=== PATIENT | male | born 1945 | race Caucasian/White ===

== ENCOUNTER → 2022-09-27 | Outpatient (CLI) | payer OTHER | END | disposition home or self-care (01) | LOC: LAB 10:26 | PROVIDERS: ATTEND Internal Medicine Hematology & Oncology | DX: I10 Essential (primary) hypertension (principal); E78.00 Pure hypercholesterolemia, unspecified; R73.03 Prediabetes | CPT/HCPCS: 82043; 82306 ==

== ENCOUNTER 2025-04-07 11:50 | Emergency (ER) | payer OTHER ==
[~2025-04-07] VITALS: Ht 172.7 cm; Wt 86.3 kg
--- NOTE | 2025-04-07 11:57 | ED.PDOC ---
SOB-HPI HPI Comments This is a 79 year old male MISA presenting to the ED with chief complaint of SOB. EMS reports patient was at his PCP appointment today when he was found to have an O2 saturation of 75% on RA. EMS relays that the patient was 85% on RA on their monitor, so he was provided a DuoNeb treatment and O2 via NC with improvement. Patient states that he is currently experiencing SOB with associated wheezing and bilateral leg swelling. Patient denies any chest pain, fever, chills, cough, dizziness, or syncope. Time Seen by MD: 11:55 Reviewed notes: Nurses Notes, Iron Melter Notes, Medications, Allergies Information Source: Patient, Emergency Med Personnel Mode of Arrival: EMS Severity: Moderate Timing: Hours Duration: Since onset Context: At Rest PE Risk Factors: None History of: COPD Prehospital treatment: Breathing Tx, Oxygen Modifying Factors: Nothing Associated Signs and Symptoms: Wheeze Past Medical History PAST MEDICAL HISTORY: COPD, HTN Surgical History: Denies all surgeries Family History Family History: Reviewed,noncontributory to illness Social History Smoker: Non-Smoker Alcohol: Denies ETOH Use Drugs: Denies Drug Use Lives In: Home Constitutional: denies: chills, diaphoresis, fatigue, fever, malaise, sweats, weakness, others EENTM: denies: blurred vision, double vision, ear bleeding, ear discharge, ear drainage, ear pain, ear ringing, eye pain, eye redness, hearing loss, mouth pain, mouth swelling, nasal discharge, nose bleeding, nose congestion, nose pain, photophobia, tearing, throat pain, throat swelling, voice changes, others Respiratory: reports: shortness of breath, wheezing; denies: cough, hemoptysis, orthopnea, SOB at rest, SOB with excertion, stridor, others Cardiovascular: reports: edema; denies: chest pain, dizzy spells, diaphoresis, Dyspnea on exertion, irregular heart beat, left arm pain, lightheadedness, palpitations, PND, syncope, others Gastrointestinal: denies: abdomen distended, abdominal pain, blood streaked bowels, constipated, diarrhea, dysphagia, difficulty swallowing, hematemesis, melena, nausea, poor appetite, poor fluid intake, rectal bleeding, rectal pain, vomiting, others Genitourinary: denies: burning, dysuria, flank pain, frequency, hematuria, incontinence, penile discharge, penile sore, pain, testicle pain, testicle swelling, urgency, others Neurological: denies: dizziness, fainting, headache, left sided numbness, left sided weakness, numbness, paresthesia, pre-existing deficit, right sided numbness, right sided weakness, seizure, speech problems, tingling, tremors, weakness, others Musculoskeletal: denies: back pain, gout, joint pain, joint swelling, muscle pain, muscle stiffness, neck pain, others Integumetry: denies: bruises, change in color, change in hair/nails, dryness, laceration, lesions, lumps, rash, wounds, others Allergic/Immunocompromised: denies: Difficulty Healing, Frequent Infections, Hives, Itching, others Hematologic/Lymphatic: denies: anemia, blood clots, easy bleeding, easy bruising, swollen glands, others Endocrine: denies: excessive hunger, excessive sweating, excessive thirst, excessive urination, flushing, intolerance to cold, intolerance to heat, unexplained weight gain, unexplained weight loss, others Psychiatric: denies: anxiety, bipolar disorder, depression, hopeless, panic disorder, schizophrenia, sleepless, suicidal, others All Other Systems: Reviewed and Negative Physical Exam General Appearance: Moderate Distress, Normal HEENT: Normal ENT Inspection, Pharynx Normal, TMs Normal Neck: Full Range of Motion, Non-Tender, Normal, Normal Inspection Respiratory: Chest Non-Tender, Lungs Clear, No Accessory Muscle Use, No Respiratory Distress, Normal Breath Sounds Cardiovascular: No Edema, No JVD, No Murmur, No Gallop, Normal Peripheral Pulses, Regular Rate/Rhythm Breast Exam: Deferred Gastrointestinal: No Organomegaly, Non Tender, No Pulsatile Mass, Normal Bowel Sounds, Soft Genitalia: Deferred Pelvic: Deferred Rectal: Deferred Extremities: No calf tenderness, Normal capillary refill, Normal inspection, Normal range of motion, Non-tender, No pedal edema Musculoskeletal : Apperance: Normal Neurologic: Alert, business development associate II-XII nml as Tested, No Motor Deficits, Normal Affect, Normal Mood, No Sensory Deficits Cerebellar Function: NOT DONE Reflexes: NOT DONE Skin: Dry, Normal Color, Warm Peripheral Pulses: 3+ Radial (R), 3+ Radial (L) Lymphatic: No Adenopathy Was a procedure done? Was a procedure done?: No Differential Dx Differential Diagnosis: Anxiety, Asthma, Bronchitis, CHF, COPD X-Ray, Labs, Meds, VS Vital Signs Date Time Temp Pulse Resp B/P (MAP) Pulse Ox O2 Delivery O2 Flow Rate FiO2 04/07/25 12:13 92 Nasal Cannula* 2 28 04/07/25 11:58 91 04/07/25 11:55 97.8 84 20 171/144 98 97.8 Lab Test 04/07/25 12:13 Range/Units B-Type Natriuretic Peptide 130.95 0-100 pg/mL Current Medications Medications (Trade) Dose Ordered Sig/Jethro Route Start Time Stop Time Status Last Admin Albuterol (Ventolin Medneb) 5 mg ONCE ONCE NEB 04/07/25 12:00 04/07/25 12:02 DC 04/07/25 12:13 Ipratropium [place] (Atrovent Medneb) 0.5 mg ONCE ONCE NEB 04/07/25 12:00 04/07/25 12:02 DC 04/07/25 12:13 [place] [id number] Ph: [phone] DIAGNOSTIC IMAGING Diagnostic Imaging Report : [id number] Signed PATIENT: LUCIA HUTTON ACCT: [id number] UNIT: [id number] : 1945 LOC: ER ROOM / BED: / AGE / SEX: 79 / M ADM STATUS: REG ER SERVICE 1159 ORDERING PHYSICIAN: MARBIN FULLER MD PROCEDURE(s): CXRP - CHEST PORTABLE REASON: sob ORDER NUMBER(s): [id number], ACCESSION NUMBER(s): [id number] CHEST RADIOGRAPH Indication: sob Technique: XY CHEST PORTABLE COMPARISON: None FINDINGS: The cardiac silhouette is enlarged. The lungs demonstrate bilateral patchy airspace opacities. The pulmonary vasculature is prominent. Small bilateral pleural effusions. Aortic atherosclerotic disease. There is no pneumothorax. IMPRESSION: Cardiomegaly with pulmonary vascular congestion and bilateral patchy airspace opacities. Small bilateral pleural effusions ATED BY: PATRICK GILMORE MD DICTATED DATE/TIME: 04/07/25 1301 SIGNED BY: PATRICK GILMORE MD SIGNED DATE/TIME: 04/07/25 1301 CC: Patient alert. Came by ambulance because of shortness a breath. On examination he states that he has not shortness a breath. Vitals stable. Was able to get him off of mask. Was given breathing treatment. No leg swelling. Denies chest pain. Chest x-ray reviewed does show CHF. Was given Lasix. Explained to the patient. Was told to follow up with his primary care physician. Was told to come back if there is any problem. Images Reviewed?: Images reviewed and evaluated by me Time of 1ST Reevaluation: 12:55 Reevaluation 1ST: Improved Patient Education/Counseling: Diagnosis, Treatment Family Education/Counseling: No Family Present SEPSIS Sepsis Screen Physician Orders Chest Portable (04/07/25 11:59) Albuterol Medneb (Ventolin Medneb) (04/07/25 12:00) Electrocardigram (04/07/25 13:05) Vital Signs Date Time Temp Pulse Resp B/P (MAP) Pulse Ox O2 Delivery O2 Flow Rate FiO2 04/07/25 12:13 92 Nasal Cannula* 2 28 04/07/25 11:58 91 04/07/25 11:55 97.8 84 20 171/144 98 97.8 Medications Medications Dose Ordered Sig/Jethro Route Start Time Stop Time Status Last Admin Dose Admin Albuterol 5 mg ONCE ONCE NEB 04/07/25 12:00 04/07/25 12:02 DC 04/07/25 12:13 Ipratropium [place] 0.5 mg ONCE ONCE NEB 04/07/25 12:00 04/07/25 12:02 DC 04/07/25 12:13 Departure 1 Departure Time of Disposition: 14:24 Impression: Primary Impression: CHF (congestive heart failure) Qualified Codes: I50.43 - Acute on chronic combined systolic (congestive) and diastolic (congestive) heart failure Disposition: 01 HOME / SELF CARE / HOMELESS Condition: Good Discharged With: Self Critical Care Note Critical Care Time?: No Stability Stability form required: No Heart Score Heart Score: Heart Score Response (Comments) Value History Highly Suspicious 2 EKG Normal 0 Age >65 2 Risk Factors >3 or Hx ASHD 2 Troponin N/A 0 Total 6 I personally scribed for MARBIN FULLER MD ([email or web address]) on 04/07/25 at 11:57. Electronically submitted by Sandeep Murray ([email or web address]). I personally scribed for MARBIN FULLER MD ([email or web address]) on 04/07/25 at 13:20. Electronically submitted by Sandeep Murray ([email or web address]). MARBIN FULLER MD Apr 07, 2025 11:57
[2025-04-07] MEDS: ALBUTEROL SULF 2.5 MG/0.5ML(0.5%) NEB SOLN NEB ONE (12:13)
[2025-04-07] MEDS: IPRATROPIUM BROM 0.5 MG/2.5ML INH SOL NEB ONE (12:13)
--- NOTE | 2025-04-07 12:59 | DVH ---
CHEST RADIOGRAPH Indication: sob Technique: XY CHEST PORTABLE COMPARISON: None FINDINGS: The cardiac silhouette is enlarged. The lungs demonstrate bilateral patchy airspace opacities. The pu lmonary vasculature is prominent. Small bilateral pleural effusions. Aortic atherosclerotic disease. There is no pneumothorax. IMPRESSION: Cardiomegaly with pulmonary vascular congestion and bilateral patchy airspace opacities. Small bilateral pleural effusions
[2025-04-07 15:44] VITALS: BP 97/47; PULSE 90; RESP 18; TEMP 97.8; O2SAT 95
[2025-04-07] MEDS: MAGNESIUM SULFATE 1GM/100ML 100 ML IV ONE (16:01)
[2025-04-07] MEDS: FUROSEMIDE 40 MG/4 ML VIAL IV ONE (16:01)
[2025-04-07] MEDS: methylPREDNISolone SOD SUCC 125 MG/2 ML VL IV ONE (16:02)
--- NOTE | 2025-04-11 11:51 | ECG ---
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
== END 2025-04-07 14:25 | disposition home or self-care (01) ==
LOC: ER 11:50 → EDBD 11:50 → ER 14:25
DX: I11.0 Hypertensive heart disease with heart failure (principal); I50.9 Heart failure, unspecified; J44.9 Chronic obstructive pulmonary disease, unspecified
CPT/HCPCS: 71045; 83880; 93005; 94640; 96374; 99285; J2919

== ENCOUNTER 2025-04-25 11:42 | Inpatient (IN) | payer OTHER ==
[~2025-04-25] VITALS: Ht 172.7 cm; Wt 85.0 kg
--- NOTE | 2025-04-25 11:57 | ECG ---
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
--- NOTE | 2025-04-25 12:26 | ED.PDOC ---
SOB-HPI HPI Comments Mr. Laboy is a 79 year old male with prior medical history of hypertension, COPD, WI status post PCI with 3 ZABRINA in 2019, hyperlipidemia, and BPH, who presents today sent from Dr. Shine's office due to shortness of breath. Per the patient and his , he has had shortness of breath for the last few months which has progressively worsened to shortness of breath on minimal exertion, with recent exacerbation associated with nausea, vomiting, cough with clear phlegm, and sore throat. He refers he has bilateral lower extremity swelling, but states it has not worsened recently. He denies orthopnea, fever, abdominal pain, chest pain, palpitations, and dizziness. He was seen today at Dr. Shine's office where he has waturating 86% with pronounced wheezing and bilateral pedal edema, prompting staff to send him to the ER. On initial hi luation, the patient is saturating 94% on 3L O2 NC (which he does not have at home) and vitals are within range. Chief Complaint: Shortness of Breath Time Seen by MD: 11:46 Information Source: Patient, Spouse Mode of Arrival: Wheelchair Severity: Moderate Timing: Months Duration: Since onset Context: At Rest, With Light Exertion PE Risk Factors: None History of: COPD Modifying Factors: Exertion Associated Signs and Symptoms: Cough, Leg Swelling If cough with SOB: Clear (Phlegm ) Past Medical History PAST MEDICAL HISTORY: COPD, High Lipids, HTN, [place] Past Medical History (Other): BPH Surgical History: PTCA Family History Family History: Reviewed,noncontributory to illness Social History Smoker: Non-Smoker, Quit Greater Than 1 Year (Smoked 1/2 a pack of cigarettes a day for 60 years) Alcohol: Denies ETOH Use Drugs: Denies Drug Use Lives In: Home Constitutional: denies: chills, diaphoresis, fatigue, fever, malaise, sweats, weakness EENTM: reports: throat pain; denies: blurred vision, double vision, nasal discharge, nose congestion Respiratory: reports: cough, SOB with excertion; denies: hemoptysis, orthopnea Cardiovascular: reports: edema; denies: chest pain, dizzy spells, diaphoresis, Dyspnea on exertion, irregular heart beat, left arm pain, lightheadedness, palpitations Gastrointestinal: reports: nausea, vomiting; denies: abdomen distended, abdominal pain, blood streaked bowels, constipated, diarrhea, dysphagia, difficulty swallowing, hematemesis, melena Genitourinary: denies: burning, dysuria, flank pain, frequency, hematuria, incontinence, pain, urgency Neurological: reports: tremors; denies: dizziness, fainting, headache, nu mbness, paresthesia, pre-existing deficit, seizure, speech problems, weakness Musculoskeletal: denies: back pain, joint pain, joint swelling, muscle pain, muscle stiffness, neck pain Integumetry: denies: bruises, laceration, lesions, lumps, rash, wounds Physical Exam General Appearance: Moderate Distress HEENT: Normal ENT Inspection, PERRL/EOMI, Pharynx Normal Neck: Full Range of Motion, Non-Tender, Normal Inspection Respiratory: Other (Bilateral chest wall expansion, no pain on palpation of chest wall, presence of diffuse wheezing, no accessory muscle use) Cardiovascular: Other (Normal are RRR, presence bilateral pitting pedal edema +1) Breast Exam: Deferred Gastrointestinal: Non Tender, No Pulsatile Mass, Normal Bowel Sounds, Soft Genitalia: Deferred Pelvic: Deferred Rectal: Deferred Extremities: Normal capillary refill, Non-tender, Other (Bilateral pitting edema +1 ) Neurologic: Alert, Normal Affect, Normal Mood Cerebellar Function: NOT DONE Reflexes: NOT DONE Skin: Normal Color Peripheral Pulses: 2+ dorsalis pedis (R), 2+ dorsalis pedis (L) Lymphatic: Other (No cervical adenopathy ) EKG EKG : Pulse Rate (adult): 95 [place]: Normal Cardiac Rhythm: NSR ST: Old Was a procedure done? Was a procedure done?: No Differential Dx Differential Diagnosis: Bronchitis, CHF, COPD, Hyponatremia, Myocardial infarction, Pneumonia, Pulmonary Embolism, Respiratory Distress, Pharyngitis, URI X-Ray, Labs, Meds, VS Vital Signs Date Time Temp Pulse Resp B/P (MAP) Pulse Ox O2 Delivery O2 Flow Rate FiO2 04/25/25 14:10 Room Air* 0 21 04/25/25 14:09 98.0 78 19 100/78 (85) 98 98.0 04/25/25 13:19 24 93 Nasal Cannula* 2 28 04/25/25 11:45 98.4 92 20 99/81 94 98.4 Lab Test 04/25/25 14:48 04/25/25 12:47 Range/Units Troponin I High Sensitivity 60 *H 55 *H </=54 ng/L Triglycerides Level 78 < 150 mg/dL Cholesterol Level 141 < 200 mg/dL LDL Cholesterol 79 < 100 mg/dL HDL Cholesterol 48 40-59 mg/dL White Blood Count 13.0 H 4.4-10.8 10^3/uL Red Blood Count 4.27 L 4.5-5.90 10^6/uL Hemoglobin 13.4 L 13.5-17.5 g/dL Hematocrit 38.8 L 41.0-53.0 % Mean Corpuscular Volume 90.8 80.0-100.0 fL Mean Corpuscular Hemoglobin 31.5 28.0-32.0 pg Mean Corpuscular Hemoglobin Concent 34.7 32.0-36.0 g/dL Red Cell Distribution Width 13.7 11.8-14.3 % Platelet Count 177 140-450 10^3/uL Mean Platelet Volume 7.8 6.9-10.8 fL Neutrophils (%) (Auto) 82.9 H 37.0-80.0 % Lymphocytes (%) (Auto) 7.8 L 10.0-50.0 % Monocytes (%) (Auto) 8.6 0.0-12.0 % Eosinophils (%) (Auto) 0.4 0.0-7.0 % Basophils (%) (Auto) 0.3 0.0-2.0 % Neutrophils # (Auto) 10.8 H 1.6-8.6 10 ^3/uL Lymphocytes # (Auto) 1.0 0.4-5.4 10 ^3/uL Monocytes # (Auto) 1.1 0-1.3 10 ^3/uL Eosinophils # (Auto) 0.1 0-0.8 10 ^3/uL Basophils # (Auto) 0 0-0.2 10 ^3/uL Nucleated Red Blood Cells 0.0 % D-Dimer, Quantitative 9.66 H 0.0-0.49 mg/L FEU Sodium Level 128 L 136-145 mmol/L Potassium Level 3.6 3.5-5.1 mmol/L Chloride Level 85 L 98-107 mmol/L Carbon Dioxide Level 26 20-31 mmol/L Anion Gap 17 H 5-15 Blood Urea Nitrogen 49 H 9-23 mg/dL Creatinine 1.68 H 0.700-1.30 mg/dL Glomerular Filtration Rate Calc 41 >90 mL/min BUN/Creatinine Ratio 29.2 H 10.0-20.0 Serum Glucose 79 74-106 mg/dL Hemoglobin A1c 5.8 H <5.7 % A1C Calcium Level 6.3 L 8.7-10.4 mg/dL B-Type Natriuretic Peptide 100.85 0-100 pg/mL Current Medications Medications (Trade) Dose Ordered Sig/Jethro Route Start Time Stop Time Status Last Admin Albuterol (Ventolin Medneb) 1.25 mg ONCE ONCE NEB 04/25/25 12:30 04/25/25 12:54 DC 04/25/25 13:19 Methylprednisolone Sodium Succinate (Solu Medrol) 40 mg ONCE ONCE IV 04/25/25 12:30 04/25/25 12:54 DC 04/25/25 14:03 Ipratropium [place] (Atrovent Medneb) 0.5 mg ONCE ONCE NEB 04/25/25 12:30 04/25/25 12:54 DC 04/25/25 13:19 Time of 1ST Reevaluation: 14:31 Reevaluation 1ST: Improved Patient Education/Counseling: Diagnosis, Treatment Family Education/Counseling: Diagnosis, Treatment Comments The patient presented today due to shortness of breath On initial evaluation, he is saturating 94% on 3L of O2 NC, with other vitals within normal range On physical exam, there is diffuse wheezing on auscultation and bilateral +1 pitting pedal edema CBC shows leukocytosis with neutrophilia, BMP hyponatremia, elevated creatinine, and troponins 55 Chest xray signficant for bilateral lower lung opacities The patient was given a breathing treatment with ipratropium and albuterol, as well as SoluMedrol 40 mg IV once. The patient states that after steroid use he feels his SOB has improved The patient will be admitted for further work up and management. SEPSIS Sepsis Screen Date sepsis recognized/suspect: Apr 25, 2025 Time Sepsis recognized/suspect: 1145 Recent Procedure: No Respiratory Rate >20: No Heart Rate >90: Yes Temp<36 C (96.8 F) or >38.3 C: No SBP <90 or MAP <65 mmHG: No New Acute Mental Status Change: No Is the patient on CPAP, BIPAP,: No Physician Orders Chest Xray 1 View (04/25/25 12:22) Vital Signs Date Time Temp Pulse Resp B/P (MAP) Pulse Ox O2 Delivery O2 Flow Rate FiO2 04/25/25 14:10 Room Air* 0 21 04/25/25 14:09 98.0 78 19 100/78 (85) 98 98.0 04/25/25 13:19 24 93 Nasal Cannula* 2 28 04/25/25 11:45 98.4 92 20 99/81 94 98.4 Laboratory Tests Test 04/25/25 12:47 White Blood Count 13.0 10^3/uL (4.4-10.8) H Departure 1 Departure Time of Disposition: 15:00 Impression: Primary Impression: Acute hypoxic respiratory failure Disposition: 30 STILL A PATIENT Admit to: Tele Condition: Stable Critical Care Note Critical Care Time?: No Stability Stability form required: No Heart Score Heart Score: Heart Score Response (Comments) Value History Slightly Suspicious 0 EKG Normal 0 Age >65 2 Risk Factors 1 or 2 risk factors 1 Troponin 1-2 x's Normal limit 1 Total 4 MAGGIE SCOTT RESIDENT Apr 25, 2025 12:26
--- NOTE | 2025-04-25 12:52 | DVH ---
CHEST RADIOGRAPH Indication: SOB Technique: XY CHEST XRAY 1 VIEW Comparison: None FINDINGS: The cardiac silhouette is unremarkable. The lungs demonstrate perihilar and bibasilar airspace opacities. 6 mm left mid lung calcified nodule. The pulmonary vasculature is unremarkable. There is no pleural effusion. There is no pneumothorax. Aortic atherosclerotic disease. Median sternotomy wires. IMPRESSION: As above
[2025-04-25] MEDS: ALBUTEROL SULF 2.5 MG/0.5ML(0.5%) NEB SOLN NEB ONE (13:19)
[2025-04-25] MEDS: IPRATROPIUM BROM 0.5 MG/2.5ML INH SOL NEB ONE (13:19)
[2025-04-25 13:20] LABS: Hematocrit 38.8 % (41.0-53.0); Hemoglobin 13.4 g/dL (13.5-17.5); Mean Corpuscular Hemoglobin 31.5 pg (28.0-32.0); Mean Corpuscular Volume 90.8 fL (80.0-100.0); Nucleated Red Blood Cells % 0.0 %
[2025-04-25 13:30] LABS: Potassium 3.6 mmol/L (3.5-5.1)
[2025-04-25 13:31] LABS: Anion Gap 17 (5-15); Carbon Dioxide 26 mmol/L (20-31)
[2025-04-25 13:36] LABS: BUN/Creatinine Ratio 29.2 (10.0-20.0); Glucose 79 mg/dL (74-106)
[2025-04-25 13:37] LABS: Blood Urea Nitrogen 49 mg/dL (9-23); Calcium 6.3 mg/dL (8.7-10.4); Chloride 85 mmol/L (98-107); Sodium 128 mmol/L (136-145)
[2025-04-25] MEDS: methylPREDNISolone SOD SUCC 40 MG/ML VL IV ONE (14:03)
[2025-04-25] MEDS ORDERED: HYDROcodone-ACET 5/325MG TAB PO PRN (15:30)
[2025-04-25] MEDS ORDERED: ACETAMINOPHEN 325 MG TAB PO PRN (15:30)
[2025-04-25 15:52] VITALS: BP 100/78; PULSE 78; RESP 24; TEMP 98; O2SAT 93
--- NOTE | 2025-04-25 16:17 | DVHHPRES ---
History of Present Illness Resident Creating Document: JEFF LIEBERMAN RESIDENT History of Present Illness This is an 79-year-old male with past medical history of hypertension, COPD, hyperlipidemia, [place] status post PCI with three stents in 2019 and BPH. Patient presented to the ED referred by his PCP Dr. Shine due to acute shortness of breaths associated with bilateral lower extremity swelling. The patient reports that he visited Dr. Shine at his office and he was experiencing shortness of breaths associated with bilateral lower extremity swelling and was saturating 86% on room air. PCP referred the patient immediately to the ER for further assessment and management. Upon arrival to the ED, patient reports that he has been experiencing shortness of breaths with bilateral lower extremity swelling for the past few months but has recently got worse associated with cough and sputum production. Labs showed WBC of 13.0 , troponins were slightly elevated at 55, there was SUZANNE with a creatinine of 1.68 and BUN of 49. BNP was in the higher range of normal limit and D-dimer was significantly elevated at 9. EKG showed normal sinus rhythm with no significant ST segment elevation or depression. We ordered bilateral lower extremity tenderness daughter and V/Q scan due to significant SUZANNE. Initial chest x-ray showed bilateral perihilar opacities and a 6 mm left mid calcified nodule. We started the patient on IV methylprednisolone 40 mg IV b.i.d., albuterol and ipratropium med nebs and azithromycin and ceftriaxone possibly over imposed pneumonia. Upon my examination, patient has significant bilateral expiratory wheezes and no significant crackles. Patient is currently on 3 L of oxygen through nasal can nula saturating 94%. Home medication: Metoprolol tartrate (does not reported dosage), Symbicort inhaler, furosemide, albuterol inhaler rescue, atorvastatin, lisinopril, omeprazole, bumetanide (patient does not know the dose of the medications) Surgical history: Status post three stents placed in 2019, patient also reports open heart surgery in 2019 as well Social history: Denies smoking, drug intake or alcohol Cardiovascular: HTN, [place], hyperipidemia Pulmonary: COPD Renal/: Benign prostatic enlarg. Past Surgical History: Other (Open heart surgery in 2019 patient and does not know if it was a CABG or reason of the sx. But patient also has history of PCI with three drug-eluting stents) Family History: None Smoke: No ALCOHOL: none Drugs: None Lives: with Family Domestic Violence: Neg Review of Systems Constitutional: No: Fever, Chills, Sweats, Weakness, Malaise, Other Eyes: No: Pain, Vision change, Conjunctivae inflammation, Eyelid inflammation, Other, Redness ENT: No: Ear pain, Ear discharge, Nose pain, Nose discharge, Nose congestion, Mouth pain, Mouth swelling, Throat pain, Throat swelling, Other Respiratory: Cough, Dry, Shortness of breath, SOB with excertion, Wheezing, Sputum, Wheezing; No: Hemoptysis, Pleuritic Pain, Other Cardiovascular: No: Chest Pain, Palpitations, Orthopnea, Paroxysmal Noc. Dyspnea, Edema, Lt Headedness, Other Gastrointestinal: No: Nausea, Vomiting, Abdominal Pain, Diarrhea, Constipation, Melena, Hematochezia, Other Genitourinary: No Dysuria, No Frequency, No Incontinence, No Hematuria, No Retention, No Other Musculoskeletal: No: other, neck pain, shoulder pain, arm pain, back pain, hand pain, leg pain, foot pain Skin: No: Rash, Lesions, Jaundice, Bruising, Other Neurological: No: Weakness, Numbness, Incoordination, Change in speech, Confusion, Seizures, Other Allergies: Coded Allergies: NO KNOWN ALLERGIES (Unverified , 04/25/25) Medications Current Medications Medications Dose Ordered Sig/Jethro Route Start Time Stop Time Status Last Admin Dose Admin Acetaminophen 650 mg Q6HP PRN PO 04/25/25 15:30 UNV Acetaminophen/ Hydrocodone Bitart 1 tab Q4HP PRN PO 04/25/25 15:30 UNV Enoxaparin Sodium 40 mg DAILY SC 04/26/25 10:00 UNV Albuterol 2.5 mg Q4HR NEB 04/25/25 18:00 UNV Ipratropium [place] 0.5 mg Q4HR NEB 04/25/25 18:00 UNV Methylprednisolone Sodium Succinate 40 mg BID IV 04/25/25 22:00 UNV Ceftriaxone Sodium 50 ml @ 100 mls/hr DAILY IV 04/25/25 15:45 UNV Azithromycin 250 mg DAILY PO 04/26/25 10:00 UNV Exam Vital Signs Vital Signs Date Time Temp Pulse Resp B/P (MAP) Pulse Ox O2 Delivery O2 Flow Rate FiO2 04/25/25 14:10 Room Air* 0 21 04/25/25 14:09 98.0 78 19 100/78 (85) 98 98.0 General Appearance: Alert, Oriented X3, Cooperative, mild distress HEENT: Atraumatic, PERRLA, EOMI, Mucous membr. moist/pink Respiratory: Other (There is significant expiratory wheezes, decreased breath sounds but no crackles at this time.) Cardiovascular: Regular rate (Sinus tachycardia), Normal S1, Normal S2, No murmurs Abdominal: Normal bowel sounds, Soft, No tenderness, No hepatospenomegaly, No masses Extremities: No clubbing, No cyanosis, No edema, Normal pulses, No tenderness/swelling Skin: No rashes, No breakdown, No significant lesion Neuro: Normal gait, Normal speech, Strength at 5/5 X4 ext, Normal tone, Sensation intact, Cranial nerves 3-12 NL, Reflexes 2+ Psych/Mental Status: Mental status NL, Mood NL Labs/Xrays Labs Test 04/25/25 14:48 04/25/25 12:47 Range/Units White Blood Count 13.0 H 4.4-10.8 10^3/uL Red Blood Count 4.27 L 4.5-5.90 10^6/uL Hemoglobin 13.4 L 13.5-17.5 g/dL Hematocrit 38.8 L 41.0-53.0 % Mean Corpuscular Volume 90.8 80.0-100.0 fL Mean Corpuscular Hemoglobin 31.5 28.0-32.0 pg Mean Corpuscular Hemoglobin Concent 34.7 32.0-36.0 g/dL Red Cell Distribution Width 13.7 11.8-14.3 % Platelet Count 177 140-450 10^3/uL Mean Platelet Volume 7.8 6.9-10.8 fL Neutrophils (%) (Auto) 82.9 H 37.0-80.0 % Lymphocytes (%) (Auto) 7.8 L 10.0-50.0 % Monocytes (%) (Auto) 8.6 0.0-12.0 % Eosinophils (%) (Auto) 0.4 0.0-7.0 % Basophils (%) (Auto) 0.3 0.0-2.0 % Neutrophils # (Auto) 10.8 H 1.6-8.6 10 ^3/uL Lymphocytes # (Auto) 1.0 0.4-5.4 10 ^3/uL Monocytes # (Auto) 1.1 0-1.3 10 ^3/uL Eosinophils # (Auto) 0.1 0-0.8 10 ^3/uL Basophils # (Auto) 0 0-0.2 10 ^3/uL Nucleated Red Blood Cells 0.0 % D-Dimer, Quantitative 9.66 H 0.0-0.49 mg/L FEU Sodium Level 128 L 136-145 mmol/L Potassium Level 3.6 3.5-5.1 mmol/L Chloride Level 85 L 98-107 mmol/L Carbon Dioxide Level 26 20-31 mmol/L Anion Gap 17 H 5-15 Blood Urea Nitrogen 49 H 9-23 mg/dL Creatinine 1.68 H 0.700-1.30 mg/dL Glomerular Filtration Rate Calc 41 >90 mL/min BUN/Creatinine Ratio 29.2 H 10.0-20.0 Serum Glucose 79 74-106 mg/dL Calcium Level 6.3 L 8.7-10.4 mg/dL B-Type Natriuretic Peptide 100.85 0-100 pg/mL SEPSIS Sepsis Screen Date sepsis recognized/suspect: Apr 25, 2025 Time Sepsis recognized/suspect: 1144 Recent Procedure: No Respiratory Rate >20: No Heart Rate >90: Yes Temp<36 C (96.8 F) or >38.3 C: No SBP <90 or MAP <65 mmHG: No New Acute Mental Status Change: No Is the patient on CPAP, BIPAP,: No Physician Orders Urinalysis (04/25/25 12:22) Chest Xray 1 View (04/25/25 12:22) Troponin-I Hs (04/25/25 13:22) Admit (04/25/25 15:19) Code Status (04/25/25 15:19) Vital Signs .PER UNIT PROTOCOL (04/25/25 15:19) Review Orders With Adm. (04/25/25 15:19) Encourage Activity As Tolerate (04/25/25 15:19) Acetaminophen Tablet (Tylenol Tablet) (04/25/25 15:30) Notify Md Of Changes From Base (04/25/25 15:19) Advance Directive (04/25/25 15:19) Basic Metabolic Panel (04/26/25 04:00) Urinalysis (04/25/25 15:19) Complete Blood Count (04/26/25 04:00) Lipid Panel (04/25/25 15:19) Patient Condition (04/25/25 15:19) Allergies (04/25/25 15:19) Hydrocodone-Acet 5/325mg Tab ([place] 5/32 (04/25/25 15:30) Drug Screen (04/25/25 15:19) Hemoglobin A1c (04/25/25 15:19) Enoxaparin Sodium (Lovenox) (04/26/25 10:00) Bilat Lower Dvt (04/25/25 15:41) Echo 2d Mode Cardiac Dop (04/25/25 15:41) Cardiac Diet-2gna,Lofat,Lochol (04/25/25 Dinner) Albuterol Medneb (Ventolin Medneb) (04/25/25 18:00) Ipratropium Medneb (Atrovent Medneb) (04/25/25 18:00) Ceftriaxone 1gm/50ml (Rocephin) (04/25/25 15:45) Methylprednisolone Sod Succ (Solu Medrol (04/25/25 22:00) Azithromycin Tablet (Zithromax Tablet) (04/25/25 16:00) Azithromycin Tablet (Zithromax Tablet) (04/26/25 10:00) Nm Vq Scan (04/25/25 15:50) Vital Signs Date Time Temp Pulse Resp B/P (MAP) Pulse Ox O2 Delivery O2 Flow Rate FiO2 04/25/25 14:10 Room Air* 0 21 04/25/25 14:09 98.0 78 19 100/78 (85) 98 98.0 04/25/25 13:19 24 93 Nasal Cannula* 2 28 04/25/25 11:45 98.4 92 20 99/81 94 98.4 Laboratory Tests Test 04/25/25 12:47 White Blood Count 13.0 10^3/uL (4.4-10.8) H Medications Medications Dose Ordered Sig/Jethro Route Start Time Stop Time Status Last Admin Dose Admin Albuterol 1.25 mg ONCE ONCE NEB 04/25/25 12:30 04/25/25 12:54 DC 04/25/25 13:19 1.25 MG Ipratropium [place] 0.5 mg ONCE ONCE NEB 04/25/25 12:30 04/25/25 12:54 DC 04/25/25 13:19 0.5 MG Methylprednisolone Sodium Succinate 40 mg ONCE ONCE IV 04/25/25 12:30 04/25/25 12:54 DC 04/25/25 14:03 40 MG Assessment/Plan Assessment/Plan Assessment/plan Acute hypoxic respiratory failure likely due to acute COPD exacerbation COPD exacerbation with possible superimposed bacterial pneumonia Possible acute on chronic systolic/diastolic heart failure R/O pulmonary embolism Hypertensive heart disease with possible systolic/diastolic dysfunction SUZANNE likely due to VMN Dyslipidemia BPH History of [place], status post PCI Plan -initial chest x-ray showed bilateral patchy perihilar opacities with a 6 mm left mid calcified nodule -BNP was 100.85, troponins were slightly elevated at 55, 60 and D-dimer was elevated at 9 -ordered echocardiogram -EKG showed sinus tachycardia with no ST segment elevation or depression -ordered bilateral lower extremity venous Doppler to rule out DVT -ordered V/Q scan to rule out PE due to significant SUZANNE -start p.o. azithromycin -start IV ceftriaxone -start methylprednisolone 40 mg IV b.i.d. -start albuterol and ipratropium med nebs q.4 scheduled -cardiac diet -strict in's and out's -monitor kidney function -consider a CT of the chest to get a better assessment of the 6 mm left mid calcified nodule Goals of care discussed with the patient and at bedside, full code Plan discussed with Dr. Gonzalez Plan discussed with: Patient My Orders Orders - JEFF LIEBERMAN RESIDENT Procedure Category Date Status Time Admit ADMIT 04/25/25 Transmitted 15:19 Code Status CODE 04/25/25 Transmitted 15:19 Vital Signs [facility] 04/25/25 In Process 15:19 Review Orders With EZE 04/25/25 In Process Adm. 15:19 Encourage Activity As EZE 04/25/25 In Process Tolerate 15:19 Acetaminophen Tablet PHA 04/25/25 Logged (Tylenol Tablet) 15:30 Notify Of Changes EZE 04/25/25 In Process From Base 15:19 Advance Directive EZE 04/25/25 In Process 15:19 Basic Metabolic Panel LAB 04/26/25 Verified 04:00 Urinalysis LAB 04/25/25 Logged 15:19 Complete Blood Count LAB 04/26/25 Verified 04:00 Lipid Panel LAB 04/25/25 Logged 15:19 Patient Condition ORDERS 04/25/25 Transmitted 15:19 Allergies EZE 04/25/25 In Process 15:19 Hydrocodone-Acet PHA 04/25/25 Logged 5/325mg Tab (Rudyard 15:30 Drug Screen LAB 04/25/25 Logged 15:19 Hemoglobin A1c LAB 04/25/25 Logged 15:19 Enoxaparin Sodium PHA 04/26/25 Logged (Lovenox) 10:00 Bilat Lower Dvt US 04/25/25 Logged 15:41 Echo 2d Mode Cardiac US 04/25/25 Logged DOP 15:41 Cardiac DIET 04/25/25 Transmitted Diet-2gna,Lofat,Lochol Dinner Albuterol Medneb PHA 04/25/25 Logged (Ventolin Medneb) 18:00 Ipratropium Medneb PHA 04/25/25 Logged (Atrovent Medneb) 18:00 Ceftriaxone 1gm/50ml PHA 04/25/25 Logged (Rocephin) 15:45 Methylprednisolone PHA 04/25/25 Logged Sod Succ (Solu Medrol 22:00 Azithromycin Tablet PHA 04/25/25 Logged (Zithromax Tablet) 16:00 Azithromycin Tablet PHA 04/26/25 Logged (Zithromax Tablet) 10:00 Nm Vq Scan NM 04/25/25 Logged 15:50 Date of Service: Apr 25, 2025 Billing Provider: NINA GONZALEZ MD Common Visit Codes: 05058-PRPVHVJ INP/OBS CARE (HIGH) Secondary Visit Codes: [id number] CARE PLAN 30 MINUTES JEFF LIEBERMAN RESIDENT Apr 25, 2025 16:17
[2025-04-25] MEDS: AZITHROMYCIN 250 MG TAB PO ONE (16:35)
[2025-04-25 16:37] LABS: Triglycerides 78 mg/dL (< 150)
[2025-04-25 16:39] LABS: Cholesterol 141 mg/dL (< 200); HDL Cholesterol 48 mg/dL (40-59)
--- NOTE | 2025-04-25 17:29 | DVH ---
Technique: Real-time ultrasound imaging, with color Doppler and compression of the bilateral common femoral vein, femoral vein, greater saphenous vein, and popliteal vein. Indication: R/O DVT Comparison: None Findings: There is normal compressibility and flow augmentation in all of the imaged deep veins. There are no filling defects. Left saphenofemoral junction nonvisualized. Right popliteal fossa fluid collection with debris measuring 6.3 x 4.4 cm Impression: No evidence of DVT in the bilateral lower extremities Right popliteal fossa fluid collection with debris measuring 6.3 x 4.4 cm, possibly Maxwell's cyst. Correlate clinically.
[2025-04-25] MEDS ORDERED: IPRATROPIUM BROM 0.5 MG/2.5ML INH SOL NEB SCH (18:00)
[2025-04-25] MEDS ORDERED: ALBUTEROL SULF 2.5 MG/0.5ML(0.5%) NEB SOLN NEB SCH (18:00)
--- NOTE | 2025-04-25 18:58 | DVH ---
EXAM: NM NM VQ SCAN HISTORY: PULMONARY EMBOLISM COMPARISON: Chest radiograph from today TECHNIQUE: 4.5 mCi of Tc99m MAA were utilized for the perfusion portion of the study. 5.3 mCi of xenon 133 were utilized for the ventilation portion of the study. FINDINGS: There is no large mismatched defect. IMPRESSION: Very low probability for pulmonary embolism.
[2025-04-25] MEDS ORDERED: methylPREDNISolone SOD SUCC 40 MG/ML VL IV SCH (22:00)
[2025-04-26 08:17] VITALS: PULSE 95
[2025-04-26] MEDS ORDERED: AZITHROMYCIN 250 MG TAB PO SCH (10:00)
[2025-04-26] MEDS ORDERED: ENOXAPARIN SOD 40 MG/0.4 ML SYRINGE SC SCH (10:00)
--- NOTE | 2025-04-27 12:51 | DVHDSRES ---
Discharge Summary Date of Admission Resident Creating Document: JEFF LIEBERMAN RESIDENT Apr 25, 2025 at 15:19 Date of Discharge: Apr 26, 2025 Admitting Diagnosis Acute hypoxic respiratory failure Wounds: no wounds reported Labs/Diagnostic Data: Laboratory Results Test 04/25/25 14:48 04/25/25 12:47 Troponin I High Sensitivity 60 ng/L (</=54) Triglycerides Level 78 mg/dL (< 150) Cholesterol Level 141 mg/dL (< 200) LDL Cholesterol 79 mg/dL (< 100) HDL Cholesterol 48 mg/dL (40-59) White Blood Count 13.0 10^3/uL (4.4-10.8) Red Blood Count 4.27 10^6/uL (4.5-5.90) Hemoglobin 13.4 g/dL (13.5-17.5) Hematocrit 38.8 % (41.0-53.0) Mean Corpuscular Volume 90.8 fL (80.0-100.0) Mean Corpuscular Hemoglobin 31.5 pg (28.0-32.0) Mean Corpuscular Hemoglobin Concent 34.7 g/dL (32.0-36.0) Red Cell Distribution Width 13.7 % (11.8-14.3) Platelet Count 177 10^3/uL (140-450) Mean Platelet Volume 7.8 fL (6.9-10.8) Neutrophils (%) (Auto) 82.9 % (37.0-80.0) Lymphocytes (%) (Auto) 7.8 % (10.0-50.0) Monocytes (%) (Auto) 8.6 % (0.0-12.0) Eosinophils (%) (Auto) 0.4 % (0.0-7.0) Basophils (%) (Auto) 0.3 % (0.0-2.0) Neutrophils # (Auto) 10.8 10 ^3/uL (1.6-8.6) Lymphocytes # (Auto) 1.0 10 ^3/uL (0.4-5.4) Monocytes # (Auto) 1.1 10 ^3/uL (0-1.3) Eosinophils # (Auto) 0.1 10 ^3/uL (0-0.8) Basophils # (Auto) 0 10 ^3/uL (0-0.2) Nucleated Red Blood Cells 0.0 % D-Dimer, Quantitative 9.66 mg/L FEU (0.0-0.49) Sodium Level 128 mmol/L (136-145) Potassium Level 3.6 mmol/L (3.5-5.1) Chloride Level 85 mmol/L (98-107) Carbon Dioxide Level 26 mmol/L (20-31) Anion Gap 17 (5-15) Blood Urea Nitrogen 49 mg/dL (9-23) Creatinine 1.68 mg/dL (0.700-1.30) Glomerular Filtration Rate Calc 41 mL/min (>90) BUN/Creatinine Ratio 29.2 (10.0-20.0) Serum Glucose 79 mg/dL (74-106) Hemoglobin A1c 5.8 % A1C (<5.7) Calcium Level 6.3 mg/dL (8.7-10.4) B-Type Natriuretic Peptide 100.85 pg/mL (0-100) Other Laboratory Tests 04/25/25 12:47 Brief Hx & Hospital Course: This is an 79-year-old male with past medical history of hypertension, COPD, hyperlipidemia, [place] status post PCI with three stents in 2019 and BPH. Patient presented to the ED referred by his PCP Dr. Shine due to acute shortness of breaths associated with bilateral lower extremity swelling. The patient reports that he visited Dr. Shine at his office and he was experiencing shortness of breaths associated with bilateral lower extremity swelling and was saturating 86% on room air. PCP referred the patient immediately to the ER for further assessment and management. Upon arrival to the ED, patient reports that he has been experiencing shortness of breaths with bilateral lower extremity swelling for the past few months but has recently got worse associated with cough and sputum production. Labs showed WBC of 13.0 , troponins were slightly elevated at 55, there was SUZANNE with a creatinine of 1.68 and BUN of 49. BNP was in the higher range of normal limit and D-dimer was significantly elevated at 9. EKG showed normal sinus rhythm with no significant ST segment elevation or depression. We ordered bilateral lower extremity tenderness daughter and V/Q scan due to significant SUZANNE. Initial chest x-ray showed bilateral perihilar opacities and a 6 mm left mid calcified nodule. We started the patient on IV methylprednisolone 40 mg IV b.i.d., albuterol and ipratropium med nebs and azithromycin and ceftriaxone possibly over imposed pneumonia. Upon my examination, patient has significant bilateral expiratory wheezes and no significant crackles. Patient is currently on 3 L of oxygen through nasal cannula saturating 94%. After examination and providing the patient all the information of why he has to be admitted to the hospital for further assessment, patient decided to leave AMA despite of been encouraged multiple times to stay in the hospital and the potential of respiratory deterioration if he decided to leave the hospital. Despite advise patient went AMA. Consults/Reason for consult none Operations or Procedures CHEST RADIOGRAPH Indication: SOB Technique: XY CHEST XRAY 1 VIEW Comparison: None FINDINGS: The cardiac silhouette is unremarkable. The lungs demonstrate perihilar and bibasilar airspace opacities. 6 mm left mid lung calcified nodule. The pulmonary vasculature is unremarkable. There is no pleural effusion. There is no pneumothorax. Aortic atherosclerotic disease. Median sternotomy wires. IMPRESSION: As above Technique: Real-time ultrasound imaging, with color Doppler and compression of the bilateral common femoral vein, femoral vein, greater saphenous vein, and popliteal vein. Indication: R/O DVT Comparison: None Findings: There is normal compressibility and flow augmentation in all of the imaged deep veins. There are no filling defects. Left saphenofemoral junction nonvisualized. Right popliteal fossa fluid collection with debris measuring 6.3 x 4.4 cm Impression: No evidence of DVT in the bilateral lower extremities Right popliteal fossa fluid collection with debris measuring 6.3 x 4.4 cm, possibly Maxwell's cyst. Correlate clinically. EXAM: NM NM VQ SCAN HISTORY: PULMONARY EMBOLISM COMPARISON: Chest radiograph from today TECHNIQUE: 4.5 mCi of Tc99m MAA were utilized for the perfusion portion of the study. 5.3 mCi of xenon 133 were utilized for the ventilation portion of the study. FINDINGS: There is no large mismatched defect. IMPRESSION: Very low probability for pulmonary embolism. Condition at Discharge: Undetermined Final Diagnosis/Problems List Acute hypoxic respiratory failure likely due to acute COPD exacerbation COPD exacerbation with possible superimposed bacterial pneumonia Possible acute on chronic systolic/diastolic heart failure R/O pulmonary embolism Hypertensive heart disease with possible systolic/diastolic dysfunction SUZANNE likely due to VMN Dyslipidemia BPH History of [place], status post PCI Discharge Disposition: AMA Discharge Statement: "Patient was advised to return to the ER or call 911 if any headaches, dizziness, shortness of breath, chest pain, abdominal pain, bleeding, fevers, or worsening of medical condition. Patient was counseled about treatment plan, medications, possible side effects, patientverbalized understanding. All questions were answered to the best of my ability. This discharge took greater then 30 minutes in planning, reviewing documentation, counseling the patient, and discussing with other team members." ASSESSMENT ASSESSMENT Assessment JEFF LIEBERMAN RESIDENT Apr 27, 2025 12:51
== END 2025-04-25 19:30 | disposition left against medical advice (07) | DRG 193 ==
LOC: ER 11:42 → OVERFLOW 15:19
PROVIDERS: ADMIT Student in an Organized Health Care Education/Training Program; ATTEND Emergency Medicine
DX: J15.9 Unspecified bacterial pneumonia (principal); I50.43 Acute on chronic combined systolic (congestive) and diastolic (congestive) heart failure; N17.0 Acute kidney failure with tubular necrosis; J96.01 Acute respiratory failure with hypoxia; I11.0 Hypertensive heart disease with heart failure; J44.0 Chronic obstructive pulmonary disease with (acute) lower respiratory infection; J44.1 Chronic obstructive pulmonary disease with (acute) exacerbation; N40.0 Benign prostatic hyperplasia without lower urinary tract symptoms; E78.5 Hyperlipidemia, unspecified; Z53.29 Procedure and treatment not carried out because of patient's decision for other reasons; I25.2 Old myocardial infarction; Z98.61 Coronary angioplasty status; Z87.891 Personal history of nicotine dependence
CPT/HCPCS: 36415; 71045; 78582; 80048; 80061; 83036; 83880; 84484; 85025; 85379; 93005; 93970; 94640; 96374; G0378

== ENCOUNTER 2025-05-02 09:41 | Inpatient (IN) | payer OTHER ==
[~2025-05-02] VITALS: Ht 182.9 cm; Wt 84.5 kg
[~2025-05-02 09:41] MED LIST: ATOR20TA50 PO; BUDE1AER4 INH; BUME1TAB3 PO; FURO40TA4 PO; LISI20TA56 PO; MET50T PO; OMEP1CAP70 PO; TERA1CAP52 PO
--- NOTE | 2025-05-02 10:16 | ED.PDOC ---
SOB-HPI HPI Comments 79 year old male with PMHx COPD, [place], HLD, HTN presents to the ED via EMS with a chief complaint of shortness of breath onset 2 days. Per EMS, patient has been experiencing shortness of breath as well as cough for the past 2 days. Patient slid down to the floor last night, was not able to get up, stayed on the floor all night. Currently patient is A&O x3, is on 8L with O2 sat 97%, was given 2 med neb treatments in route to ED by EMS. Patient is a poor historian. Was discharged from [facility] on 04/27/25 with diagnosis of Acute hypoxic respiratory failure likely due to acute COPD exacerbation. No other symptoms or modifying factors present at this time. Chief Complaint: Shortness of Breath Time Seen by MD: 10:00 Reviewed notes: Medications Information Source: Patient, Emergency Med Personnel Mode of Arrival: EMS Severity: Moderate Timing: Days Duration: Since onset Context: At Rest PE Risk Factors: None History of: COPD Prehospital treatment: None Modifying Factors: Nothing Past Medical History PAST MEDICAL HISTORY: COPD, High Lipids, HTN, OH Surgical History: PTCA Family History Family History: Reviewed,noncontributory to illness Social History Smoker: Non-Smoker, Quit Greater Than 1 Year Alcohol: Denies ETOH Use Drugs: Denies Drug Use Lives In: Home Respiratory: reports: shortness of breath Unable to Obtain due to: Altered Mental Status Physical Exam General Appearance: Normal HEENT: Normal ENT Inspection, Pharynx Normal, TMs Normal Neck: Full Range of Motion, Non-Tender, Normal, Normal Inspection Respiratory: Chest Non-Tender, Lungs Clear, No Accessory Muscle Use, No Respiratory Distress, Normal Breath Sounds Cardiovascular: No Edema, No JVD, No Murmur, No Gallop, Normal Peripheral Pulses, Regular Rate/Rhythm Breast Exam: Deferred Gastrointestinal: No Organomegaly, Non Tender, No Pulsatile Mass, Normal Bowel Sounds, Soft Genitalia: Deferred Pelvic: Deferred Rectal: Deferred Extremities: No calf tenderness, Normal capillary refill, Normal inspection, Normal range of motion, Non-tender, No pedal edema Musculoskeletal : Apperance: Normal Neurologic: Alert, product manufacturing professional II-XII nml as Tested, No Motor Deficits, Normal Affect, Normal Mood, No Sensory Deficits Cerebellar Function: Normal Reflexes: Normal Skin: Dry, Normal Color, Warm Lymphatic: No Adenopathy Was a procedure done? Was a procedure done?: Yes Sedation Sedation?: No Informed consent obtained: Yes Central Line Recorder of insertion practice: Lumber Sticker, Observer Occupation of group sales coordinator: Attending Physician Indication: Volume resuscitation, Other (Numerous electrolyte abnormalities) Room prepared for procedure: Yes Lumber Sticker performed hand hygien: Yes Maximal sterile barrier precau: Mask/Eye shield, Sterile gown, Cap, Sterlie gloves, Large sterlie drape Skin Preparation: Chlorhexidine gluconate Skin preparation completely dr: Yes Insertion site: Right, Internal jugular Central line catheter type: Pac-ecpdzviz-yga dialysis Number of lumens: 3 Antiseptic ointment applied to: Yes Post Assessment: Chest X-Ray, Proper placement Informed consent obtained: Yes Risks/benefits/alt described: Yes Differential Dx Differential Diagnosis: Bronchitis, COPD, Pneumonia, URI X-Ray, Labs, Meds, VS Vital Signs Date Time Temp Pulse Resp B/P (MAP) Pulse Ox O2 Delivery O2 Flow Rate FiO2 05/02/25 14:00 104 15 99/55 (70) 05/02/25 13:00 86 13 90/48 (62) 98 05/02/25 12:00 97 16 93/51 (65) 97 05/02/25 11:19 90 22 92 Nasal Cannula* 3 32 05/02/25 11:18 97.8 92 22 113/75 (88) 92 97.8 05/02/25 09:48 130 05/02/25 09:47 97.6 95 20 172/89 97 97.6 Lab Test 05/02/25 13:50 05/02/25 12:09 05/02/25 11:43 05/02/25 11:00 Range/Units Prothrombin Time 12.2 H 9.3-11.8 sec Prothrombin Time INR 1.17 H 0.9-1.15 Activated Partial Thromboplast Time 32.5 24.5-34.5 SEC Serum Osmolality Pending Creatine Kinase 3477 H 46-171 U/L Troponin I High Sensitivity 67 *H 56 *H </=54 ng/L Thyroid Stimulating Hormone (TSH) 0.53 L 0.55-4.78 uIU/mL Urine Color Light-yellow Yellow Urine Clarity Clear Clear Urine pH 5.5 5.0-9.0 Urine Specific [place] 1.009 1.001-1.035 Urine Protein Negative Negative Urine Ketones 1+ H Negative Urine Blood 1+ H Negative /uL Urine Nitrite Negative Negative Urine Bilirubin Negative Negative Urine Urobilinogen Normal Negative mg/dL Urine Leukocyte Esterase Negative Negative /uL Urine RBC 8 0 - 3 /hpf Urine Microscopic WBC 1 0-3 /HPF Urine Squamous Epithelial Cells None seen <5 /hpf Urine Bacteria None seen None Seen /hpf Urine Glucose Normal Normal mg/dL Legionella pneumophila S1-6 Abs Pending Test 05/02/25 10:55 Range/Units White Blood Count 15.1 H 4.4-10.8 10^3/uL Red Blood Count 4.49 L 4.5-5.90 10^6/uL Hemoglobin 13.9 13.5-17.5 g/dL Hematocrit 38.6 L 41.0-53.0 % Mean Corpuscular Volume 86.0 # 80.0-100.0 fL Mean Corpuscular Hemoglobin 31.0 28.0-32.0 pg Mean Corpuscular Hemoglobin Concent 36.1 H 32.0-36.0 g/dL Red Cell Distribution Width 13.4 11.8-14.3 % Platelet Count 254 140-450 10^3/uL Mean Platelet Volume 7.3 6.9-10.8 fL Neutrophils (%) (Auto) 87.5 H 37.0-80.0 % Lymphocytes (%) (Auto) 5.3 L 10.0-50.0 % Monocytes (%) (Auto) 6.8 0.0-12.0 % Eosinophils (%) (Auto) 0.1 0.0-7.0 % Basophils (%) (Auto) 0.3 0.0-2.0 % Neutrophils # (Auto) 13.2 H 1.6-8.6 10 ^3/uL Lymphocytes # (Auto) 0.8 0.4-5.4 10 ^3/uL Monocytes # (Auto) 1.0 0-1.3 10 ^3/uL Eosinophils # (Auto) 0 0-0.8 10 ^3/uL Basophils # (Auto) 0 0-0.2 10 ^3/uL Nucleated Red Blood Cells 0.0 % Sodium Level 111 #*L 136-145 mmol/L Potassium Level 3.1 L 3.5-5.1 mmol/L Chloride Level 70 #L 98-107 mmol/L Carbon Dioxide Level 24 20-31 mmol/L Anion Gap 17 H 5-15 Blood Urea Nitrogen 41 H 9-23 mg/dL Creatinine 1.12 0.700-1.30 mg/dL Glomerular Filtration Rate Calc 66 >90 mL/min BUN/Creatinine Ratio 36.6 H 10.0-20.0 Serum Glucose 88 74-106 mg/dL Lactic Acid Level 1.5 0.4-2.0 mmol/L Calcium Level 6.5 L 8.7-10.4 mg/dL Total Bilirubin 0.9 0.2-1.0 mg/dL Aspartate Amino Transferase (AST) 164 H 13-40 U/L Alanine Aminotransferase (ALT) 105 H 7-40 U/L Alkaline Phosphatase 87 46-116 U/L Creatine Kinase 3214 H 46-171 U/L Troponin I High Sensitivity 56 *H </=54 ng/L B-Type Natriuretic Peptide 294.04 0-100 pg/mL Total Protein 6.1 5.7-8.2 g/dL Albumin 3.7 3.2-4.8 g/dL Lipase 34 12-53 U/L Vitamin B12 Level > 4000 H 211-911 pg/mL Vitamin D 25-Hydroxy 76.6 30.0-100 ng/mL Current Medications Medications (Trade) Dose Ordered Sig/Jethro Route Start Time Stop Time Status Last Admin Sodium Chloride 1,000 ml @ 1,000 mls/hr Q1H ONCE IV 05/02/25 14:15 05/02/25 15:14 NV 05/02/25 15:00 Cefepime HCl 50 ml @ 12.5 mls/hr ONCE ONCE IV 05/02/25 14:15 05/02/25 18:14 NV 05/02/25 16:19 [place] [address] Ph: [phone] DIAGNOSTIC IMAGING Diagnostic Imaging Report : [id number] Signed PATIENT: LUCIA HUTTON ACCT: [id number] UNIT: [id number] : 1945 LOC: ER ROOM / BED: / AGE / SEX: 79 / M ADM STATUS: REG ER SERVICE 1005 ORDERING PHYSICIAN: MILY BARRIENTOS MD PROCEDURE(s): HWOCT - HEAD WITHOUT CONTRAST REASON: found down ORDER NUMBER(s): [id number], ACCESSION NUMBER(s): [id number] CLINICAL INFORMATION: Found down. TECHNIQUE: Axial imaging was obtained through the brain without contrast. Coronal and sagittal reformatted images were obtained, reviewed, and stored. Images were reviewed in brain and bone windows. All CT scans at this medical facility are performed using dose modulation techniques as appropriate to a performed exam including the following: Automated exposure control was utilized; adjustment of the MA and/or KV according to patient size; and use of iterative reconstruction technique. CTDIvol = 59.14 mGy DLP = 1165.45 mGy-cm COMPARISON: None FINDINGS: There is no acute intracranial hemorrhage. No mass effect or midline shift. Scattered areas of hypoattenuation are seen in the periventricular and subcortical white matter, which are nonspecific but most likely sequelae of small vessel ischemic disease. More focal area of encephalomalacia is seen in th e right frontal lobe, may be sequelae of chronic infarct. The ventricles and sulci are within normal limits in size for age. Basal cisterns are patent. The calvarium is unremarkable. Paranasal sinuses and mastoid air cells are clear. IMPRESSION: 1. No CT evidence of acute intracranial abnormality. 2. Nonacute findings as described above. ATED BY: MARCIAL ALCANTARA DO DICTATED DATE/TIME: 05/02/25 104 SIGNED BY: MARCIAL ALCANTARA DO SIGNED DATE/TIME: 05/02/251044 CC: [place] [address] Ph: [phone] DIAGNOSTIC IMAGING Diagnostic Imaging Report : [id number] Signed PATIENT: LUCIA HUTTON ACCT: [id number] UNIT: [id number] : 1945 LOC: ER ROOM / BED: / AGE / SEX: 79 / M ADM STATUS: REG ER SERVICE 1005 ORDERING PHYSICIAN: MILY BARRIENTOS MD PROCEDURE(s): CXRP - CHEST PORTABLE REASON: found down ORDER NUMBER(s): [id number], ACCESSION NUMBER(s): [id number] XY CHEST PORTABLE, HISTORY: found down COMPARISON: XY CHEST XRAY 1 VIEW on DOS: 04/25/25, XY CHEST PORTABLE on DOS: 04/07/25 XY CHEST XRAY 1 VIEW on DOS: 04/25/25, XY CHEST PORTABLE on DOS: 04/07/25 TECHNICAL DATA: 1 view of the chest was obtained. FINDINGS: Lines and tubes: None Cardiomediastinal silhouette: normal Pulmonary vasculature: Prominent Lung expansion: normal Lung airspace: Mild bibasilar airspace opacity. Stable left mid lung zone pulmonary nodule. Lung interstitium: normal Pleura: normal Pneumothorax: no Bones: Unremarkable Other: no IMPRESSION: Mild bibasilar airspace opacity. ATED BY: STERLING SIMMONS MD DICTATED DATE/TIME: 05/02/251055 SIGNED BY: STERLING SIMMONS MD SIGNED DATE/TIME: 05/02/251055 CC: Time of 1ST Reevaluation: 10:30 Reevaluation 1ST: Unchanged Patient Education/Counseling: Diagnosis, Treatment, Prognosis Family Education/Counseling: No Family Present SEPSIS Sepsis Screen Date sepsis recognized/suspect: May 02, 2025 Time Sepsis recognized/suspect: 951 Recent Procedure: No On Antibiotic Therapy: No Respiratory Rate >20: No Heart Rate >90: No Temp<36 C (96.8 F) or >38.3 C: No SBP <90 or MAP <65 mmHG: No New Acute Mental Status Change: No Is the patient on CPAP, BIPAP,: No Physician Orders Chest Portable (05/02/25 10:05) Head Without Contrast (05/02/25 10:05) Blood Culture (05/02/25 10:05) Electrocardigram (05/02/25 11:05) Electrocardigram (05/02/25 13:05) Urine Bacterial Culture (05/02/25 11:14) Insert Sanchez Catheter QSHIFT (05/02/25 11:14) Vital Signs Date Time Temp Pulse Resp B/P (MAP) Pulse Ox O2 Delivery O2 Flow Rate FiO2 05/02/25 14:00 104 15 99/55 (70) 05/02/25 13:00 86 13 90/48 (62) 98 05/02/25 12:00 97 16 93/51 (65) 97 05/02/25 11:19 90 22 92 Nasal Cannula* 3 32 05/02/25 11:18 97.8 92 22 113/75 (88) 92 97.8 05/02/25 09:48 130 05/02/25 09:47 97.6 95 20 172/89 97 97.6 Laboratory Tests Test 05/02/25 10:55 Lactic Acid Level 1.5 mmol/L (0.4-2.0) White Blood Count 15.1 10^3/uL (4.4-10.8) H Medications Medications Dose Ordered Sig/Jethro Route Start Time Stop Time Status Last Admin Dose Admin Cefepime HCl 50 ml @ 12.5 mls/hr ONCE ONCE IV 05/02/25 14:15 05/02/25 18:14 DC 05/02/25 16:19 Sodium Chloride 1,000 ml @ 1,000 mls/hr Q1H ONCE IV 05/02/25 14:15 05/02/25 15:14 DC 05/02/25 15:00 Departure 1 Departure Time of Disposition: 14:15 (Patient with a acute metabolic encephalopathy. Patient in rhabdomyolysis. Patient also with severe hyponatremia. Patient likely may be septic. We will not give large volume fluid resuscitation at this time because patient also appears mildly clinically volume overloaded then do not want to raise the sodium level to rapidly. We will admit patient to the ICU with a nephrology consult and further expert consultation.) Impression: Primary Impression: Acute metabolic encephalopathy Additional Impressions: Hyponatremia Rhabdomyolysis Hypokalemia Hypocalcemia Hypomagnesemia Transaminitis Disposition: ADMITTED INPATIENT Admit to: ICU Condition: Guarded Critical Care Note Critical Care Time?: Yes (35 min-critical care time only) Critical care comment: Patient with rhabdomyolysis, signs of numerous electrolyte abnormalities requiring aggressive IV fluid hydration and IV electrolyte repletion Stability Stability form required: No Heart Score Heart Score: Heart Score Response (Comments) Value History N/A 0 EKG N/A 0 Age N/A 0 Risk Factors N/A 0 Troponin N/A 0 Total 0 I personally scribed for MILY BARRIENTOS MD ([email or web address]) on 05/02/25 at 10:16. Electronically submitted by Elba Ash ([email or web address]). I personally scribed for MILY BARRIENTOS MD ([email or web address]) on 05/02/25 at 10:25. Electronically submitted by Elba Ash ([email or web address]). I personally scribed for MILY BARRIENTOS MD ([email or web address]) on 05/02/25 at 11:26. Electronically submitted by Elba Ash ([email or web address]). MILY BARRIENTOS MD May 02, 2025 10:16 ELINA WOOTEN MD May 02, 2025 19:52
--- NOTE | 2025-05-02 10:48 | DVH ---
XY CHEST PORTABLE, HISTORY: found down COMPARISON: XY CHEST XRAY 1 VIEW on DOS: 04/25/25, XY CHEST PORTABLE on DOS: 04/07/25 XY CHEST XRAY 1 VIEW on DOS: 04/25/25, XY CHEST PORTABLE on DOS: 04/07/25 TECHNICAL DATA: 1 view of the chest was obtained. FINDINGS: Lines and tubes: None Cardiomediastinal silhouette: normal Pulmonary vasculature: Prominent Lung expansion: normal Lung airspace: Mild bibasilar airspace opacity. Stable left mid lung zone pulmonary nodule. Lung interstitium: normal Pleura: normal Pneumothorax: no Bones: Unremarkable Other: no IMPRESSION: Mild bibasilar airspace opacity.
--- NOTE | 2025-05-02 10:48 | DVH ---
CLINICAL INFORMATION: Found down. TECHNIQUE: Axial imaging was obtained through the brain without contrast. Coronal and sagittal reformatted images were obtained, reviewed, and stored. Images were reviewed in brain and bone windows. All CT scans at this medical facility are performed using dose modulation techniques as appropriate to a performed exam including the following: Automated exposure control was utilized; adjustment of the MA and/or KV according to patient size; and use of iterative reconstruction technique. CTDIvol = 59.14 mGy DLP = 1165.45 mGy-cm COMPARISON: None FINDINGS: There is no acute intracranial hemorrhage. No mass effect or midline shift. Scattered areas of hypoattenuation are seen in the periventricular and subcortical white matter, which are nonspecific but most likely sequelae of small vessel ischemic disease. More focal area of encephalomalacia is seen in the right frontal lobe, may be sequelae of chronic infarct. The ventricles and sulci are within normal limits in size for age. Basal cisterns are patent. The calvarium is unremarkable. Paranasal sinuses and mastoid air cells are clear. IMPRESSION: 1. No CT evidence of acute intracranial abnormality. 2. Nonacute findings as described above.
[2025-05-02 11:19] VITALS: PULSE 90; RESP 22; O2SAT 92
[2025-05-02 11:56] LABS: Hematocrit 38.6 % (41.0-53.0); Hemoglobin 13.9 g/dL (13.5-17.5); Mean Corpuscular Hemoglobin 31.0 pg (28.0-32.0); Mean Corpuscular Volume 86.0 fL (80.0-100.0); Nucleated Red Blood Cells % 0.0 %
[2025-05-02 12:13] LABS: Urine Protein, UAD Negative (Negative)
[2025-05-02 12:26] LABS: Albumin 3.7 g/dL (3.2-4.8); Alkaline Phosphatase 87 U/L (46-116); Anion Gap 17 (5-15); BUN/Creatinine Ratio 36.6 (10.0-20.0); Carbon Dioxide 24 mmol/L (20-31); Glucose 88 mg/dL (74-106); Total Protein 6.1 g/dL (5.7-8.2)
[2025-05-02 12:27] LABS: Bilirubin, Total 0.9 mg/dL (0.2-1.0)
[2025-05-02 12:34] LABS: Alanine Aminotransferase 105 U/L (7-40); Blood Urea Nitrogen 41 mg/dL (9-23); Calcium 6.5 mg/dL (8.7-10.4); Chloride 70 mmol/L (98-107); Potassium 3.1 mmol/L (3.5-5.1); Sodium 111 mmol/L (136-145)
[2025-05-02 12:43] LABS: Creatine Kinase IFCC 3214 U/L (46-171)
[2025-05-02 12:57] LABS: Lipase 34 U/L (12-53)
[2025-05-02] MEDS ORDERED: ONDANSETRON HCL 4 MG/2 ML VIAL IV PRN (14:45)
[2025-05-02] MEDS ORDERED: MORPHINE SULFATE INJ 2 MG/ml SYRG IV PRN (14:45)
[2025-05-02] MEDS: SODIUM CHLORIDE 0.9% 1,000 ML IV ONE ×2 (15:00→18:33)
--- NOTE | 2025-05-02 15:03 | ECG ---
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
--- NOTE | 2025-05-02 15:14 | DVHHPRES ---
History of Present Illness Resident Creating Document: SHAHNAZ MARC RESIDENT History of Present Illness Singh Laboy is a 79-year-old male patient who presents to ED via EMS due to altered mental status. Due to clinical presentation, obtained history of present illness from EMR and . Per patient presented episode of confusion on Friday (three days before his admission), progressing to altered gait and not being able to mobilize by himself, patient tried to stand and slipped from bed with no head trauma or no head trauma per ( help him slid from the bed without any trauma). Associated, patient presented dyspnea and was desaturating, patient has history of COPD, per PCP wanted patient to be on home oxygen, which was pending. Due to worsening clinical status, called 911 and EMS brought patient to emergency department for further evaluation. Could not obtain review of systems. Past medical history: Dyslipidemia, hypertension, COPD with no home oxygen at this time, DE status post CABG and PCI in 2019, diastolic CHF, BPH Surgical history: PCI and CABG (unknown anatomy) Family history: Noncontributory Social history: Lives in [place] with (next of kin). Denies current tobacco, alcohol and other drug abuse Allergies: Denies Home medication: Lasix, Bumex, metolazone, lisinopril, Lopressor, atorvastatin, Symbicort, albuterol, omeprazole, terazosin Patient seen and examined at bedside. Patient currently hypotensive, alert and oriented only in two spheres (not in time and event), presents critical lab findings including severe hyponatremia, hypokalemia, hypomagnesemia, leukocytosis, transaminitis and r increased CPK. Patient was admitted to ICU status, right internal jugular central line was placed with verbal consent of , on IV vasopressors. Past Medical History Per HPI Past Surgical History Per HPI Family History Per HPI Past Social History Per HPI Review of Systems Review of Systems Per HPI Allergies: Coded Allergies: NO KNOWN ALLERGIES (Unverified , 04/25/25) Medications Current Medications Medications Dose Ordered Sig/Jethro Route Start Time Stop Time Status Last Admin Dose Admin Ondansetron HCl 4 mg Q4HP PRN IV 05/02/25 14:45 UNV Morphine Sulfate 2 mg Q4HPRN PRN IV 05/02/25 14:45 UNV Enoxaparin Sodium 40 mg DAILY SC 05/03/25 10:00 UNV Piperacillin Sod/ Tazobactam Sod 100 ml @ 25 mls/hr Q8HR IV 05/02/25 22:00 UNV Sodium Chloride 1,000 ml @ 100 mls/hr Q10H IV 05/02/25 14:45 UNV Aspirin 81 mg DAILY PO 05/03/25 10:00 UNV Potassium Chloride 100 ml @ 50 mls/hr Q2H IV 05/02/25 15:00 05/02/25 20:59 UNV Exam Vital Signs Vital Signs Date Time Temp Pulse Resp B/P (MAP) Pulse Ox O2 Delivery O2 Flow Rate FiO2 05/02/25 14:00 104 15 99/55 (70) 05/02/25 13:00 98 05/02/25 11:19 Nasal Cannula* 3 32 05/02/25 11:18 97.8 97.8 Exam Patient lying in bed, in no acute distress General: Boyle, afebrile, mucosae are dry Cardiovascular: Normal S1 and S2. No murmurs, gallops or rubs Respiratory: Regular ventilation mechanics, tachypnea. Decreased lung sounds on right base, rest of lung sounds are clear. Abdomen: Soft, nontender, no organomegaly, normal bowel sounds MSK/skin: Mobilizes 4 limbs. Reduced mobilization of right upper limb Skin is dry and warm.. Right lower limb is shortened rotated externally and with decreased motility. Hematomas are seen in right lower limb. Right lower limb swelling Neurological: Oriented in 2 spheres (not time nor vent). No motor no sensitive deficits. Pupils are isocoric and reactive Labs/Xrays Labs Test 05/02/25 13:50 05/02/25 11:43 05/02/25 10:55 Range/Units Troponin I High Sensitivity 67 *H </=54 ng/L Urine Color Light-yellow Yellow Urine Clarity Clear Clear Urine pH 5.5 5.0-9.0 Urine Specific [place] 1.009 1.001-1.035 Urine Protein Negative Negative Urine Ketones 1+ H Negative Urine Blood 1+ H Negative /uL Urine Nitrite Negative Negative Urine Bilirubin Negative Negative Urine Urobilinogen Normal Negative mg/dL Urine Leukocyte Esterase Negative Negative /uL Urine RBC 8 0 - 3 /hpf Urine Microscopic WBC 1 0-3 /HPF Urine Squamous Epithelial Cells None seen <5 /hpf Urine Bacteria None seen None Seen /hpf Urine Glucose Normal Normal mg/dL White Blood Count 15.1 H 4.4-10.8 10^3/uL Red Blood Count 4.49 L 4.5-5.90 10^6/uL Hemoglobin 13.9 13.5-17.5 g/dL Hematocrit 38.6 L 41.0-53.0 % Mean Corpuscular Volume 86.0 # 80.0-100.0 fL Mean Corpuscular Hemoglobin 31.0 28.0-32.0 pg Mean Corpuscular Hemoglobin Concent 36.1 H 32.0-36.0 g/dL Red Cell Distribution Width 13.4 11.8-14.3 % Platelet Count 254 140-450 10^3/uL Mean Platelet Volume 7.3 6.9-10.8 fL Neutrophils (%) (Auto) 87.5 H 37.0-80.0 % Lymphocytes (%) (Auto) 5.3 L 10.0-50.0 % Monocytes (%) (Auto) 6.8 0.0-12.0 % Eosinophils (%) (Auto) 0.1 0.0-7.0 % Basophils (%) (Auto) 0.3 0.0-2.0 % Neutrophils # (Auto) 13.2 H 1.6-8.6 10 ^3/uL Lymphocytes # (Auto) 0.8 0.4-5.4 10 ^3/uL Monocytes # (Auto) 1.0 0-1.3 10 ^3/uL Eosinophils # (Auto) 0 0-0.8 10 ^3/uL Basophils # (Auto) 0 0-0.2 10 ^3/uL Nucleated Red Blood Cells 0.0 % Sodium Level 111 #*L 136-145 mmol/L Potassium Level 3.1 L 3.5-5.1 mmol/L Chloride Level 70 #L 98-107 mmol/L Carbon Dioxide Level 24 20-31 mmol/L Anion Gap 17 H 5-15 Blood Urea Nitrogen 41 H 9-23 mg/dL Creatinine 1.12 0.700-1.30 mg/dL Glomerular Filtration Rate Calc 66 >90 mL/min BUN/Creatinine Ratio 36.6 H 10.0-20.0 Serum Glucose 88 74-106 mg/dL Lactic Acid Level 1.5 0.4-2.0 mmol/L Calcium Level 6.5 L 8.7-10.4 mg/dL Total Bilirubin 0.9 0.2-1.0 mg/dL Aspartate Amino Transferase (AST) 164 H 13-40 U/L Alanine Aminotransferase (ALT) 105 H 7-40 U/L Alkaline Phosphatase 87 46-116 U/L Creatine Kinase 3214 H 46-171 U/L B-Type Natriuretic Peptide 294.04 0-100 pg/mL Total Protein 6.1 5.7-8.2 g/dL Albumin 3.7 3.2-4.8 g/dL Lipase 34 12-53 U/L SEPSIS Sepsis Screen Date sepsis recognized/suspect: May 02, 2025 Time Sepsis recognized/suspect: 951 Recent Procedure: No On Antibiotic Therapy: No Respiratory Rate >20: No Heart Rate >90: No Temp<36 C (96.8 F) or >38.3 C: No SBP <90 or MAP <65 mmHG: No New Acute Mental Status Change: No Is the patient on CPAP, BIPAP,: No Physician Orders Chest Portable (05/02/25 10:05) Head Without Contrast (05/02/25 10:05) Blood Culture (05/02/25 10:05) Electrocardigram (05/02/25 11:05) Electrocardigram (05/02/25 13:05) Urine Bacterial Culture (05/02/25 11:14) Insert Sanchez Catheter QSHIFT (05/02/25 11:14) Sodium Chloride 0.9% (05/02/25 14:15) Cefepime 2gm/50ml Ns (Maxipime 2gm/50ml) (05/02/25 14:15) Vitamin D, 25-Hydroxy (05/02/25 14:31) Vitamin B12 (05/02/25 14:31) Thyroid Stimulating Hormone (05/02/25 14:31) PTPTT (05/02/25 14:31) Phosphorus (05/02/25 14:31) Magnesium (05/02/25 14:31) Lipid Panel (05/02/25 14:31) Lipase (05/02/25 14:31) Drug Screen (05/02/25 14:31) Comprehensive Metabolic Panel (05/02/25 14:31) Ammonia (05/02/25 14:31) C-Reactive Protein (05/02/25 14:31) Electrocardigram (05/02/25 14:31) Abg W/ Co-Ox (05/02/25 14:31) Respiratory Culture W/ Gs (05/02/25 14:31) Legionella Pneumophila Abs (05/02/25 14:31) Covid19 Antigen Alyssa (05/02/25 ) Rapid Influenza A&B (05/02/25 14:31) Mrsa Screen (05/02/25 14:31) Admit (05/02/25 14:) Code Status (05/02/25 14:31) Ondansetron Hcl (Zofran) (05/02/25 14:45) Complete Blood Count (05/03/25 04:00) Comprehensive Metabolic Panel (05/03/25 04:00) Npo (Nothing By Mouth) Diet (05/02/25 Dinner) Echo 2d Mode Cardiac Dop (05/02/25 14:31) Carotid Duplx W Color Dop (05/02/25 14:31) Morphine Sulfate Injection (05/02/25 14:45) Enoxaparin Sodium (Lovenox) (05/03/25 10:00) Oxygen By Nasal Cannula (05/02/25 14:31) Stat Ekg For Chest Pain (05/02/25 14:31) Notify Of Changes From Base (05/02/25 14:31) Bilingual Student Tutor For 24 Hours (05/02/25 14:31) Emergency Dysrhythmia Protocol (05/02/25 14:31) Rhythm Strips Once Every Shift (05/02/25 14:31) Piperacillin-Tazob 3.375gm (Zosyn 3.375g (05/02/25 22:00) Sodium Chloride 0.9% (05/02/25 14:45) *[facility] (05/02/25 14:31) Microalbumin Random Urine (05/02/25 14:31) Urine Creatinine (05/02/25 14:31) Urine Sodium (05/02/25 14:31) Urine Protein/Creatinine Ratio (05/02/25 ) Urine Protein (05/02/25 14:31) Urine Potassium (05/02/25 14:31) Osmolality, Serum (05/02/25 14:31) Chest Ultrasound (05/02/25 14:31) Aspirin Tablet (05/03/25 10:00) Potassium Chl 20meq/100ml (05/02/25 15:00) Creatine Kinase (05/02/25 14:56) Vital Signs Date Time Temp Pulse Resp B/P (MAP) Pulse Ox O2 Delivery O2 Flow Rate FiO2 05/02/25 14:00 104 15 99/55 (70) 05/02/25 13:00 86 13 90/48 (62) 98 05/02/25 12:00 97 16 93/51 (65) 97 05/02/25 11:19 90 22 92 Nasal Cannula* 3 32 05/02/25 11:18 97.8 92 22 113/75 (88) 92 97.8 05/02/25 09:48 130 05/02/25 09:47 97.6 95 20 172/89 97 97.6 Laboratory Tests Test 05/02/25 10:55 Lactic Acid Level 1.5 mmol/L (0.4-2.0) White Blood Count 15.1 10^3/uL (4.4-10.8) H Medications Medications Dose Ordered Sig/Jethro Route Start Time Stop Time Status Last Admin Dose Admin Sodium Chloride 1,000 ml @ 1,000 mls/hr Q1H ONCE IV 05/02/25 14:15 05/02/25 15:14 05/02/25 15:00 1,000 MLS/HR Assessment/Plan Assessment/Plan ASSESSMENT Metabolic encephalopathy secondary to severe hyponatremia Severe hypovolemic/hyponatremia Acute respiratory failure secondary to aspiration pneumonia and COPD exacerbation Septic shock secondary to pneumonia Aspiration pneumonia COPD exacerbation Rhabdomyolysis SUZANNE hemodynamically mediated on CKD Transaminitis Hypokalemia Hypomagnesemia Hypocalcemia NSTEMI likely type 2 Rule out CVA Rule out right hip fracture Rule out DVT Questionable mechanical fall Dyslipidemia Hypertension Coronary artery disease with history of DE status post PCI and CABG PLAN Replenishing electrolytes with normal saline 150 mL/h, potassium, magnesium and calcium as needed. Goal of correction 6-8 mEq per 24 hours. Probable cause of hypovolemic hyponatremia is excess abuse of diuretics (furosemide, Bumex and metolazone) Consulted nephrology for management of hyponatremia Completed head CT which showed no acute findings (right frontal encephalomalacia). Patient never had history of CVA. Ordered MRI, pending. Neurology consulted Ordered carotid duplex which showed severe stenosis in right external carotid and 70% stenosis in left internal carotid. Patient is on aspirin, discontinued atorvastatin due to rhabdomyolysis Currently on empiric IV antibiotic (vancomycin and Zosyn). Patient obtained one dose of cefepime, but discontinued due to altered mental status. Patient presented hypotension we will requirement of IV vasopressors, placed central line. Discontinued antihypertensive medication Ordered pelvic, right hip and right knee x-ray to evaluate fracture in right lower limb. Ordered right lower limb ultrasound to rule out DVT. Goals of care discussed with for over 18 minutes: Full code status Discussed plan with Dr. Clay, patient, and nurses: Currently ICU status due to requirement of IV vasopressors. Replenishing electrolytes, correcting slowly sodium. Likely cause of hyponatremia is and diuretic use. Discontinued on diuretics and antihypertensive medication. Nephrology on board for current management of hyponatremia correction. Patient has right frontal encephalomalacia with no history of show, ordered MRI and Neurology evaluation. Patient has poor prognosis Critical care time spent including discussion with nursing and family, excluding procedures: 89 minutes Plan discussed with: Patient, Spouse, Other (Nurses) My Orders Orders - SHAHNAZ MARC RESIDENT Procedure Category Date Status Time Vitamin D, 25-Hydroxy LAB 05/02/25 Logged 14:31 Vitamin B12 LAB 05/02/25 Logged 14:31 Thyroid Stimulating LAB 05/02/25 Logged Hormone 14:31 PTPTT LAB 05/02/25 Logged 14:31 Phosphorus LAB 05/02/25 Logged 14:31 Magnesium LAB 05/02/25 Logged 14:31 Lipid Panel LAB 05/02/25 Logged 14:31 Lipase LAB 05/02/25 Logged 14:31 Drug Screen LAB 05/02/25 Logged 14:31 Comprehensive LAB 05/02/25 Logged Metabolic Panel 14:31 Ammonia LAB 05/02/25 Logged 14:31 C-Reactive Protein LAB 05/02/25 Logged 14:31 Electrocardigram EKG 05/02/25 Logged 14:31 Abg W/ Co-Ox RT 05/02/25 Logged 14:31 Respiratory Culture KISHAN 05/02/25 Logged W/ Gs 14:31 Legionella LAB 05/02/25 Logged Pneumophila Abs 14:31 Covid19 Antigen Alyssa LAB 05/02/25 Logged Rapid Influenza A&B LAB 05/02/25 Logged 14:31 Mrsa Screen KISHAN 05/02/25 Logged 14:31 Admit ADMIT 05/02/25 Transmitted 14:31 Code Status CODE 05/02/25 Transmitted 14:31 Ondansetron Hcl PHA 05/02/25 Logged (Zofran) 14:45 Complete Blood Count LAB 05/03/25 Verified 04:00 Comprehensive LAB 05/03/25 Verified Metabolic Panel 04:00 Npo (Nothing By DIET 05/02/25 Transmitted Mouth) Diet Dinner Echo 2d Mode Cardiac US 05/02/25 Logged DOP 14:31 Carotid Duplx W Color US 05/02/25 Logged DOP 14:31 Morphine Sulfate PHA 05/02/25 Logged Injection 14:45 Enoxaparin Sodium PHA 05/03/25 Logged (Lovenox) 10:00 Oxygen By Nasal RT 05/02/25 Transmitted Cannula 14:31 Stat Ekg For Chest [facility] 05/02/25 In Process Pain 14:31 Notify Md Of Changes [facility] 05/02/25 In Process From Base 14:31 Bilingual Student Tutor For [facility] 05/02/25 In Process 24 Hours 14:31 Emergency Dysrhythmia [facility] 05/02/25 In Process Protocol 14:31 Rhythm Strips Once [facility] 05/02/25 In Process Every Shift 14:31 Piperacillin-Tazob PHA 05/02/25 Logged 3.375gm (Zosyn 3.375g 22:00 Sodium Chloride 0.9% PHA 05/02/25 Logged 14:45 *[facility] CONS 05/02/25 Transmitted -[place] 14:31 Microalbumin Random LAB 05/02/25 Logged Urine 14:31 Urine Creatinine LAB 05/02/25 Logged 14:31 Urine Sodium LAB 05/02/25 Logged 14:31 Urine LAB 05/02/25 Logged Protein/Creatinine Urine Protein LAB 05/02/25 Logged 14:31 Urine Potassium LAB 05/02/25 Logged 14:31 Osmolality, Serum LAB 05/02/25 Logged 14:31 Chest Ultrasound US 05/02/25 Taken 14:31 Aspirin Tablet PHA 05/03/25 Logged 10:00 Potassium Chl PHA 05/02/25 Logged 20meq/100ml 15:00 Creatine Kinase LAB 05/02/25 Logged 14:56 Date of Service: May 02, 2025 Billing Provider: ROSEMARY CLAY DO Common Visit Codes: [id number] INP/OBS CARE (HIGH) Secondary Visit Codes: [id number] CARE PLAN 30 MINUTES SHANHAZ MARC RESIDENT May 02, 2025 15:14 ROSEMARY CLAY DO May 05, 2025 13:28
[2025-05-02 15:16] LABS: Base Excess -2.4 mmol/L (-2.0-3.0)
--- NOTE | 2025-05-02 15:37 | DVH ---
Exam: US CHEST ULTRASOUND Clinical History: Rule out pleural effusion Comparison: XY CHEST PORTABLE on DOS: 05/02/25, XY CHEST XRAY 1 VIEW on DOS: 04/25/25, XY CHEST PORTABLE on DOS: 04/07/25 Technique: Targeted sonographic evaluation of the soft tissues of the bilateral chest was obtained utilizing grayscale and color Doppler imaging. Findings/Impression: Trace bilateral pleural effusion.
--- NOTE | 2025-05-02 15:52 | DVHINCON2 ---
Date of service: May 02, 2025 Reason for Consultation hyponatremia History of Present Illness 79-year-old male with past medical history of coronary artery disease, hypertension, hyperlipidemia, enlarged prostate patient was seen in the hospital approximately five days ago for shortness of breath and was diagnosed with COPD exacerbation at that time patient's serum creatinine was 1.1. He left against medical advice he returns to the hospital with a change in mental state in his serum sodium worsened from 128 to now 111 nephrology was consulted for hyponatremia. Patient is confused but is able to answer questions but only answers yes or no he currently has a Sanchez catheter Allergies: Coded Allergies: NO KNOWN ALLERGIES (Unverified , 04/25/25) Current Medications Current Medications Medications (Trade) Dose Ordered Sig/Jethro Route PRN Reason Start Time Stop Time Status Last Admin Ondansetron HCl (Zofran) 4 mg Q4HP PRN IV NAUSEA / VOMITING 05/02/25 14:45 Morphine Sulfate 2 mg Q4HPRN PRN IV SEVERE PAIN (7-10 PAIN SCALE) 05/02/25 14:45 Enoxaparin Sodium (Lovenox) 40 mg DAILY SC 05/03/25 10:00 Piperacillin Sod/ Tazobactam Sod 100 ml @ 25 mls/hr Q8HR IV 05/02/25 22:00 Sodium Chloride 1,000 ml @ 100 mls/hr Q10H IV 05/02/25 14:45 Aspirin 81 mg DAILY PO 05/03/25 10:00 Potassium Chloride 100 ml @ 50 mls/hr Q2H IV 05/02/25 15:00 05/02/25 20:59 Review of Systems Change in mental H&P Exam Vital Signs/I&O Vital Sign Date Time Temp Pulse Resp B/P (MAP) Pulse Ox O2 Delivery O2 Flow Rate FiO2 05/02/25 14:00 104 15 99/55 (70) 05/02/25 13:00 98 05/02/25 11:19 Nasal Cannula* 3 32 05/02/25 11:18 97.8 97.8 Physical Exam Elderly white male Mildly short of breath positive wheezing bilateral lung bases Midline chest incision Diffuse bilateral ecchymoses on bilateral upper arms and legs with mild ankle edema Sanchez catheter Labs/Diagnostic Data Labs/Diagnostic Data Laboratory Tests Test 05/02/25 15:35 05/02/25 15:07 05/02/25 13:50 05/02/25 12:09 Range/Units Blood Gas Specimen Type Arterial Blood Gas Sample Site Left radial Blood Gas Patient Temperature 37.0 Arterial Blood Date Drawn [id number] Arterial Blood pH 7.455 H 7.350-7.450 Arterial Blood Partial Pressure CO2 29.5 L 35.0-48.0 mmHg Arterial Blood Partial Pressure O2 84.8 83.0-108.0 mmHg Arterial Blood HCO3 20.3 L 21.0-28.0 mmol/L Arterial Blood Oxygen Saturation 96.3 94.0-98.0 % Arterial Blood Base Excess -2.4 L -2.0-3.0 mmol/L Arterial Blood Oxyhemoglobin 94.8 94.0-98.0 % Arterial Blood Carboxyhemoglobin 1.0 0.5-1.5 % Arterial Blood Methemoglobin 0.6 0.0-1.5 % Sarthak Test Yes Blood Gas Total Hemoglobin 13.80 13.5-17.5 g/dL Blood Gas Liter Flow 3.00 Blood Gas Modality Nasal cannula FiO2 % 32.0 Troponin I High Sensitivity 67 *H 56 *H </=54 ng/L Test 05/02/25 11:43 05/02/25 10:55 Range/Units Urine Color Light-yellow Yellow Urine Clarity Clear Clear Urine pH 5.5 5.0-9.0 Urine Specific [place] 1.009 1.001-1.035 Urine Protein Negative Negative Urine Ketones 1+ H Negative Urine Blood 1+ H Negative /uL Urine Nitrite Negative Negative Urine Bilirubin Negative Negative Urine Urobilinogen Normal Negative mg/dL Urine Leukocyte Esterase Negative Negative /uL Urine RBC 8 0 - 3 /hpf Urine Microscopic WBC 1 0-3 /HPF Urine Squamous Epithelial Cells None seen <5 /hpf Urine Bacteria None seen None Seen /hpf Urine Glucose Normal Normal mg/dL White Blood Count 15.1 H 4.4-10.8 10^3/uL Red Blood Count 4.49 L 4.5-5.90 10^6/uL Hemoglobin 13.9 13.5-17.5 g/dL Hematocrit 38.6 L 41.0-53.0 % Mean Corpuscular Volume 86.0 # 80.0-100.0 fL Mean Corpuscular Hemoglobin 31.0 28.0-32.0 pg Mean Corpuscular Hemoglobin Concent 36.1 H 32.0-36.0 g/dL Red Cell Distribution Width 13.4 11.8-14.3 % Platelet Count 254 140-450 10^3/uL Mean Platelet Volume 7.3 6.9-10.8 fL Neutrophils (%) (Auto) 87.5 H 37.0-80.0 % Lymphocytes (%) (Auto) 5.3 L 10.0-50.0 % Monocytes (%) (Auto) 6.8 0.0-12.0 % Eosinophils (%) (Auto) 0.1 0.0-7.0 % Basophils (%) (Auto) 0.3 0.0-2.0 % Neutrophils # (Auto) 13.2 H 1.6-8.6 10 ^3/uL Lymphocytes # (Auto) 0.8 0.4-5.4 10 ^3/uL Monocytes # (Auto) 1.0 0-1.3 10 ^3/uL Eosinophils # (Auto) 0 0-0.8 10 ^3/uL Basophils # (Auto) 0 0-0.2 10 ^3/uL Nucleated Red Blood Cells 0.0 % Sodium Level 111 #*L 136-145 mmol/L Potassium Level 3.1 L 3.5-5.1 mmol/L Chloride Level 70 #L 98-107 mmol/L Carbon Dioxide Level 24 20-31 mmol/L Anion Gap 17 H 5-15 Blood Urea Nitrogen 41 H 9-23 mg/dL Creatinine 1.12 0.700-1.30 mg/dL Glomerular Filtration Rate Calc 66 >90 mL/min BUN/Creatinine Ratio 36.6 H 10.0-20.0 Serum Glucose 88 74-106 mg/dL Lactic Acid Level 1.5 0.4-2.0 mmol/L Calcium Level 6.5 L 8.7-10.4 mg/dL Total Bilirubin 0.9 0.2-1.0 mg/dL Aspartate Amino Transferase (AST) 164 H 13-40 U/L Alanine Aminotransferase (ALT) 105 H 7-40 U/L Alkaline Phosphatase 87 46-116 U/L Creatine Kinase 3214 H 46-171 U/L Troponin I High Sensitivity 56 *H </=54 ng/L B-Type Natriuretic Peptide 294.04 0-100 pg/mL Total Protein 6.1 5.7-8.2 g/dL Albumin 3.7 3.2-4.8 g/dL Lipase 34 12-53 U/L Assessment Acute kidney injury hemodynamically mediated now resolved Severe hyponatremia Hypokalemia Altered mental state History of coronary artery disease BPH Continue with Sanchez catheter Patient is status post IV fluids in the ER Recommend repeat complete serum panel and electrolyte repeat Recommend obtaining urine osmolarity and urinary electrolytes Avoid over-correction of patient's Serum sodium to prevent osmotic demyelination Guarded prognosis Plan discussed with: Patient AURE CHILDERS MD May 02, 2025 15:52
[2025-05-02 16:02] LABS: INR 1.17 (0.9-1.15); Partial Thromboplastin Time 32.5 SEC (24.5-34.5); Prothrombin Time 12.2 sec (9.3-11.8)
--- NOTE | 2025-05-02 16:11 | DVH ---
Indication: R/o carotid stenosis Technique: Real-time ultrasound images of the neck vessels with vernon-scale, color and wave Doppler were obtained. Comparison: None Findings: This is a technically difficult examination due to patient inability to move the neck. Moderate atherosclerotic plaque. The following peak systolic velocities were recorded in cm/sec: Right internal carotid: 73 Right common carotid: 130 Right external carotid: 240 Right internal/common carotid ratio: 0.6 Left internal carotid: 246 Left common carotid: 101 Left external carotid: 112 Left internal/common carotid ratio: 2.2, abnormally elevated. Right vertebral artery: Patent with normal antegrade direction of flow. Left vertebral artery: Patent with normal antegrade direction of flow. Impression: Greater than 70% stenosis of the left internal carotid artery by velocity criteria. High-grade stenosis of the right external carotid artery.
[2025-05-02 16:18] LABS: Albumin 3.2 g/dL (3.2-4.8); Alkaline Phosphatase 80 U/L (46-116); Anion Gap 18 (5-15); BUN/Creatinine Ratio 44.6 (10.0-20.0); Carbon Dioxide 23 mmol/L (20-31); Cholesterol 135 mg/dL (< 200); Glucose 75 mg/dL (74-106); Triglycerides 102 mg/dL (< 150)
[2025-05-02 16:19] LABS: Bilirubin, Total 1.0 mg/dL (0.2-1.0)
[2025-05-02] MEDS: CEFEPIME 2GM/50ML NS 50 ML IV ONE (16:19)
[2025-05-02] MEDS: SODIUM CHLORIDE 0.9% 1,000 ML IV SCH ×2 (16:19→18:36)
[2025-05-02] MEDS: POTASSIUM CHL 20MEQ/100ML 100 ML IV SCH (16:27)
[2025-05-02] MEDS: IPRATROPIUM BROM 0.5 MG/2.5ML INH SOL NEB ONE (16:40)
[2025-05-02] MEDS: ALBUTEROL SULF 2.5 MG/0.5ML(0.5%) NEB SOLN NEB ONE (16:41)
--- NOTE | 2025-05-02 16:41 | DVH ---
US DVT Bilateral lower extremities Comparison: US BILAT LOWER DVT on DOS: 04/25/25 Technique: Color and duplex doppler imaging of the bilateral lower extremity veins was performed. Vessel compression if possible was also performed. Findings: Right Lower Extremity: Right common femoral vein: Normal compressibility and flow. Right femoral vein: Normal compressibility and flow. Right popliteal vein: Normal compressibility and flow. Proximal calf veins are normally compressible. Left Lower Extremity: Left common femoral vein: Normal compressibility and flow. Left femoral vein: Normal compressibility and flow. Left popliteal vein: Normal compressibility and flow. Proximal calf veins are normally compressible. Right TERRITORY REPRESENTATIVE measures approximately 2.2 CM and left measures 2.4 CM. 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 IMPRESSION: NO SONOGRAPHIC EVIDENCE FOR DEEP VENOUS THROMBOSIS IN THE BILATERAL LOWER EXTREMITY VEINS. PROABABLE DILATAITON OF BILATERAL COMMON FEMORAL ARTERIES. RECOMMEND OUTPATIENT CTA ABDOMEN AND PELVIS TO ASSESS FOR E UNDERLYING ANEURYSM. 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
[2025-05-02] MEDS: ALBUTEROL SULF 2.5 MG/0.5ML(0.5%) NEB SOLN ONE (16:42)
[2025-05-02 16:51] VITALS: BP 99/55; PULSE 104; RESP 16; TEMP 97.8; O2SAT 93
[2025-05-02 16:54] LABS: Alanine Aminotransferase 109 U/L (7-40); Blood Urea Nitrogen 45 mg/dL (9-23); Chloride 71 mmol/L (98-107); HDL Cholesterol 37 mg/dL (40-59); Potassium 2.8 mmol/L (3.5-5.1); Total Protein 5.1 g/dL (5.7-8.2)
[2025-05-02 16:56] LABS: Magnesium 0.6 mg/dL (1.6-2.6)
[2025-05-02 16:57] LABS: Calcium 6.0 mg/dL (8.7-10.4); Sodium 112 mmol/L (136-145)
[2025-05-02 17:17] LABS: Lipase 31 U/L (12-53)
[2025-05-02 17:37] LABS: COVID19 ANTIGEN SOFIA FIA NEGATIVE (NEGATIVE)
--- NOTE | 2025-05-02 17:39 | DVH ---
CLINICAL INDICATION: S/P FALL TECHNIQUE: 2 radiographic views of the pelvis and right hip were obtained. Comparison: None FINDINGS/IMPRESSION: Bony structures appear to be intact and normal alignment. There are no findings to suggest fracture or dislocation. If clinical findings still suggest femoral fracture recommend CT of the pelvis.
--- NOTE | 2025-05-02 17:40 | DVH ---
CLINICAL INDICATION: S/P FALL TECHNIQUE: 3 radiographic views of the right knee were obtained. Comparison: None FINDINGS/IMPRESSION: There is no fracture or dislocation. There is narrowing of the medial compartment of the right knee. Spurring of the tibial spines is seen.
[2025-05-02] MEDS: CALCIUM GLUC 1,000mg/50ml-NS 50 ML IV SCH (18:42)
[2025-05-02] MEDS: MAGNESIUM SULFATE 1GM/100ML 100 ML IV SCH (18:46)
[2025-05-02 18:51] VITALS: PULSE 91; PULSE 93; RESP 18; O2SAT 98; O2SAT 99
[2025-05-02] MEDS: ALBUTEROL SULF 2.5 MG/0.5ML(0.5%) NEB SOLN NEB SCH (18:51)
[2025-05-02] MEDS: IPRATROPIUM BROM 0.5 MG/2.5ML INH SOL NEB SCH (18:51)
--- NOTE | 2025-05-02 19:05 | DVH ---
CHEST RADIOGRAPH Indication: central line insertion Technique: Single frontal view of the chest was obtained. Comparison: Radiograph 05/02/25 Findings: Median sternotomy. Right central venous catheter with tip near cavoatrial junction. Similar bibasilar mild opacities. No significant pleural effusion. No pneumothorax. Stable cardiomediastinal silhouette. IMPRESSION: Right central venous catheter with tip near cavoatrial junction.
[2025-05-02 19:20] VITALS: PULSE 89; RESP 14; O2SAT 100
[2025-05-02] MEDS: NOREPINEPHRINE BITARTRATE 16 MG in SODIUM CHL 0.9% 234 ML IV SCH (20:30)
[2025-05-02 21:28] LABS: Albumin 3.3 g/dL (3.2-4.8); Alkaline Phosphatase 76 U/L (46-116); Anion Gap 17 (5-15); BUN/Creatinine Ratio 39.0 (10.0-20.0); Bilirubin, Total 1.0 mg/dL (0.2-1.0); Carbon Dioxide 24 mmol/L (20-31); Glucose 78 mg/dL (74-106)
[2025-05-02 21:29] LABS: Alanine Aminotransferase 107 U/L (7-40); Blood Urea Nitrogen 39 mg/dL (9-23); Calcium 6.7 mg/dL (8.7-10.4); Chloride 73 mmol/L (98-107); Potassium 3.0 mmol/L (3.5-5.1); Total Protein 5.4 g/dL (5.7-8.2)
[2025-05-02 21:31] LABS: Magnesium 0.9 mg/dL (1.6-2.6); Sodium 114 mmol/L (136-145)
[2025-05-02 21:55] VITALS: PULSE 87; PULSE 91; RESP 18; O2SAT 100
[2025-05-02 22:00] LABS: Protein, Urine 58.3 mg/dL (1-14)
[2025-05-02] MEDS: PIPERACILLIN-TAZOB 3.375GM 100 ML IV SCH (22:00)
[2025-05-02 22:13] LABS: Amphetamine Screen, Urine Neg (NEGATIVE); Barbiturate Scree,Urine Neg (NEGATIVE); Opiate Scree,Urine Neg (NEGATIVE); Phencyclidine Screen, Urine Neg (NEGATIVE)
[2025-05-02 22:14] LABS: Benzodiazephine Screen, Urine Neg (NEGATIVE); Cannabinoid Screen, Urine Neg (NEGATIVE); Cocaine Screen, Urine Neg (NEGATIVE)
[2025-05-03] VITALS (31 sets, daily range): BP systolic 105–133; BP diastolic 45–71; PULSE 79–109; RESP 9–18; TEMP 98.1; O2SAT 87–100
[2025-05-03] MEDS ORDERED: POTASSIUM CHL 20MEQ/100ML 100 ML IV SCH (00:45)
[2025-05-03] MEDS ORDERED: MAGNESIUM SULFATE 1GM/100ML 100 ML IV SCH (01:00)
[2025-05-03] MEDS: CALCIUM GLUC 1,000mg/50ml-NS 50 ML IV SCH (01:52)
[2025-05-03] MEDS: methylPREDNISolone SOD SUCC 40 MG/ML VL IV ONE (02:02)
[2025-05-03 05:55] LABS: Alkaline Phosphatase 73 U/L (46-116); Anion Gap 15 (5-15); BUN/Creatinine Ratio 29.5 (10.0-20.0); Carbon Dioxide 23 mmol/L (20-31)
[2025-05-03 05:56] LABS: Bilirubin, Total 0.8 mg/dL (0.2-1.0)
[2025-05-03 06:14] LABS: Alanine Aminotransferase 97 U/L (7-40); Albumin 3.1 g/dL (3.2-4.8); Blood Urea Nitrogen 23 mg/dL (9-23); Calcium 6.5 mg/dL (8.7-10.4); Chloride 82 mmol/L (98-107); Glucose 114 mg/dL (74-106); Magnesium 1.5 mg/dL (1.6-2.6); Potassium 2.8 mmol/L (3.5-5.1); Sodium 120 mmol/L (136-145); Total Protein 5.2 g/dL (5.7-8.2)
[2025-05-03 06:29] LABS: Creatine Kinase IFCC 2194 U/L (46-171)
[2025-05-03] MEDS: CALCIUM GLUC 1,000mg/50ml-NS 50 ML IV ONE (07:34)
[2025-05-03] MEDS: POTASSIUM CHL 20MEQ/100ML 100 ML IV SCH ×2 (07:35→13:41)
[2025-05-03] MEDS: MAGNESIUM SULFATE 1GM/100ML 100 ML IV SCH (07:56)
[2025-05-03 08:15] LABS: Hematocrit 34.9 % (41.0-53.0); Hemoglobin 12.7 g/dL (13.5-17.5); Mean Corpuscular Hemoglobin 31.2 pg (28.0-32.0); Mean Corpuscular Volume 85.5 fL (80.0-100.0)
--- NOTE | 2025-05-03 09:03 | DVHINCON2 ---
Date of service: May 03, [address] Collire Reason for Consultation Encephalomalacia, no history of CVA History of Present Illness Mr. Laboy is a 79 years old right-handed gentleman with a history of hypertension, dyslipidemia, coronary artery disease, heart attack, COPD, he was brought to the [facility] on 05/02/2025 with a chief company of shortness breath, but the patient is also found to have chronic strokes on CT brain scan At this time, the patient is alert, oriented to person, place, he knows year, he is able to maintain good conversation, good social skills, he relates that he never had stroke or focal weakness numbness. He remembers taking aspirin at home, possibly he also takes a cholesterol medication UDS, 05/02/2025: Negative Urinalysis, 05/02/2025: WBC: One, urine leukocyte esterase: Negative ABG, 05/02/2025: Respiratory alkalosis WBC/HB/PLT/MCV, 05/03/2025: 13/12.7/233/85.5 PT/INR/ABG, 05/02/2025: 12.2/1.17/32.5 Na 04/25/25: 128, 05/02/25: 111, 112, 140, 05/03/2025: 120 K, 05/02/2025: 2.7, three, 05/03/2025: 2.8 CPK 05/02/2025: 3214, 3477, 05/03/2025: 2194 BUN/CR, 05/02/2025: 45/1.01, 39/1, 07/03/2024: 23/0.78 TBI/AST/ALT/AP, 05/02/2025: 0.9/164/5/87, 05/03/2025: 0.8/162 797/73 NH3, 05/02/2025: 19 TG/HDL/LDL/HDL, 05/02/2025: 102/135/75/37 Vitamin B12 05/02/2025: >4000 TSH, 05/02/2025: 0.53 Chest X-ray, 05/02/2025: Mild bibasilar airspace opacity. Chest x-ray, 05/02/2025: Right central venous catheter with tip near cavoatrial junction. CT head, 05/02/2025: 1. No CT evidence of acute intracranial abnormality. 2. Nonacute findings as described above (More focal area of encephalomalacia is seen in the right frontal lobe, may be sequelae of chronic infarct.) Past Medical History Hypertension, dyslipidemia, coronary artery disease, heart attack, COPD, hyponatremia Past Surgical History PTCA, open heart surgery Family History Heart disease Social History He was a tobacco smoke, but no history of drug/alcohol abuse Allergies: Coded Allergies: NO KNOWN ALLERGIES (Unverified , 04/25/25) Current Medications Current Medications Medications (Trade) Dose Ordered Sig/Jethro Route PRN Reason Start Time Stop Time Status Last Admin Ondansetron HCl (Zofran) 4 mg Q4HP PRN IV NAUSEA / VOMITING 05/02/25 14:45 Morphine Sulfate 2 mg Q4HPRN PRN IV SEVERE PAIN (7-10 PAIN SCALE) 05/02/25 14:45 Enoxaparin Sodium (Lovenox) 40 mg DAILY SC 05/03/25 10:00 Piperacillin Sod/ Tazobactam Sod 100 ml @ 25 mls/hr Q8HR IV 05/02/25 22:00 05/03/25 06:23 Sodium Chloride 1,000 ml @ 100 mls/hr Q10H IV 05/02/25 14:45 05/02/25 17:06 DC 05/02/25 16:19 Aspirin 81 mg DAILY PO 05/03/25 10:00 Potassium Chloride 100 ml @ 50 mls/hr Q2H IV 05/02/25 15:00 05/02/25 20:59 DC 05/02/25 18:42 Albuterol (Ventolin Medneb) 2.5 mg Q4HWA [facility] 05/02/25 18:00 05/03/25 07:17 Ipratropium [place] (Atrovent Medneb) 0.5 mg Q4HWA [facility] 05/02/25 18:00 05/03/25 07:16 Sodium Chloride 1,000 ml @ 150 mls/hr Q6H40M IV 05/02/25 17:15 05/02/25 23:55 Calcium Gluconate/ Sodium Chloride 50 ml @ 100 mls/hr Q30M IV 05/02/25 17:15 05/02/25 18:14 DC 05/02/25 20:05 Magnesium Sulfate/ Dextrose 100 ml @ 100 mls/hr Q1HR IV 05/02/25 18:00 05/02/25 21:59 DC 05/02/25 23:30 Norepinephrine Bitartrate 16 mg/ Sodium Chloride 250 ml @ 1.875 mls/ hr Q24H IV 05/02/25 18:00 05/02/25 20:30 Magnesium Sulfate/ Dextrose 100 ml @ 100 mls/hr Q1HR IV 05/03/25 01:00 05/03/25 01:51 DC Potassium Chloride 100 ml @ 50 mls/hr Q2H IV 05/03/25 00:45 05/03/25 01:51 DC Calcium Gluconate/ Sodium Chloride 50 ml @ 100 mls/hr Q30M IV 05/03/25 00:45 05/03/25 01:44 DC Methylprednisolone Sodium Succinate (Solu Medrol) 40 mg BID IV 05/03/25 10:00 Potassium Chloride 100 ml @ 50 mls/hr Q2H IV 05/03/25 07:00 05/03/25 10:59 05/03/25 07:35 Magnesium Sulfate/ Dextrose 100 ml @ 100 mls/hr Q1HR IV 05/03/25 07:00 05/03/25 08:59 05/03/25 08:07 Review of Systems As above, the other systems are negative Vital Signs Vital Signs Date Time Temp Pulse Resp B/P (MAP) Pulse Ox O2 Delivery O2 Flow Rate FiO2 05/03/25 08:00 90 05/03/25 07:59 14 127/54 (78) 99 05/03/25 07:17 Nasal Cannula* 4 36 05/03/25 06:30 98.6 98.6 Physical Exam GENERAL EXAM: General: the patient is well developed and nourished. No acute distress. HEENT: Normocephalic, neck is supple, no carotid bruits. No mass. RESPIRATORY: Normal respiratory effort with symmetrical lung expansion. Lungs clear to auscultation. CARDIOVASCULAR: Regular rate and rhythm with no murmurs. S1, S2. ABDOMEN: Soft, nontender, normal bowel sound NEUROLOGICAL: MENTAL STATUS: Awake and alert. Oriented to person, place, he knows year. Able to give personal history. SPEECH, LANGUAGE, HIGHER CORTICAL FUNCTION: no aphasia or dysathria. CRANIAL NERVES: #2: Intact visual alejandra to confrontation. The optic discs were sharp.. #3,4,6: Pupils are equal, round and reactive. EOMs full and conjugate. Mild bilateral gaze evoked nystagmus. #5: Facial sensation intact in all three divisions bilaterally. Mandibular stren gth intact. #7: Facial muscles symmetrical and strength intact. #8: Hearing grossly normal to voice. #9,10: Uvula and soft palate rise in the midline. Swallow and voice are normal. #11: Trapezius and sternomastoid strength intact bilaterally. #12: Tongue midline. No fasciculations or atrophy. SENSATION: Sensation to touch and pinprick is normal. MOTOR: Normal tone in the upper and lower extremity. Normal muscle bulk. No fasciculations. No abnormal movements or posturing. Muscle strength of the major groups in the upper extremities is 4/5 with no drift. Muscle strength of the major groups in the lower extremities is 3/5. REFLEXES: Deep tendon reflexes normal and symmetrical. No pathological reflexes. CEREBELLAR/COORDINATION: Finger to nose is normal bilaterally. GAIT/STATION: deferred. Labs/Diagnostic Data Labs Test 05/03/25 05:18 05/02/25 21:20 05/02/25 16:16 05/02/25 15:35 Range/Units White Blood Count 13.0 H 4.4-10.8 10^3/uL Red Blood Count 4.08 L 4.5-5.90 10^6/uL Hemoglobin 12.7 L 13.5-17.5 g/dL Hematocrit 34.9 L 41.0-53.0 % Mean Corpuscular Volume 85.5 80.0-100.0 fL Mean Corpuscular Hemoglobin 31.2 28.0-32.0 pg Mean Corpuscular Hemoglobin Concent 36.4 H 32.0-36.0 g/dL Red Cell Distribution Width 13.8 11.8-14.3 % Platelet Count 233 140-450 10^3/uL Mean Platelet Volume 6.8 L 6.9-10.8 fL Neutrophils (%) (Auto) 37.0-80.0 % Lymphocytes (%) (Auto) 10.0-50.0 % Monocytes (%) (Auto) 0.0-12.0 % Basophils (%) (Auto) 0.0-2.0 % Neutrophils # (Auto) 1.6-8.6 10 ^3/uL Lymphocytes # (Auto) 0.4-5.4 10 ^3/uL Monocytes # (Auto) 0-1.3 10 ^3/uL Sodium Level 120 #L 136-145 mmol/L Potassium Level 2.8 L 3.5-5.1 mmol/L Chloride Level 82 L 98-107 mmol/L Carbon Dioxide Level 23 20-31 mmol/L Anion Gap 15 5-15 Blood Urea Nitrogen 23 # 9-23 mg/dL Creatinine 0.78 0.700-1.30 mg/dL Glomerular Filtration Rate Calc 90 >90 mL/min BUN/Creatinine Ratio 29.5 H 10.0-20.0 Serum Glucose 114 H 74-106 mg/dL Calcium Level 6.5 L 8.7-10.4 mg/dL Magnesium Level 1.5 L 1.6-2.6 mg/dL Total Bilirubin 0.8 0.2-1.0 mg/dL Aspartate Amino Transferase (AST) 162 H 13-40 U/L Alanine Aminotransferase (ALT) 97 H 7-40 U/L Alkaline Phosphatase 73 46-116 U/L Creatine Kinase 2194 H 46-171 U/L Total Protein 5.2 L 5.7-8.2 g/dL Albumin 3.1 L 3.2-4.8 g/dL Urine Osmolality 347 mOsm/kg Urine Creatinine 45.71 30.0-125.0 mg/dL Urine Microalbumin 99.0 H <30.0 mg/L Urine Protein/Creatinine Ratio 1.28 Urine Sodium 11 L 40-220 mmol/L Urine Potassium 20 12-62 mmol/L Urine Total Protein 58.3 H 1-14 mg/dL Urine Opiates Screen Neg NEGATIVE Urine Fentanyl Screen Neg NEGATIVE Urine Barbiturates Screen Neg NEGATIVE Urine Phencyclidine Screen Neg NEGATIVE Urine Amphetamines Screen Neg NEGATIVE Urine Benzodiazepines Screen Neg NEGATIVE Urine Cocaine Screen Neg NEGATIVE Urine Cannabinoids Screen Neg NEGATIVE Influenza Type A Antigen Negative Negative Influenza Type B Antigen Negative Negative SARS-CoV-2 Antigen (Rapid) Negative NEGATIVE Phosphorus Level 2.4 2.4-5.1 mg/dL Ammonia 19 11-32 umol/L C-Reactive Protein High Sensitivity 5.27 H <1.0 mg/dL Triglycerides Level 102 < 150 mg/dL Cholesterol Level 135 < 200 mg/dL LDL Cholesterol 75 < 100 mg/dL HDL Cholesterol 37 L 40-59 mg/dL Lipase 31 12-53 U/L Test 05/02/25 15:07 05/02/25 13:50 05/02/25 11:43 05/02/25 11:00 Range/Units Blood Gas Specimen Type Arterial Blood Gas Sample Site Left radial Blood Gas Patient Temperature 37.0 Arterial Blood Date Drawn [id number] Arterial Blood pH 7.455 H 7.350-7.450 Arterial Blood Partial Pressure CO2 29.5 L 35.0-48.0 mmHg Arterial Blood Partial Pressure O2 84.8 83.0-108.0 mmHg Arterial Blood HCO3 20.3 L 21.0-28.0 mmol/L Arterial Blood Oxygen Saturation 96.3 94.0-98.0 % Arterial Blood Base Excess -2.4 L -2.0-3.0 mmol/L Arterial Blood Oxyhemoglobin 94.8 94.0-98.0 % Arterial Blood Carboxyhemoglobin 1.0 0.5-1.5 % Arterial Blood Methemoglobin 0.6 0.0-1.5 % Sarthak Test Yes Blood Gas Total Hemoglobin 13.80 13.5-17.5 g/dL Blood Gas Liter Flow 3.00 Blood Gas Modality Nasal cannula FiO2 % 32.0 Prothrombin Time 12.2 H 9.3-11.8 sec Prothrombin Time INR 1.17 H 0.9-1.15 Activated Partial Thromboplast Time 32.5 24.5-34.5 SEC Serum Osmolality 249 L 278-298 mOsm/kg Troponin I High Sensitivity 67 *H </=54 ng/L Thyroid Stimulating Hormone (TSH) 0.53 L 0.55-4.78 uIU/mL Urine Color Light-yellow Yellow Urine Clarity Clear Clear Urine pH 5.5 5.0-9.0 Urine Specific [place] 1.009 1.001-1.035 Urine Protein Negative Negative Urine Ketones 1+ H Negative Urine Blood 1+ H Negative /uL Urine Nitrite Negative Negative Urine Bilirubin Negative Negative Urine Urobilinogen Normal Negative mg/dL Urine Leukocyte Esterase Negative Negative /uL Urine RBC 8 0 - 3 /hpf Urine Microscopic WBC 1 0-3 /HPF Urine Squamous Epithelial Cells None seen <5 /hpf Urine Bacteria None seen None Seen /hpf Urine Glucose Normal Normal mg/dL Test 05/02/25 10:55 Range/Units Eosinophils (%) (Auto) 0.1 0.0-7.0 % Eosinophils # (Auto) 0 0-0.8 10 ^3/uL Basophils # (Auto) 0 0-0.2 10 ^3/uL Nucleated Red Blood Cells 0.0 % Lactic Acid Level 1.5 0.4-2.0 mmol/L B-Type Natriuretic Peptide 294.04 0-100 pg/mL Vitamin B12 Level > 4000 H 211-911 pg/mL Vitamin D 25-Hydroxy 76.6 30.0-100 ng/mL Assessment Chronic strokes, asymptomatic Mild disorientation/Acute metabolic encephalopathy Hyponatremia Hypokalemia Rhabdomyolysis Transaminitis, ? Secondary to rhabdomyolysis Plan/Recommendation Monitoring Supportive treatment Telemetry Follow up labs MR brain scan Aspirin 81 mg daily DVT prophylaxis/Lovenox Antibiotics More recommendation per clinical course Prognosis: Poor This medical document was created using an electronic medical record system with [employer] dictation system. Although this document has been carefully reviewed, there may still be some phonetic and typographical errors. These areas are purely typographical due to imperfections of the software programs, and do not reflect any compromise in the patient's medical care. Plan discussed with: Patient, Other SIMA HAMILTON MD May 03, 2025 09:03
--- NOTE | 2025-05-03 09:36 | DVH ---
CLINICAL HISTORY: R/o CVA TECHNIQUE: Routine multiplanar imaging of the brain was performed without gadolinium contrast. COMPARISON: CT HEAD WITHOUT CONTRAST on DOS: 05/02/25 FINDINGS: There is no abnormal restricted diffusion to suggest acute infarction. There is soei-dh-rjcytqai brain volume loss. T2 hyperintense foci within the white matter both cerebral hemispheres is most compatible with a euba-zh-[id number] burden of nonspecific chronic small vessel ischemic changes. There are Old Moderate right and Small left frontal lobe infarcts. There is an old right basal ganglia infarct. There is no evidence for acute ischemic changes, mass, mass effect, or extra- axial fluid collection. There is no hydrocephalus or midline shift. The cerebral sulci and subarachnoid cisterns are not effaced. The imaged paranasal sinuses are clear. The globes are intact. The midline structures, including the corpus callosum, are unremarkable. The intracranial flow voids are maintained. IMPRESSION: No acute intracranial abnormality seen. No evidence for acute infarct. Gptk-dr-ukasxmzj brain volume loss. Hbvw-sk-lkwbsjpe chronic small vessel ischemic change. Old moderate right and small left frontal lobe infarcts. Old right basal ganglia infarct.
[2025-05-03 09:43] LABS: Total Cells Counted 100.0 (100)
--- NOTE | 2025-05-03 10:46 | DVHPN2 ---
Progress Note Date Seen: May 03, 2025 Medical Necessity Reason Pt with a Central, PICC or Fol: Yes The following are medically ne: Central Line Subjective Patient reports: Feels worse Changes from previous H/P or p: Changes (required levophed overnight for low BP) Objective vital signs Vital Sign Date Time Temp Pulse Resp B/P (MAP) Pulse Ox O2 Delivery O2 Flow Rate FiO2 05/03/25 10:18 80 14 100 05/03/25 10:12 Nasal Cannula 3.0 05/03/25 10:12 32 05/03/25 09:15 139/66 (90) 05/03/25 06:30 98.6 98.6 Total Intake and Output 05/02/25 05/02/25 05/03/25 15:00 23:00 07:00 Intake Total 2729 ml 1391.1825 ml Output Total 1500 ml Balance 1229 ml 1391.1825 ml medications Current Medications Medications Dose Ordered Sig/Jethro Route Start Time Stop Time Status Last Admin Dose Admin Ondansetron HCl 4 mg Q4HP PRN IV 05/02/25 14:45 Morphine Sulfate 2 mg Q4HPRN PRN IV 05/02/25 14:45 Enoxaparin Sodium 40 mg DAILY SC 05/03/25 10:00 Piperacillin Sod/ Tazobactam Sod 100 ml @ 25 mls/hr Q8HR IV 05/02/25 22:00 05/03/25 06:23 25 MLS/HR Aspirin 81 mg DAILY PO 05/03/25 10:[address] [facility] 05/02/25 18:00 05/03/25 10:12 2.5 MG Ipratropium [place] 0.[address] [facility] 05/02/25 18:00 05/03/25 10:12 0.5 MG Sodium Chloride 1,000 ml @ 150 mls/hr Q6H40M IV 05/02/25 17:15 05/02/25 23:55 150 MLS/HR Norepinephrine Bitartrate 16 mg/ Sodium Chloride 250 ml @ 1.875 mls/ hr Q24H IV 05/02/25 18:00 05/02/25 20:30 1.875 MLS/HR Methylprednisolone Sodium Succinate 40 mg BID IV 05/03/25 10:00 Potassium Chloride 100 ml @ 50 mls/hr Q2H IV 05/03/25 07:00 05/03/25 10:59 05/03/25 09:42 50 MLS/HR Examination: GENERAL:Abnormal, CVS:Normal, NEURO:Abnormal laboratory and microbiology Laboratory Tests 05/03/25 05:18 Test 05/03/25 05:18 Range/Units Serum Glucose 114 H 74-106 mg/dL Microbiology Date/Time Source Procedure Growth Status 05/02/25 11:43 Urine - [place] Urine Culture - Preliminary No growth Resulted Problem List/Assessment/Plan Problem List/Assessment/Plan Acute kidney injury hemodynamically mediated now resolved Severe hyponatremia Hypokalemia hypoMg Altered mental state History of coronary artery disease BPH shock Continue with [place] catheter Patient is status post IV fluids in the ER electrolyte replacement Avoid over-correction of patient's Serum sodium to prevent osmotic demyelination Guarded prognosis Plan discussed with: Patient AURE CHILDERS MD May 03, 2025 10:46
[2025-05-03] MEDS: ENOXAPARIN SOD 40 MG/0.4 ML SYRINGE SC SCH (10:48)
[2025-05-03] MEDS: methylPREDNISolone SOD SUCC 40 MG/ML VL IV SCH (11:01)
[2025-05-03] MEDS: D5W 5% 1,000 ML IV SCH (11:26)
[2025-05-03 12:20] LABS: Anion Gap 16 (5-15); Carbon Dioxide 23 mmol/L (20-31)
[2025-05-03 12:25] LABS: BUN/Creatinine Ratio 30.8 (10.0-20.0)
[2025-05-03 12:26] LABS: Blood Urea Nitrogen 24 mg/dL (9-23); Calcium 6.9 mg/dL (8.7-10.4); Chloride 84 mmol/L (98-107); Glucose 156 mg/dL (74-106); Potassium 3.3 mmol/L (3.5-5.1); Sodium 123 mmol/L (136-145)
--- NOTE | 2025-05-03 12:51 | DVHPN2 ---
Reviewed: Care Plan, H&P, Labs, Medications, Previous Orders, Radiology Changes from previous H/P or p: No Changes Objective Vitals Vital Signs Date Time Temp Pulse Resp B/P (MAP) Pulse Ox O2 Delivery O2 Flow Rate FiO2 05/03/25 12:32 86 05/03/25 12:30 14 114/75 (88) 100 05/03/25 10:12 Nasal Cannula 3.0 05/03/25 10:12 32 05/03/25 06:30 98.6 98.6 Intake/Output Intake and Output 05/03/25 07:00 Intake Total 4120.1825 ml Output Total 1500 ml Balance 2620.1825 ml Intake IV Total 4120.1825 ml Output Urine Total 1500 ml Medications Current Medications Medications Dose Ordered Sig/Jethro Route Start Time Stop Time Status Last Admin Dose Admin Ondansetron HCl 4 mg Q4HP PRN IV 05/02/25 14:45 Morphine Sulfate 2 mg Q4HPRN PRN IV 05/02/25 14:45 Enoxaparin Sodium 40 mg DAILY SC 05/03/25 10:00 05/03/25 10:48 40 MG Piperacillin Sod/ Tazobactam Sod 100 ml @ 25 mls/hr Q8HR IV 05/02/25 22:00 05/03/25 06:23 25 MLS/HR Aspirin 81 mg DAILY PO 05/03/25 10:00 05/03/25 10:47 81 MG Albuterol 2.5 mg Q4HWA [facility] 05/02/25 18:00 05/03/25 10:12 2.5 MG Ipratropium [place] 0.5 mg Q4HWA [facility] 05/02/25 18:00 05/03/25 10:12 0.5 MG Norepinephrine Bitartrate 16 mg/ Sodium Chloride 250 ml @ 1.875 mls/ hr Q24H IV 05/02/25 18:00 05/02/25 20:30 1.875 MLS/HR Methylprednisolone Sodium Succinate 40 mg BID IV 05/03/25 10:00 05/03/25 11:01 40 MG Dextrose 1,000 ml @ 50 mls/hr Q20H IV 05/03/25 11:00 05/03/25 11:26 50 MLS/HR Potassium Chloride 100 ml @ 50 mls/hr Q2H IV 05/03/25 11:00 05/03/25 18:59 Laboratory Results Laboratory Tests 05/03/25 11:35 Chemistry Test 05/02/25 15:35 05/02/25 20:47 05/03/25 05:18 05/03/25 11:35 Albumin 3.2 g/dL (3.2-4.8) 3.3 g/dL (3.2-4.8) 3.1 g/dL (3.2-4.8) L Calcium Level 6.0 mg/dL (8.7-10.4) *L 6.7 mg/dL (8.7-10.4) L 6.5 mg/dL (8.7-10.4) L 6.9 mg/dL (8.7-10.4) L Magnesium Level 0.6 mg/dL (1.6-2.6) *L 0.9 mg/dL (1.6-2.6) *L 1.5 mg/dL (1.6-2.6) L Phosphorus Level 2.4 mg/dL (2.4-5.1) Total Protein 5.1 g/dL (5.7-8.2) L 5.4 g/dL (5.7-8.2) L 5.2 g/dL (5.7-8.2) L Coagulation Test 05/02/25 13:50 Prothrombin Time 12.2 sec (9.3-11.8) H Prothrombin Time INR 1.17 (0.9-1.15) H Activated Partial Thromboplast Time 32.5 SEC (24.5-34.5) Lipid panel Test 05/02/25 15:35 Cholesterol Level 135 mg/dL (< 200) HDL Cholesterol 37 mg/dL (40-59) L Lipase 31 U/L (12-53) Triglycerides Level 102 mg/dL (< 150) LFT Test 05/02/25 15:35 05/02/25 20:47 05/03/25 05:18 Alanine Aminotransferase (ALT) 109 U/L (7-40) H 107 U/L (7-40) H 97 U/L (7-40) H Alkaline Phosphatase 80 U/L (46-116) 76 U/L (46-116) 73 U/L (46-116) Aspartate Amino Transferase (AST) 212 U/L (13-40) H 205 U/L (13-40) H 162 U/L (13-40) H Total Bilirubin 1.0 mg/dL (0.2-1.0) 1.0 mg/dL (0.2-1.0) 0.8 mg/dL (0.2-1.0) HgA1c, TSH Test 05/02/25 13:50 Thyroid Stimulating Hormone (TSH) 0.53 uIU/mL (0.55-4.78) L Urinalysis Test 05/02/25 11:43 05/02/25 21:20 Urine Color Light-yellow (Yellow) Urine Clarity Clear (Clear) Urine pH 5.5 (5.0-9.0) Urine Specific [place] 1.009 (1.001-1.035) Urine Protein Negative (Negative) Urine Ketones 1+ (Negative) H Urine Blood 1+ /uL (Negative) H Urine Nitrite Negative (Negative) Urine Bilirubin Negative (Negative) Urine Urobilinogen Normal mg/dL (Negative) Urine Leukocyte Esterase Negative /uL (Negative) Urine RBC 8 /hpf (0 - 3) Urine Microscopic WBC 1 /HPF (0-3) Urine Squamous Epithelial Cells None seen /hpf (<5) Urine Bacteria None seen /hpf (None Seen) Urine Glucose Normal mg/dL (Normal) Urine Osmolality 347 mOsm/kg Urine Creatinine 45.71 mg/dL (30.0-125.0) Urine Microalbumin 99.0 mg/L (<30.0) H Urine Protein/Creatinine Ratio 1.28 Urine Sodium 11 mmol/L (40-220) L Urine Potassium 20 mmol/L (12-62) Urine Total Protein 58.3 mg/dL (1-14) H Blood Gas Results Test 05/02/25 15:07 Arterial Blood pH 7.455 (7.350-7.450) FiO2 % 32.0 Microbiology Microbiology Date/Time Source Procedure Growth Status 05/02/25 16:16 Nose MRSA Screen - Final Complete 05/02/25 11:43 Urine - [place] Urine Culture - Preliminary No growth Resulted 05/02/25 11:22 Blood Blood Culture - Preliminary NO GROWTH AFTER 24 HOURS OF INCUBATION. Resulted Labs and/or images reviewed: Labs reviewed by me, Image(s) reviewed by me Assessment/Plan Assessment/Plan Acute Metabolic encephalopathy secondary to severe hyponatremia Severe hypovolemic/hyponatremia consult by appreciated Acute respiratory failure secondary to aspiration pneumonia and COPD exacerbation Septic shock secondary to pneumonia Aspiration pneumonia Zosyn albuterol Atrovent COPD exacerbation: Albuterol Atrovent Solu-Medrol Acute Rhabdomyolysis CPK 3214: IV fluids SUZANNE hemodynamically mediated on CKD Transaminitis Hypokalemia Hypomagnesemia Hypocalcemia NSTEMI likely type [address] head negative Rule out right hip fracture DVT ruled out Questionable mechanical fall Dyslipidemia Hypertension Coronary artery disease with history of GA status post PCI and CABG Time Spent 75 minutes Advanced care planning time 20 minutes Patient is full code Plan discussed with: Patient Date of Service: May 03, 2025 Billing Provider: MATTHEW OTOOLE MD Common Visit Codes: [id number] CARE 30-74 MIN MATTHEW OTOOLE MD May 03, 2025 12:51
[2025-05-03 13:43] LABS: Hematocrit 38.4 % (41.0-53.0); Hemoglobin 13.9 g/dL (13.5-17.5); Mean Corpuscular Hemoglobin 31.1 pg (28.0-32.0); Mean Corpuscular Volume 86.3 fL (80.0-100.0); Nucleated Red Blood Cells % 0.1 %
[2025-05-03 14:44] LABS: Alkaline Phosphatase 72 U/L (46-116); Anion Gap 12 (5-15); BUN/Creatinine Ratio 32.4 (10.0-20.0); Bilirubin, Total 0.6 mg/dL (0.2-1.0); Carbon Dioxide 24 mmol/L (20-31); Magnesium 1.8 mg/dL (1.6-2.6); Potassium 3.5 mmol/L (3.5-5.1)
[2025-05-03 14:46] LABS: Alanine Aminotransferase 92 U/L (7-40); Albumin 2.9 g/dL (3.2-4.8); Blood Urea Nitrogen 24 mg/dL (9-23); Calcium 6.5 mg/dL (8.7-10.4); Chloride 86 mmol/L (98-107); Glucose 185 mg/dL (74-106); Sodium 122 mmol/L (136-145); Total Protein 4.6 g/dL (5.7-8.2)
[2025-05-04] VITALS (40 sets, daily range): BP systolic 98–144; BP diastolic 50–84; PULSE 82–107; RESP 9–20; TEMP 97.4–97.8; O2SAT 81–100
[2025-05-04 03:22] LABS: Hematocrit 34.1 % (41.0-53.0); Hemoglobin 12.4 g/dL (13.5-17.5); Mean Corpuscular Hemoglobin 31.4 pg (28.0-32.0); Mean Corpuscular Volume 86.5 fL (80.0-100.0); Nucleated Red Blood Cells % 0.0 %
[2025-05-04 03:42] LABS: Alkaline Phosphatase 69 U/L (46-116); Anion Gap 9 (5-15); BUN/Creatinine Ratio 20.3 (10.0-20.0); Blood Urea Nitrogen 14 mg/dL (9-23); Carbon Dioxide 26 mmol/L (20-31); Potassium 3.7 mmol/L (3.5-5.1)
[2025-05-04 03:43] LABS: Magnesium 1.7 mg/dL (1.6-2.6)
[2025-05-04 03:44] LABS: Bilirubin, Total 0.5 mg/dL (0.2-1.0)
[2025-05-04 04:07] LABS: Alanine Aminotransferase 82 U/L (7-40); Albumin 3.1 g/dL (3.2-4.8); Calcium 7.0 mg/dL (8.7-10.4); Chloride 88 mmol/L (98-107); Glucose 202 mg/dL (74-106); Sodium 123 mmol/L (136-145); Total Protein 5.1 g/dL (5.7-8.2)
[2025-05-04] MEDS: MAGNESIUM SULFATE 1GM/100ML 100 ML IV ONE (04:33)
[2025-05-04] MEDS: SODIUM CHLORIDE 0.9% 1,000 ML IV SCH (10:15)
--- NOTE | 2025-05-04 11:11 | DVHPN2 ---
Progress Note - Dictate Date Seen: May 04, 2025 Medical Necessity Reason Pt with a Central, PICC or Fol: Yes The following are medically ne: Central Line Subjective Mr. Laboy is a 79 years old right-handed gentleman with a history of hypertension, dyslipidemia, coronary artery disease, heart attack, COPD, he was brought to the [facility] on 05/02/2025 with a chief company of shortness breath, but the patient is also found to have chronic strokes on CT brain scan I have seen examined the patient, discussed with his nurse, he is doing fine, alert, oriented to person, place, he knows year, good social skills, again he denies a history of stroke or focal weakness/numbness UDS, 05/02/2025: Negative Urinalysis, 05/02/2025: WBC: One, urine leukocyte esterase: Negative ABG, 05/02/2025: Respiratory alkalosis WBC/HB/PLT/MCV, 05/03/2025: 13/12.7/233/85.5 PT/INR/ABG, 05/02/2025: 12.2/1.17/32.5 Na 04/25/25: 128, 05/02/25: 111, 112, 140, 05/03/2025: 120 K, 05/02/2025: 2.7, three, 05/03/2025: 2.8 CPK 05/02/2025: 3214, 3477, 05/03/2025: 2194 BUN/CR, 05/02/2025: 45/1.01, 39/1, 07/03/2024: 23/0.78 TBI/AST/ALT/AP, 05/02/2025: 0.9/164/5/87, 05/03/2025: 0.8/162 797/73 NH3, 05/02/2025: 19 TG/HDL/LDL/HDL, 05/02/2025: 102/135/75/37 Vitamin B12 05/02/2025: >4000 TSH, 05/02/2025: 0.53 Carotid Doppler, 05/02/2025: Greater than 70% stenosis of the left internal carotid artery by velocity criteria. High-grade stenosis of the right external carotid artery. Chest X-ray, 05/02/2025: Mild bibasilar airspace opacity. Chest x-ray, 05/02/2025: Right central venous catheter with tip near cavoatrial junction. CT head, 05/02/2025: 1. No CT evidence of acute intracranial abnormality. 2. Nonacute findings as described above (More focal area of encephalomalacia is seen in the right frontal lobe, may be sequelae of chronic infarct.) MR brain scan, 05/03/2025: No acute intracranial abnormality seen. No evidence for acute infarct. Gvvf-pw-[id number] brain volume loss. [id number]-[id number] chronic small vessel ischemic change. Old moderate right and small left frontal lobe infarcts. Old right basal ganglia infarct. vital signs Vital Sign Date Time Temp Pulse Resp B/P (MAP) Pulse Ox O2 Delivery O2 Flow Rate FiO2 05/04/25 07:33 97.4 95 12 109/51 (70) 99 97.4 05/04/25 07:33 Nasal Cannula* 3 32 Total Intake and Output 05/03/25 05/03/25 05/04/25 15:00 23:00 07:00 Intake Total 100 ml 450 ml 550 ml Output Total 1175 ml Balance 100 ml 450 ml -625 ml medications Current Medications Medications Dose Ordered Sig/Jethro Route Start Time Stop Time Status Last Admin Dose Admin Ondansetron HCl 4 mg Q4HP PRN IV 05/02/25 14:45 Morphine Sulfate 2 mg Q4HPRN PRN IV 05/02/25 14:45 Enoxaparin Sodium 40 mg DAILY SC 05/03/25 10:00 05/04/25 09:54 40 MG Piperacillin Sod/ Tazobactam Sod 100 ml @ 25 mls/hr Q8HR IV 05/02/25 22:00 05/04/25 05:36 25 MLS/HR Aspirin 81 mg DAILY PO 05/03/25 10:00 05/04/25 09:54 81 MG Albuterol 2.5 mg Q4HWA NEB 05/02/25 18:00 05/04/25 10:23 2.5 MG Ipratropium [place] 0.5 mg Q4HWA NEB 05/02/25 18:00 05/04/25 10:23 0.5 MG Methylprednisolone Sodium Succinate 40 mg BID IV 05/03/25 10:00 05/04/25 09:53 40 MG Sodium Chloride 1,000 ml @ 100 mls/hr Q10H IV 05/04/25 10:15 UNV objective General: the patient is well developed and nourished. No acute distress. MENTAL STATUS: Awake and alert. Oriented to person, place, he knows year. Able to give personal history. SPEECH, LANGUAGE, HIGHER CORTICAL FUNCTION: no aphasia or dysathria. CRANIAL NERVES: Pupils are equal, round and reactive. EOMs full and conjugate. Mild bilateral gaze evoked nystagmus. Facial sensation intact in all three divisions bilaterally. Mandibular strength intact. Facial muscles symmetrical and strength intact. Tongue midline. No fasciculations or atrophy. SENSATION: Sensation to touch and pinprick is normal. MOTOR: Normal tone in the upper and lower extremity. Normal muscle bulk. No fasciculations. No abnormal movements or posturing. Muscle strength of the major groups in the upper extremities is 4/5 with no drift. Muscle strength of the major groups in the lower extremities is 3/5. REFLEXES: Deep tendon reflexes normal and symmetrical. No pathological reflexes. CEREBELLAR/COORDINATION: Finger to nose is normal bilaterally. GAIT/STATION: deferred. laboratory and microbiology Laboratory Tests 05/04/25 03:01 Test 05/04/25 03:01 Range/Units Serum Glucose 202 H 74-106 mg/dL Problem List Chronic strokes, asymptomatic Left ICA stenosis Mild disorientation/Acute metabolic encephalopathy Hyponatremia Hypokalemia Rhabdomyolysis Transaminitis, ? Secondary to rhabdomyolysis Assessment/Plan Monitoring Supportive treatment Telemetry Follow up labs Echocardiogram Aspirin 81 mg daily Lipitor 10 mg daily DVT prophylaxis/Lovenox Antibiotics Consult Dr. Anderson Re: Left ICA stenosis More recommendation per clinical course This medical document was created using an electronic medical record system with [employer] dictation system. Although this document has been carefully reviewed, there may still be some phonetic and typographical errors. These areas are purely typographical due to imperfections of the software programs, and do not reflect any compromise in the patient's medical care. Prognosis poor Plan discussed with: Other Total Time (mins): 35 SIMA HAMILTON MD May 04, 2025 11:11
--- NOTE | 2025-05-04 12:49 | DVHPN2 ---
Reviewed: Care Plan, H&P, Labs, Medications, Previous Orders, Radiology Changes from previous H/P or p: No Changes Objective Vitals Vital Signs Date Time Temp Pulse Resp B/P (MAP) Pulse Ox O2 Delivery O2 Flow Rate FiO2 05/04/25 12:00 93 05/04/25 11:00 97.3 12 112/51 (71) 100 97.3 05/04/25 07:33 Nasal Cannula* 3 32 Intake/Output Intake and Output 05/04/25 07:00 Intake Total 1100 ml Output Total 1175 ml Balance -75 ml Intake IV Total 1100 ml Output Urine Total 1175 ml Medications Current Medications Medications Dose Ordered Sig/Jethro Route Start Time Stop Time Status Last Admin Dose Admin Ondansetron HCl 4 mg Q4HP PRN IV 05/02/25 14:45 Morphine Sulfate 2 mg Q4HPRN PRN IV 05/02/25 14:45 Enoxaparin Sodium 40 mg DAILY SC 05/03/25 10:00 05/04/25 09:54 40 MG Piperacillin Sod/ Tazobactam Sod 100 ml @ 25 mls/hr Q8HR IV 05/02/25 22:00 05/04/25 05:36 25 MLS/HR Aspirin 81 mg DAILY PO 05/03/25 10:00 05/04/25 09:54 81 MG Albuterol 2.5 mg Q4HWA [facility] 05/02/25 18:00 05/04/25 10:23 2.5 MG Ipratropium [place] 0.5 mg Q4HWA [facility] 05/02/25 18:00 05/04/25 10:23 0.5 MG Methylprednisolone Sodium Succinate 40 mg BID IV 05/03/25 10:00 05/04/25 09:53 40 MG Sodium Chloride 1,000 ml @ 100 mls/hr Q10H IV 05/04/25 10:15 05/04/25 10:15 100 MLS/HR Atorvastatin Calcium 10 mg HS PO 05/04/25 22:00 Laboratory Results Laboratory Tests 05/04/25 03:01 Chemistry Test 05/03/25 14:07 05/04/25 03:01 Albumin 2.9 g/dL (3.2-4.8) L 3.1 g/dL (3.2-4.8) L Calcium Level 6.5 mg/dL (8.7-10.4) L 7.0 mg/dL (8.7-10.4) L Magnesium Level 1.8 mg/dL (1.6-2.6) 1.7 mg/dL (1.6-2.6) Phosphorus Level 2.1 mg/dL (2.4-5.1) L Total Protein 4.6 g/dL (5.7-8.2) L 5.1 g/dL (5.7-8.2) L LFT Test 05/03/25 14:07 05/04/25 03:01 Alanine Aminotransferase (ALT) 92 U/L (7-40) H 82 U/L (7-40) H Alkaline Phosphatase 72 U/L (46-116) 69 U/L (46-116) Aspartate Amino Transferase (AST) 119 U/L (13-40) H 80 U/L (13-40) H Total Bilirubin 0.6 mg/dL (0.2-1.0) 0.5 mg/dL (0.2-1.0) Urinalysis Test 05/02/25 11:43 05/02/25 21:20 Urine Color Light-yellow (Yellow) Urine Clarity Clear (Clear) Urine pH 5.5 (5.0-9.0) Urine Specific [place] 1.009 (1.001-1.035) Urine Protein Negative (Negative) Urine Ketones 1+ (Negative) H Urine Blood 1+ /uL (Negative) H Urine Nitrite Negative (Negative) Urine Bilirubin Negative (Negative) Urine Urobilinogen Normal mg/dL (Negative) Urine Leukocyte Esterase Negative /uL (Negative) Urine RBC 8 /hpf (0 - 3) Urine Microscopic WBC 1 /HPF (0-3) Urine Squamous Epithelial Cells None seen /hpf (<5) Urine Bacteria None seen /hpf (None Seen) Urine Glucose Normal mg/dL (Normal) Urine Osmolality 347 mOsm/kg Urine Creatinine 45.71 mg/dL (30.0-125.0) Urine Microalbumin 99.0 mg/L (<30.0) H Urine Protein/Creatinine Ratio 1.28 Urine Sodium 11 mmol/L (40-220) L Urine Potassium 20 mmol/L (12-62) Urine Total Protein 58.3 mg/dL (1-14) H Microbiology Microbiology Date/Time Source Procedure Growth Status 05/02/25 16:16 Nose MRSA Screen - Final Complete 05/02/25 11:43 Urine - [place] Urine Culture - Final Complete 05/02/25 11:22 Blood Blood Culture - Preliminary NO GROWTH AFTER 48 HOURS OF INCUBATION. Resulted Labs and/or images reviewed: Labs reviewed by me, Image(s) reviewed by me Assessment/Plan Assessment/Plan Acute Metabolic encephalopathy secondary to severe hyponatremia , Neurology consult by Dr. Simmons appreciated Severe hypovolemic/hyponatremia consult by appreciated Acute respiratory failure secondary to aspiration pneumonia and COPD exacerbation Septic shock secondary to pneumonia Aspiration pneumonia Zosyn albuterol Atrovent COPD exacerbation: Albuterol Atrovent Solu-Medrol Acute Rhabdomyolysis CPK 3214: IV fluids SUZANNE hemodynamically mediated on CKD Transaminitis Hypokalemia Hypomagnesemia Hypocalcemia NSTEMI likely type [address] head negative Rule out right hip fracture DVT ruled out Questionable mechanical fall Dyslipidemia Hypertension Coronary artery disease with history of [place] status post PCI and CABG Time Spent 70 minutes Patient is full code Plan discussed with: Patient My Orders Orders - MATTHEW OTOOLE MD Procedure Category Date Status Time Sodium Chloride 0.9% PHA 05/04/25 In Process 10:15 Date of Service: May 04, 2025 Billing Provider: MATTHEW OTOOLE MD Common Visit Codes: [id number] CARE 30-74 MIN MATTHEW OTOOLE MD May 04, 2025 12:49
--- NOTE | 2025-05-04 14:54 | DVHPN2 ---
Progress Note Date Seen: May 04, 2025 Medical Necessity Reason Pt with a Central, PICC or Fol: Yes The following are medically ne: Central Line, Sanchez Catheter Objective vital signs Vital Sign Date Time Temp Pulse Resp B/P (MAP) Pulse Ox O2 Delivery O2 Flow Rate FiO2 05/04/25 13:53 91 14 99 05/04/25 13:43 Nasal Cannula* 3 32 05/04/25 13:00 97.6 109/58 (75) 97.6 Total Intake and Output 05/03/25 05/03/25 05/04/25 15:00 23:00 07:00 Intake Total 100 ml 450 ml 550 ml Output Total 1175 ml Balance 100 ml 450 ml -625 ml medications Current Medications Medications Dose Ordered Sig/Jethro Route Start Time Stop Time Status Last Admin Dose Admin Ondansetron HCl 4 mg Q4HP PRN IV 05/02/25 14:45 Morphine Sulfate 2 mg Q4HPRN PRN IV 05/02/25 14:45 Enoxaparin Sodium 40 mg DAILY SC 05/03/25 10:00 05/04/25 09:54 40 MG Piperacillin Sod/ Tazobactam Sod 100 ml @ 25 mls/hr Q8HR IV 05/02/25 22:00 05/04/25 14:04 25 MLS/HR Aspirin 81 mg DAILY PO 05/03/25 10:00 05/04/25 09:54 81 MG Albuterol 2.5 mg Q4HWA [facility] 05/02/25 18:00 05/04/25 13:41 2.5 MG Ipratropium [place] 0.5 mg Q4HWA [facility] 05/02/25 18:00 05/04/25 13:41 0.5 MG Methylprednisolone Sodium Succinate 40 mg BID IV 05/03/25 10:00 05/04/25 09:53 40 MG Sodium Chloride 1,000 ml @ 100 mls/hr Q10H IV 05/04/25 10:15 05/04/25 10:15 100 MLS/HR Atorvastatin Calcium 10 mg HS PO 05/04/25 22:00 Examination: GENERAL:Abnormal, LUNGS:Abnormal, CVS:Abnormal, ABDOMEN:Abnormal, SKIN:Abnormal laboratory and microbiology Laboratory Tests 05/04/25 03:01 Test 05/04/25 03:01 Range/Units Serum Glucose 202 H 74-106 mg/dL Microbiology Date/Time Source Procedure Growth Status 05/02/25 16:16 Nose MRSA Screen - Final Complete 05/02/25 11:43 Urine - [place] Urine Culture - Final Complete 05/02/25 11:22 Blood Blood Culture - Preliminary NO GROWTH AFTER 48 HOURS OF INCUBATION. Resulted Problem List/Assessment/Plan Problem List/Assessment/Plan Acute kidney injury hemodynamically mediated now resolved Severe hyponatremia Hypokalemia hypoMg Altered mental state History of coronary artery disease BPH shock Continue with Sanchez catheter Patient is status post IV fluids in the ER electrolyte replacement Na, Mg, Ca Avoid over-correction of patient's Guarded prognosis Plan discussed with: Patient AURE CHILDERS MD May 04, 2025 14:54
[2025-05-04] MEDS: ATORVASTATIN 20 MG TAB PO SCH (21:57)
--- NOTE | 2025-05-04 23:49 | DVHPN2 ---
Progress Note - Dictate Date Seen: May 05, 2025 Medical Necessity Reason Pt with a Central, PICC or Fol: Yes The following are medically ne: Central Line, Sanchez Catheter Subjective Mr. Laboy is a 79 years old right-handed gentleman with a history of hypertension, dyslipidemia, coronary artery disease, heart attack, COPD, he was brought to the [facility] on 05/02/2025 with a chief complaint of shortness breath, but the patient is also found to have chronic strokes on CT brain scan I have seen examined the patient, discussed with his nurse, weaker and more confused than yesterday, he is oriented to person only, he has reasonable social skills, he follows verbal commands Dr. Anderson's input appreciated UDS, 05/02/2025: Negative Urinalysis, 05/02/2025: WBC: One, urine leukocyte esterase: Negative ABG, 05/02/2025: Respiratory alkalosis WBC/HB/PLT/MCV, 05/03/2025: 13/12.7/233/85.5 PT/INR/ABG, 05/02/2025: 12.2/1.17/32.5 Na 04/25/25: 128, 05/02/25: 111, 112, 140, 05/03/2025: 120 K, 05/02/2025: 2.7, three, 05/03/2025: 2.8 CPK 05/02/2025: 3214, 3477, 05/03/2025: 2194 BUN/CR, 05/02/2025: 45/1.01, 39/1, 07/03/2024: 23/0.78 TBI/AST/ALT/AP, 05/02/2025: 0.9/164/5/87, 05/03/2025: 0.8/162 797/73 NH3, 05/02/2025: 19 TG/HDL/LDL/HDL, 05/02/2025: 102/135/75/37 Vitamin B12 05/02/2025: >4000 TSH, 05/02/2025: 0.53 Echocardiogram, 04/29/2025: Technically difficult study. Off axis views. There appears to be mild RV enlargement with left atrial enlargement. Mild concentric LVH. Mild septal thickening. Mild aortic sclerosis. Mild thickening of the posterior mitral leaflet from the limited views obtained as well as mild calcification at the roof of the left atrium. Left ventricular function appears preserved at 55% associated mild inferior basal hypokinesis. There was normal RV function. Dopplers unremarkable. No pericardial effusion masses or vegetations. Carotid Doppler, 05/02/2025: Greater than 70% stenosis of the left internal carotid artery by velocity criteria. High-grade stenosis of the right external carotid artery. Chest X-ray, 05/02/2025: Mild bibasilar airspace opacity. Chest x-ray, 05/02/2025: Right central venous catheter with tip near cavoatrial junction. CT head, 05/02/2025: 1. No CT evidence of acute intracranial abnormality. 2. Nonacute findings as described above (More focal area of encephalomalacia is seen in the right frontal lobe, may be sequelae of chronic infarct.) MR brain scan, 05/03/2025: No acute intracranial abnormality seen. No evidence for acute infarct. Pgrc-yv-sysbiycu brain volume loss. Cssz-fk-dmrpnxnf chronic small vessel ischemic change. Old moderate right and small left frontal lobe infarcts. Old right basal ganglia infarct. vital signs Vital Sign Date Time Temp Pulse Resp B/P (MAP) Pulse Ox O2 Delivery O2 Flow Rate FiO2 05/04/25 22:22 99 Nasal Cannula* 3 32 05/04/25 22:15 93 16 05/04/25 21:00 97.8 129/84 (99) 97.8 Total Intake and Output 05/03/25 05/03/25 05/04/25 15:00 23:00 07:00 Intake Total 100 ml 450 ml 550 ml Output Total 1175 ml Balance 100 ml 450 ml -625 ml medications Current Medications Medications Dose Ordered Sig/Jethro Route Start Time Stop Time Status Last Admin Dose Admin Ondansetron HCl 4 mg Q4HP PRN IV 05/02/25 14:45 Morphine Sulfate 2 mg Q4HPRN PRN IV 05/02/25 14:45 Enoxaparin Sodium 40 mg DAILY SC 05/03/25 10:00 05/04/25 09:54 40 MG Piperacillin Sod/ Tazobactam Sod 100 ml @ 25 mls/hr Q8HR IV 05/02/25 22:00 05/04/25 21:57 25 MLS/HR Aspirin 81 mg DAILY PO 05/03/25 10:00 05/04/25 09:54 81 MG Albuterol 2.5 mg Q4HWA [facility] 05/02/25 18:00 05/04/25 22:09 2.5 MG Ipratropium [place] 0.5 mg Q4HWA [facility] 05/02/25 18:00 05/04/25 22:09 0.5 MG Methylprednisolone Sodium Succinate 40 mg BID IV 05/03/25 10:00 05/04/25 21:57 40 MG Sodium Chloride 1,000 ml @ 100 mls/hr Q10H IV 05/04/25 10:15 05/04/25 20:15 100 MLS/HR Atorvastatin Calcium 10 mg HS PO 05/04/25 22:00 05/04/25 21:57 10 MG objective General: the patient is well developed and nourished. No acute distress. MENTAL STATUS: Awake and alert. Oriented to person, place, he knows year. Able to give personal history. SPEECH, LANGUAGE, HIGHER CORTICAL FUNCTION: no aphasia or dysathria. CRANIAL NERVES: Pupils are equal, round and reactive. EOMs full and conjugate. Mild bilateral gaze evoked nystagmus. Facial sensation intact in all three divisions bilaterally. Mandibular strength intact. Facial muscles symmetrical and strength intact. Tongue midline. No fasciculations or atrophy. SENSATION: Sensation to touch and pinprick is normal. MOTOR: Normal tone in the upper and lower extremity. Normal muscle bulk. No fasciculations. No abnormal movements or posturing. Muscle strength of the major groups in the upper extremities is 4/5 with no drift. Muscle strength of the major groups in the lower extremities is 3/5. REFLEXES: Deep tendon reflexes normal and symmetrical. No pathological reflexes. CEREBELLAR/COORDINATION: Finger to nose is normal bilaterally. GAIT/STATION: deferred. laboratory and microbiology Laboratory Tests 05/04/25 03:01 Test 05/04/25 03:01 Range/Units Serum Glucose 202 H 74-106 mg/dL Problem List Chronic strokes, asymptomatic Left ICA stenosis Mild disorientation/Acute metabolic encephalopathy Hyponatremia Hypokalemia Rhabdomyolysis Transaminitis, ? Secondary to rhabdomyolysis Assessment/Plan Monitoring Supportive treatment Telemetry Follow up labs Aspirin 81 mg daily Lipitor 10 mg daily DVT prophylaxis/Lovenox Antibiotics Dr. Anderson Re: Left ICA stenosis, angiogram with the patient is better stabilized More recommendation per clinical course This medical document was created using an electronic medical record system with [employer] computerized dictation system. Although this document has been carefully reviewed, there may still be some phonetic and typographical errors. These areas are purely typographical due to imperfections of the software programs, and do not reflect any compromise in the patient's medical care. Prognosis Poor Plan discussed with: Other Total Time (mins): 35 SIMA HAMILTON MD May 04, 2025 23:49
[2025-05-05] VITALS (17 sets, daily range): BP systolic 118–142; BP diastolic 71–83; PULSE 80–117; RESP 14–19; TEMP 97.4–98.3; O2SAT 75–100
--- NOTE | 2025-05-05 07:29 | DVHPN2 ---
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 HTN CAD COPD BPH vital signs Vital Sign Date Time Temp Pulse Resp B/P (MAP) Pulse Ox O2 Delivery O2 Flow Rate FiO2 05/05/25 05:00 98.3 98 19 142/74 (96) 100 98.3 05/04/25 22:22 Nasal Cannula* 3 32 Total Intake and Output 05/04/25 05/04/25 05/05/25 15:00 23:00 07:00 Intake Total 100 ml 300 ml Output Total 750 ml Balance 100 ml -450 ml medications Current Medications Medications Dose Ordered Sig/Jethro Route Start Time Stop Time Status Last Admin Dose Admin Ondansetron HCl 4 mg Q4HP PRN IV 05/02/25 14:45 Morphine Sulfate 2 mg Q4HPRN PRN IV 05/02/25 14:45 Enoxaparin Sodium 40 mg DAILY SC 05/03/25 10:00 05/04/25 09:54 40 MG Piperacillin Sod/ Tazobactam Sod 100 ml @ 25 mls/hr Q8HR IV 05/02/25 22:00 05/04/25 21:57 25 MLS/HR Aspirin 81 mg DAILY PO 05/03/25 10:00 05/04/25 09:54 81 MG Albuterol 2.5 mg Q4HWA [facility] 05/02/25 18:00 05/05/25 06:33 2.5 MG Ipratropium [place] 0.5 mg Q4HWA [facility] 05/02/25 18:00 05/05/25 06:33 0.5 MG Methylprednisolone Sodium Succinate 40 mg BID IV 05/03/25 10:00 05/04/25 21:57 40 MG Sodium Chloride 1,000 ml @ 100 mls/hr Q10H IV 05/04/25 10:15 05/04/25 20:15 100 MLS/HR Atorvastatin Calcium 10 mg HS PO 05/04/25 22:00 05/04/25 21:57 10 MG laboratory and microbiology Laboratory Tests 05/04/25 03:01 Test 05/04/25 03:01 Range/Units Serum Glucose 202 H 74-106 mg/dL Problem List AMS PRESENTED WITH PROGRESSIVE SX OF WEAKNESS SLURRING OF SPEECH MRI MULTIP[E CVAs 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
--- NOTE | 2025-05-05 10:26 | DVHPN2 ---
Reviewed: Care Plan, H&P, Labs, Medications, Previous Orders, Radiology Changes from previous H/P or p: No Changes Objective Vitals Vital Signs Date Time Temp Pulse Resp B/P (MAP) Pulse Ox O2 Delivery O2 Flow Rate FiO2 05/05/25 08:00 90 18 92 Nasal Cannula* 4 36 05/05/25 05:00 98.3 142/74 (96) 98.3 Intake/Output Intake and Output 05/05/25 07:00 Intake Total 400 ml Output Total 750 ml Balance -350 ml Intake Oral 300 ml IV Total 100 ml Output Urine Total 750 ml Medications Current Medications Medications Dose Ordered Sig/Jethro Route Start Time Stop Time Status Last Admin Dose Admin Morphine Sulfate 2 mg Q4HPRN PRN IV 05/02/25 14:45 Enoxaparin Sodium 40 mg DAILY SC 05/03/25 10:00 05/04/25 09:54 40 MG Piperacillin Sod/ Tazobactam Sod 100 ml @ 25 mls/hr Q8HR IV 05/02/25 22:00 05/04/25 21:57 25 MLS/HR Aspirin 81 mg DAILY PO 05/03/25 10:00 05/04/25 09:54 81 MG Albuterol 2.5 mg Q4HWA NEB 05/02/25 18:00 05/05/25 09:43 2.5 MG Ipratropium [place] 0.5 mg Q4HWA NEB 05/02/25 18:00 05/05/25 09:43 0.5 MG Methylprednisolone Sodium Succinate 40 mg BID IV 05/03/25 10:00 05/04/25 21:57 40 MG Sodium Chloride 1,000 ml @ 100 mls/hr Q10H IV 05/04/25 10:15 05/04/25 20:15 100 MLS/HR Atorvastatin Calcium 10 mg HS PO 05/04/25 22:00 05/04/25 21:57 10 MG Laboratory Results Laboratory Tests 05/04/25 03:01 Urinalysis Test 05/02/25 11:43 05/02/25 21:20 Urine Color Light-yellow (Yellow) Urine Clarity Clear (Clear) Urine pH 5.5 (5.0-9.0) Urine Specific [place] 1.009 (1.001-1.035) Urine Protein Negative (Negative) Urine Ketones 1+ (Negative) H Urine Blood 1+ /uL (Negative) H Urine Nitrite Negative (Negative) Urine Bilirubin Negative (Negative) Urine Urobilinogen Normal mg/dL (Negative) Urine Leukocyte Esterase Negative /uL (Negative) Urine RBC 8 /hpf (0 - 3) Urine Microscopic WBC 1 /HPF (0-3) Urine Squamous Epithelial Cells None seen /hpf (<5) Urine Bacteria None seen /hpf (None Seen) Urine Glucose Normal mg/dL (Normal) Urine Osmolality 347 mOsm/kg Urine Creatinine 45.71 mg/dL (30.0-125.0) Urine Microalbumin 99.0 mg/L (<30.0) H Urine Protein/Creatinine Ratio 1.28 Urine Sodium 11 mmol/L (40-220) L Urine Potassium 20 mmol/L (12-62) Urine Total Protein 58.3 mg/dL (1-14) H Microbiology Microbiology Date/Time Source Procedure Growth Status 05/02/25 16:16 Nose MRSA Screen - Final Complete 05/02/25 11:43 Urine - [place] Urine Culture - Final Complete 05/02/25 11:22 Blood Blood Culture - Preliminary NO GROWTH AFTER 48 HOURS OF INCUBATION. Resulted Labs and/or images reviewed: Labs reviewed by me, Image(s) reviewed by me Assessment/Plan Assessment/Plan Acute Metabolic encephalopathy secondary to severe hyponatremia , Neurology consult by Dr. Simmons appreciated Severe hypovolemic/hyponatremia consult by appreciated Acute respiratory failure secondary to aspiration pneumonia and COPD exacerbation Septic shock secondary to pneumonia Aspiration pneumonia Zosyn albuterol Atrovent COPD exacerbation: Albuterol Atrovent Solu-Medrol Acute Rhabdomyolysis CPK 3214: IV fluids SUZANNE hemodynamically mediated on CKD Transaminitis Hypokalemia Hypomagnesemia Hypocalcemia NSTEMI likely type 2: Cardiology consult by Dr. Gonsalez appreciated, planning for carotid angiography when patient is stable CVA ruled out CT head negative, MRI brain negative Rule out right hip fracture DVT ruled out Questionable mechanical fall Dyslipidemia Hypertension Coronary artery disease with history of [place] status post PCI and CABG Time Spent 50 minutes RN emily Benita [phone] at bedside Patient is full code Plan discussed with: Patient My Orders Orders - MATTHEW OTOOLE MD Procedure Category Date Status Time Cardiac DIET 05/04/25 Transmitted Diet-2gna,Lofat,Lochol Dinner Date of Service: May 05, 2025 Billing Provider: MATTHEW OTOOLE MD Common Visit Codes: [id number] INP/OBS CARE(HIGH) MATTHEW OTOLOE MD May 05, 2025 10:26
--- NOTE | 2025-05-05 15:39 | DVHPN2 ---
Progress Note Date Seen: May 05, 2025 Medical Necessity Reason Pt with a Central, PICC or Fol: Yes The following are medically ne: Central Line, Sanchez Catheter Objective vital signs Vital Sign Date Time Temp Pulse Resp B/P (MAP) Pulse Ox O2 Delivery O2 Flow Rate FiO2 05/05/25 14:39 117 16 95 05/05/25 14:31 Nasal Cannula* 3 32 05/05/25 09:00 98.2 139/75 (96) 98.2 Total Intake and Output 05/04/25 05/04/25 05/05/25 15:00 23:00 07:00 Intake Total 100 ml 300 ml Output Total 750 ml Balance 100 ml -450 ml medications Current Medications Medications Dose Ordered Sig/Jethro Route Start Time Stop Time Status Last Admin Dose Admin Morphine Sulfate 2 mg Q4HPRN PRN IV 05/02/25 14:45 Enoxaparin Sodium 40 mg DAILY SC 05/03/25 10:00 05/05/25 10:53 40 MG Piperacillin Sod/ Tazobactam Sod 100 ml @ 25 mls/hr Q8HR IV 05/02/25 22:00 05/05/25 14:35 25 MLS/HR Aspirin 81 mg DAILY PO 05/03/25 10:00 05/05/25 10:53 81 MG Albuterol 2.5 mg Q4HWA [facility] 05/02/25 18:00 05/05/25 14:31 2.5 MG Ipratropium [place] 0.5 mg Q4HWA [facility] 05/02/25 18:00 05/05/25 14:31 0.5 MG Methylprednisolone Sodium Succinate 40 mg BID IV 05/03/25 10:00 05/05/25 10:53 40 MG Sodium Chloride 1,000 ml @ 100 mls/hr Q10H IV 05/04/25 10:15 05/04/25 20:15 100 MLS/HR Atorvastatin Calcium 10 mg HS PO 05/04/25 22:00 05/04/25 21:57 10 MG Examination: GENERAL:Abnormal, CVS:Abnormal, SKIN:Abnormal laboratory and microbiology Laboratory Tests 05/04/25 03:01 Test 05/04/25 03:01 Range/Units Serum Glucose 202 H 74-106 mg/dL Microbiology Date/Time Source Procedure Growth Status 05/02/25 16:16 Nose MRSA Screen - Final Complete 05/02/25 11:43 Urine - [place] Urine Culture - Final Complete 05/02/25 11:22 Blood Blood Culture - Preliminary NO GROWTH AFTER 72 HOURS OF INCUBATION. Resulted Problem List/Assessment/Plan Problem List/Assessment/Plan Acute kidney injury hemodynamically mediated now resolved Severe hyponatremia Hypokalemia hypoMg Altered mental state History of coronary artery disease BPH shock Continue with Sanchez catheter Patient is status post IV fluids, Na continues to improve encourage po electrolyte replacement Na, Mg, Ca Avoid over-correction of patient's Guarded prognosis Na Plan discussed with: Patient AURE CHILDERS MD May 05, 2025 15:38
[2025-05-05] MEDS: SODIUM CHLORIDE 0.9% 1,000 ML IV SCH (16:50)
[2025-05-06] VITALS (18 sets, daily range): BP systolic 113–138; BP diastolic 55–81; PULSE 65–123; RESP 17–20; TEMP 97–98.5; O2SAT 90–100
[2025-05-06 06:55] LABS: Hematocrit 33.3 % (41.0-53.0); Hemoglobin 11.7 g/dL (13.5-17.5); Mean Corpuscular Hemoglobin 31.6 pg (28.0-32.0); Mean Corpuscular Volume 89.9 fL (80.0-100.0)
[2025-05-06 07:04] LABS: Anion Gap 8 (5-15); Carbon Dioxide 31 mmol/L (20-31); Potassium 4.7 mmol/L (3.5-5.1)
[2025-05-06 07:10] LABS: BUN/Creatinine Ratio 44.6 (10.0-20.0)
[2025-05-06 07:17] LABS: Blood Urea Nitrogen 33 mg/dL (9-23); Calcium 8.2 mg/dL (8.7-10.4); Chloride 92 mmol/L (98-107); Glucose 157 mg/dL (74-106); Sodium 131 mmol/L (136-145)
[2025-05-06 08:42] LABS: Total Cells Counted 100.0 (100)
--- NOTE | 2025-05-06 09:59 | DVHPN2 ---
Reviewed: Care Plan, H&P, Labs, Medications, Previous Orders, Radiology Changes from previous H/P or p: No Changes Objective Vitals Vital Signs Date Time Temp Pulse Resp B/P (MAP) Pulse Ox O2 Delivery O2 Flow Rate FiO2 05/06/25 09:46 89 18 100 05/06/25 09:40 Nasal Cannula* 3 32 05/06/25 08:32 97.9 138/81 (100) 97.9 Intake/Output Intake and Output 05/06/25 07:00 Intake Total 870 ml Output Total 1550 ml Balance -680 ml Intake Oral 870 ml Tube Feeding 0 ml Output Urine Total 1550 ml Medications Current Medications Medications Dose Ordered Sig/Jethro Route Start Time Stop Time Status Last Admin Dose Admin Morphine Sulfate 2 mg Q4HPRN PRN IV 05/02/25 14:45 Enoxaparin Sodium 40 mg DAILY SC 05/03/25 10:00 05/06/25 09:46 40 MG Piperacillin Sod/ Tazobactam Sod 100 ml @ 25 mls/hr Q8HR IV 05/02/25 22:00 05/06/25 06:13 25 MLS/HR Aspirin 81 mg DAILY PO 05/03/25 10:00 05/06/25 09:45 81 MG Albuterol 2.5 mg Q4HWA [facility] 05/02/25 18:00 05/06/25 09:40 2.5 MG Ipratropium [place] 0.5 mg Q4HWA [facility] 05/02/25 18:00 05/06/25 09:40 0.5 MG Methylprednisolone Sodium Succinate 40 mg BID IV 05/03/25 10:00 05/06/25 09:45 40 MG Atorvastatin Calcium 10 mg HS PO 05/04/25 22:00 05/05/25 21:36 10 MG Sodium Chloride 1,000 ml @ 50 mls/hr Q20H IV 05/05/25 15:45 05/05/25 16:50 50 MLS/HR Laboratory Results Laboratory Tests 05/06/25 05:50 Chemistry Test 05/06/25 05:50 Calcium Level 8.2 mg/dL (8.7-10.4) L Urinalysis Test 05/02/25 11:43 05/02/25 21:20 Urine Color Light-yellow (Yellow) Urine Clarity Clear (Clear) Urine pH 5.5 (5.0-9.0) Urine Specific [place] 1.009 (1.001-1.035) Urine Protein Negative (Negative) Urine Ketones 1+ (Negative) H Urine Blood 1+ /uL (Negative) H Urine Nitrite Negative (Negative) Urine Bilirubin Negative (Negative) Urine Urobilinogen Normal mg/dL (Negative) Urine Leukocyte Esterase Negative /uL (Negative) Urine RBC 8 /hpf (0 - 3) Urine Microscopic WBC 1 /HPF (0-3) Urine Squamous Epithelial Cells None seen /hpf (<5) Urine Bacteria None seen /hpf (None Seen) Urine Glucose Normal mg/dL (Normal) Urine Osmolality 347 mOsm/kg Urine Creatinine 45.71 mg/dL (30.0-125.0) Urine Microalbumin 99.0 mg/L (<30.0) H Urine Protein/Creatinine Ratio 1.28 Urine Sodium 11 mmol/L (40-220) L Urine Potassium 20 mmol/L (12-62) Urine Total Protein 58.3 mg/dL (1-14) H Microbiology Microbiology Date/Time Source Procedure Growth Status 05/02/25 16:16 Nose MRSA Screen - Final Complete 05/02/25 11:43 Urine - [place] Urine Culture - Final Complete 05/02/25 11:22 Blood Blood Culture - Preliminary NO GROWTH AFTER 72 HOURS OF INCUBATION. Resulted Labs and/or images reviewed: Labs reviewed by me, Image(s) reviewed by me Assessment/Plan Assessment/Plan Acute Metabolic encephalopathy secondary to severe hyponatremia , Neurology consult by Dr. Simmons appreciated Severe hypovolemic/hyponatremia consult by appreciated Acute respiratory failure secondary to aspiration pneumonia and COPD exacerbation Septic shock secondary to pneumonia Aspiration pneumonia Zosyn albuterol Atrovent COPD exacerbation: Albuterol Atrovent Solu-Medrol Acute Rhabdomyolysis CPK 3214: IV fluids SUZANNE hemodynamically mediated on CKD Transaminitis Hypokalemia Hypomagnesemia Hypocalcemia NSTEMI likely type 2: Cardiology consult by Dr. Gonsalez appreciated, planning for carotid angiography when patient is stable CVA ruled out CT head negative, MRI brain negative Rule out right hip fracture DVT ruled out Questionable mechanical fall Dyslipidemia Hypertension Coronary artery disease with history of [place] status post PCI and CABG Time Spent 50 minutes DEBI diaz Benita [phone] at bedside Patient is full code DEBI Diaz bedside Plan discussed with: Patient My Orders Orders - MATTHEW OTOOLE MD Procedure Category Date Status Time Pt Request For Service PT 05/05/25 Logged 10:23 Date of Service: May 06, 2025 Billing Provider: MATTHEW OTOOLE MD Common Visit Codes: [id number] INP/OBS CARE(HIGH) MATTHEW OTOOLE MD May 06, 2025 09:59
--- NOTE | 2025-05-06 16:52 | DVHPN2 ---
Progress Note - Dictate Date Seen: May 06, 2025 Medical Necessity Reason Pt with a Central, PICC or Fol: Yes The following are medically ne: Central Line, [place] Catheter Subjective Patient resting comfortably this afternoon, arousable vital signs Vital Sign Date Time Temp Pulse Resp B/P (MAP) Pulse Ox O2 Delivery O2 Flow Rate FiO2 05/06/25 14:17 105 18 99 05/06/25 14:11 Nasal Cannula 3.0 05/06/25 14:11 32 05/06/25 13:00 98.2 113/71 (85) 98.2 Total Intake and Output 05/05/25 05/05/25 05/06/25 15:00 23:00 07:00 Intake Total 420 ml 450 ml Output Total 800 ml 750 ml Balance -380 ml -300 ml medications Current Medications Medications Dose Ordered Sig/Jethro Route Start Time Stop Time Status Last Admin Dose Admin Morphine Sulfate 2 mg Q4HPRN PRN IV 05/02/25 14:45 Enoxaparin Sodium 40 mg DAILY SC 05/03/25 10:00 05/06/25 09:46 40 MG Piperacillin Sod/ Tazobactam Sod 100 ml @ 25 mls/hr Q8HR IV 05/02/25 22:00 05/06/25 14:59 25 MLS/HR Aspirin 81 mg DAILY PO 05/03/25 10:00 05/06/25 09:45 81 MG Albuterol 2.5 mg Q4HWA [facility] 05/02/25 18:00 05/06/25 14:11 2.5 MG Ipratropium [place] 0.5 mg Q4HWA [facility] 05/02/25 18:00 05/06/25 14:11 0.5 MG Methylprednisolone Sodium Succinate 40 mg BID IV 05/03/25 10:00 05/06/25 09:45 40 MG Atorvastatin Calcium 10 mg HS PO 05/04/25 22:00 05/05/25 21:36 10 MG Sodium Chloride 1,000 ml @ 50 mls/hr Q20H IV 05/05/25 15:45 05/06/25 12:43 50 MLS/HR objective Gen: nad heent: nc/at, mmm lungs: cta anteriorly cvs: no rub abd: soft, bowel sounds audible ext: no edema skin: no rash neuro: alert and oriented laboratory and microbiology Laboratory Tests 05/06/25 05:50 Test 05/06/25 05:50 Range/Units Serum Glucose 157 H 74-106 mg/dL Assessment/Plan Problem List/Assessment/Plan Acute kidney injury hemodynamically mediated now resolved Severe hyponatremia Hypokalemia hypoMg Altered mental state History of coronary artery disease BPH shock - we will Hep-Lock IV fluids - hyponatremia resolving - repeat basic chemistry panel in a.m. Plan discussed with: Other JAIME GARCIA MD May 06, 2025 16:52
--- NOTE | 2025-05-06 21:55 | DVHPN2 ---
Progress Note - Dictate Date Seen: May 06, 2025 Medical Necessity Reason Pt with a Central, PICC or Fol: Yes The following are medically ne: Central Line, Sanchez Catheter Subjective Mr. Laboy is a 79 years old right-handed gentleman with a history of hypertension, dyslipidemia, coronary artery disease, heart attack, COPD, he was brought to the [facility] on 05/02/2025 with a chief complaint of shortness breath, but the patient is also found to have chronic strokes on CT brain scan I have seen examined the patient, discussed with his nurse, jayna. He is better today, he is awake, oriented to person, place, follows verbal commands, socially appropriate UDS, 05/02/2025: Negative Urinalysis, 05/02/2025: WBC: One, urine leukocyte esterase: Negative ABG, 05/02/2025: Respiratory alkalosis WBC/HB/PLT/MCV, 05/03/2025: 13/12.7/233/85.5 PT/INR/ABG, 05/02/2025: 12.2/1.17/32.5 Na 04/25/25: 128, 05/02/25: 111, 112, 140, 05/03/2025: 120 K, 05/02/2025: 2.7, three, 05/03/2025: 2.8 CPK 05/02/2025: 3214, 3477, 05/03/2025: 2194 BUN/CR, 05/02/2025: 45/1.01, 39/1, 07/03/2024: 23/0.78 TBI/AST/ALT/AP, 05/02/2025: 0.9/164/5/87, 05/03/2025: 0.8/162 797/73 NH3, 05/02/2025: 19 TG/HDL/LDL/HDL, 05/02/2025: 102/135/75/37 Vitamin B12 05/02/2025: >4000 TSH, 05/02/2025: 0.53 Echocardiogram, 04/29/2025: Technically difficult study. Off axis views. There appears to be mild RV enlargement with left atrial enlargement. Mild concentric LVH. Mild septal thickening. Mild aortic sclerosis. Mild thickening of the posterior mitral leaflet from the limited views obtained as well as mild calcification at the roof of the left atrium. Left ventricular function appears preserved at 55% associated mild inferior basal hypokinesis. There was normal RV function. Dopplers unremarkable. No pericardial effusion masses or vegetations. Carotid Doppler, 05/02/2025: Greater than 70% stenosis of the left internal carotid artery by velocity criteria. High-grade stenosis of the right external carotid artery. Chest X-ray, 05/02/2025: Mild bibasilar airspace opacity. Chest x-ray, 05/02/2025: Right central venous catheter with tip near cavoatrial junction. CT head, 05/02/2025: 1. No CT evidence of acute intracranial abnormality. 2. Nonacute findings as described above (More focal area of encephalomalacia is seen in the right frontal lobe, may be sequelae of chronic infarct.) MR brain scan, 05/03/2025: No acute intracranial abnormality seen. No evidence for acute infarct. [id number] brain volume loss. [id number] chronic small vessel ischemic change. Old moderate right and small left frontal lobe infarcts. Old right basal ganglia infarct. vital signs Vital Sign Date Time Temp Pulse Resp B/P (MAP) Pulse Ox O2 Delivery O2 Flow Rate FiO2 05/06/25 18:10 98 20 99 05/06/25 18:00 Nasal Cannula 3.0 05/06/25 18:00 32 05/06/25 17:38 98.2 129/69 (89) 98.2 Total Intake and Output 05/05/25 05/05/25 05/06/25 15:00 23:00 07:00 Intake Total 420 ml 450 ml Output Total 800 ml 750 ml Balance -380 ml -300 ml medications Current Medications Medications Dose Ordered Sig/Jethro Route Start Time Stop Time Status Last Admin Dose Admin Morphine Sulfate 2 mg Q4HPRN PRN IV 05/02/25 14:45 Enoxaparin Sodium 40 mg DAILY SC 05/03/25 10:00 05/06/25 09:46 40 MG Piperacillin Sod/ Tazobactam Sod 100 ml @ 25 mls/hr Q8HR IV 05/02/25 22:00 05/06/25 14:59 25 MLS/HR Aspirin 81 mg DAILY PO 05/03/25 10:00 05/06/25 09:45 81 MG Albuterol 2.5 mg Q4HWA NEB 05/02/25 18:00 05/06/25 21:24 2.5 MG Ipratropium [place] 0.5 mg Q4HWA [facility] 05/02/25 18:00 05/06/25 21:24 0.5 MG Methylprednisolone Sodium Succinate 40 mg BID IV 05/03/25 10:00 05/06/25 09:45 40 MG Atorvastatin Calcium 10 mg HS PO 05/04/25 22:00 05/05/25 21:36 10 MG objective General: the patient is well developed and nourished. No acute distress. MENTAL STATUS: Awake and alert. Oriented to person, place, he knows year. Able to give personal history. SPEECH, LANGUAGE, HIGHER CORTICAL FUNCTION: no aphasia or dysathria. CRANIAL NERVES: Pupils are equal, round and reactive. EOMs full and conjugate. Mild bilateral gaze evoked nystagmus. Facial sensation intact in all three divisions bilaterally. Mandibular strength intact. Facial muscles symmetrical and strength intact. Tongue midline. No fasciculations or atrophy. SENSATION: Sensation to touch and pinprick is normal. MOTOR: Normal tone in the upper and lower extremity. Normal muscle bulk. No fasciculations. Asterixis in both upper extremities. Muscle strength of the major groups in the upper extremities is 4/5 with questionable left arm drift. Muscle strength of the major groups in the lower extremities is 3/5. REFLEXES: Deep tendon reflexes normal and symmetrical. No pathological reflexes. CEREBELLAR/COORDINATION: Finger to nose is normal bilaterally. GAIT/STATION: deferred. laboratory and microbiology Laboratory Tests 05/06/25 05:50 Test 05/06/25 05:50 Range/Units Serum Glucose 157 H 74-106 mg/dL Problem List Chronic strokes, asymptomatic Left ICA stenosis Mild disorientation/Acute metabolic encephalopathy Hyponatremia Hypokalemia Rhabdomyolysis Transaminitis, ? Secondary to rhabdomyolysis Assessment/Plan Monitoring Supportive treatment Telemetry Follow up labs Aspirin 81 mg daily Lipitor 10 mg daily DVT prophylaxis/Lovenox Antibiotics Dr. Anderson Re: Left ICA stenosis, angiogram with the patient is better stabilized More recommendation per clinical course This medical document was created using an electronic medical record system with [employer] system. Although this document has been carefully reviewed, there may still be some phonetic and typographical errors. These areas are purely typographical due to imperfections of the software programs, and do not reflect any compromise in the patient's medical care. Prognosis poor Plan discussed with: SIMA López MD May 06, 2025 21:55
[2025-05-07] VITALS (18 sets, daily range): BP systolic 109–138; BP diastolic 62–86; PULSE 83–118; RESP 16–20; TEMP 97.6–98.3; O2SAT 90–100
--- NOTE | 2025-05-07 10:17 | DVHPN2 ---
Reviewed: Care Plan, H&P, Labs, Medications, Previous Orders, Radiology Changes from previous H/P or p: No Changes Objective Vitals Vital Signs Date Time Temp Pulse Resp B/P (MAP) Pulse Ox O2 Delivery O2 Flow Rate FiO2 05/07/25 09:43 101 18 100 05/07/25 09:37 Nasal Cannula 2.0 05/07/25 09:37 28 05/07/25 08:48 97.9 109/67 (81) 97.9 Intake/Output Intake and Output 05/07/25 07:00 Intake Total 1245 ml Output Total 2600 ml Balance -1355 ml Intake Oral 1245 ml Output Urine Total 2600 ml Medications Current Medications Medications Dose Ordered Sig/Jethro Route Start Time Stop Time Status Last Admin Dose Admin Morphine Sulfate 2 mg Q4HPRN PRN IV 05/02/25 14:45 Enoxaparin Sodium 40 mg DAILY SC 05/03/25 10:00 05/07/25 10:04 40 MG Piperacillin Sod/ Tazobactam Sod 100 ml @ 25 mls/hr Q8HR IV 05/02/25 22:00 05/07/25 06:57 25 MLS/HR Aspirin 81 mg DAILY PO 05/03/25 10:00 05/07/25 10:00 81 MG Albuterol 2.5 mg Q4HWA [facility] 05/02/25 18:00 05/07/25 09:37 2.5 MG Ipratropium [place] 0.5 mg Q4HWA [facility] 05/02/25 18:00 05/07/25 09:37 0.5 MG Methylprednisolone Sodium Succinate 40 mg BID IV 05/03/25 10:00 05/07/25 09:59 40 MG Atorvastatin Calcium 10 mg HS PO 05/04/25 22:00 05/06/25 21:47 10 MG Laboratory Results Laboratory Tests 05/06/25 05:50 Urinalysis Test 05/02/25 11:43 05/02/25 21:20 Urine Color Light-yellow (Yellow) Urine Clarity Clear (Clear) Urine pH 5.5 (5.0-9.0) Urine Specific [place] 1.009 (1.001-1.035) Urine Protein Negative (Negative) Urine Ketones 1+ (Negative) H Urine Blood 1+ /uL (Negative) H Urine Nitrite Negative (Negative) Urine Bilirubin Negative (Negative) Urine Urobilinogen Normal mg/dL (Negative) Urine Leukocyte Esterase Negative /uL (Negative) Urine RBC 8 /hpf (0 - 3) Urine Microscopic WBC 1 /HPF (0-3) Urine Squamous Epithelial Cells None seen /hpf (<5) Urine Bacteria None seen /hpf (None Seen) Urine Glucose Normal mg/dL (Normal) Urine Osmolality 347 mOsm/kg Urine Creatinine 45.71 mg/dL (30.0-125.0) Urine Microalbumin 99.0 mg/L (<30.0) H Urine Protein/Creatinine Ratio 1.28 Urine Sodium 11 mmol/L (40-220) L Urine Potassium 20 mmol/L (12-62) Urine Total Protein 58.3 mg/dL (1-14) H Microbiology Microbiology Date/Time Source Procedure Growth Status 05/02/25 16:16 Nose MRSA Screen - Final Complete 05/02/25 11:43 Urine - [place] Urine Culture - Final Complete 05/02/25 11:22 Blood Blood Culture - Preliminary NO GROWTH AFTER 72 HOURS OF INCUBATION. Resulted Labs and/or images reviewed: Labs reviewed by me, Image(s) reviewed by me Assessment/Plan Assessment/Plan Acute Metabolic encephalopathy secondary to severe hyponatremia , Neurology consult by Dr. Simmons appreciated Severe hypovolemic/hyponatremia consult by appreciated Acute respiratory failure secondary to aspiration pneumonia and COPD exacerbation Septic shock secondary to pneumonia Aspiration pneumonia Zosyn albuterol Atrovent COPD exacerbation: Albuterol Atrovent Solu-Medrol Acute Rhabdomyolysis CPK 3214: IV fluids SUZANNE hemodynamically mediated on CKD Transaminitis Hypokalemia Hypomagnesemia Hypocalcemia NSTEMI likely type 2: Cardiology consult by Dr. Gonsalez appreciated, planning for carotid angiography when patient is stable CVA ruled out CT head negative, MRI brain negative Rule out right hip fracture DVT ruled out Questionable mechanical fall Dyslipidemia Hypertension Coronary artery disease with history of [place] status post PCI and CABG Time Spent 55 minutes RN emily Benita [phone] at bedside Patient is full code DEBI Garcia bedside Plan discussed with: Patient Date of Service: May 07, 2025 Billing Provider: MATTHEW OTOOLE MD Common Visit Codes: [id number] INP/OBS CARE(HIGH) MATTHEW OTOOLE MD May 07, 2025 10:17
--- NOTE | 2025-05-07 16:34 | DVHPN2 ---
Progress Note Date Seen: May 07, 2025 Medical Necessity Reason Pt with a Central, PICC or Fol: Yes The following are medically ne: Central Line, Sanchez Catheter Subjective Patient reports: No new complaints, Feels better Objective vital signs Vital Sign Date Time Temp Pulse Resp B/P (MAP) Pulse Ox O2 Delivery O2 Flow Rate FiO2 05/07/25 14:19 99 16 100 05/07/25 14:13 Nasal Cannula 2.0 05/07/25 14:13 28 05/07/25 13:00 98.0 138/76 (96) 98.0 Total Intake and Output 05/06/25 05/06/25 05/07/25 15:00 23:00 07:00 Intake Total 240 ml 705 ml 300 ml Output Total 1150 ml 1450 ml Balance 240 ml -445 ml -1150 ml medications Current Medications Medications Dose Ordered Sig/Jethro Route Start Time Stop Time Status Last Admin Dose Admin Morphine Sulfate 2 mg Q4HPRN PRN IV 05/02/25 14:45 Enoxaparin Sodium 40 mg DAILY SC 05/03/25 10:00 05/07/25 10:04 40 MG Piperacillin Sod/ Tazobactam Sod 100 ml @ 25 mls/hr Q8HR IV 05/02/25 22:00 05/07/25 14:50 25 MLS/HR Aspirin 81 mg DAILY PO 05/03/25 10:00 05/07/25 10:00 81 MG Albuterol 2.5 mg Q4HWA [facility] 05/02/25 18:00 05/07/25 14:13 2.5 MG Ipratropium [place] 0.5 mg Q4HWA [facility] 05/02/25 18:00 05/07/25 14:13 0.5 MG Methylprednisolone Sodium Succinate 40 mg BID IV 05/03/25 10:00 05/07/25 09:59 40 MG Atorvastatin Calcium 10 mg HS PO 05/04/25 22:00 05/06/25 21:47 10 MG Examination Gen: Appears stated age. NAD Heart: RRR, normal S1 and S2 Lungs: Bilateral air entry, no rales Ext: No edema Neuro: Alert and oriented x 3 laboratory and microbiology Laboratory Tests 05/06/25 05:50 Test 05/06/25 05:50 Range/Units Serum Glucose 157 H 74-106 mg/dL Microbiology Date/Time Source Procedure Growth Status 05/02/25 16:16 Nose MRSA Screen - Final Complete 05/02/25 11:43 Urine - [place] Urine Culture - Final Complete 05/02/25 11:22 Blood Blood Culture - Final NO GROWTH AFTER 5 DAYS OF INCUBATION. Complete Labs and/or images reviewed: Labs reviewed by me Problem List/Assessment/Plan Problem List/Assessment/Plan IMP Acute kidney injury hemodynamically mediated now resolved Severe hyponatremia-improving Hypokalemia hypoMg Altered mental state History of coronary artery disease BPH shock REC - BMP in am - Strict I&Os - Blood pressure control -Avoidance of NSAIDs -Avoidance of IV contrast studies if able -Will continue to follow Plan discussed with: Patient GUERO LEWIS [employer] May 07, 2025 16:34
--- NOTE | 2025-05-07 20:43 | DVHPN2 ---
Progress Note - Dictate Date Seen: May 07, 2025 Medical Necessity Reason Pt with a Central, PICC or Fol: Yes The following are medically ne: Central Line, Sanchez Catheter Subjective Mr. Laboy is a 79 years old right-handed gentleman with a history of hypertension, dyslipidemia, coronary artery disease, heart attack, COPD, he was brought to the [facility] on 05/02/2025 with a chief complaint of shortness breath, but the patient is also found to have chronic strokes on CT brain scan I have seen examined the patient, discussed with his nurse, jayna. He is doing fine, he is awake, oriented to person, place, he knows year, he follows verbal commands, socially appropriate UDS, 05/02/2025: Negative Urinalysis, 05/02/2025: WBC: One, urine leukocyte esterase: Negative ABG, 05/02/2025: Respiratory alkalosis WBC/HB/PLT/MCV, 05/03/2025: 13/12.7/233/85.5 PT/INR/ABG, 05/02/2025: 12.2/1.17/32.5 Na 04/25/25: 128, 05/02/25: 111, 112, 140, 05/03/2025: 120 K, 05/02/2025: 2.7, three, 05/03/2025: 2.8 CPK 05/02/2025: 3214, 3477, 05/03/2025: 2194 BUN/CR, 05/02/2025: 45/1.01, 39/1, 07/03/2024: 23/0.78 TBI/AST/ALT/AP, 05/02/2025: 0.9/164/5/87, 05/03/2025: 0.8/162 797/73 NH3, 05/02/2025: 19 TG/HDL/LDL/HDL, 05/02/2025: 102/135/75/37 Vitamin B12 05/02/2025: >4000 TSH, 05/02/2025: 0.53 Echocardiogram, 04/29/2025: Technically difficult study. Off axis views. There appears to be mild RV enlargement with left atrial enlargement. Mild concentric LVH. Mild septal thickening. Mild aortic sclerosis. Mild thickening of the posterior mitral leaflet from the limited views obtained as well as mild calcification at the roof of the left atrium. Left ventricular function appears preserved at 55% associated mild inferior basal hypokinesis. There was normal RV function. Dopplers unremarkable. No pericardial effusion masses or vegetations. Carotid Doppler, 05/02/2025: Greater than 70% stenosis of the left internal carotid artery by velocity criteria. High-grade stenosis of the right external carotid artery. Chest X-ray, 05/02/2025: Mild bibasilar airspace opacity. Chest x-ray, 05/02/2025: Right central venous catheter with tip near cavoatrial junction. CT head, 05/02/2025: 1. No CT evidence of acute intracranial abnormality. 2. Nonacute findings as described above (More focal area of encephalomalacia is seen in the right frontal lobe, may be sequelae of chronic infarct.) MR brain scan, 05/03/2025: No acute intracranial abnormality seen. No evidence for acute infarct. Dolc-ys-kpjnccfs brain volume loss. Dzil-nm-rjeqtsoq chronic small vessel ischemic change. Old moderate right and small left frontal lobe infarcts. Old right basal ganglia infarct. vital signs Vital Sign Date Time Temp Pulse Resp B/P (MAP) Pulse Ox O2 Delivery O2 Flow Rate FiO2 05/07/25 19:42 115 20 100 05/07/25 19:32 Nasal Cannula 2.0 05/07/25 19:32 28 05/07/25 17:00 97.6 133/72 (92) 97.6 Total Intake and Output 05/06/25 05/06/25 05/07/25 15:00 23:00 07:00 Intake Total 240 ml 705 ml 300 ml Output Total 1150 ml 1450 ml Balance 240 ml -445 ml -1150 ml medications Current Medications Medications Dose Ordered Sig/Jethro Route Start Time Stop Time Status Last Admin Dose Admin Morphine Sulfate 2 mg Q4HPRN PRN IV 05/02/25 14:45 Piperacillin Sod/ Tazobactam Sod 100 ml @ 25 mls/hr Q8HR IV 05/02/25 22:00 05/07/25 14:50 25 MLS/HR Albuterol 2.5 mg Q4HWA NEB 05/02/25 18:00 05/07/25 19:32 2.5 MG Ipratropium [place] 0.5 mg Q4HWA NEB 05/02/25 18:00 05/07/25 19:32 0.5 MG Methylprednisolone Sodium Succinate 40 mg BID IV 05/03/25 10:00 05/07/25 09:59 40 MG Atorvastatin Calcium 10 mg HS PO 05/04/25 22:00 05/06/25 21:47 10 MG Pantoprazole Sodium 40 mg BID IV 05/07/25 22:00 objective General: the patient is well developed and nourished. No acute distress. MENTAL STATUS: Awake and alert. Oriented to person, place, he knows year. Able to give personal history. SPEECH, LANGUAGE, HIGHER CORTICAL FUNCTION: no aphasia or dysathria. CRANIAL NERVES: Pupils are equal, round and reactive. EOMs full and conjugate. Mild bilateral gaze evoked nystagmus. Facial sensation intact in all three divisions bilaterally. Mandibular strength intact. Facial muscles symmetrical and strength intact. Tongue midline. No fasciculations or atrophy. SENSATION: Sensation to touch and pinprick is normal. MOTOR: Normal tone in the upper and lower extremity. Normal muscle bulk. No fasciculations. Asterixis in both upper extremities. Muscle strength of the major groups in the upper extremities is 4/5. Muscle strength of the major groups in the lower extremities is 3/5. REFLEXES: Deep tendon reflexes normal and symmetrical. No pathological reflexes. CEREBELLAR/COORDINATION: Finger to nose is normal bilaterally. GAIT/STATION: deferred. laboratory and microbiology Laboratory Tests 05/06/25 05:50 Test 05/06/25 05:50 Range/Units Serum Glucose 157 H 74-106 mg/dL Problem List Chronic strokes, asymptomatic Left ICA stenosis Mild disorientation/Acute metabolic encephalopathy Hyponatremia Hypokalemia Rhabdomyolysis Transaminitis, ? Secondary to rhabdomyolysis Assessment/Plan Monitoring Supportive treatment Telemetry Follow up labs Aspirin 81 mg daily Lipitor 10 mg daily DVT prophylaxis/Lovenox Antibiotics Dr. Anderson Re: Left ICA stenosis, angiogram with the patient is better stabilized More recommendation per clinical course This medical document was created using an electronic medical record system with [employer] system. Although this document has been carefully reviewed, there may still be some phonetic and typographical errors. These areas are purely typographical due to imperfections of the software programs, and do not reflect any compromise in the patient's medical care. Prognosis poor Plan discussed with: Other SIMA HAMILTON MD May 07, 2025 20:43
[2025-05-07] MEDS: PANTOPRAZOLE 40 MG/10 ML VIAL INJ IV ONE (22:46)
[2025-05-07] MEDS: PANTOPRAZOLE 40 MG/10 ML VIAL INJ IV SCH (22:46)
[2025-05-08] VITALS (19 sets, daily range): BP systolic 116–153; BP diastolic 65–82; PULSE 94–116; RESP 17–20; TEMP 98.3–98.7; O2SAT 95–100
[2025-05-08 07:16] LABS: Hematocrit 27.6 % (41.0-53.0); Hemoglobin 9.7 g/dL (13.5-17.5); Mean Corpuscular Hemoglobin 31.8 pg (28.0-32.0); Mean Corpuscular Volume 90.6 fL (80.0-100.0); Nucleated Red Blood Cells % 0.1 %
[2025-05-08 07:49] LABS: Alkaline Phosphatase 68 U/L (46-116); Anion Gap 2 (5-15); BUN/Creatinine Ratio 45.3 (10.0-20.0); Calcium 8.8 mg/dL (8.7-10.4)
[2025-05-08 07:51] LABS: Bilirubin, Total 0.5 mg/dL (0.2-1.0)
[2025-05-08 07:54] LABS: Alanine Aminotransferase 135 U/L (7-40); Albumin 3.0 g/dL (3.2-4.8); Blood Urea Nitrogen 29 mg/dL (9-23); Carbon Dioxide 32 mmol/L (20-31); Chloride 96 mmol/L (98-107); Glucose 135 mg/dL (74-106); Sodium 130 mmol/L (136-145); Total Protein 4.7 g/dL (5.7-8.2)
[2025-05-08 07:57] LABS: Potassium 5.9 mmol/L (3.5-5.1)
[2025-05-08] MEDS: SODIUM ZIRCONIUM CYCL 10 GM PAK ONE (08:40)
[2025-05-08] MEDS: SODIUM ZIRCONIUM CYCL 10 GM PAK PO ONE (08:45)
[2025-05-08] MEDS: methylPREDNISolone SOD SUCC 40 MG/ML VL ONE (10:17)
[2025-05-08] MEDS: PANTOPRAZOLE 40 MG/10 ML VIAL INJ IV ONE (10:17)
--- NOTE | 2025-05-08 11:40 | DVHPN2 ---
Reviewed: Care Plan, H&P, Labs, Medications, Previous Orders, Radiology Changes from previous H/P or p: No Changes Objective Vitals Vital Signs Date Time Temp Pulse Resp B/P (MAP) Pulse Ox O2 Delivery O2 Flow Rate FiO2 05/08/25 10:38 100 20 100 05/08/25 08:30 98.7 116/66 (83) 98.7 05/08/25 08:00 Nasal Cannula* 3 32 Intake/Output Intake and Output 05/08/25 07:00 Intake Total 2780 ml Output Total 3100 ml Balance -320 ml Intake Oral 2680 ml IV Total 100 ml Output Urine Total 3100 ml # Bowel Movements 3 Medications Current Medications Medications Dose Ordered Sig/Jethro Route Start Time Stop Time Status Last Admin Dose Admin Morphine Sulfate 2 mg Q4HPRN PRN IV 05/02/25 14:45 Piperacillin Sod/ Tazobactam Sod 100 ml @ 25 mls/hr Q8HR IV 05/02/25 22:00 05/08/25 06:20 25 MLS/HR Albuterol 2.5 mg Q4HWA [facility] 05/02/25 18:00 05/08/25 10:35 2.5 MG Ipratropium [place] 0.5 mg Q4HWA NEB 05/02/25 18:00 05/08/25 10:35 0.5 MG Methylprednisolone Sodium Succinate 40 mg BID IV 05/03/25 10:00 05/08/25 10:34 40 MG Atorvastatin Calcium 10 mg HS PO 05/04/25 22:00 05/07/25 22:44 10 MG Pantoprazole Sodium 40 mg BID IV 05/07/25 22:00 05/08/25 10:34 40 MG Laboratory Results Laboratory Tests 05/08/25 06:19 Chemistry Test 05/08/25 06:19 Albumin 3.0 g/dL (3.2-4.8) L Calcium Level 8.8 mg/dL (8.7-10.4) Total Protein 4.7 g/dL (5.7-8.2) L LFT Test 05/08/25 06:19 Alanine Aminotransferase (ALT) 135 U/L (7-40) H Alkaline Phosphatase 68 U/L (46-116) Aspartate Amino Transferase (AST) 75 U/L (13-40) H Total Bilirubin 0.5 mg/dL (0.2-1.0) Urinalysis Test 05/02/25 11:43 05/02/25 21:20 Urine Color Light-yellow (Yellow) Urine Clarity Clear (Clear) Urine pH 5.5 (5.0-9.0) Urine Specific [place] 1.009 (1.001-1.035) Urine Protein Negative (Negative) Urine Ketones 1+ (Negative) H Urine Blood 1+ /uL (Negative) H Urine Nitrite Negative (Negative) Urine Bilirubin Negative (Negative) Urine Urobilinogen Normal mg/dL (Negative) Urine Leukocyte Esterase Negative /uL (Negative) Urine RBC 8 /hpf (0 - 3) Urine Microscopic WBC 1 /HPF (0-3) Urine Squamous Epithelial Cells None seen /hpf (<5) Urine Bacteria None seen /hpf (None Seen) Urine Glucose Normal mg/dL (Normal) Urine Osmolality 347 mOsm/kg Urine Creatinine 45.71 mg/dL (30.0-125.0) Urine Microalbumin 99.0 mg/L (<30.0) H Urine Protein/Creatinine Ratio 1.28 Urine Sodium 11 mmol/L (40-220) L Urine Potassium 20 mmol/L (12-62) Urine Total Protein 58.3 mg/dL (1-14) H Microbiology Microbiology Date/Time Source Procedure Growth Status 05/02/25 16:16 Nose MRSA Screen - Final Complete 05/02/25 11:43 Urine - [place] Urine Culture - Final Complete 05/02/25 11:22 Blood Blood Culture - Final NO GROWTH AFTER 5 DAYS OF INCUBATION. Complete Labs and/or images reviewed: Labs reviewed by me, Image(s) reviewed by me Assessment/Plan Assessment/Plan Acute Metabolic encephalopathy secondary to severe hyponatremia , Neurology consult by Dr. Simmons appreciated Severe hypovolemic/hyponatremia consult by appreciated Acute respiratory failure secondary to aspiration pneumonia and COPD exacerbation Septic shock secondary to pneumonia blood cultures negative urine cultures negative Aspiration pneumonia Zosyn albuterol Atrovent COPD exacerbation: Albuterol Atrovent Solu-Medrol Acute Rhabdomyolysis CPK 3214: IV fluids CPK down to 2194 SUZANNE hemodynamically mediated on CKD Transaminitis Hypokalemia Hypomagnesemia Hypocalcemia NSTEMI likely type 2: Cardiology consult by Dr. Gonsalez appreciated, planning for carotid angiography when patient is stable CVA ruled out CT head negative, MRI brain negative Rule out right hip fracture DVT ruled out Questionable mechanical fall Dyslipidemia Hypertension Coronary artery disease with history of IN status post PCI and CABG Time Spent 65 minutes RN Naty and Benita [phone] at bedside Patient is full code DEBI Garcia bedside Plan discussed with: Patient Date of Service: May 08, 2025 Billing Provider: MATTHEW OTOOLE MD Common Visit Codes: [id number] CARE 30-74 MIN MATTHEW OTOOLE MD May 08, 2025 11:40
--- NOTE | 2025-05-08 14:17 | DVHPN2 ---
Progress Note Date Seen: May 08, 2025 Medical Necessity Reason Pt with a Central, PICC or Fol: Yes The following are medically ne: Central Line, Sanchez Catheter Subjective Patient reports: No new complaints, Feels better Objective vital signs Vital Sign Date Time Temp Pulse Resp B/P (MAP) Pulse Ox O2 Delivery O2 Flow Rate FiO2 05/08/25 13:10 98.4 101 20 126/74 (91) 96 98.4 05/08/25 08:00 Nasal Cannula* 3 32 Total Intake and Output 05/07/25 05/07/25 05/08/25 15:00 23:00 07:00 Intake Total 280 ml 1500 ml 1000 ml Output Total 1200 ml 1900 ml Balance 280 ml 300 ml -900 ml medications Current Medications Medications Dose Ordered Sig/Jethro Route Start Time Stop Time Status Last Admin Dose Admin Morphine Sulfate 2 mg Q4HPRN PRN IV 05/02/25 14:45 Piperacillin Sod/ Tazobactam Sod 100 ml @ 25 mls/hr Q8HR IV 05/02/25 22:00 05/08/25 14:05 25 MLS/HR Albuterol 2.5 mg Q4HWA [facility] 05/02/25 18:00 05/08/25 10:35 2.5 MG Ipratropium [place] 0.5 mg Q4HWA [facility] 05/02/25 18:00 05/08/25 10:35 0.5 MG Methylprednisolone Sodium Succinate 40 mg BID IV 05/03/25 10:00 05/08/25 10:34 40 MG Atorvastatin Calcium 10 mg HS PO 05/04/25 22:00 05/07/25 22:44 10 MG Pantoprazole Sodium 40 mg BID IV 05/07/25 22:00 05/08/25 10:34 40 MG Examination Gen: Appears stated age. NAD Heart: RRR, normal S1 and S2 Lungs: Bilateral air entry, no rales Ext: No edema Neuro: Alert and oriented x 3 laboratory and microbiology Laboratory Tests 05/08/25 06:19 Test 05/08/25 06:19 Range/Units Serum Glucose 135 H 74-106 mg/dL Microbiology Date/Time Source Procedure Growth Status 05/02/25 16:16 Nose MRSA Screen - Final Complete 05/02/25 11:43 Urine - [place] Urine Culture - Final Complete 05/02/25 11:22 Blood Blood Culture - Final NO GROWTH AFTER 5 DAYS OF INCUBATION. Complete Labs and/or images reviewed: Labs reviewed by me Problem List/Assessment/Plan Problem List/Assessment/Plan IMP Acute kidney injury hemodynamically mediated now resolved Severe hyponatremia-improving Hypokalemia hypoMg Altered mental state History of coronary artery disease BPH shock REC - Repeat BMP at 1800, and in am - Agree with [place] for hyperkalemia - Improving hyponatremia Na 130 - Strict I&Os - Blood pressure control -Avoidance of NSAIDs -Avoidance of IV contrast studies if able -Will continue to follow Plan discussed with: Patient, Spouse GUERO LEWIS CRATE LINER May 08, 2025 14:17
[2025-05-08 19:42] LABS: Anion Gap 4 (5-15); Calcium 8.9 mg/dL (8.7-10.4); Carbon Dioxide 29 mmol/L (20-31)
[2025-05-08 19:47] LABS: BUN/Creatinine Ratio 40.8 (10.0-20.0)
[2025-05-08 19:53] LABS: Blood Urea Nitrogen 29 mg/dL (9-23); Chloride 94 mmol/L (98-107); Glucose 134 mg/dL (74-106); Sodium 127 mmol/L (136-145)
[2025-05-08 20:25] LABS: Potassium 6.1 mmol/L (3.5-5.1)
[2025-05-08] MEDS: CALCIUM GLUC 1,000mg/50ml-NS 50 ML IV ONE (22:45)
[2025-05-08] MEDS: DEXTROSE (50%) 50ML SYRG IV ONE (23:50)
[2025-05-09] VITALS (17 sets, daily range): BP systolic 103–150; BP diastolic 50–78; PULSE 90–110; RESP 16–20; TEMP 97.6–98.4; O2SAT 94–100
[2025-05-09] MEDS: InsuLIN REG 1unit/0.01ml Soln (100units/ml) IV ONE (00:02)
[2025-05-09] MEDS: SODIUM BICARB 8.4% 50Meq/50ml SYR Vial IV ONE (00:02)
[2025-05-09] MEDS: SODIUM ZIRCONIUM CYCL 10 GM PAK PO ONE ×2 (00:11→10:32)
[2025-05-09 06:40] LABS: Albumin 3.3 g/dL (3.2-4.8); Alkaline Phosphatase 68 U/L (46-116); Anion Gap 6 (5-15); BUN/Creatinine Ratio 31.1 (10.0-20.0); Calcium 8.8 mg/dL (8.7-10.4); Carbon Dioxide 30 mmol/L (20-31)
[2025-05-09 06:41] LABS: Bilirubin, Total 0.6 mg/dL (0.2-1.0)
[2025-05-09 06:52] LABS: Sodium 126 mmol/L (136-145)
[2025-05-09 06:53] LABS: Alanine Aminotransferase 110 U/L (7-40); Blood Urea Nitrogen 23 mg/dL (9-23); Chloride 90 mmol/L (98-107); Glucose 142 mg/dL (74-106); Total Protein 5.1 g/dL (5.7-8.2)
[2025-05-09 06:56] LABS: Potassium 5.7 mmol/L (3.5-5.1)
[2025-05-09 07:07] LABS: Creatine Kinase IFCC 56 U/L (46-171)
[2025-05-09 07:25] LABS: Hematocrit 28.8 % (41.0-53.0); Hemoglobin 9.9 g/dL (13.5-17.5); Mean Corpuscular Hemoglobin 31.2 pg (28.0-32.0); Mean Corpuscular Volume 90.9 fL (80.0-100.0)
[2025-05-09 08:29] LABS: Total Cells Counted 100.0 (100)
--- NOTE | 2025-05-09 10:44 | DVHPN2 ---
Progress Note - Dictate Date Seen: May 09, 2025 Medical Necessity Reason Pt with a Central, PICC or Fol: Yes The following are medically ne: Central Line, Sanchez Catheter Subjective Mr. Laboy is a 79 years old right-handed gentleman with a history of hypertension, dyslipidemia, coronary artery disease, heart attack, COPD, he was brought to the [facility] on 05/02/2025 with a chief complaint of shortness breath, but the patient is also found to have chronic strokes on CT brain scan I have seen examined the patient, discussed with his nurse, jayna. He is doing fine, he is awake, oriented to person, place, he knows year, he follows verbal commands, socially appropriate Afebrile, but has increased white count Elevated potassium Blood culture, 05/02/2025: No growth UDS, 05/02/2025: Negative Urinalysis, 05/02/2025: WBC: One, urine leukocyte esterase: Negative ABG, 05/02/2025: Respiratory alkalosis WBC/HB/PLT/MCV, 05/03/2025: 13/12.7/233/85.5, 05/09/2025: 21.5/9.9/90.9/209 PT/INR/ABG, 05/02/2025: 12.2/1.17/32.5 Na 04/25/25: 128, 05/02/25: 111, 112, 140, 05/03/2025: 120, 05/09/2025: 126 K, 05/02/2025: 2.7, three, 05/03/2025: 2.8, 05/09/2025: 5.7 CPK 05/02/2025: 3214, 3477, 05/03/2025: 2194 BUN/CR, 05/02/2025: 45/1.01, 39/1, 07/03/2024: 23/0.78 TBI/AST/ALT/AP, 05/02/2025: 0.9/164/5/87, 05/03/2025: 0.8/162 797/73 NH3, 05/02/2025: 19 TG/HDL/LDL/HDL, 05/02/2025: 102/135/75/37 Vitamin B12 05/02/2025: >4000 TSH, 05/02/2025: 0.53 Echocardiogram, 04/29/2025: Technically difficult study. Off axis views. There appears to be mild RV enlargement with left atrial enlargement. Mild concentric LVH. Mild septal thickening. Mild aortic sclerosis. Mild thickening of the posterior mitral leaflet from the limited views obtained as well as mild calcification at the roof of the left atrium. Left ventricular function appears preserved at 55% associated mild inferior basal hypokinesis. There was normal RV function. Dopplers unremarkable. No pericardial effusion masses or vegetations. Carotid Doppler, 05/02/2025: Greater than 70% stenosis of the left internal carotid artery by velocity criteria. High-grade stenosis of the right external carotid artery. Chest X-ray, 05/02/2025: Mild bibasilar airspace opacity. Chest x-ray, 05/02/2025: Right central venous catheter with tip near cavoatrial junction. CT head, 05/02/2025: 1. No CT evidence of acute intracranial abnormality. 2. Nonacute findings as described above (More focal area of encephalomalacia is seen in the right frontal lobe, may be sequelae of chronic infarct.) MR brain scan, 05/03/2025: No acute intracranial abnormality seen. No evidence for acute infarct. Osxw-qh-dfhnkxqc brain volume loss. Uimo-ys-eetaoiru chronic small vessel ischemic change. Old moderate right and small left frontal lobe infarcts. Old right basal ganglia infarct. vital signs Vital Sign Date Time Temp Pulse Resp B/P (MAP) Pulse Ox O2 Delivery O2 Flow Rate FiO2 05/09/25 10:37 90 16 99 05/09/25 10:30 Nasal Cannula* 3 32 05/09/25 05:00 98.0 147/77 (100) 98.0 Total Intake and Output 05/08/25 05/08/25 05/09/25 15:00 23:00 07:00 Intake Total 800 ml 800 ml Output Total 1600 ml 1600 ml Balance -800 ml -800 ml medications Current Medications Medications Dose Ordered Sig/Jethro Route Start Time Stop Time Status Last Admin Dose Admin Morphine Sulfate 2 mg Q4HPRN PRN IV 05/02/25 14:45 Piperacillin Sod/ Tazobactam Sod 100 ml @ 25 mls/hr Q8HR IV 05/02/25 22:00 05/09/25 06:20 25 MLS/HR Albuterol 2.5 mg Q4HWA [facility] 05/02/25 18:00 05/09/25 10:32 2.5 MG Ipratropium [place] 0.5 mg Q4HWA [facility] 05/02/25 18:00 05/09/25 10:32 0.5 MG Methylprednisolone Sodium Succinate 40 mg BID IV 05/03/25 10:00 05/09/25 10:33 40 MG Atorvastatin Calcium 10 mg HS PO 05/04/25 22:00 05/08/25 21:38 10 MG Pantoprazole Sodium 40 mg BID IV 05/07/25 22:00 05/09/25 10:32 40 MG objective General: the patient is well developed and nourished. No acute distress. MENTAL STATUS: Awake and alert. Oriented to person, place, he knows year. Able to give personal history. SPEECH, LANGUAGE, HIGHER CORTICAL FUNCTION: no aphasia or dysathria. CRANIAL NERVES: Pupils are equal, round and reactive. EOMs full and conjugate. Mild bilateral gaze evoked nystagmus. Facial sensation intact in all three divisions bilaterally. Mandibular strength intact. Facial muscles symmetrical and strength intact. Tongue midline. No fasciculations or atrophy. SENSATION: Sensation to touch and pinprick is normal. MOTOR: Normal tone in the upper and lower extremity. Normal muscle bulk. No fasciculations. Asterixis in both upper extremities. Muscle strength of the major groups in the upper extremities is 4/5. Muscle strength of the major groups in the lower extremities is 3/5. REFLEXES: Deep tendon reflexes normal and symmetrical. No pathological reflexes. CEREBELLAR/COORDINATION: Finger to nose is normal bilaterally. GAIT/STATION: deferred. laboratory and microbiology Laboratory Tests 05/09/25 05:25 Test 05/09/25 05:25 Range/Units Serum Glucose 142 H 74-106 mg/dL Problem List Chronic strokes, asymptomatic Left ICA stenosis Mild disorientation/Acute metabolic encephalopathy Hyponatremia Hypokalemia Rhabdomyolysis Transaminitis, ? Secondary to rhabdomyolysis Assessment/Plan Monitoring Supportive treatment Telemetry Follow up labs Aspirin 81 mg daily Lipitor 10 mg daily DVT prophylaxis/Lovenox Antibiotics Dr. Anderson Re: Left ICA stenosis, angiogram with the patient is better stabilized More recommendation per clinical course This medical document was created using an electronic medical record system with [employer] dictation system. Although this document has been carefully reviewed, there may still be some phonetic and typographical errors. These areas are purely typographical due to imperfections of the software programs, and do not reflect any compromise in the patient's medical care. Prognosis poor Dietary Evaluation Review Comments: Nutrition Recommendation 1) Cardiac + 2gm K diet 2) Monitor PO intake, lab values, weight trend, and I/O Expected Outcomes/Goals: Lab values to improve FU 3-5 days Plan discussed with: Other SIMA HAMILTON MD May 09, 2025 10:44
--- NOTE | 2025-05-09 11:24 | DVHPN2 ---
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 HTN CAD COPD BPH vital signs Vital Sign Date Time Temp Pulse Resp B/P (MAP) Pulse Ox O2 Delivery O2 Flow Rate FiO2 05/09/25 10:37 90 16 99 05/09/25 10:30 Nasal Cannula* 3 32 05/09/25 05:00 98.0 147/77 (100) 98.0 Total Intake and Output 05/08/25 05/08/25 05/09/25 15:00 23:00 07:00 Intake Total 800 ml 800 ml Output Total 1600 ml 1600 ml Balance -800 ml -800 ml medications Current Medications Medications Dose Ordered Sig/Jethro Route Start Time Stop Time Status Last Admin Dose Admin Morphine Sulfate 2 mg Q4HPRN PRN IV 05/02/25 14:45 Piperacillin Sod/ Tazobactam Sod 100 ml @ 25 mls/hr Q8HR IV 05/02/25 22:00 05/09/25 06:20 25 MLS/HR Albuterol 2.5 mg Q4HWA [facility] 05/02/25 18:00 05/09/25 10:32 2.5 MG Ipratropium [place] 0.5 mg Q4HWA [facility] 05/02/25 18:00 05/09/25 10:32 0.5 MG Methylprednisolone Sodium Succinate 40 mg BID IV 05/03/25 10:00 05/09/25 10:33 40 MG Atorvastatin Calcium 10 mg HS PO 05/04/25 22:00 05/08/25 21:38 10 MG Pantoprazole Sodium 40 mg BID IV 05/07/25 22:00 05/09/25 10:32 40 MG laboratory and microbiology Laboratory Tests 05/09/25 05:25 Test 05/09/25 05:25 Range/Units Serum Glucose 142 H 74-106 mg/dL Problem List AMS PRESENTED WITH PROGRESSIVE SX OF WEAKNESS SLURRING OF SPEECH MRI MULTIP[E CVAs 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
--- NOTE | 2025-05-09 11:25 | DVHPN2 ---
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 HTN CAD COPD BPH vital signs Vital Sign Date Time Temp Pulse Resp B/P (MAP) Pulse Ox O2 Delivery O2 Flow Rate FiO2 05/09/25 10:37 90 16 99 05/09/25 10:30 Nasal Cannula* 3 32 05/09/25 05:00 98.0 147/77 (100) 98.0 Total Intake and Output 05/08/25 05/08/25 05/09/25 15:00 23:00 07:00 Intake Total 800 ml 800 ml Output Total 1600 ml 1600 ml Balance -800 ml -800 ml medications Current Medications Medications Dose Ordered Sig/Jethro Route Start Time Stop Time Status Last Admin Dose Admin Morphine Sulfate 2 mg Q4HPRN PRN IV 05/02/25 14:45 Piperacillin Sod/ Tazobactam Sod 100 ml @ 25 mls/hr Q8HR IV 05/02/25 22:00 05/09/25 06:20 25 MLS/HR Albuterol 2.5 mg Q4HWA [facility] 05/02/25 18:00 05/09/25 10:32 2.5 MG Ipratropium [place] 0.5 mg Q4HWA [facility] 05/02/25 18:00 05/09/25 10:32 0.5 MG Methylprednisolone Sodium Succinate 40 mg BID IV 05/03/25 10:00 05/09/25 10:33 40 MG Atorvastatin Calcium 10 mg HS PO 05/04/25 22:00 05/08/25 21:38 10 MG Pantoprazole Sodium 40 mg BID IV 05/07/25 22:00 05/09/25 10:32 40 MG laboratory and microbiology Laboratory Tests 05/09/25 05:25 Test 05/09/25 05:25 Range/Units Serum Glucose 142 H 74-106 mg/dL Problem List AMS PRESENTED WITH PROGRESSIVE SX OF WEAKNESS SLURRING OF SPEECH MRI MULTIP[E CVAs 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
--- NOTE | 2025-05-09 11:51 | DVHPN2 ---
Progress Note Date Seen: May 09, 2025 Medical Necessity Reason Pt with a Central, PICC or Fol: Yes The following are medically ne: Central Line, Sanchez Catheter Subjective Patient reports: No new complaints Other Systems: Patient seen and examined by myself today in follow-up Objective vital signs Vital Sign Date Time Temp Pulse Resp B/P (MAP) Pulse Ox O2 Delivery O2 Flow Rate FiO2 05/09/25 10:37 90 16 99 05/09/25 10:30 Nasal Cannula* 3 32 05/09/25 05:00 98.0 147/77 (100) 98.0 Total Intake and Output 05/08/25 05/08/25 05/09/25 15:00 23:00 07:00 Intake Total 800 ml 800 ml Output Total 1600 ml 1600 ml Balance -800 ml -800 ml medications Current Medications Medications Dose Ordered Sig/Jethro Route Start Time Stop Time Status Last Admin Dose Admin Morphine Sulfate 2 mg Q4HPRN PRN IV 05/02/25 14:45 Piperacillin Sod/ Tazobactam Sod 100 ml @ 25 mls/hr Q8HR IV 05/02/25 22:00 05/09/25 06:20 25 MLS/HR Albuterol 2.5 mg Q4HWA [facility] 05/02/25 18:00 05/09/25 10:32 2.5 MG Ipratropium [place] 0.5 mg Q4HWA [facility] 05/02/25 18:00 05/09/25 10:32 0.5 MG Methylprednisolone Sodium Succinate 40 mg BID IV 05/03/25 10:00 05/09/25 10:33 40 MG Atorvastatin Calcium 10 mg HS PO 05/04/25 22:00 05/08/25 21:38 10 MG Pantoprazole Sodium 40 mg BID IV 05/07/25 22:00 05/09/25 10:32 40 MG Examination: LUNGS:Normal, CVS:Normal, MSK:Normal laboratory and microbiology Laboratory Tests 05/09/25 05:25 Test 05/09/25 05:25 Range/Units Serum Glucose 142 H 74-106 mg/dL Microbiology Date/Time Source Procedure Growth Status 05/08/25 19:22 Urine - [place] Urine Culture - Preliminary No growth Resulted 05/02/25 16:16 Nose MRSA Screen - Final Complete 05/02/25 11:22 Blood Blood Culture - Final NO GROWTH AFTER 5 DAYS OF INCUBATION. Complete Problem List/Assessment/Plan Problem List/Assessment/Plan Acute kidney injury hemodynamically mediated Hyponatremia due to excess H2O Hyperkalemia CVA History of coronary artery disease Chronic diastolic Congestive heart failure BPH Recommendations Kidney function resolved back to normal Increased urine output Strict I&Os Fluid restrictions Furosemide 40 mg IV q.day We will continue to follow up Plan discussed with: Patient Dietary Evaluation Review Comments: Nutrition Recommendation 1) Cardiac + 2gm K diet 2) Monitor PO intake, lab values, weight trend, and I/O Expected Outcomes/Goals: Lab values to improve FU 3-5 days ARTIE LAWSON MD May 09, 2025 11:51
--- NOTE | 2025-05-09 13:02 | DVHPN2 ---
Reviewed: Care Plan, H&P, Labs, Medications, Previous Orders, Radiology Changes from previous H/P or p: No Changes Objective Vitals Vital Signs Date Time Temp Pulse Resp B/P (MAP) Pulse Ox O2 Delivery O2 Flow Rate FiO2 05/09/25 10:37 90 16 99 05/09/25 10:30 Nasal Cannula* 3 32 05/09/25 05:00 98.0 147/77 (100) 98.0 Intake/Output Intake and Output 05/09/25 07:00 Intake Total 1600 ml Output Total 3200 ml Balance -1600 ml Intake Oral 1600 ml Output Urine Total 3200 ml # Bowel Movements 8 Medications Current Medications Medications Dose Ordered Sig/Jethro Route Start Time Stop Time Status Last Admin Dose Admin Morphine Sulfate 2 mg Q4HPRN PRN IV 05/02/25 14:45 Piperacillin Sod/ Tazobactam Sod 100 ml @ 25 mls/hr Q8HR IV 05/02/25 22:00 05/09/25 06:20 25 MLS/HR Albuterol 2.5 mg Q4HWA [facility] 05/02/25 18:00 05/09/25 10:32 2.5 MG Ipratropium [place] 0.5 mg Q4HWA [facility] 05/02/25 18:00 05/09/25 10:32 0.5 MG Methylprednisolone Sodium Succinate 40 mg BID IV 05/03/25 10:00 05/09/25 10:33 40 MG Atorvastatin Calcium 10 mg HS PO 05/04/25 22:00 05/08/25 21:38 10 MG Pantoprazole Sodium 40 mg BID IV 05/07/25 22:00 05/09/25 10:32 40 MG Furosemide 40 mg DAILY IV 05/09/25 12:00 Laboratory Results Laboratory Tests 05/09/25 05:25 Chemistry Test 05/08/25 19:15 05/09/25 05:25 05/09/25 12:04 Calcium Level 8.9 mg/dL (8.7-10.4) 8.8 mg/dL (8.7-10.4) Albumin 3.3 g/dL (3.2-4.8) Total Protein 5.1 g/dL (5.7-8.2) L Magnesium Level Pending LFT Test 05/09/25 05:25 Alanine Aminotransferase (ALT) 110 U/L (7-40) H Alkaline Phosphatase 68 U/L (46-116) Aspartate Amino Transferase (AST) 43 U/L (13-40) H Total Bilirubin 0.6 mg/dL (0.2-1.0) Urinalysis Test 05/02/25 11:43 05/02/25 21:20 Urine Color Light-yellow (Yellow) Urine Clarity Clear (Clear) Urine pH 5.5 (5.0-9.0) Urine Specific [place] 1.009 (1.001-1.035) Urine Protein Negative (Negative) Urine Ketones 1+ (Negative) H Urine Blood 1+ /uL (Negative) H Urine Nitrite Negative (Negative) Urine Bilirubin Negative (Negative) Urine Urobilinogen Normal mg/dL (Negative) Urine Leukocyte Esterase Negative /uL (Negative) Urine RBC 8 /hpf (0 - 3) Urine Microscopic WBC 1 /HPF (0-3) Urine Squamous Epithelial Cells None seen /hpf (<5) Urine Bacteria None seen /hpf (None Seen) Urine Glucose Normal mg/dL (Normal) Urine Osmolality 347 mOsm/kg Urine Creatinine 45.71 mg/dL (30.0-125.0) Urine Microalbumin 99.0 mg/L (<30.0) H Urine Protein/Creatinine Ratio 1.28 Urine Sodium 11 mmol/L (40-220) L Urine Potassium 20 mmol/L (12-62) Urine Total Protein 58.3 mg/dL (1-14) H Microbiology Microbiology Date/Time Source Procedure Growth Status 05/08/25 19:22 Urine - [place] Urine Culture - Preliminary No growth Resulted 05/02/25 16:16 Nose MRSA Screen - Final Complete 05/02/25 11:22 Blood Blood Culture - Final NO GROWTH AFTER 5 DAYS OF INCUBATION. Complete Labs and/or images reviewed: Labs reviewed by me, Image(s) reviewed by me Assessment/Plan Assessment/Plan Acute Metabolic encephalopathy secondary to severe hyponatremia , Neurology consult by Dr. Simmons appreciated Severe hypovolemic/hyponatremia consult by appreciated Acute respiratory failure secondary to aspiration pneumonia and COPD exacerbation Septic shock secondary to pneumonia blood cultures negative urine cultures negative Aspiration pneumonia Zosyn albuterol Atrovent COPD exacerbation: Albuterol Atrovent Solu-Medrol Acute Rhabdomyolysis CPK 3214: IV fluids CPK down to 2194 SUZANNE hemodynamically mediated on CKD Transaminitis Hypokalemia Hypomagnesemia Hypocalcemia NSTEMI likely type 2: Cardiology consult by Dr. Gonsalez appreciated, planning for carotid angiography when patient is stable CVA ruled out CT head negative, MRI brain negative Rule out right hip fracture DVT ruled out Questionable mechanical fall Dyslipidemia Hypertension Coronary artery disease with history of [place] status post PCI and CABG Time Spent 65 minutes RN and Benita [phone] at bedside Patient is full code DEBI Garcia bedside Plan discussed with: Patient Date of Service: May 09, 2025 Billing Provider: MATTHEW OTOOLE MD Common Visit Codes: [id number] CARE 30-74 MIN MATTHEW OTOOLE MD May 09, 2025 13:02
[2025-05-09 13:04] LABS: Magnesium 1.2 mg/dL (1.6-2.6)
[2025-05-09 13:05] LABS: Potassium 5.7 mmol/L (3.5-5.1)
[2025-05-09] MEDS: FUROSEMIDE 40 MG/4 ML VIAL IV SCH (15:02)
[2025-05-10] VITALS (21 sets, daily range): BP systolic 115–146; BP diastolic 52–86; PULSE 90–107; RESP 15–20; TEMP 97.6–98.9; O2SAT 95–100
[2025-05-10 07:05] LABS: Hematocrit 29.1 % (41.0-53.0); Hemoglobin 10.2 g/dL (13.5-17.5); Mean Corpuscular Hemoglobin 31.8 pg (28.0-32.0); Mean Corpuscular Volume 91.0 fL (80.0-100.0)
[2025-05-10 07:19] LABS: Alkaline Phosphatase 67 U/L (46-116); Anion Gap 6 (5-15); BUN/Creatinine Ratio 25.0 (10.0-20.0); Blood Urea Nitrogen 19 mg/dL (9-23); Calcium 9.3 mg/dL (8.7-10.4); Carbon Dioxide 30 mmol/L (20-31)
[2025-05-10 07:21] LABS: Albumin 3.4 g/dL (3.2-4.8); Bilirubin, Total 0.6 mg/dL (0.2-1.0)
[2025-05-10 07:24] LABS: Alanine Aminotransferase 98 U/L (7-40); Chloride 90 mmol/L (98-107); Glucose 137 mg/dL (74-106); Potassium 5.5 mmol/L (3.5-5.1); Sodium 126 mmol/L (136-145); Total Protein 5.3 g/dL (5.7-8.2)
[2025-05-10 10:21] LABS: Nucleated Red Blood Cells % 1.0 %; Total Cells Counted 100.0 (100)
--- NOTE | 2025-05-10 12:25 | DVHPN2 ---
Progress Note Date Seen: May 10, 2025 Medical Necessity Reason Pt with a Central, PICC or Fol: Yes The following are medically ne: Central Line, Sanchez Catheter Subjective Patient reports: No new complaints Other Systems: Patient seen and examined by myself today in follow-up Objective vital signs Vital Sign Date Time Temp Pulse Resp B/P (MAP) Pulse Ox O2 Delivery O2 Flow Rate FiO2 05/10/25 12:11 98.9 107 20 116/63 (80) 95 98.9 05/10/25 10:24 Nasal Cannula* 2 28 Total Intake and Output 05/09/25 05/09/25 05/10/25 15:00 23:00 07:00 Intake Total 540 ml 100 ml Output Total 2350 ml 2700 ml Balance -1810 ml -2600 ml medications Current Medications Medications Dose Ordered Sig/Jethro Route Start Time Stop Time Status Last Admin Dose Admin Morphine Sulfate 2 mg Q4HPRN PRN IV 05/02/25 14:45 Piperacillin Sod/ Tazobactam Sod 100 ml @ 25 mls/hr Q8HR IV 05/02/25 22:00 05/10/25 05:39 25 MLS/HR Albuterol 2.5 mg Q4HWA NEB 05/02/25 18:00 05/10/25 10:17 2.5 MG Ipratropium [place] 0.5 mg Q4HWA NEB 05/02/25 18:00 05/10/25 10:17 0.5 MG Methylprednisolone Sodium Succinate 40 mg BID IV 05/03/25 10:00 05/10/25 09:12 40 MG Atorvastatin Calcium 10 mg HS PO 05/04/25 22:00 05/09/25 22:26 10 MG Pantoprazole Sodium 40 mg BID IV 05/07/25 22:00 05/10/25 09:11 40 MG Furosemide 40 mg DAILY IV 05/09/25 12:00 05/10/25 09:11 40 MG Examination: LUNGS:Normal, CVS:Normal, MSK:Normal laboratory and microbiology Laboratory Tests 05/10/25 06:22 Test 05/10/25 06:22 Range/Units Serum Glucose 137 H 74-106 mg/dL Microbiology Date/Time Source Procedure Growth Status 05/08/25 21:34 Blood Blood Culture - Preliminary NO GROWTH AFTER 24 HOURS OF INCUBATION. Resulted 05/08/25 19:22 Urine - [place] Urine Culture - Preliminary No growth Resulted 05/02/25 16:16 Nose MRSA Screen - Final Complete Problem List/Assessment/Plan Problem List/Assessment/Plan Acute kidney injury hemodynamically mediated Hyponatremia due to excess H2O Syndrome of inappropriate antidiuretic hormone secretion Hyperkalemia CVA History of coronary artery disease Chronic diastolic Congestive heart failure BPH Recommendations Kidney function resolved back to normal Increased urine output Strict I&Os Fluid restrictions Furosemide 40 mg IV q.day [place] 10 g p.o. q.day We will continue to follow up Plan discussed with: Patient, Other (Nurse) Dietary Evaluation Review Comments: Nutrition Recommendation 1) Cardiac + 2gm K diet 2) Monitor PO intake, lab values, weight trend, and I/O Expected Outcomes/Goals: Lab values to improve FU 3-5 days ARTIE LAWSON MD May 10, 2025 12:25
--- NOTE | 2025-05-10 13:07 | DVHPN2 ---
Reviewed: Care Plan, H&P, Labs, Medications, Previous Orders, Radiology Changes from previous H/P or p: No Changes Objective Vitals Vital Signs Date Time Temp Pulse Resp B/P (MAP) Pulse Ox O2 Delivery O2 Flow Rate FiO2 05/10/25 12:11 98.9 107 20 116/63 (80) 95 98.9 05/10/25 10:24 Nasal Cannula* 2 28 Intake/Output Intake and Output 05/10/25 07:00 Intake Total 640 ml Output Total 5050 ml Balance -4410 ml Intake Oral 450 ml IV Total 190 ml Output Urine Total 5050 ml # Bowel Movements 1 Medications Current Medications Medications Dose Ordered Sig/Jethro Route Start Time Stop Time Status Last Admin Dose Admin Morphine Sulfate 2 mg Q4HPRN PRN IV 05/02/25 14:45 Piperacillin Sod/ Tazobactam Sod 100 ml @ 25 mls/hr Q8HR IV 05/02/25 22:00 05/10/25 05:39 25 MLS/HR Albuterol 2.5 mg Q4HWA NEB 05/02/25 18:00 05/10/25 10:17 2.5 MG Ipratropium [place] 0.5 mg Q4HWA NEB 05/02/25 18:00 05/10/25 10:17 0.5 MG Methylprednisolone Sodium Succinate 40 mg BID IV 05/03/25 10:00 05/10/25 09:12 40 MG Atorvastatin Calcium 10 mg HS PO 05/04/25 22:00 05/09/25 22:26 10 MG Pantoprazole Sodium 40 mg BID IV 05/07/25 22:00 05/10/25 09:11 40 MG Furosemide 40 mg DAILY IV 05/09/25 12:00 05/10/25 09:11 40 MG Zirconium Oxide 10 gm DAILY PO 05/11/25 10:00 05/14/25 09:59 UNV Laboratory Results Laboratory Tests 05/10/25 06:22 Chemistry Test 05/10/25 06:22 Albumin 3.4 g/dL (3.2-4.8) Calcium Level 9.3 mg/dL (8.7-10.4) Total Protein 5.3 g/dL (5.7-8.2) L LFT Test 05/10/25 06:22 Alanine Aminotransferase (ALT) 98 U/L (7-40) H Alkaline Phosphatase 67 U/L (46-116) Aspartate Amino Transferase (AST) 32 U/L (13-40) Total Bilirubin 0.6 mg/dL (0.2-1.0) Urinalysis Test 05/02/25 11:43 05/02/25 21:20 Urine Color Light-yellow (Yellow) Urine Clarity Clear (Clear) Urine pH 5.5 (5.0-9.0) Urine Specific [place] 1.009 (1.001-1.035) Urine Protein Negative (Negative) Urine Ketones 1+ (Negative) H Urine Blood 1+ /uL (Negative) H Urine Nitrite Negative (Negative) Urine Bilirubin Negative (Negative) Urine Urobilinogen Normal mg/dL (Negative) Urine Leukocyte Esterase Negative /uL (Negative) Urine RBC 8 /hpf (0 - 3) Urine Microscopic WBC 1 /HPF (0-3) Urine Squamous Epithelial Cells None seen /hpf (<5) Urine Bacteria None seen /hpf (None Seen) Urine Glucose Normal mg/dL (Normal) Urine Osmolality 347 mOsm/kg Urine Creatinine 45.71 mg/dL (30.0-125.0) Urine Microalbumin 99.0 mg/L (<30.0) H Urine Protein/Creatinine Ratio 1.28 Urine Sodium 11 mmol/L (40-220) L Urine Potassium 20 mmol/L (12-62) Urine Total Protein 58.3 mg/dL (1-14) H Microbiology Microbiology Date/Time Source Procedure Growth Status 05/08/25 21:34 Blood Blood Culture - Preliminary NO GROWTH AFTER 24 HOURS OF INCUBATION. Resulted 05/08/25 19:22 Urine - [place] Urine Culture - Preliminary No growth Resulted 05/02/25 16:16 Nose MRSA Screen - Final Complete Labs and/or images reviewed: Labs reviewed by me, Image(s) reviewed by me Assessment/Plan Assessment/Plan Acute Metabolic encephalopathy secondary to severe hyponatremia , Neurology consult by Dr. Simmons appreciated Severe hypovolemic/hyponatremia consult by appreciated Acute respiratory failure secondary to aspiration pneumonia and COPD exacerbation Septic shock secondary to pneumonia blood cultures negative urine cultures negative Aspiration pneumonia Zosyn albuterol Atrovent COPD exacerbation: Albuterol Atrovent Solu-Medrol Acute Rhabdomyolysis CPK 3214: IV fluids CPK down to 2194 SUZANNE hemodynamically mediated on CKD Transaminitis Hypokalemia Hypomagnesemia Hypocalcemia NSTEMI likely type 2: Cardiology consult by Dr. Gonsalez appreciated, planning for carotid angiography when patient is stable CVA ruled out CT head negative, MRI brain negative Rule out right hip fracture DVT ruled out Questionable mechanical fall Dyslipidemia Hypertension Coronary artery disease with history of [place] status post PCI and CABG Time Spent 65 minutes RN and Benita [phone] at bedside Patient is full code DEBI Garcia bedside Plan discussed with: Patient My Orders Orders - MATTHEW OTOOLE MD Procedure Category Date Status Time Comprehensive LAB 05/12/25 Verified Metabolic Panel 05:00 Date of Service: May 10, 2025 Billing Provider: MATTHEW OTOOLE MD Common Visit Codes: [id number] INP/OBS CARE(HIGH) MATTHEW OTOOLE MD May 10, 2025 13:07
--- NOTE | 2025-05-10 13:12 | DVHPN2 ---
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 HTN CAD COPD BPH vital signs Vital Sign Date Time Temp Pulse Resp B/P (MAP) Pulse Ox O2 Delivery O2 Flow Rate FiO2 05/10/25 12:11 98.9 107 20 116/63 (80) 95 98.9 05/10/25 10:24 Nasal Cannula* 2 28 Total Intake and Output 05/09/25 05/09/25 05/10/25 15:00 23:00 07:00 Intake Total 540 ml 100 ml Output Total 2350 ml 2700 ml Balance -1810 ml -2600 ml medications Current Medications Medications Dose Ordered Sig/Jethro Route Start Time Stop Time Status Last Admin Dose Admin Morphine Sulfate 2 mg Q4HPRN PRN IV 05/02/25 14:45 Piperacillin Sod/ Tazobactam Sod 100 ml @ 25 mls/hr Q8HR IV 05/02/25 22:00 05/10/25 05:39 25 MLS/HR Albuterol 2.5 mg Q4HWA [facility] 05/02/25 18:00 05/10/25 10:17 2.5 MG Ipratropium [place] 0.5 mg Q4HWA [facility] 05/02/25 18:00 05/10/25 10:17 0.5 MG Methylprednisolone Sodium Succinate 40 mg BID IV 05/03/25 10:00 05/10/25 09:12 40 MG Atorvastatin Calcium 10 mg HS PO 05/04/25 22:00 05/09/25 22:26 10 MG Pantoprazole Sodium 40 mg BID IV 05/07/25 22:00 05/10/25 09:11 40 MG Furosemide 40 mg DAILY IV 05/09/25 12:00 05/10/25 09:11 40 MG Zirconium Oxide 10 gm DAILY PO 05/11/25 10:00 05/14/25 09:59 UNV laboratory and microbiology Laboratory Tests 05/10/25 06:22 Test 05/10/25 06:22 Range/Units Serum Glucose 137 H 74-106 mg/dL Problem List AMS PRESENTED WITH PROGRESSIVE SX OF WEAKNESS SLURRING OF SPEECH MRI MULTIP[E CVAs 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
[2025-05-11] VITALS (18 sets, daily range): BP systolic 107–123; BP diastolic 52–67; PULSE 81–107; RESP 13–18; TEMP 97.3–98.2; O2SAT 96–100
[2025-05-11 06:42] LABS: Hematocrit 28.0 % (41.0-53.0); Hemoglobin 9.8 g/dL (13.5-17.5); Mean Corpuscular Hemoglobin 32.0 pg (28.0-32.0); Mean Corpuscular Volume 91.0 fL (80.0-100.0); Nucleated Red Blood Cells % 0.1 %
[2025-05-11 07:03] LABS: Albumin 3.3 g/dL (3.2-4.8); Alkaline Phosphatase 65 U/L (46-116); Anion Gap 7 (5-15); BUN/Creatinine Ratio 33.3 (10.0-20.0); Calcium 8.9 mg/dL (8.7-10.4); Carbon Dioxide 29 mmol/L (20-31); Potassium 5.0 mmol/L (3.5-5.1)
[2025-05-11 07:04] LABS: Bilirubin, Total 0.6 mg/dL (0.2-1.0)
[2025-05-11 07:07] LABS: Sodium 125 mmol/L (136-145)
[2025-05-11 07:08] LABS: Alanine Aminotransferase 84 U/L (7-40); Blood Urea Nitrogen 24 mg/dL (9-23); Chloride 89 mmol/L (98-107); Glucose 157 mg/dL (74-106); Total Protein 5.2 g/dL (5.7-8.2)
[2025-05-11] MEDS: SODIUM ZIRCONIUM CYCL 10 GM PAK PO SCH (09:38)
--- NOTE | 2025-05-11 11:22 | DVHPN2 ---
Reviewed: Care Plan, H&P, Labs, Medications, Previous Orders, Radiology Changes from previous H/P or p: No Changes Objective Vitals Vital Signs Date Time Temp Pulse Resp B/P (MAP) Pulse Ox O2 Delivery O2 Flow Rate FiO2 05/11/25 10:59 101 18 99 05/11/25 10:59 Nasal Cannula* 2 28 05/11/25 09:37 110/61 05/11/25 09:29 97.7 97.7 Intake/Output Intake and Output 05/11/25 07:00 Intake Total 1270 ml Output Total 3375 ml Balance -2105 ml Intake Oral 1070 ml IV Total 200 ml Output Urine Total 3375 ml # Bowel Movements 1 Medications Current Medications Medications Dose Ordered Sig/Jethro Route Start Time Stop Time Status Last Admin Dose Admin Morphine Sulfate 2 mg Q4HPRN PRN IV 05/02/25 14:45 Piperacillin Sod/ Tazobactam Sod 100 ml @ 25 mls/hr Q8HR IV 05/02/25 22:00 05/11/25 05:45 25 MLS/HR Albuterol 2.5 mg Q4HWA NEB 05/02/25 18:00 05/11/25 10:58 2.5 MG Ipratropium [place] 0.5 mg Q4HWA NEB 05/02/25 18:00 05/11/25 10:59 0.5 MG Methylprednisolone Sodium Succinate 40 mg BID IV 05/03/25 10:00 05/11/25 09:37 40 MG Atorvastatin Calcium 10 mg HS PO 05/04/25 22:00 05/10/25 21:46 10 MG Pantoprazole Sodium 40 mg BID IV 05/07/25 22:00 05/11/25 09:36 40 MG Furosemide 40 mg DAILY IV 05/09/25 12:00 05/11/25 09:37 40 MG Zirconium Oxide 10 gm DAILY PO 05/11/25 10:00 05/14/25 09:59 05/11/25 09:38 10 GM Laboratory Results Laboratory Tests 05/11/25 05:09 Chemistry Test 05/11/25 05:09 Albumin 3.3 g/dL (3.2-4.8) Calcium Level 8.9 mg/dL (8.7-10.4) Total Protein 5.2 g/dL (5.7-8.2) L LFT Test 05/11/25 05:09 Alanine Aminotransferase (ALT) 84 U/L (7-40) H Alkaline Phosphatase 65 U/L (46-116) Aspartate Amino Transferase (AST) 26 U/L (13-40) Total Bilirubin 0.6 mg/dL (0.2-1.0) Urinalysis Test 05/02/25 11:43 05/02/25 21:20 Urine Color Light-yellow (Yellow) Urine Clarity Clear (Clear) Urine pH 5.5 (5.0-9.0) Urine Specific [employer] [place] 1.009 (1.001-1.035) Urine Protein Negative (Negative) Urine Ketones 1+ (Negative) H Urine Blood 1+ /uL (Negative) H Urine Nitrite Negative (Negative) Urine Bilirubin Negative (Negative) Urine Urobilinogen Normal mg/dL (Negative) Urine Leukocyte Esterase Negative /uL (Negative) Urine RBC 8 /hpf (0 - 3) Urine Microscopic WBC 1 /HPF (0-3) Urine Squamous Epithelial Cells None seen /hpf (<5) Urine Bacteria None seen /hpf (None Seen) Urine Glucose Normal mg/dL (Normal) Urine Osmolality 347 mOsm/kg Urine Creatinine 45.71 mg/dL (30.0-125.0) Urine Microalbumin 99.0 mg/L (<30.0) H Urine Protein/Creatinine Ratio 1.28 Urine Sodium 11 mmol/L (40-220) L Urine Potassium 20 mmol/L (12-62) Urine Total Protein 58.3 mg/dL (1-14) H Microbiology Microbiology Date/Time Source Procedure Growth Status 05/08/25 21:34 Blood Blood Culture - Preliminary NO GROWTH AFTER 48 HOURS OF INCUBATION. Resulted 05/08/25 19:22 Urine - [place] Urine Culture - Preliminary No growth Resulted 05/02/25 16:16 Nose MRSA Screen - Final Complete Labs and/or images reviewed: Labs reviewed by me, Image(s) reviewed by me Assessment/Plan Assessment/Plan Acute Metabolic encephalopathy secondary to severe hyponatremia , Neurology consult by Dr. Simmons appreciated Severe hypovolemic/hyponatremia consult by appreciated Severe hypo natremia with sodium 112, improved to 125 SIADH Acute respiratory failure secondary to aspiration pneumonia and COPD exacerbation Septic shock secondary to pneumonia blood cultures negative urine cultures negative Aspiration pneumonia Zosyn albuterol Atrovent COPD exacerbation: Albuterol Atrovent Solu-Medrol Acute Rhabdomyolysis CPK 3214: IV fluids CPK down to 2194 SUZANNE hemodynamically mediated on CKD Transaminitis Hypokalemia Hypomagnesemia Hypocalcemia NSTEMI likely type 2: Cardiology consult by Dr. Gonsalez appreciated, planning for carotid angiography when patient is stable CVA ruled out CT head negative, MRI brain negative Rule out right hip fracture DVT ruled out Questionable mechanical fall Dyslipidemia Hypertension Coronary artery disease with history of [place] status post PCI and CABG Time Spent 66 minutes RN and Benita [phone] at bedside Patient is full code DEBI Garcia bedside Plan discussed with: Patient Date of Service: May 11, 2025 Billing Provider: MATTHEW OTOOLE MD Common Visit Codes: [id number] CARE 30-74 MIN MATTHEW OTOOLE MD May 11, 2025 11:22
--- NOTE | 2025-05-11 11:26 | DVHPN2 ---
Progress Note Date Seen: May 11, 2025 Medical Necessity Reason Pt with a Central, PICC or Fol: Yes The following are medically ne: Central Line, Sanchez Catheter Subjective Patient reports: No new complaints Other Systems: Patient seen and examined by myself today in follow-up Objective vital signs Vital Sign Date Time Temp Pulse Resp B/P (MAP) Pulse Ox O2 Delivery O2 Flow Rate FiO2 05/11/25 10:59 101 18 99 05/11/25 10:59 Nasal Cannula* 2 28 05/11/25 09:37 110/61 05/11/25 09:29 97.7 97.7 Total Intake and Output 05/10/25 05/10/25 05/11/25 15:00 23:00 07:00 Intake Total 770 ml 500 ml Output Total 2125 ml 1250 ml Balance -1355 ml -750 ml medications Current Medications Medications Dose Ordered Sig/Jethro Route Start Time Stop Time Status Last Admin Dose Admin Morphine Sulfate 2 mg Q4HPRN PRN IV 05/02/25 14:45 Piperacillin Sod/ Tazobactam Sod 100 ml @ 25 mls/hr Q8HR IV 05/02/25 22:00 05/11/25 05:45 25 MLS/HR Albuterol 2.5 mg Q4HWA [facility] 05/02/25 18:00 05/11/25 10:58 2.5 MG Ipratropium [place] 0.5 mg Q4HWA [facility] 05/02/25 18:00 05/11/25 10:59 0.5 MG Methylprednisolone Sodium Succinate 40 mg BID IV 05/03/25 10:00 05/11/25 09:37 40 MG Atorvastatin Calcium 10 mg HS PO 05/04/25 22:00 05/10/25 21:46 10 MG Pantoprazole Sodium 40 mg BID IV 05/07/25 22:00 05/11/25 09:36 40 MG Furosemide 40 mg DAILY IV 05/09/25 12:00 05/11/25 09:37 40 MG Zirconium Oxide 10 gm DAILY PO 05/11/25 10:00 05/14/25 09:59 05/11/25 09:38 10 GM Examination: LUNGS:Normal, CVS:Normal, MSK:Normal laboratory and microbiology Laboratory Tests 05/11/25 05:09 Test 05/11/25 05:09 Range/Units Serum Glucose 157 H 74-106 mg/dL Microbiology Date/Time Source Procedure Growth Status 05/08/25 21:34 Blood Blood Culture - Preliminary NO GROWTH AFTER 48 HOURS OF INCUBATION. Resulted 05/08/25 19:22 Urine - [place] Urine Culture - Preliminary No growth Resulted 05/02/25 16:16 Nose MRSA Screen - Final Complete Problem List/Assessment/Plan Problem List/Assessment/Plan Acute kidney injury hemodynamically mediated, FeNa < 1% Hyponatremia due to excess H2O Hyperkalemia Multiple CVA Coronary artery disease Chronic diastolic Congestive heart failure BPH Recommendations Kidney function resolved back to normal Increased urine output Strict I&Os Fluid restrictions Furosemide 40 mg IV q.day Lokelma 10 g p.o. q.day We will continue to follow up Plan discussed with: Patient My Orders My Orders Orders - ARTIE LAWSON MD Procedure Category Date Status Time Renal Specific DIET 05/10/25 Transmitted Diet(Renal) Lunch Sodium Zirconium PHA 05/11/25 In Process Cyclosilicate 10:00 Dietary Evaluation Review Comments: Nutrition Recommendation 1) Cardiac + 2gm K diet 2) Monitor PO intake, lab values, weight trend, and I/O Expected Outcomes/Goals: Lab values to improve FU 3-5 days ARTIE LAWSON MD May 11, 2025 11:25
--- NOTE | 2025-05-11 15:39 | DVHPN2 ---
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 HTN CAD COPD BPH vital signs Vital Sign Date Time Temp Pulse Resp B/P (MAP) Pulse Ox O2 Delivery O2 Flow Rate FiO2 05/11/25 14:52 91 18 99 05/11/25 14:42 Nasal Cannula* 2 28 05/11/25 12:43 97.9 111/59 (76) 97.9 Total Intake and Output 05/10/25 05/10/25 05/11/25 15:00 23:00 07:00 Intake Total 770 ml 500 ml Output Total 2125 ml 1250 ml Balance -1355 ml -750 ml medications Current Medications Medications Dose Ordered Sig/Jethro Route Start Time Stop Time Status Last Admin Dose Admin Morphine Sulfate 2 mg Q4HPRN PRN IV 05/02/25 14:45 Piperacillin Sod/ Tazobactam Sod 100 ml @ 25 mls/hr Q8HR IV 05/02/25 22:00 05/11/25 13:30 25 MLS/HR Albuterol 2.5 mg Q4HWA [facility] 05/02/25 18:00 05/11/25 14:42 2.5 MG Ipratropium [place] 0.5 mg Q4HWA [facility] 05/02/25 18:00 05/11/25 14:42 0.5 MG Methylprednisolone Sodium Succinate 40 mg BID IV 05/03/25 10:00 05/11/25 09:37 40 MG Atorvastatin Calcium 10 mg HS PO 05/04/25 22:00 05/10/25 21:46 10 MG Pantoprazole Sodium 40 mg BID IV 05/07/25 22:00 05/11/25 09:36 40 MG Furosemide 40 mg DAILY IV 05/09/25 12:00 05/11/25 09:37 40 MG Zirconium Oxide 10 gm DAILY PO 05/11/25 10:00 05/14/25 09:59 05/11/25 09:38 10 GM laboratory and microbiology Laboratory Tests 05/11/25 05:09 Test 05/11/25 05:09 Range/Units Serum Glucose 157 H 74-106 mg/dL Problem List AMS PRESENTED WITH PROGRESSIVE SX OF WEAKNESS SLURRING OF SPEECH MRI MULTIP[E CVAs 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
--- NOTE | 2025-05-11 21:32 | DVHPN2 ---
Progress Note - Dictate Date Seen: May 11, 2025 Medical Necessity Reason Pt with a Central, PICC or Fol: Yes The following are medically ne: Central Line, Sanchez Catheter Subjective Mr. Laboy is a 79 years old right-handed gentleman with a history of hypertension, dyslipidemia, coronary artery disease, heart attack, COPD, he was brought to the [facility] on 05/02/2025 with a chief complaint of shortness breath, but the patient is also found to have chronic strokes on CT brain scan I have seen examined the patient, discussed with his nurse, jayna. He is doing fine, he is awake, oriented to person, place, he knows year, month, he follows verbal commands, socially appropriate Afebrile, but leukocytosis persists Blood culture, 05/02/2025: No growth UDS, 05/02/2025: Negative Urinalysis, 05/02/2025: WBC: One, urine leukocyte esterase: Negative ABG, 05/02/2025: Respiratory alkalosis WBC/HB/PLT/MCV, 05/03/2025: 13/12.7/233/85.5, 05/09/2025: 21.5/9.9/90.9/209 PT/INR/ABG, 05/02/2025: 12.2/1.17/32.5 Na 04/25/25: 128, 05/02/25: 111, 112, 140, 05/03/2025: 120, 05/09/2025: 126, 05/11/2025: 125 K, 05/02/2025: 2.7, three, 05/03/2025: 2.8, 05/09/2025: 5.7, 05/11/2025: 5 CPK 05/02/2025: 3214, 3477, 05/03/2025: 2194 BUN/CR, 05/02/2025: 45/1.01, 39/1, 07/03/2024: 23/0.78 TBI/AST/ALT/AP, 05/02/2025: 0.9/164/5/87, 05/03/2025: 0.8/162 797/73 NH3, 05/02/2025: 19 TG/HDL/LDL/HDL, 05/02/2025: 102/135/75/37 Vitamin B12 05/02/2025: >4000 TSH, 05/02/2025: 0.53 Echocardiogram, 04/29/2025: Technically difficult study. Off axis views. There appears to be mild RV enlargement with left atrial enlargement. Mild concentric LVH. Mild septal thickening. Mild aortic sclerosis. Mild thickening of the posterior mitral leaflet from the limited views obtained as well as mild calcification at the roof of the left atrium. Left ventricular function appears preserved at 55% associated mild inferior basal hypokinesis. There was normal RV function. Dopplers unremarkable. No pericardial effusion masses or vegetations. Carotid Doppler, 05/02/2025: Greater than 70% stenosis of the left internal carotid artery by velocity criteria. High-grade stenosis of the right external carotid artery. Chest X-ray, 05/02/2025: Mild bibasilar airspace opacity. Chest x-ray, 05/02/2025: Right central venous catheter with tip near cavoatrial junction. CT head, 05/02/2025: 1. No CT evidence of acute intracranial abnormality. 2. Nonacute findings as described above (More focal area of encephalomalacia is seen in the right frontal lobe, may be sequelae of chronic infarct.) MR brain, 05/03/2025: No acute intracranial abnormality seen. No evidence for acute infarct. Eciv-lx-[id number] brain volume loss. Jmmq-am-[id number] chronic small vessel ischemic change. Old moderate right and small left frontal lobe infarcts. Old right basal ganglia infarct. vital signs Vital Sign Date Time Temp Pulse Resp B/P (MAP) Pulse Ox O2 Delivery O2 Flow Rate FiO2 05/11/25 20:00 18 Nasal Cannula* 3 32 05/11/25 17:12 97.7 93 107/63 (78) 98 97.7 Total Intake and Output 05/10/25 05/10/25 05/11/25 15:00 23:00 07:00 Intake Total 770 ml 500 ml Output Total 2125 ml 1250 ml Balance -1355 ml -750 ml medications Current Medications Medications Dose Ordered Sig/Jethro Route Start Time Stop Time Status Last Admin Dose Admin Piperacillin Sod/ Tazobactam Sod 100 ml @ 25 mls/hr Q8HR IV 05/02/25 22:00 05/11/25 13:30 25 MLS/HR Albuterol 2.5 mg Q4HWA [facility] 05/02/25 18:00 05/11/25 14:42 2.5 MG Ipratropium [place] 0.5 mg Q4HWA [facility] 05/02/25 18:00 05/11/25 14:42 0.5 MG Methylprednisolone Sodium Succinate 40 mg BID IV 05/03/25 10:00 05/11/25 09:37 40 MG Atorvastatin Calcium 10 mg HS PO 05/04/25 22:00 05/10/25 21:46 10 MG Pantoprazole Sodium 40 mg BID IV 05/07/25 22:00 05/11/25 09:36 40 MG Furosemide 40 mg DAILY IV 05/09/25 12:00 05/11/25 09:37 40 MG Zirconium Oxide 10 gm DAILY PO 05/11/25 10:00 05/14/25 09:59 05/11/25 09:38 10 GM objective General: the patient is well developed and nourished. No acute distress. MENTAL STATUS: Awake and alert. Oriented to person, place, he knows year. Able to give personal history. SPEECH, LANGUAGE, HIGHER CORTICAL FUNCTION: no aphasia or dysathria. CRANIAL NERVES: Pupils are equal, round and reactive. EOMs full and conjugate. Mild bilateral gaze evoked nystagmus. Facial sensation intact in all three divisions bilaterally. Mandibular strength intact. Facial muscles symmetrical and strength intact. Tongue midline. No fasciculations or atrophy. SENSATION: Sensation to touch and pinprick is normal. MOTOR: Normal tone in the upper and lower extremity. Normal muscle bulk. No fasciculations. No myoclonus. Muscle strength of the major groups in the upper extremities is 4/5. Muscle strength of the major groups in the lower extremities is 3/5. REFLEXES: Deep tendon reflexes normal and symmetrical. No pathological reflexes. CEREBELLAR/COORDINATION: Finger to nose is normal bilaterally. GAIT/STATION: deferred. laboratory and microbiology Laboratory Tests 05/11/25 05:09 Test 05/11/25 05:09 Range/Units Serum Glucose 157 H 74-106 mg/dL Problem List Chronic strokes, asymptomatic Left ICA stenosis Mild disorientation/Acute metabolic encephalopathy Hyponatremia Hypokalemia Rhabdomyolysis Transaminitis, ? Secondary to rhabdomyolysis Assessment/Plan Monitoring Supportive treatment Telemetry Follow up labs Aspirin 81 mg daily Lipitor 10 mg daily DVT prophylaxis/Lovenox Antibiotics Dr. Anderson Re: Left ICA stenosis, angiogram with the patient is better stabilized More recommendation per clinical course This medical document was created using an electronic medical record system with [employer] dictation system. Although this document has been carefully reviewed, there may still be some phonetic and typographical errors. These areas are purely typographical due to imperfections of the software programs, and do not reflect any compromise in the patient's medical care. Prognosis poor Dietary Evaluation Review Comments: Nutrition Recommendation 1) Cardiac + 2gm K diet 2) Monitor PO intake, lab values, weight trend, and I/O Expected Outcomes/Goals: Lab values to improve FU 3-5 days Plan discussed with: Other SIMA HAMILTON MD May 11, 2025 21:32
[2025-05-12] VITALS (16 sets, daily range): BP systolic 92–125; BP diastolic 61–76; PULSE 93–117; RESP 16–20; TEMP 97.1–98.6; O2SAT 85–100
[2025-05-12 06:35] LABS: Hematocrit 28.2 % (41.0-53.0); Hemoglobin 9.9 g/dL (13.5-17.5); Mean Corpuscular Hemoglobin 31.8 pg (28.0-32.0); Mean Corpuscular Volume 90.9 fL (80.0-100.0)
[2025-05-12 07:32] LABS: Albumin 3.2 g/dL (3.2-4.8); Alkaline Phosphatase 67 U/L (46-116); Anion Gap 7 (5-15); BUN/Creatinine Ratio 32.9 (10.0-20.0); Bilirubin, Total 0.5 mg/dL (0.2-1.0); Calcium 8.8 mg/dL (8.7-10.4); Carbon Dioxide 29 mmol/L (20-31); Potassium 4.8 mmol/L (3.5-5.1)
[2025-05-12 07:36] LABS: Anisocytosis Slight; Polychromasia Slight; Total Cells Counted 100.0 (100)
[2025-05-12 07:38] LABS: Alanine Aminotransferase 77 U/L (7-40); Blood Urea Nitrogen 26 mg/dL (9-23); Chloride 90 mmol/L (98-107); Glucose 139 mg/dL (74-106); Sodium 126 mmol/L (136-145); Total Protein 4.9 g/dL (5.7-8.2)
--- NOTE | 2025-05-12 08:39 | DVHPN2 ---
Reviewed: Care Plan, H&P, Labs, Medications, Previous Orders, Radiology Changes from previous H/P or p: No Changes Objective Vitals Vital Signs Date Time Temp Pulse Resp B/P (MAP) Pulse Ox O2 Delivery O2 Flow Rate FiO2 05/12/25 08:00 104 18 Nasal Cannula* 3 32 05/12/25 05:00 97.1 123/63 (83) 100 97.1 Intake/Output Intake and Output 05/12/25 07:00 Intake Total 700 ml Output Total 3510 ml Balance -2810 ml Intake Oral 600 ml IV Total 100 ml Output Urine Total 3510 ml # Bowel Movements 1 Medications Current Medications Medications Dose Ordered Sig/Jethro Route Start Time Stop Time Status Last Admin Dose Admin Piperacillin Sod/ Tazobactam Sod 100 ml @ 25 mls/hr Q8HR IV 05/02/25 22:00 05/12/25 06:12 25 MLS/HR Albuterol 2.5 mg Q4HWA [facility] 05/02/25 18:00 05/12/25 06:28 2.5 MG Ipratropium [place] 0.5 mg Q4HWA [facility] 05/02/25 18:00 05/12/25 06:28 0.5 MG Methylprednisolone Sodium Succinate 40 mg BID IV 05/03/25 10:00 05/11/25 21:45 40 MG Atorvastatin Calcium 10 mg HS PO 05/04/25 22:00 05/11/25 21:45 10 MG Pantoprazole Sodium 40 mg BID IV 05/07/25 22:00 05/11/25 21:45 40 MG Furosemide 40 mg DAILY IV 05/09/25 12:00 05/11/25 09:37 40 MG Zirconium Oxide 10 gm DAILY PO 05/11/25 10:00 05/14/25 09:59 05/11/25 09:38 10 GM Laboratory Results Laboratory Tests 05/12/25 05:00 Chemistry Test 05/12/25 05:00 Albumin 3.2 g/dL (3.2-4.8) Calcium Level 8.8 mg/dL (8.7-10.4) Total Protein 4.9 g/dL (5.7-8.2) L LFT Test 05/12/25 05:00 Alanine Aminotransferase (ALT) 77 U/L (7-40) H Alkaline Phosphatase 67 U/L (46-116) Aspartate Amino Transferase (AST) 23 U/L (13-40) Total Bilirubin 0.5 mg/dL (0.2-1.0) Urinalysis Test 05/02/25 11:43 05/02/25 21:20 Urine Color Light-yellow (Yellow) Urine Clarity Clear (Clear) Urine pH 5.5 (5.0-9.0) Urine Specific [place] 1.009 (1.001-1.035) Urine Protein Negative (Negative) Urine Ketones 1+ (Negative) H Urine Blood 1+ /uL (Negative) H Urine Nitrite Negative (Negative) Urine Bilirubin Negative (Negative) Urine Urobilinogen Normal mg/dL (Negative) Urine Leukocyte Esterase Negative /uL (Negative) Urine RBC 8 /hpf (0 - 3) Urine Microscopic WBC 1 /HPF (0-3) Urine Squamous Epithelial Cells None seen /hpf (<5) Urine Bacteria None seen /hpf (None Seen) Urine Glucose Normal mg/dL (Normal) Urine Osmolality 347 mOsm/kg Urine Creatinine 45.71 mg/dL (30.0-125.0) Urine Microalbumin 99.0 mg/L (<30.0) H Urine Protein/Creatinine Ratio 1.28 Urine Sodium 11 mmol/L (40-220) L Urine Potassium 20 mmol/L (12-62) Urine Total Protein 58.3 mg/dL (1-14) H Microbiology Microbiology Date/Time Source Procedure Growth Status 05/08/25 21:34 Blood Blood Culture - Preliminary NO GROWTH AFTER 72 HOURS OF INCUBATION. Resulted 05/08/25 19:22 Urine - [place] Urine Culture - Final Complete 05/02/25 16:16 Nose MRSA Screen - Final Complete Labs and/or images reviewed: Labs reviewed by me, Image(s) reviewed by me Assessment/Plan Assessment/Plan Acute Metabolic encephalopathy secondary to severe hyponatremia , Neurology consult by Dr. Simmons appreciated Severe hypovolemic/hyponatremia consult by appreciated Severe hypo natremia with sodium 112, improved to 125 Possible SIADH Acute respiratory failure secondary to aspiration pneumonia and COPD exacerbation Septic shock secondary to pneumonia blood cultures negative urine cultures negative Aspiration pneumonia Zosyn albuterol Atrovent COPD exacerbation: Albuterol Atrovent Solu-Medrol Acute Rhabdomyolysis CPK 3214: IV fluids CPK down to 2194 SUZANNE hemodynamically mediated on CKD Transaminitis Hypokalemia Hypomagnesemia Hypocalcemia NSTEMI likely type 2: Cardiology consult by Dr. Gonsalez appreciated, planning for carotid angiography when patient is stable CVA ruled out CT head negative, MRI brain negative Rule out right hip fracture DVT ruled out Questionable mechanical fall Dyslipidemia Hypertension Coronary artery disease with history of RI status post PCI and CABG Time Spent 56 minutes RN and Benita [phone] at bedside Patient is full code DEBI Garcia bedside Plan discussed with: Patient My Orders Orders - MATTHEW OTOOLE MD Procedure Category Date Status Time Stool Occult Blood LAB 05/11/25 Uncollected 11:31 Complete Blood Count LAB 05/13/25 Verified 05:00 Complete Blood Count LAB 05/14/25 Verified 05:00 Complete Blood Count LAB 05/15/25 Verified 05:00 Complete Blood Count LAB 05/16/25 Verified 05:00 Comprehensive LAB 05/13/25 Verified Metabolic Panel 05:00 Comprehensive LAB 05/14/25 Verified Metabolic Panel 05:00 Comprehensive LAB 05/15/25 Verified Metabolic Panel 05:00 Comprehensive LAB 05/16/25 Verified Metabolic Panel 05:00 Communication Order ORDERS 05/11/25 Transmitted 12:42 * [facility] [employer] Att[employer] CONS 05/11/25 Transmitted 15:02 Date of Service: May 12, 2025 Billing Provider: MATTHEW OTOOLE MD Common Visit Codes: [id number] INP/OBS CARE(HIGH) MATTHEW OTOOLE MD May 12, 2025 08:39
--- NOTE | 2025-05-12 08:49 | DVHINCON2 ---
Date of service: May 12, 2025 Referring Physician Jose L Reason for Consultation Occult blood positive stool anemia History of Present Illness Patient is an 79-year-old male past medical history significant for COPD, hypertension, hyperlipidemia, history of CAD, history of CABG, admitted with mental status changes, found to have metabolic encephalopathy. Patient's hospitalization complicated by SUZANNE or, acute rhabdo myolysis, aspiration pneumonia and sepsis. Patient also had hyponatremia likely secondary to SIADH. GI consultation was obtained for evaluation for occult blood positive stool anemia. Patient was noted to have any gross bleeding. Patient is not able to give a history of any prior GI disease or endoscopy. I called his however there was no answer. Patient has been seen by Cardiology for NSTEMI likely type 2, carotid angiography is planned for with the patient is more stable. Past Medical History Hypertension Hyperlipidemia COPD CAD History of CVA Past Surgical History Open heart surgery Social History Prior tobacco use history, no known significant alcohol or recreational drug use history Allergies: Coded Allergies: NO KNOWN ALLERGIES (Unverified , 04/25/25) Current Medications Current Medications Medications (Trade) Dose Ordered Sig/Jethro Route PRN Reason Start Time Stop Time Status Last Admin Zirconium Oxide (Lokelma) 10 gm DAILY PO 05/11/25 10:00 05/14/25 09:59 05/11/25 09:38 Review of Systems Mental status changes Coronary artery disease as above, NSTEMI type 2 Occult blood positive stool Hyperlipidemia but no diabetes Anemia but no known malignancy SIADH, SUZANNE No known history of kidney stones Arthritis COPD history Vital Signs Vital Signs Date Time Temp Pulse Resp B/P (MAP) Pulse Ox O2 Delivery O2 Flow Rate FiO2 05/12/25 08:00 104 18 Nasal Cannula* 3 32 05/12/25 05:00 97.1 123/63 (83) 100 97.1 Physical Exam General: Awake alert male sitting up in bed no distress, HEENT: NC/AT EOMI PERRLA SOB clear, wearing glasses Heart: Regular rate rhythm Abdomen: Soft nondistended nontender normoactive bowel sounds extremity: No clubbing cyanosis or edema Neuro: Moves all 4 extremities follows commands Labs/Diagnostic Data Labs Test 05/12/25 05:00 05/11/25 05:09 05/09/25 12:04 05/09/25 05:25 Range/Units White Blood Count 13.7 H 4.4-10.8 10^3/uL Red Blood Count 3.10 L 4.5-5.90 10^6/uL Hemoglobin 9.9 L 13.5-17.5 g/dL Hematocrit 28.2 L 41.0-53.0 % Mean Corpuscular Volume 90.9 80.0-100.0 fL Mean Corpuscular Hemoglobin 31.8 28.0-32.0 pg Mean Corpuscular Hemoglobin Concent 35.0 32.0-36.0 g/dL Red Cell Distribution Width 14.7 H 11.8-14.3 % Platelet Count 188 140-450 10^3/uL Mean Platelet Volume 6.8 L 6.9-10.8 fL Neutrophils (%) (Auto) 37.0-80.0 % Lymphocytes (%) (Auto) 10.0-50.0 % Monocytes (%) (Auto) 0.0-12.0 % Basophils (%) (Auto) 0.0-2.0 % Neutrophils # (Auto) 1.6-8.6 10 ^3/uL Lymphocytes # (Auto) 0.4-5.4 10 ^3/uL Monocytes # (Auto) 0-1.3 10 ^3/uL Differential Total Cells Counted 100.0 100 Neutrophils % (Manual) 80 37.0-80.0 Band Neutrophils % (Manual) 4 Lymphocytes % (Manual) 8 L 10.0-50.0 Monocytes % (Manual) 8 0-12 Eosinophils % (Manual) 0 0-7 Basophils % (Manual) 0 0.0-2.0 Metamyelocytes % (manual) 0 Myelocytes % (Manual) 0 Promyelocytes % (Manual) 0 Blast Cells % (Manual) 0 Reactive Lymphocytes 0 Platelet Estimate Adequate Clumped Platelets Few Polychromasia Slight Anisocytosis (manual) Slight Sodium Level 126 L 136-145 mmol/L Potassium Level 4.8 3.5-5.1 mmol/L Chloride Level 90 L 98-107 mmol/L Carbon Dioxide Level 29 20-31 mmol/L Anion Gap 7 5-15 Blood Urea Nitrogen 26 H 9-23 mg/dL Creatinine 0.79 0.700-1.30 mg/dL Glomerular Filtration Rate Calc 90 >90 mL/min BUN/Creatinine Ratio 32.9 H 10.0-20.0 Serum Glucose 139 H 74-106 mg/dL Calcium Level 8.8 8.7-10.4 mg/dL Total Bilirubin 0.5 0.2-1.0 mg/dL Aspartate Amino Transferase (AST) 23 13-40 U/L Alanine Aminotransferase (ALT) 77 H 7-40 U/L Alkaline Phosphatase 67 46-116 U/L Total Protein 4.9 L 5.7-8.2 g/dL Albumin 3.2 3.2-4.8 g/dL Eosinophils (%) (Auto) 0.0 0.0-7.0 % Eosinophils # (Auto) 0 0-0.8 10 ^3/uL Basophils # (Auto) 0 0-0.2 10 ^3/uL Nucleated Red Blood Cells 0.1 % Magnesium Level 1.2 L 1.6-2.6 mg/dL Creatine Kinase 56 46-171 U/L Test 05/09/25 01:52 05/08/25 01:27 05/03/25 14:07 05/02/25 21:20 Range/Units POC Glucose 149 H 70-106 mg/dl Stool Occult Blood Positive Negative Stool Occult Blood Sample #3 Negative Phosphorus Level 2.1 L 2.4-5.1 mg/dL Urine Osmolality 347 mOsm/kg Urine Creatinine 45.71 30.0-125.0 mg/dL Urine Microalbumin 99.0 H <30.0 mg/L Urine Protein/Creatinine Ratio 1.28 Urine Sodium 11 L 40-220 mmol/L Urine Potassium 20 12-62 mmol/L Urine Total Protein 58.3 H 1-14 mg/dL Urine Opiates Screen Neg NEGATIVE Urine Fentanyl Screen Neg NEGATIVE Urine Barbiturates Screen Neg NEGATIVE Urine Phencyclidine Screen Neg NEGATIVE Urine Amphetamines Screen Neg NEGATIVE Urine Benzodiazepines Screen Neg NEGATIVE Urine Cocaine Screen Neg NEGATIVE Urine Cannabinoids Screen Neg NEGATIVE Test 05/02/25 16:16 05/02/25 15:35 05/02/25 15:07 05/02/25 13:50 Range/Units Influenza Type A Antigen Negative Negative Influenza Type B Antigen Negative Negative SARS-CoV-2 Antigen (Rapid) Negative NEGATIVE Ammonia 19 11-32 umol/L C-Reactive Protein High Sensitivity 5.27 H <1.0 mg/dL Triglycerides Level 102 < 150 mg/dL Cholesterol Level 135 < 200 mg/dL LDL Cholesterol 75 < 100 mg/dL HDL Cholesterol 37 L 40-59 mg/dL Lipase 31 12-53 U/L Blood Gas Specimen Type Arterial Blood Gas Sample Site Left radial Blood Gas Patient Temperature 37.0 Arterial Blood Date Drawn [id number] Arterial Blood pH 7.455 H 7.350-7.450 Arterial Blood Partial Pressure CO2 29.5 L 35.0-48.0 mmHg Arterial Blood Partial Pressure O2 84.8 83.0-108.0 mmHg Arterial Blood HCO3 20.3 L 21.0-28.0 mmol/L Arterial Blood Oxygen Saturation 96.3 94.0-98.0 % Arterial Blood Base Excess -2.4 L -2.0-3.0 mmol/L Arterial Blood Oxyhemoglobin 94.8 94.0-98.0 % Arterial Blood Carboxyhemoglobin 1.0 0.5-1.5 % Arterial Blood Methemoglobin 0.6 0.0-1.5 % Sarthak Test Yes Blood Gas Total Hemoglobin 13.80 13.5-17.5 g/dL Blood Gas Liter Flow 3.00 Blood Gas Modality Nasal cannula FiO2 % 32.0 Prothrombin Time 12.2 H 9.3-11.8 sec Prothrombin Time INR 1.17 H 0.9-1.15 Activated Partial Thromboplast Time 32.5 24.5-34.5 SEC Serum Osmolality 249 L 278-298 mOsm/kg Troponin I High Sensitivity 67 *H </=54 ng/L Thyroid Stimulating Hormone (TSH) 0.53 L 0.55-4.78 uIU/mL Test 05/02/25 11:43 05/02/25 11:00 05/02/25 10:55 Range/Units Urine Color Light-yellow Yellow Urine Clarity Clear Clear Urine pH 5.5 5.0-9.0 Urine Specific [place] 1.009 1.001-1.035 Urine Protein Negative Negative Urine Ketones 1+ H Negative Urine Blood 1+ H Negative /uL Urine Nitrite Negative Negative Urine Bilirubin Negative Negative Urine Urobilinogen Normal Negative mg/dL Urine Leukocyte Esterase Negative Negative /uL Urine RBC 8 0 - 3 /hpf Urine Microscopic WBC 1 0-3 /HPF Urine Squamous Epithelial Cells None seen <5 /hpf Urine Bacteria None seen None Seen /hpf Urine Glucose Normal Normal mg/dL Legionella pneumophila S1-6 Abs Non reactive Non Reactive Lactic Acid Level 1.5 0.4-2.0 mmol/L B-Type Natriuretic Peptide 294.04 0-100 pg/mL Vitamin B12 Level > 4000 H 211-911 pg/mL Vitamin D 25-Hydroxy 76.6 30.0-100 ng/mL Microbiology Date/Time Source Procedure Growth Status 05/08/25 21:34 Blood Blood Culture - Preliminary NO GROWTH AFTER 72 HOURS OF INCUBATION. Resulted 05/08/25 19:22 Urine - [place] Urine Culture - Final Complete 05/02/25 16:16 Nose MRSA Screen - Final Complete Assessment Assessment/Plan Hyponatremia Sepsis SIADH Aspiration pneumonia and COPD exacerbation SUZANNE or, Multiple electrolyte abnormalities NSTEMI likely type 2: CAD, history of open heart surgery occult blood positive stool anemia Problems(with codes): (1) CHF (congestive heart failure) (2) Acute hypoxic respiratory failure (3) Hypokalemia (4) Hypomagnesemia (5) Hypocalcemia (6) Transaminitis (7) Hyponatremia Plan/Recommendation 1. Calcium with aspirin, NSAIDs and anticoagulants 2. Follow H&H 3. Proton pump inhibitor daily 4. Given patient's comorbidities and overall stay no aggressive workup with endoscopy or colonoscopy 5. We will follow 6. We will discuss my recommendations with Dr. Domingo I would like thank Dr. Domingo for allowing me to participate material this patient Plan discussed with: Patient JESSICA WEISS MD May 12, 2025 08:49
--- NOTE | 2025-05-12 11:28 | DVHPN2 ---
Progress Note Date Seen: May 12, 2025 Medical Necessity Reason Pt with a Central, PICC or Fol: Yes The following are medically ne: Central Line, Sanchez Catheter Subjective Patient reports: Feels better Objective vital signs Vital Sign Date Time Temp Pulse Resp B/P (MAP) Pulse Ox O2 Delivery O2 Flow Rate FiO2 05/12/25 10:13 125/61 05/12/25 09:45 103 20 100 05/12/25 09:37 Nasal Cannula* 1 24 05/12/25 05:00 97.1 97.1 Total Intake and Output 05/11/25 05/11/25 05/12/25 15:00 23:00 07:00 Intake Total 700 ml 0 ml Output Total 2000 ml 1510 ml Balance -1300 ml -1510 ml medications Current Medications Medications Dose Ordered Sig/Jethro Route Start Time Stop Time Status Last Admin Dose Admin Piperacillin Sod/ Tazobactam Sod 100 ml @ 25 mls/hr Q8HR IV 05/02/25 22:00 05/12/25 06:12 25 MLS/HR Albuterol 2.5 mg Q4HWA [facility] 05/02/25 18:00 05/12/25 09:37 2.5 MG Ipratropium [place] 0.5 mg Q4HWA [facility] 05/02/25 18:00 05/12/25 09:37 0.5 MG Methylprednisolone Sodium Succinate 40 mg BID IV 05/03/25 10:00 05/12/25 10:12 40 MG Atorvastatin Calcium 10 mg HS PO 05/04/25 22:00 05/11/25 21:45 10 MG Pantoprazole Sodium 40 mg BID IV 05/07/25 22:00 05/12/25 10:13 40 MG Furosemide 40 mg DAILY IV 05/09/25 12:00 05/12/25 10:13 40 MG Zirconium Oxide 10 gm DAILY PO 05/11/25 10:00 05/14/25 09:59 05/12/25 10:13 10 GM Examination: GENERAL:Abnormal, LUNGS:Abnormal, CVS:Abnormal laboratory and microbiology Laboratory Tests 05/12/25 05:00 Test 05/12/25 05:00 Range/Units Serum Glucose 139 H 74-106 mg/dL Microbiology Date/Time Source Procedure Growth Status 05/08/25 21:34 Blood Blood Culture - Preliminary NO GROWTH AFTER 72 HOURS OF INCUBATION. Resulted 05/08/25 19:22 Urine - [place] Urine Culture - Final Complete 05/02/25 16:16 Nose MRSA Screen - Final Complete Problem List/Assessment/Plan Problem List/Assessment/Plan Acute kidney injury hemodynamically mediated Hyponatremia Hyperkalemia Multiple CVA Coronary artery disease Chronic diastolic Congestive heart failure BPH Recommendations Kidney function resolved back to normal Increased urine output Strict I&Os Fluid restrictions Furosemide 40 mg IV q.day will consider convert to po tomorrow Lokelma 10 g p.o. q.day We will continue to follow up Plan discussed with: Patient Dietary Evaluation Review Comments: Nutrition Recommendation 1) Cardiac + 2gm K diet 2) Monitor PO intake, lab values, weight trend, and I/O Expected Outcomes/Goals: Lab values to improve FU 3-5 days AURE CHILDERS MD May 12, 2025 11:28
[2025-05-13] VITALS (18 sets, daily range): BP systolic 99–129; BP diastolic 72–78; PULSE 52–117; RESP 13–18; TEMP 97.4–98.2; O2SAT 82–100
[2025-05-13 10:21] LABS: Hematocrit 30.6 % (41.0-53.0); Hemoglobin 10.6 g/dL (13.5-17.5); Mean Corpuscular Hemoglobin 31.6 pg (28.0-32.0); Mean Corpuscular Volume 90.9 fL (80.0-100.0); Nucleated Red Blood Cells % 0.1 %
[2025-05-13 10:36] LABS: Alkaline Phosphatase 76 U/L (46-116); Anion Gap 7 (5-15); BUN/Creatinine Ratio 29.2 (10.0-20.0); Blood Urea Nitrogen 21 mg/dL (9-23); Calcium 9.1 mg/dL (8.7-10.4); Carbon Dioxide 28 mmol/L (20-31); Potassium 4.5 mmol/L (3.5-5.1)
[2025-05-13 10:37] LABS: Albumin 3.6 g/dL (3.2-4.8); Bilirubin, Total 0.7 mg/dL (0.2-1.0)
[2025-05-13 10:41] LABS: Alanine Aminotransferase 75 U/L (7-40); Chloride 90 mmol/L (98-107); Glucose 107 mg/dL (74-106); Sodium 125 mmol/L (136-145); Total Protein 5.5 g/dL (5.7-8.2)
--- NOTE | 2025-05-13 10:48 | DVHPN2 ---
Reviewed: Care Plan, H&P, Labs, Medications, Previous Orders, Radiology Changes from previous H/P or p: No Changes Objective Vitals Vital Signs Date Time Temp Pulse Resp B/P (MAP) Pulse Ox O2 Delivery O2 Flow Rate FiO2 05/13/25 10:41 99 16 100 05/13/25 10:35 Nasal Cannula* 1 24 05/13/25 09:42 131/69 05/13/25 08:58 98.0 98.0 Intake/Output Intake and Output 05/13/25 07:00 Intake Total 1660 ml Output Total 2750 ml Balance -1090 ml Intake Oral 1560 ml IV Total 100 ml Output Urine Total 2750 ml Medications Current Medications Medications Dose Ordered Sig/Jethro Route Start Time Stop Time Status Last Admin Dose Admin Piperacillin Sod/ Tazobactam Sod 100 ml @ 25 mls/hr Q8HR IV 05/02/25 22:00 05/13/25 05:40 25 MLS/HR Albuterol 2.5 mg Q4HWA [facility] 05/02/25 18:00 05/13/25 10:35 2.5 MG Ipratropium [place] 0.5 mg Q4HWA [facility] 05/02/25 18:00 05/13/25 10:35 0.5 MG Methylprednisolone Sodium Succinate 40 mg BID IV 05/03/25 10:00 05/13/25 09:41 40 MG Atorvastatin Calcium 10 mg HS PO 05/04/25 22:00 05/12/25 22:17 10 MG Pantoprazole Sodium 40 mg BID IV 05/07/25 22:00 05/13/25 09:41 40 MG Furosemide 40 mg DAILY IV 05/09/25 12:00 05/13/25 09:42 40 MG Zirconium Oxide 10 gm DAILY PO 05/11/25 10:00 05/14/25 09:59 05/13/25 09:41 10 GM Laboratory Results Laboratory Tests 05/13/25 10:00 Chemistry Test 05/13/25 10:00 Albumin 3.6 g/dL (3.2-4.8) Calcium Level 9.1 mg/dL (8.7-10.4) Total Protein 5.5 g/dL (5.7-8.2) L LFT Test 05/13/25 10:00 Alanine Aminotransferase (ALT) 75 U/L (7-40) H Alkaline Phosphatase 76 U/L (46-116) Aspartate Amino Transferase (AST) 24 U/L (13-40) Total Bilirubin 0.7 mg/dL (0.2-1.0) Urinalysis Test 05/02/25 11:43 05/02/25 21:20 Urine Color Light-yellow (Yellow) Urine Clarity Clear (Clear) Urine pH 5.5 (5.0-9.0) Urine Specific [place] 1.009 (1.001-1.035) Urine Protein Negative (Negative) Urine Ketones 1+ (Negative) H Urine Blood 1+ /uL (Negative) H Urine Nitrite Negative (Negative) Urine Bilirubin Negative (Negative) Urine Urobilinogen Normal mg/dL (Negative) Urine Leukocyte Esterase Negative /uL (Negative) Urine RBC 8 /hpf (0 - 3) Urine Microscopic WBC 1 /HPF (0-3) Urine Squamous Epithelial Cells None seen /hpf (<5) Urine Bacteria None seen /hpf (None Seen) Urine Glucose Normal mg/dL (Normal) Urine Osmolality 347 mOsm/kg Urine Creatinine 45.71 mg/dL (30.0-125.0) Urine Microalbumin 99.0 mg/L (<30.0) H Urine Protein/Creatinine Ratio 1.28 Urine Sodium 11 mmol/L (40-220) L Urine Potassium 20 mmol/L (12-62) Urine Total Protein 58.3 mg/dL (1-14) H Microbiology Microbiology Date/Time Source Procedure Growth Status 05/08/25 21:34 Blood Blood Culture - Preliminary NO GROWTH AFTER 72 HOURS OF INCUBATION. Resulted 05/08/25 19:22 Urine - [place] Urine Culture - Final Complete 05/02/25 16:16 Nose MRSA Screen - Final Complete Labs and/or images reviewed: Labs reviewed by me, Image(s) reviewed by me Assessment/Plan Assessment/Plan Acute Metabolic encephalopathy secondary to severe hyponatremia , Neurology consult by Dr. Simmons appreciated Severe hypovolemic/hyponatremia consult by appreciated Severe hypo natremia with sodium 112, improved to 125 Possible SIADH Chronic diastolic congestive heart failure, Lasix IV will be candidate to p.o. today Acute respiratory failure secondary to aspiration pneumonia and COPD exacerbation Septic shock secondary to pneumonia blood cultures negative urine cultures negative Aspiration pneumonia Zosyn albuterol Atrovent COPD exacerbation: Albuterol Atrovent Solu-Medrol Acute Rhabdomyolysis CPK 3214: IV fluids CPK down to 2194 SUZANNE hemodynamically mediated on CKD Transaminitis Hypokalemia Hypomagnesemia Hypocalcemia NSTEMI likely type 2: Cardiology consult by Dr. Gonsalez appreciated, planning for carotid angiography when patient is stable CVA ruled out CT head negative, MRI brain negative Rule out right hip fracture DVT ruled out Questionable mechanical fall Dyslipidemia Hypertension Coronary artery disease with history of [place] status post PCI and CABG Time Spent 56 minutes RN and Benita [phone] at bedside Patient is full code DEBI Garcia bedside Plan discussed with: Patient Date of Service: May 13, 2025 Billing Provider: MATTHEW OTOOLE MD Common Visit Codes: [id number] INP/OBS CARE(HIGH) MATTHEW OTOOLE MD May 13, 2025 10:47
[2025-05-14] VITALS (17 sets, daily range): BP systolic 105–140; BP diastolic 64–99; PULSE 91–111; RESP 16–19; TEMP 97.5–98.9; O2SAT 92–100
[2025-05-14 06:05] LABS: Hematocrit 30.5 % (41.0-53.0); Hemoglobin 10.8 g/dL (13.5-17.5); Mean Corpuscular Hemoglobin 32.2 pg (28.0-32.0); Mean Corpuscular Volume 90.5 fL (80.0-100.0); Nucleated Red Blood Cells % 0.1 %
[2025-05-14 06:41] LABS: Albumin 3.4 g/dL (3.2-4.8); Alkaline Phosphatase 72 U/L (46-116); Anion Gap 8 (5-15); BUN/Creatinine Ratio 34.3 (10.0-20.0); Calcium 8.9 mg/dL (8.7-10.4); Carbon Dioxide 29 mmol/L (20-31); Potassium 4.1 mmol/L (3.5-5.1)
[2025-05-14 06:42] LABS: Bilirubin, Total 0.6 mg/dL (0.2-1.0)
[2025-05-14 06:45] LABS: Alanine Aminotransferase 63 U/L (7-40); Blood Urea Nitrogen 24 mg/dL (9-23); Chloride 92 mmol/L (98-107); Glucose 150 mg/dL (74-106); Sodium 129 mmol/L (136-145); Total Protein 5.2 g/dL (5.7-8.2)
[2025-05-14] MEDS: PANTOPRAZOLE 40 MG/10 ML VIAL INJ IV ONE (09:51)
--- NOTE | 2025-05-14 11:25 | DVHPN2 ---
Reviewed: Care Plan, H&P, Labs, Medications, Previous Orders, Radiology Changes from previous H/P or p: No Changes Objective Vitals Vital Signs Date Time Temp Pulse Resp B/P (MAP) Pulse Ox O2 Delivery O2 Flow Rate FiO2 05/14/25 09:54 105/75 05/14/25 09:28 95 18 100 05/14/25 09:22 Nasal Cannula 2.0 05/14/25 09:22 28 05/14/25 09:00 97.9 97.9 Intake/Output Intake and Output 05/14/25 07:00 Intake Total 840 ml Output Total 4300 ml Balance -3460 ml Intake Oral 740 ml IV Total 100 ml Output Urine Total 4300 ml Medications Current Medications Medications Dose Ordered Sig/Jethro Route Start Time Stop Time Status Last Admin Dose Admin Albuterol 2.5 mg Q4HWA [facility] 05/02/25 18:00 05/14/25 09:22 2.5 MG Ipratropium [place] 0.5 mg Q4HWA [facility] 05/02/25 18:00 05/14/25 09:22 0.5 MG Methylprednisolone Sodium Succinate 40 mg BID IV 05/03/25 10:00 05/14/25 09:54 40 MG Atorvastatin Calcium 10 mg HS PO 05/04/25 22:00 05/13/25 21:06 10 MG Pantoprazole Sodium 40 mg BID IV 05/07/25 22:00 05/14/25 09:54 40 MG Furosemide 40 mg DAILY IV 05/09/25 12:00 05/14/25 09:54 40 MG Laboratory Results Laboratory Tests 05/14/25 05:10 Chemistry Test 05/14/25 05:10 Albumin 3.4 g/dL (3.2-4.8) Calcium Level 8.9 mg/dL (8.7-10.4) Total Protein 5.2 g/dL (5.7-8.2) L LFT Test 05/14/25 05:10 Alanine Aminotransferase (ALT) 63 U/L (7-40) H Alkaline Phosphatase 72 U/L (46-116) Aspartate Amino Transferase (AST) 22 U/L (13-40) Total Bilirubin 0.6 mg/dL (0.2-1.0) Urinalysis Test 05/02/25 11:43 05/02/25 21:20 Urine Color Light-yellow (Yellow) Urine Clarity Clear (Clear) Urine pH 5.5 (5.0-9.0) Urine Specific [place] 1.009 (1.001-1.035) Urine Protein Negative (Negative) Urine Ketones 1+ (Negative) H Urine Blood 1+ /uL (Negative) H Urine Nitrite Negative (Negative) Urine Bilirubin Negative (Negative) Urine Urobilinogen Normal mg/dL (Negative) Urine Leukocyte Esterase Negative /uL (Negative) Urine RBC 8 /hpf (0 - 3) Urine Microscopic WBC 1 /HPF (0-3) Urine Squamous Epithelial Cells None seen /hpf (<5) Urine Bacteria None seen /hpf (None Seen) Urine Glucose Normal mg/dL (Normal) Urine Osmolality 347 mOsm/kg Urine Creatinine 45.71 mg/dL (30.0-125.0) Urine Microalbumin 99.0 mg/L (<30.0) H Urine Protein/Creatinine Ratio 1.28 Urine Sodium 11 mmol/L (40-220) L Urine Potassium 20 mmol/L (12-62) Urine Total Protein 58.3 mg/dL (1-14) H Microbiology Microbiology Date/Time Source Procedure Growth Status 05/08/25 21:34 Blood Blood Culture - Final NO GROWTH AFTER 5 DAYS OF INCUBATION. Complete 05/08/25 19:22 Urine - [place] Urine Culture - Final Complete 05/02/25 16:16 Nose MRSA Screen - Final Complete Labs and/or images reviewed: Labs reviewed by me, Image(s) reviewed by me Assessment/Plan Assessment/Plan Acute Metabolic encephalopathy secondary to severe hyponatremia , Neurology consult by Dr. Simmons appreciated Severe hypovolemic/hyponatremia consult by appreciated Severe hypo natremia with sodium 112, improved to 129 Possible SIADH Chronic diastolic congestive heart failure, Lasix IV will be candidate to p.o. today Acute respiratory failure secondary to aspiration pneumonia and COPD exacerbation Septic shock secondary to pneumonia blood cultures negative urine cultures negative Aspiration pneumonia Zosyn albuterol Atrovent COPD exacerbation: Albuterol Atrovent Solu-Medrol Acute Rhabdomyolysis CPK 3214: IV fluids CPK down to 2194 SUZANNE hemodynamically mediated on CKD Transaminitis Hypokalemia Hypomagnesemia Hypocalcemia NSTEMI likely type 2: Cardiology consult by Dr. Gonsalez appreciated, planning for carotid angiography when patient is stable CVA ruled out CT head negative, MRI brain negative Rule out right hip fracture DVT ruled out Questionable mechanical fall Dyslipidemia Hypertension Coronary artery disease with history of [place] status post PCI and CABG Time Spent 52 minutes RN and Benita [phone] at bedside Patient is full code DEBI Garcia bedside Plan discussed with: Patient Date of Service: May 14, 2025 Billing Provider: MATTHEW OTOOLE MD Common Visit Codes: [id number] INP/OBS CARE(HIGH) MATTHEW OTOOLE MD May 14, 2025 11:25
--- NOTE | 2025-05-14 13:05 | DVHPN2 ---
Progress Note Date Seen: May 14, 2025 Medical Necessity Reason Pt with a Central, PICC or Fol: Yes The following are medically ne: Central Line, [place] Catheter Subjective Changes from previous H/P or p: No Changes Objective vital signs Vital Sign Date Time Temp Pulse Resp B/P (MAP) Pulse Ox O2 Delivery O2 Flow Rate FiO2 05/14/25 09:54 105/75 05/14/25 09:28 95 18 100 05/14/25 09:22 Nasal Cannula 2.0 05/14/25 09:22 28 05/14/25 09:00 97.9 97.9 Total Intake and Output 05/13/25 05/13/25 05/14/25 15:00 23:00 07:00 Intake Total 700 ml 140 ml Output Total 2500 ml 1800 ml Balance -1800 ml -1660 ml medications Current Medications Medications Dose Ordered Sig/Jethro Route Start Time Stop Time Status Last Admin Dose Admin Albuterol 2.5 mg Q4HWA [facility] 05/02/25 18:00 05/14/25 09:22 2.5 MG Ipratropium [place] 0.5 mg Q4HWA [facility] 05/02/25 18:00 05/14/25 09:22 0.5 MG Methylprednisolone Sodium Succinate 40 mg BID IV 05/03/25 10:00 05/14/25 09:54 40 MG Atorvastatin Calcium 10 mg HS PO 05/04/25 22:00 05/13/25 21:06 10 MG Pantoprazole Sodium 40 mg BID IV 05/07/25 22:00 05/14/25 09:54 40 MG Furosemide 40 mg DAILY IV 05/09/25 12:00 05/14/25 09:54 40 MG Examination: GENERAL:Abnormal, LUNGS:Abnormal, CVS:Abnormal laboratory and microbiology Laboratory Tests 05/14/25 05:10 Test 05/14/25 05:10 Range/Units Serum Glucose 150 H 74-106 mg/dL Microbiology Date/Time Source Procedure Growth Status 05/08/25 21:34 Blood Blood Culture - Final NO GROWTH AFTER 5 DAYS OF INCUBATION. Complete 05/08/25 19:22 Urine - [place] Urine Culture - Final Complete 05/02/25 16:16 Nose MRSA Screen - Final Complete Problem List/Assessment/Plan Problem List/Assessment/Plan Acute kidney injury hemodynamically mediated Hyponatremia Hyperkalemia Multiple CVA Coronary artery disease Chronic diastolic Congestive heart failure BPH Recommendations Kidney function resolved back to normal Increased urine output Strict I&Os Fluid restrictions Furosemide 40 mg IV q.day will consider convert to po at discharge Lokelma 10 g p.o. q.day We will continue to follow up Plan discussed with: Patient Dietary Evaluation Review Comments: Nutrition Recommendation 1) Cardiac + 2gm K diet 2) Monitor PO intake, lab values, weight trend, and I/O Expected Outcomes/Goals: Lab values to improve FU 3-5 days AURE CHILDERS MD May 14, 2025 13:04
[2025-05-15] VITALS (16 sets, daily range): BP systolic 108–147; BP diastolic 56–84; PULSE 74–114; RESP 16–20; TEMP 98.3–98.6; O2SAT 94–100
[2025-05-15 05:29] LABS: Hematocrit 30.5 % (41.0-53.0); Hemoglobin 10.4 g/dL (13.5-17.5); Mean Corpuscular Hemoglobin 31.5 pg (28.0-32.0); Mean Corpuscular Volume 92.2 fL (80.0-100.0); Nucleated Red Blood Cells % 0.0 %
[2025-05-15 05:49] LABS: Alkaline Phosphatase 75 U/L (46-116); Anion Gap 5 (5-15); BUN/Creatinine Ratio 31.1 (10.0-20.0); Blood Urea Nitrogen 23 mg/dL (9-23); Calcium 9.2 mg/dL (8.7-10.4); Carbon Dioxide 28 mmol/L (20-31); Potassium 4.2 mmol/L (3.5-5.1)
[2025-05-15 05:50] LABS: Albumin 3.5 g/dL (3.2-4.8); Bilirubin, Total 0.5 mg/dL (0.2-1.0)
[2025-05-15 05:56] LABS: Alanine Aminotransferase 61 U/L (7-40); Chloride 95 mmol/L (98-107); Glucose 152 mg/dL (74-106); Sodium 128 mmol/L (136-145); Total Protein 5.3 g/dL (5.7-8.2)
--- NOTE | 2025-05-15 09:56 | DVHPN2 ---
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 HTN CAD COPD BPH vital signs Vital Sign Date Time Temp Pulse Resp B/P (MAP) Pulse Ox O2 Delivery O2 Flow Rate FiO2 05/15/25 09:29 147/77 05/15/25 08:41 98.5 95 20 98 98.5 05/15/25 05:31 Nasal Cannula* 2 28 Total Intake and Output 05/14/25 05/14/25 05/15/25 15:00 23:00 07:00 Intake Total 1080 ml 200 ml Output Total 900 ml 700 ml Balance 180 ml -500 ml medications Current Medications Medications Dose Ordered Sig/Jethro Route Start Time Stop Time Status Last Admin Dose Admin Albuterol 2.5 mg Q4HWA [facility] 05/02/25 18:00 05/15/25 05:31 2.5 MG Ipratropium [place] 0.5 mg Q4HWA [facility] 05/02/25 18:00 05/15/25 05:31 0.5 MG Methylprednisolone Sodium Succinate 40 mg BID IV 05/03/25 10:00 05/15/25 09:29 40 MG Atorvastatin Calcium 10 mg HS PO 05/04/25 22:00 05/14/25 21:43 10 MG Pantoprazole Sodium 40 mg BID IV 05/07/25 22:00 05/15/25 09:29 40 MG Furosemide 40 mg DAILY IV 05/09/25 12:00 05/15/25 09:29 40 MG laboratory and microbiology Laboratory Tests 05/15/25 04:53 Test 05/15/25 04:53 Range/Units Serum Glucose 152 H 74-106 mg/dL Problem List AMS PRESENTED WITH PROGRESSIVE SX OF WEAKNESS SLURRING OF SPEECH MRI MULTIP[E CVAs 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
--- NOTE | 2025-05-15 09:57 | DVHPN2 ---
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 HTN CAD COPD BPH vital signs Vital Sign Date Time Temp Pulse Resp B/P (MAP) Pulse Ox O2 Delivery O2 Flow Rate FiO2 05/15/25 09:29 147/77 05/15/25 08:41 98.5 95 20 98 98.5 05/15/25 05:31 Nasal Cannula* 2 28 Total Intake and Output 05/14/25 05/14/25 05/15/25 15:00 23:00 07:00 Intake Total 1080 ml 200 ml Output Total 900 ml 700 ml Balance 180 ml -500 ml medications Current Medications Medications Dose Ordered Sig/Jethro Route Start Time Stop Time Status Last Admin Dose Admin Albuterol 2.5 mg Q4HWA [facility] 05/02/25 18:00 05/15/25 05:31 2.5 MG Ipratropium [place] 0.5 mg Q4HWA NEB 05/02/25 18:00 05/15/25 05:31 0.5 MG Methylprednisolone Sodium Succinate 40 mg BID IV 05/03/25 10:00 05/15/25 09:29 40 MG Atorvastatin Calcium 10 mg HS PO 05/04/25 22:00 05/14/25 21:43 10 MG Pantoprazole Sodium 40 mg BID IV 05/07/25 22:00 05/15/25 09:29 40 MG Furosemide 40 mg DAILY IV 05/09/25 12:00 05/15/25 09:29 40 MG laboratory and microbiology Laboratory Tests 05/15/25 04:53 Test 05/15/25 04:53 Range/Units Serum Glucose 152 H 74-106 mg/dL Problem List AMS PRESENTED WITH PROGRESSIVE SX OF WEAKNESS SLURRING OF SPEECH MRI MULTIP[E CVAs 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
--- NOTE | 2025-05-15 10:54 | DVHPN2 ---
Progress Note Date Seen: May 15, 2025 Medical Necessity Reason Pt with a Central, PICC or Fol: Yes The following are medically ne: Central Line, Sanchez Catheter Subjective Changes from previous H/P or p: No Changes Objective vital signs Vital Sign Date Time Temp Pulse Resp B/P (MAP) Pulse Ox O2 Delivery O2 Flow Rate FiO2 05/15/25 10:20 94 18 100 05/15/25 10:15 Nasal Cannula* 2 28 05/15/25 09:29 147/77 05/15/25 08:41 98.5 98.5 Total Intake and Output 05/14/25 05/14/25 05/15/25 15:00 23:00 07:00 Intake Total 1080 ml 200 ml Output Total 900 ml 700 ml Balance 180 ml -500 ml medications Current Medications Medications Dose Ordered Sig/Jethro Route Start Time Stop Time Status Last Admin Dose Admin Albuterol 2.5 mg Q4HWA [facility] 05/02/25 18:00 05/15/25 10:09 2.5 MG Ipratropium [place] 0.5 mg Q4HWA [facility] 05/02/25 18:00 05/15/25 10:09 0.5 MG Methylprednisolone Sodium Succinate 40 mg BID IV 05/03/25 10:00 05/15/25 09:29 40 MG Atorvastatin Calcium 10 mg HS PO 05/04/25 22:00 05/14/25 21:43 10 MG Pantoprazole Sodium 40 mg BID IV 05/07/25 22:00 05/15/25 09:29 40 MG Furosemide 40 mg DAILY IV 05/09/25 12:00 05/15/25 09:29 40 MG Examination: GENERAL:Abnormal, CVS:Abnormal, ABDOMEN:Normal laboratory and microbiology Laboratory Tests 05/15/25 04:53 Test 05/15/25 04:53 Range/Units Serum Glucose 152 H 74-106 mg/dL Microbiology Date/Time Source Procedure Growth Status 05/08/25 21:34 Blood Blood Culture - Final NO GROWTH AFTER 5 DAYS OF INCUBATION. Complete 05/08/25 19:22 Urine - [place] Urine Culture - Final Complete 05/02/25 16:16 Nose MRSA Screen - Final Complete Problem List/Assessment/Plan Problem List/Assessment/Plan Acute kidney injury hemodynamically mediated Hyponatremia Hyperkalemia Multiple CVA Coronary artery disease Chronic diastolic Congestive heart failure BPH Recommendations 3% NACL was started by cardiology. I recommend frequent serum sodium lab checks, and discontinue 3% drip when serum sodium reaches 133, close urinary output monitoring Per cardiology patient planned for left heart catheterization Kidney function resolved back to normal Increased urine output Strict I&Os Fluid restrictions Furosemide 40 mg IV q.day will consider convert to po at discharge Lokelma 10 g p.o. q.day We will continue to follow up Plan discussed with: Patient Dietary Evaluation Review Comments: Nutrition Recommendation 1) Cardiac + 2gm K diet 2) Monitor PO intake, lab values, weight trend, and I/O Expected Outcomes/Goals: Lab values to improve FU 3-5 days AURE CHILDERS MD May 15, 2025 10:54
--- NOTE | 2025-05-15 12:18 | DVHPN2 ---
Reviewed: Care Plan, H&P, Labs, Medications, Previous Orders, Radiology Changes from previous H/P or p: No Changes Objective Vitals Vital Signs Date Time Temp Pulse Resp B/P (MAP) Pulse Ox O2 Delivery O2 Flow Rate FiO2 05/15/25 10:20 94 18 100 05/15/25 10:15 Nasal Cannula* 2 28 05/15/25 09:29 147/77 05/15/25 08:41 98.5 98.5 Intake/Output Intake and Output 05/15/25 07:00 Intake Total 1280 ml Output Total 1600 ml Balance -320 ml Intake Oral 1280 ml Output Urine Total 1600 ml Medications Current Medications Medications Dose Ordered Sig/Jethro Route Start Time Stop Time Status Last Admin Dose Admin Albuterol 2.5 mg Q4HWA [facility] 05/02/25 18:00 05/15/25 10:09 2.5 MG Ipratropium [place] 0.5 mg Q4HWA [facility] 05/02/25 18:00 05/15/25 10:09 0.5 MG Methylprednisolone Sodium Succinate 40 mg BID IV 05/03/25 10:00 05/15/25 09:29 40 MG Atorvastatin Calcium 10 mg HS PO 05/04/25 22:00 05/14/25 21:43 10 MG Pantoprazole Sodium 40 mg BID IV 05/07/25 22:00 05/15/25 09:29 40 MG Furosemide 40 mg DAILY IV 05/09/25 12:00 05/15/25 09:29 40 MG Laboratory Results Laboratory Tests 05/15/25 04:53 Chemistry Test 05/15/25 04:53 Albumin 3.5 g/dL (3.2-4.8) Calcium Level 9.2 mg/dL (8.7-10.4) Total Protein 5.3 g/dL (5.7-8.2) L LFT Test 05/15/25 04:53 Alanine Aminotransferase (ALT) 61 U/L (7-40) H Alkaline Phosphatase 75 U/L (46-116) Aspartate Amino Transferase (AST) 19 U/L (13-40) Total Bilirubin 0.5 mg/dL (0.2-1.0) Urinalysis Test 05/02/25 11:43 05/02/25 21:20 Urine Color Light-yellow (Yellow) Urine Clarity Clear (Clear) Urine pH 5.5 (5.0-9.0) Urine Specific [place] 1.009 (1.001-1.035) Urine Protein Negative (Negative) Urine Ketones 1+ (Negative) H Urine Blood 1+ /uL (Negative) H Urine Nitrite Negative (Negative) Urine Bilirubin Negative (Negative) Urine Urobilinogen Normal mg/dL (Negative) Urine Leukocyte Esterase Negative /uL (Negative) Urine RBC 8 /hpf (0 - 3) Urine Microscopic WBC 1 /HPF (0-3) Urine Squamous Epithelial Cells None seen /hpf (<5) Urine Bacteria None seen /hpf (None Seen) Urine Glucose Normal mg/dL (Normal) Urine Osmolality 347 mOsm/kg Urine Creatinine 45.71 mg/dL (30.0-125.0) Urine Microalbumin 99.0 mg/L (<30.0) H Urine Protein/Creatinine Ratio 1.28 Urine Sodium 11 mmol/L (40-220) L Urine Potassium 20 mmol/L (12-62) Urine Total Protein 58.3 mg/dL (1-14) H Microbiology Microbiology Date/Time Source Procedure Growth Status 05/08/25 21:34 Blood Blood Culture - Final NO GROWTH AFTER 5 DAYS OF INCUBATION. Complete 05/08/25 19:22 Urine - [place] Urine Culture - Final Complete 05/02/25 16:16 Nose MRSA Screen - Final Complete Labs and/or images reviewed: Labs reviewed by me, Image(s) reviewed by me Assessment/Plan Assessment/Plan Acute Metabolic encephalopathy secondary to severe hyponatremia , Neurology consult by Dr. Simmons appreciated Severe hypovolemic/hyponatremia consult by appreciated Severe hypo natremia with sodium 112, improved to 129 Possible SIADH Chronic diastolic congestive heart failure, Lasix IV will be candidate to p.o. today Acute respiratory failure secondary to aspiration pneumonia and COPD exacerbation Septic shock secondary to pneumonia blood cultures negative urine cultures negative Aspiration pneumonia Zosyn albuterol Atrovent COPD exacerbation: Albuterol Atrovent Solu-Medrol Acute Rhabdomyolysis CPK 3214: IV fluids CPK down to 2194 SUZANNE hemodynamically mediated on CKD Transaminitis Hypokalemia Hypomagnesemia Hypocalcemia NSTEMI likely type 2: Cardiology consult by Dr. Gonsalez appreciated, planning for carotid angiography when patient is stable CVA ruled out CT head negative, MRI brain negative Rule out right hip fracture DVT ruled out Questionable mechanical fall Dyslipidemia Hypertension Coronary artery disease with history of [place] status post PCI and CABG Time Spent 55 minutes RN and Benita [phone] at bedside Patient is full code RN Radha bedside Plan discussed with: Patient Date of Service: May 15, 2025 Billing Provider: MATTHEW OTOOLE MD Common Visit Codes: [id number] INP/OBS CARE(HIGH) MATTHEW OTOOLE MD May 15, 2025 12:18
[2025-05-15] MEDS: SODIUM CHL 3% 500 ML IV ONE (14:52)
--- NOTE | 2025-05-15 22:39 | DVHPN2 ---
Progress Note - Dictate Date Seen: May 15, 2025 Medical Necessity Reason Pt with a Central, PICC or Fol: Yes The following are medically ne: Central Line, Sanchez Catheter Subjective No new complaints, resting comfortably Renal function is improving and hyponatremia resolving on saline No GI bleed reported vital signs Vital Sign Date Time Temp Pulse Resp B/P (MAP) Pulse Ox O2 Delivery O2 Flow Rate FiO2 05/15/25 21:00 98.3 114 20 126/71 (89) 98 98.3 05/15/25 20:00 Nasal Cannula* 3 32 Total Intake and Output 05/14/25 05/14/25 05/15/25 15:00 23:00 07:00 Intake Total 1080 ml 200 ml Output Total 900 ml 700 ml Balance 180 ml -500 ml medications Current Medications Medications Dose Ordered Sig/Jethro Route Start Time Stop Time Status Last Admin Dose Admin Albuterol 2.5 mg Q4HWA [facility] 05/02/25 18:00 05/15/25 14:25 2.5 MG Ipratropium [place] 0.5 mg Q4HWA [facility] 05/02/25 18:00 05/15/25 14:25 0.5 MG Methylprednisolone Sodium Succinate 40 mg BID IV 05/03/25 10:00 05/15/25 21:02 40 MG Atorvastatin Calcium 10 mg HS PO 05/04/25 22:00 05/15/25 21:02 10 MG Pantoprazole Sodium 40 mg BID IV 05/07/25 22:00 05/15/25 21:02 40 MG Furosemide 40 mg DAILY IV 05/09/25 12:00 05/15/25 09:29 40 MG objective General: Awake alert male sitting up in bed no distress, HEENT: NC/AT EOMI PERRLA SOB clear, wearing glasses Heart: Regular rate rhythm Abdomen: Soft nondistended nontender normoactive bowel sounds extremity: No clubbing cyanosis or edema Neuro: Moves all 4 extremities follows commands laboratory and microbiology Laboratory Tests 05/15/25 22:02 05/15/25 04:53 Test 05/15/25 04:53 Range/Units Serum Glucose 152 H 74-106 mg/dL Problems(with codes): (1) CHF (congestive heart failure) (2) Acute metabolic encephalopathy (3) Hyponatremia (4) Normocytic anemia (5) Transaminitis (6) Rhabdomyolysis Prognosis Plan Advance diet as tolerated Continue to monitor labs Protonix 40 mg p.o. daily Patient medically not stable for any aggressive workup with EGD or colonoscopy Continue supportive care, outpatient follow up with GI Services as needed Dietary Evaluation Review Comments: Nutrition Recommendation 1) Cardiac + 2gm K diet 2) Monitor PO intake, lab values, weight trend, and I/O Expected Outcomes/Goals: Lab values to improve FU 3-5 days Plan discussed with: Patient DICK CHARLES MD May 15, 2025 22:39
[2025-05-16] VITALS (18 sets, daily range): BP systolic 97–137; BP diastolic 63–97; PULSE 53–110; RESP 14–20; TEMP 97.6–98.7; O2SAT 90–100
[2025-05-16 06:12] LABS: Hematocrit 30.4 % (41.0-53.0); Hemoglobin 10.5 g/dL (13.5-17.5); Mean Corpuscular Hemoglobin 32.3 pg (28.0-32.0); Mean Corpuscular Volume 93.4 fL (80.0-100.0); Nucleated Red Blood Cells % 0.1 %
[2025-05-16 06:28] LABS: Albumin 3.4 g/dL (3.2-4.8); Alkaline Phosphatase 76 U/L (46-116); Anion Gap 8 (5-15); BUN/Creatinine Ratio 39.1 (10.0-20.0); Bilirubin, Total 0.5 mg/dL (0.2-1.0); Calcium 8.8 mg/dL (8.7-10.4); Carbon Dioxide 29 mmol/L (20-31); Potassium 3.9 mmol/L (3.5-5.1)
[2025-05-16 06:44] LABS: Alanine Aminotransferase 57 U/L (7-40); Blood Urea Nitrogen 25 mg/dL (9-23); Chloride 96 mmol/L (98-107); Glucose 142 mg/dL (74-106); Sodium 133 mmol/L (136-145); Total Protein 5.3 g/dL (5.7-8.2)
--- NOTE | 2025-05-16 10:26 | DVHPN2 ---
Progress Note Date Seen: May 16, 2025 Medical Necessity Reason Pt with a Central, PICC or Fol: Yes The following are medically ne: Central Line, Sanchez Catheter Subjective Patient reports: No new complaints Review of Systems: RESPIRATORY:Abnormal Other Systems: Patient seen and examined by myself today in follow-up, O2 nasal cannula Objective vital signs Vital Sign Date Time Temp Pulse Resp B/P (MAP) Pulse Ox O2 Delivery O2 Flow Rate FiO2 05/16/25 10:17 99 16 100 05/16/25 10:10 Nasal Cannula* 2 28 05/16/25 10:07 113/73 05/16/25 08:43 97.6 97.6 Total Intake and Output 05/15/25 05/15/25 05/16/25 15:00 23:00 07:00 Intake Total 600 ml 640 ml Output Total 2800 ml 525 ml Balance -2200 ml 115 ml medications Current Medications Medications Dose Ordered Sig/Jethro Route Start Time Stop Time Status Last Admin Dose Admin Albuterol 2.[address] [facility] 05/02/25 18:00 05/16/25 10:08 2.5 MG Ipratropium [place] 0.[address] [facility] 05/02/25 18:00 05/16/25 10:08 0.5 MG Methylprednisolone Sodium Succinate 40 mg BID IV 05/03/25 10:00 05/16/25 10:05 40 MG Atorvastatin Calcium 10 mg HS PO 05/04/25 22:00 05/15/25 21:02 10 MG Pantoprazole Sodium 40 mg BID IV 05/07/25 22:00 05/16/25 10:07 40 MG Furosemide 40 mg DAILY IV 05/09/25 12:00 05/16/25 10:07 40 MG Examination: LUNGS:Normal, CVS:Normal, MSK:Normal laboratory and microbiology Laboratory Tests 05/16/25 05:20 Test 05/16/25 05:20 Range/Units Serum Glucose 142 H 74-106 mg/dL Microbiology Date/Time Source Procedure Growth Status 05/08/25 21:34 Blood Blood Culture - Final NO GROWTH AFTER 5 DAYS OF INCUBATION. Complete 05/08/25 19:22 Urine - [place] Urine Culture - Final Complete 05/02/25 16:16 Nose MRSA Screen - Final Complete Problem List/Assessment/Plan Problem List/Assessment/Plan Acute kidney injury hemodynamically mediated, FeNa < 1% Hyponatremia due to excess H2O Hyperkalemia resolved Multiple CVA Coronary artery disease Chronic diastolic Congestive heart failure BPH Recommendations Kidney function resolved back to normal Increased urine output Status post 3% sodium chloride 05/15 Strict I&Os Fluid restrictions Furosemide 40 mg IV q.day We will continue to follow up Plan discussed with: Patient Dietary Evaluation Review Comments: Nutrition Recommendation 1) Cardiac + 2gm K diet 2) Monitor PO intake, lab values, weight trend, and I/O Expected Outcomes/Goals: Lab values to improve FU 3-5 days ARTIE LAWSON MD May 16, 2025 10:26
--- NOTE | 2025-05-16 13:12 | DVHPN2 ---
Reviewed: Care Plan, H&P, Labs, Medications, Previous Orders, Radiology Changes from previous H/P or p: No Changes Objective Vitals Vital Signs Date Time Temp Pulse Resp B/P (MAP) Pulse Ox O2 Delivery O2 Flow Rate FiO2 05/16/25 12:35 97.7 53 19 120/70 (87) 90 97.7 05/16/25 10:10 Nasal Cannula* 2 28 Intake/Output Intake and Output 05/16/25 07:00 Intake Total 1240 ml Output Total 3325 ml Balance -2085 ml Intake Oral 1240 ml Output Urine Total 3325 ml Medications Current Medications Medications Dose Ordered Sig/Jethro Route Start Time Stop Time Status Last Admin Dose Admin Albuterol 2.5 mg Q4HWA [facility] 05/02/25 18:00 05/16/25 10:08 2.5 MG Ipratropium [place] 0.5 mg Q4HWA [facility] 05/02/25 18:00 05/16/25 10:08 0.5 MG Methylprednisolone Sodium Succinate 40 mg BID IV 05/03/25 10:00 05/16/25 10:05 40 MG Atorvastatin Calcium 10 mg HS PO 05/04/25 22:00 05/15/25 21:02 10 MG Pantoprazole Sodium 40 mg BID IV 05/07/25 22:00 05/16/25 10:07 40 MG Furosemide 40 mg DAILY IV 05/09/25 12:00 05/16/25 10:07 40 MG Laboratory Results Laboratory Tests 05/16/25 05:20 05/16/25 10:40 Chemistry Test 05/16/25 05:20 Albumin 3.4 g/dL (3.2-4.8) Calcium Level 8.8 mg/dL (8.7-10.4) Total Protein 5.3 g/dL (5.7-8.2) L LFT Test 05/16/25 05:20 Alanine Aminotransferase (ALT) 57 U/L (7-40) H Alkaline Phosphatase 76 U/L (46-116) Aspartate Amino Transferase (AST) 20 U/L (13-40) Total Bilirubin 0.5 mg/dL (0.2-1.0) Urinalysis Test 05/02/25 11:43 05/02/25 21:20 Urine Color Light-yellow (Yellow) Urine Clarity Clear (Clear) Urine pH 5.5 (5.0-9.0) Urine Specific [place] 1.009 (1.001-1.035) Urine Protein Negative (Negative) Urine Ketones 1+ (Negative) H Urine Blood 1+ /uL (Negative) H Urine Nitrite Negative (Negative) Urine Bilirubin Negative (Negative) Urine Urobilinogen Normal mg/dL (Negative) Urine Leukocyte Esterase Negative /uL (Negative) Urine RBC 8 /hpf (0 - 3) Urine Microscopic WBC 1 /HPF (0-3) Urine Squamous Epithelial Cells None seen /hpf (<5) Urine Bacteria None seen /hpf (None Seen) Urine Glucose Normal mg/dL (Normal) Urine Osmolality 347 mOsm/kg Urine Creatinine 45.71 mg/dL (30.0-125.0) Urine Microalbumin 99.0 mg/L (<30.0) H Urine Protein/Creatinine Ratio 1.28 Urine Sodium 11 mmol/L (40-220) L Urine Potassium 20 mmol/L (12-62) Urine Total Protein 58.3 mg/dL (1-14) H Microbiology Microbiology Date/Time Source Procedure Growth Status 05/08/25 21:34 Blood Blood Culture - Final NO GROWTH AFTER 5 DAYS OF INCUBATION. Complete 05/08/25 19:22 Urine - [place] Urine Culture - Final Complete 05/02/25 16:16 Nose MRSA Screen - Final Complete Labs and/or images reviewed: Labs reviewed by me, Image(s) reviewed by me Assessment/Plan Assessment/Plan Acute Metabolic encephalopathy secondary to severe hyponatremia , Neurology consult by Dr. Simmons appreciated Severe hypovolemic/hyponatremia consult by appreciated Severe hypo natremia with sodium 112, improved to 129 Possible SIADH Chronic diastolic congestive heart failure, Lasix IV will be candidate to p.o. today Acute respiratory failure secondary to aspiration pneumonia and COPD exacerbation Septic shock secondary to pneumonia blood cultures negative urine cultures negative Aspiration pneumonia Zosyn albuterol Atrovent COPD exacerbation: Albuterol Atrovent Solu-Medrol Acute Rhabdomyolysis CPK 3214: IV fluids CPK down to 2194 SUZANNE hemodynamically mediated on CKD Transaminitis Hypokalemia Hypomagnesemia Hypocalcemia NSTEMI likely type 2: Cardiology consult by Dr. Gonsalez appreciated, planning for carotid angiography when patient is stable CVA ruled out CT head negative, MRI brain negative Rule out right hip fracture DVT ruled out Questionable mechanical fall Dyslipidemia Hypertension Coronary artery disease with history of [place] status post PCI and CABG Time Spent 55 minutes RN and Benita [phone] at bedside Patient is full code RN Radha bedside Plan discussed with: Patient Date of Service: May 16, 2025 Billing Provider: MATTHEW OTOOLE MD Common Visit Codes: [id number] INP/OBS CARE(HIGH) MATTHEW OTOOLE MD May 16, 2025 13:12
--- NOTE | 2025-05-16 13:56 | DVHPN2 ---
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 HTN CAD COPD BPH vital signs Vital Sign Date Time Temp Pulse Resp B/P (MAP) Pulse Ox O2 Delivery O2 Flow Rate FiO2 05/16/25 12:35 97.7 53 19 120/70 (87) 90 97.7 05/16/25 10:10 Nasal Cannula* 2 28 Total Intake and Output 05/15/25 05/15/25 05/16/25 15:00 23:00 07:00 Intake Total 600 ml 640 ml Output Total 2800 ml 525 ml Balance -2200 ml 115 ml medications Current Medications Medications Dose Ordered Sig/Jethro Route Start Time Stop Time Status Last Admin Dose Admin Albuterol 2.5 mg Q4HWA [facility] 05/02/25 18:00 05/16/25 10:08 2.5 MG Ipratropium [place] 0.5 mg Q4HWA [facility] 05/02/25 18:00 05/16/25 10:08 0.5 MG Methylprednisolone Sodium Succinate 40 mg BID IV 05/03/25 10:00 05/16/25 10:05 40 MG Atorvastatin Calcium 10 mg HS PO 05/04/25 22:00 05/15/25 21:02 10 MG Pantoprazole Sodium 40 mg BID IV 05/07/25 22:00 05/16/25 10:07 40 MG Furosemide 40 mg DAILY IV 05/09/25 12:00 05/16/25 10:07 40 MG laboratory and microbiology Laboratory Tests 05/16/25 10:40 05/16/25 05:20 Test 05/16/25 05:20 Range/Units Serum Glucose 142 H 74-106 mg/dL Problem List AMS PRESENTED WITH PROGRESSIVE SX OF WEAKNESS SLURRING OF SPEECH MRI MULTIP[E CVAs 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
[2025-05-17] VITALS (15 sets, daily range): BP systolic 92–143; BP diastolic 64–82; PULSE 62–115; RESP 16–20; TEMP 97.3–98; O2SAT 90–100
[2025-05-17 06:05] LABS: Hematocrit 31.2 % (41.0-53.0); Hemoglobin 10.4 g/dL (13.5-17.5); Mean Corpuscular Hemoglobin 31.3 pg (28.0-32.0); Mean Corpuscular Volume 93.9 fL (80.0-100.0); Nucleated Red Blood Cells % 0.1 %
[2025-05-17 06:21] LABS: Alkaline Phosphatase 75 U/L (46-116); Anion Gap 6 (5-15); BUN/Creatinine Ratio 36.8 (10.0-20.0); Blood Urea Nitrogen 21 mg/dL (9-23); Calcium 9.0 mg/dL (8.7-10.4); Carbon Dioxide 29 mmol/L (20-31); Potassium 4.3 mmol/L (3.5-5.1)
[2025-05-17 06:22] LABS: Albumin 3.3 g/dL (3.2-4.8); Bilirubin, Total 0.6 mg/dL (0.2-1.0)
[2025-05-17 06:25] LABS: Alanine Aminotransferase 49 U/L (7-40); Chloride 96 mmol/L (98-107); Glucose 135 mg/dL (74-106); Sodium 131 mmol/L (136-145); Total Protein 5.2 g/dL (5.7-8.2)
--- NOTE | 2025-05-17 12:50 | DVHPN2 ---
Reviewed: Care Plan, H&P, Labs, Medications, Previous Orders, Radiology Changes from previous H/P or p: No Changes Objective Vitals Vital Signs Date Time Temp Pulse Resp B/P (MAP) Pulse Ox O2 Delivery O2 Flow Rate FiO2 05/17/25 09:56 95 16 100 05/17/25 09:51 Nasal Cannula 2.0 05/17/25 09:51 28 05/17/25 09:35 117/72 05/17/25 09:00 97.8 97.8 Intake/Output Intake and Output 05/17/25 07:00 Intake Total 0 ml Output Total 1625 ml Balance -1625 ml Intake Oral 0 ml Output Urine Total 1625 ml Medications Current Medications Medications Dose Ordered Sig/Jethro Route Start Time Stop Time Status Last Admin Dose Admin Albuterol 2.5 mg Q4HWA [facility] 05/02/25 18:00 05/17/25 09:51 2.5 MG Ipratropium [place] 0.5 mg Q4HWA [facility] 05/02/25 18:00 05/17/25 09:51 0.5 MG Methylprednisolone Sodium Succinate 40 mg BID IV 05/03/25 10:00 05/17/25 09:33 40 MG Atorvastatin Calcium 10 mg HS PO 05/04/25 22:00 05/16/25 21:10 10 MG Pantoprazole Sodium 40 mg BID IV 05/07/25 22:00 05/17/25 09:33 40 MG Furosemide 40 mg DAILY IV 05/09/25 12:00 05/17/25 09:35 40 MG Laboratory Results Laboratory Tests 05/17/25 05:12 Chemistry Test 05/17/25 05:12 Albumin 3.3 g/dL (3.2-4.8) Calcium Level 9.0 mg/dL (8.7-10.4) Total Protein 5.2 g/dL (5.7-8.2) L LFT Test 05/17/25 05:12 Alanine Aminotransferase (ALT) 49 U/L (7-40) H Alkaline Phosphatase 75 U/L (46-116) Aspartate Amino Transferase (AST) 18 U/L (13-40) Total Bilirubin 0.6 mg/dL (0.2-1.0) Urinalysis Test 05/02/25 11:43 05/02/25 21:20 Urine Color Light-yellow (Yellow) Urine Clarity Clear (Clear) Urine pH 5.5 (5.0-9.0) Urine Specific [place] 1.009 (1.001-1.035) Urine Protein Negative (Negative) Urine Ketones 1+ (Negative) H Urine Blood 1+ /uL (Negative) H Urine Nitrite Negative (Negative) Urine Bilirubin Negative (Negative) Urine Urobilinogen Normal mg/dL (Negative) Urine Leukocyte Esterase Negative /uL (Negative) Urine RBC 8 /hpf (0 - 3) Urine Microscopic WBC 1 /HPF (0-3) Urine Squamous Epithelial Cells None seen /hpf (<5) Urine Bacteria None seen /hpf (None Seen) Urine Glucose Normal mg/dL (Normal) Urine Osmolality 347 mOsm/kg Urine Creatinine 45.71 mg/dL (30.0-125.0) Urine Microalbumin 99.0 mg/L (<30.0) H Urine Protein/Creatinine Ratio 1.28 Urine Sodium 11 mmol/L (40-220) L Urine Potassium 20 mmol/L (12-62) Urine Total Protein 58.3 mg/dL (1-14) H Microbiology Microbiology Date/Time Source Procedure Growth Status 05/08/25 21:34 Blood Blood Culture - Final NO GROWTH AFTER 5 DAYS OF INCUBATION. Complete 05/08/25 19:22 Urine - [place] Urine Culture - Final Complete 05/02/25 16:16 Nose MRSA Screen - Final Complete Labs and/or images reviewed: Labs reviewed by me, Image(s) reviewed by me Assessment/Plan Assessment/Plan Acute Metabolic encephalopathy secondary to severe hyponatremia , Neurology consult by Dr. Simmons appreciated Severe hypovolemic/hyponatremia consult by appreciated Severe hypo natremia with sodium 112, improved to 129 Possible SIADH Chronic diastolic congestive heart failure, Lasix IV will be candidate to p.o. today Acute respiratory failure secondary to aspiration pneumonia and COPD exacerbation Septic shock secondary to pneumonia blood cultures negative urine cultures negative Aspiration pneumonia Zosyn albuterol Atrovent COPD exacerbation: Albuterol Atrovent Solu-Medrol Acute Rhabdomyolysis CPK 3214: IV fluids CPK down to 2194 SUZANNE hemodynamically mediated on CKD Transaminitis Hypokalemia Hypomagnesemia Hypocalcemia NSTEMI likely type 2: Cardiology consult by Dr. Gonsalez appreciated, per Dr. Gonsalez he will do the carotid angiogram as an outpatient, and the patient can be discharged home CVA ruled out CT head negative, MRI brain negative Rule out right hip fracture DVT ruled out Questionable mechanical fall Dyslipidemia Hypertension Coronary artery disease with history of [place] status post PCI and CABG Time Spent 55 minutes RN and Benita [phone] at bedside Patient is full code DEBI Garcia bedside Plan discussed with: Patient My Orders Orders - MATTHEW OTOOLE MD Procedure Category Date Status Time * [employer] Supervisor CONS 05/16/25 Transmitted Consult Home Health Nursing REFER 05/16/25 Transmitted 13:12 Date of Service: May 17, 2025 Billing Provider: MATTHEW OTOOLE MD Common Visit Codes: [id number] INP/OBS CARE(HIGH) MATTHEW OTOOLE MD May 17, 2025 12:50
[2025-05-17] MEDS ORDERED: ACE1030 IN (14:24)
[2025-05-17] MEDS ORDERED: BUDE1AER16 IN (14:24)
[2025-05-17] MEDS ORDERED: ALBU108A5 IN (14:24)
[2025-05-17] MEDS ORDERED: BUME2TAB5 PO (14:24)
[2025-05-17] MEDS ORDERED: METH4PAK PO (14:24)
[2025-05-17] MEDS ORDERED: METO5TAB5 PO (14:24)
--- NOTE | 2025-05-17 16:07 | DVHPN2 ---
Progress Note Date Seen: May 17, 2025 Medical Necessity Reason Pt with a Central, PICC or Fol: Yes The following are medically ne: Central Line, Sanchez Catheter Subjective Patient reports: No new complaints Other Systems: Patient seen and examined by myself today in follow-up Objective vital signs Vital Sign Date Time Temp Pulse Resp B/P (MAP) Pulse Ox O2 Delivery O2 Flow Rate FiO2 05/17/25 13:58 104 16 100 05/17/25 13:52 Nasal Cannula* 2 28 05/17/25 13:00 97.6 121/78 (92) 97.6 Total Intake and Output 05/16/25 05/16/25 05/17/25 15:00 23:00 07:00 Intake Total 0 ml Output Total 1300 ml 325 ml Balance -1300 ml -325 ml medications Current Medications Medications Dose Ordered Sig/Jethro Route Start Time Stop Time Status Last Admin Dose Admin Albuterol 2.5 mg Q4HWA [facility] 05/02/25 18:00 05/17/25 13:52 2.5 MG Ipratropium [place] 0.5 mg Q4HWA [facility] 05/02/25 18:00 05/17/25 13:52 0.5 MG Methylprednisolone Sodium Succinate 40 mg BID IV 05/03/25 10:00 05/17/25 09:33 40 MG Atorvastatin Calcium 10 mg HS PO 05/04/25 22:00 05/16/25 21:10 10 MG Pantoprazole Sodium 40 mg BID IV 05/07/25 22:00 05/17/25 09:33 40 MG Furosemide 40 mg DAILY IV 05/09/25 12:00 05/17/25 09:35 40 MG Examination: LUNGS:Normal, CVS:Normal, MSK:Normal laboratory and microbiology Laboratory Tests 05/17/25 05:12 Test 05/17/25 05:12 Range/Units Serum Glucose 135 H 74-106 mg/dL Microbiology Date/Time Source Procedure Growth Status 05/08/25 21:34 Blood Blood Culture - Final NO GROWTH AFTER 5 DAYS OF INCUBATION. Complete 05/08/25 19:22 Urine - [place] Urine Culture - Final Complete 05/02/25 16:16 Nose MRSA Screen - Final Complete Problem List/Assessment/Plan Problem List/Assessment/Plan Acute kidney injury hemodynamically mediated, FeNa < 1% Hyponatremia due to excess H2O Hyperkalemia resolved Multiple CVA Coronary artery disease Chronic diastolic Congestive heart failure BPH Recommendations Kidney function resolved back to normal Increased urine output Status post 3% sodium chloride 05/15 Strict I&Os Fluid restrictions Furosemide 20 mg IV BID KCl replacement We will continue to follow up Plan discussed with: Patient Dietary Evaluation Review Comments: Nutrition Recommendation 1) Cardiac + 2gm K diet 2) Monitor PO intake, lab values, weight trend, and I/O Expected Outcomes/Goals: Lab values to improve FU 3-5 days ARTIE LAWSON MD May 17, 2025 16:07
--- NOTE | 2025-05-17 17:24 | DVHPN2 ---
Progress Note Date Seen: May 17, 2025 Resident Creating Document: TAHIR CONSTANTINO RESIDENT Medical Necessity Reason Pt with a Central, PICC or Fol: Yes The following are medically ne: Central Line, Sanchez Catheter Subjective Review of Systems Lower extremity swelling resolving. No abdominal complaints. Patient reports: No new complaints Objective vital signs Vital Sign Date Time Temp Pulse Resp B/P (MAP) Pulse Ox O2 Delivery O2 Flow Rate FiO2 05/17/25 13:58 104 16 100 05/17/25 13:52 Nasal Cannula* 2 28 05/17/25 13:00 97.6 121/78 (92) 97.6 Total Intake and Output 05/16/25 05/16/25 05/17/25 15:00 23:00 07:00 Intake Total 0 ml Output Total 1300 ml 325 ml Balance -1300 ml -325 ml medications Current Medications Medications Dose Ordered Sig/Jethro Route Start Time Stop Time Status Last Admin Dose Admin Albuterol 2.5 mg Q4HWA [facility] 05/02/25 18:00 05/17/25 13:52 2.5 MG Ipratropium [place] 0.5 mg Q4HWA [facility] 05/02/25 18:00 05/17/25 13:52 0.5 MG Methylprednisolone Sodium Succinate 40 mg BID IV 05/03/25 10:00 05/17/25 09:33 40 MG Atorvastatin Calcium 10 mg HS PO 05/04/25 22:00 05/16/25 21:10 10 MG Pantoprazole Sodium 40 mg BID IV 05/07/25 22:00 05/17/25 09:33 40 MG Furosemide 20 mg BIDD IV 05/17/25 18:00 Examination Patient lying in bed, in no acute distress General: Well-built, afebrile, palor, mucosae are moist Cardiovascular: Regular S1 and S2. No murmurs, gallops or rubs. No JVD elevation. Bilateral 1+ pedal edema Respiratory: Decreased breath sounds bilaterally on oxygen supplementation Abdomen: Soft, nontender, nondistended, normoactive bowel sounds, no rebound tenderness, no organomegaly, no masses Genitourinary: Deferred laboratory and microbiology Laboratory Tests 05/17/25 05:12 Test 05/17/25 05:12 Range/Units Serum Glucose 135 H 74-106 mg/dL Microbiology Date/Time Source Procedure Growth Status 05/08/25 21:34 Blood Blood Culture - Final NO GROWTH AFTER 5 DAYS OF INCUBATION. Complete 05/08/25 19:22 Urine - [place] Urine Culture - Final Complete 05/02/25 16:16 Nose MRSA Screen - Final Complete Labs and/or images reviewed: Labs reviewed by me, Image(s) reviewed by me Problem List/Assessment/Plan Problem List/Assessment/Plan Acute on chronic CHF exacerbation Acute Hypoxic respiratory failure secondary to above COPD-exacerbation Lower extremity cellulitis Acute metabolic encephalopathy Anemia likely normocytic Transaminitis Stool occult positive Plan: Recommendation: Dr. Humphrey Patient medically not stable for any aggressive workup with EGD or colonoscopy Continue supportive care, outpatient follow up with GI Services as needed Continue pantoprazole 40 mg daily p.o. Advanced diet as tolerated Avoid NSAIDs/ibuprofen/Motrin Plan discussed with the patient and patient's at bedside in which all questions have been answered Case discussed with Dr. Humphrey Plan discussed with: Patient, Spouse Dietary Evaluation Review Comments: Nutrition Recommendation 1) Cardiac + 2gm K diet 2) Monitor PO intake, lab values, weight trend, and I/O Expected Outcomes/Goals: Lab values to improve FU 3-5 days TAHIR CONSTANTINO RESIDENT May 17, 2025 17:24
[2025-05-17] MEDS: FUROSEMIDE 20 MG/2 ML VIAL IV SCH (18:30)
--- NOTE | 2025-05-17 21:45 | DVHPN2 ---
Progress Note - Dictate Date Seen: May 17, 2025 Medical Necessity Reason Pt with a Central, PICC or Fol: Yes The following are medically ne: Central Line, Sanchez Catheter Subjective Mr. Laboy is a 79 years old right-handed gentleman with a history of hypertension, dyslipidemia, coronary artery disease, heart attack, COPD, he was brought to the [facility] on 05/02/2025 with a chief complaint of shortness breath, but the patient is also found to have chronic strokes on CT brain scan I have seen examined the patient, discussed with his nurse, jayna. He is doing fine, he is awake, oriented to person, place, he knows year, month, he follows verbal commands, socially appropriate He has hypoxia Blood culture, 05/02/2025: No growth UDS, 05/02/2025: Negative Urinalysis, 05/02/2025: WBC: One, urine leukocyte esterase: Negative ABG, 05/02/2025: Respiratory alkalosis WBC/HB/PLT/MCV, 05/03/2025: 13/12.7/233/85.5, 05/09/2025: 21.5/9.9/90.9/209 PT/INR/ABG, 05/02/2025: 12.2/1.17/32.5 Na 04/25/25: 128, 05/02/25: 111, 112, 140, 05/03/2025: 120, 05/09/2025: 126, 05/11/2025: 125, 05/16/25: 132, 05/17/2025: 131 K, 05/02/2025: 2.7, three, 05/03/2025: 2.8, 05/09/2025: 5.7, 05/11/2025: 5 CPK 05/02/2025: 3214, 3477, 05/03/2025: 2194 BUN/CR, 05/02/2025: 45/1.01, 39/1, 07/03/2024: 23/0.78 TBI/AST/ALT/AP, 05/02/2025: 0.9/164/5/87, 05/03/2025: 0.8/162 797/73 NH3, 05/02/2025: 19 TG/HDL/LDL/HDL, 05/02/2025: 102/135/75/37 Vitamin B12 05/02/2025: >4000 TSH, 05/02/2025: 0.53 Echocardiogram, 04/29/2025: Technically difficult study. Off axis views. There appears to be mild RV enlargement with left atrial enlargement. Mild concentric LVH. Mild septal thickening. Mild aortic sclerosis. Mild thickening of the posterior mitral leaflet from the limited views obtained as well as mild calcification at the roof of the left atrium. Left ventricular function appears preserved at 55% associated mild inferior basal hypokinesis. There was normal RV function. Dopplers unremarkable. No pericardial effusion masses or vegetations. Carotid Doppler, 05/02/2025: Greater than 70% stenosis of the left internal carotid artery by velocity criteria. High-grade stenosis of the right external carotid artery. Chest X-ray, 05/02/2025: Mild bibasilar airspace opacity. Chest x-ray, 05/02/2025: Right central venous catheter with tip near cavoatrial junction. CT head, 05/02/2025: 1. No CT evidence of acute intracranial abnormality. 2. Nonacute findings as described above (More focal area of encephalomalacia is seen in the right frontal lobe, may be sequelae of chronic infarct.) MR brain, 05/03/2025: No acute intracranial abnormality seen. No evidence for acute infarct. [id number]-ajkcftlh brain volume loss. Fmgj-pf-swmkkjke chronic small vessel ischemic change. Old moderate right and small left frontal lobe infarcts. Old right basal ganglia infarct. vital signs Vital Sign Date Time Temp Pulse Resp B/P (MAP) Pulse Ox O2 Delivery O2 Flow Rate FiO2 05/17/25 21:00 98.0 105 18 92/67 (75) 91 98.0 05/17/25 20:00 Nasal Cannula* 3 32 Total Intake and Output 05/16/25 05/16/25 05/17/25 15:00 23:00 07:00 Intake Total 0 ml Output Total 1300 ml 325 ml Balance -1300 ml -325 ml medications Current Medications Medications Dose Ordered Sig/Jethro Route Start Time Stop Time Status Last Admin Dose Admin Albuterol 2.5 mg Q4HWA [facility] 05/02/25 18:00 05/17/25 13:52 2.5 MG Ipratropium [place] 0.5 mg Q4HWA [facility] 05/02/25 18:00 05/17/25 13:52 0.5 MG Methylprednisolone Sodium Succinate 40 mg BID IV 05/03/25 10:00 05/17/25 21:00 40 MG Atorvastatin Calcium 10 mg HS PO 05/04/25 22:00 05/17/25 21:00 10 MG Pantoprazole Sodium 40 mg BID IV 05/07/25 22:00 05/17/25 21:00 40 MG Furosemide 20 mg BIDD IV 05/17/25 18:00 05/17/25 18:30 20 MG objective General: the patient is well developed and nourished. No acute distress. MENTAL STATUS: Awake and alert. Oriented to person, place, he knows year. Able to give personal history. SPEECH, LANGUAGE, HIGHER CORTICAL FUNCTION: no aphasia or dysathria. CRANIAL NERVES: Pupils are equal, round and reactive. EOMs full and conjugate. Mild bilateral gaze evoked nystagmus. Facial sensation intact in all three divisions bilaterally. Mandibular strength intact. Facial muscles symmetrical and strength intact. Tongue midline. No fasciculations or atrophy. SENSATION: Sensation to touch and pinprick is normal. MOTOR: Normal tone in the upper and lower extremity. Normal muscle bulk. No fasciculations. No myoclonus. Muscle strength of the major groups in the upper extremities is 4/5. Muscle strength of the major groups in the lower extremities is 3/5. REFLEXES: Deep tendon reflexes normal and symmetrical. No pathological reflexes. CEREBELLAR/COORDINATION: Finger to nose is normal bilaterally. GAIT/STATION: deferred. laboratory and microbiology Laboratory Tests 05/17/25 05:12 Test 05/17/25 05:12 Range/Units Serum Glucose 135 H 74-106 mg/dL Problem List Chronic strokes, asymptomatic Left ICA stenosis Mild disorientation/Acute metabolic encephalopathy Hyponatremia Hypokalemia Rhabdomyolysis Chronic respiratory failure/hypoxia Transaminitis, ? Secondary to rhabdomyolysis Assessment/Plan Monitoring Supportive treatment Telemetry Follow up labs Oxygen Aspirin 81 mg daily Lipitor 10 mg daily DVT prophylaxis/Lovenox Antibiotics Dr. Anderson Re: Left ICA stenosis, angiogram with the patient is better stabilized More recommendation per clinical course This medical document was created using an electronic medical record system with [employer] dictation system. Although this document has been carefully reviewed, there may still be some phonetic and typographical errors. These areas are purely typographical due to imperfections of the software programs, and do not reflect any compromise in the patient's medical care. Prognosis poor Dietary Evaluation Review Comments: Nutrition Recommendation 1) Cardiac + 2gm K diet 2) Monitor PO intake, lab values, weight trend, and I/O Expected Outcomes/Goals: Lab values to improve FU 3-5 days Plan discussed with: Patient, Other SIMA HAMILTON MD May 17, 2025 21:45
[2025-05-18] VITALS (18 sets, daily range): BP systolic 97–136; BP diastolic 68–88; PULSE 82–110; RESP 16–19; TEMP 97.2–98.4; O2SAT 85–100
[2025-05-18 11:18] LABS: Base Excess 3.6 mmol/L (-2.0-3.0)
--- NOTE | 2025-05-18 14:12 | DVHPN2 ---
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 HTN CAD COPD BPH vital signs Vital Sign Date Time Temp Pulse Resp B/P (MAP) Pulse Ox O2 Delivery O2 Flow Rate FiO2 05/18/25 13:57 110 16 100 05/18/25 13:51 Nasal Cannula* 2 28 05/18/25 13:00 98.4 118/76 (90) 98.4 Total Intake and Output 05/17/25 05/17/25 05/18/25 15:00 23:00 07:00 Intake Total 960 ml 650 ml Output Total 1850 ml 1100 ml Balance -890 ml -450 ml medications Current Medications Medications Dose Ordered Sig/Jethro Route Start Time Stop Time Status Last Admin Dose Admin Albuterol 2.5 mg Q4HWA [facility] 05/02/25 18:00 05/18/25 13:51 2.5 MG Ipratropium [place] 0.5 mg Q4HWA [facility] 05/02/25 18:00 05/18/25 13:51 0.5 MG Methylprednisolone Sodium Succinate 40 mg BID IV 05/03/25 10:00 05/18/25 09:21 40 MG Atorvastatin Calcium 10 mg HS PO 05/04/25 22:00 05/17/25 21:00 10 MG Pantoprazole Sodium 40 mg BID IV 05/07/25 22:00 05/18/25 09:21 40 MG Furosemide 20 mg BIDD IV 05/17/25 18:00 05/18/25 05:28 20 MG laboratory and microbiology Laboratory Tests 05/17/25 05:12 Test 05/17/25 05:12 Range/Units Serum Glucose 135 H 74-106 mg/dL Problem List AMS PRESENTED WITH PROGRESSIVE SX OF WEAKNESS SLURRING OF SPEECH MRI MULTIP[E CVAs 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
--- NOTE | 2025-05-18 15:15 | DVHPN2 ---
Reviewed: Care Plan, H&P, Labs, Medications, Previous Orders, Radiology Changes from previous H/P or p: No Changes Objective Vitals Vital Signs Date Time Temp Pulse Resp B/P (MAP) Pulse Ox O2 Delivery O2 Flow Rate FiO2 05/18/25 13:57 110 16 100 05/18/25 13:51 Nasal Cannula* 2 28 05/18/25 13:00 98.4 118/76 (90) 98.4 Intake/Output Intake and Output 05/18/25 07:00 Intake Total 1610 ml Output Total 2950 ml Balance -1340 ml Intake Oral 1610 ml Output Urine Total 2950 ml # Bowel Movements 1 Medications Current Medications Medications Dose Ordered Sig/Jethro Route Start Time Stop Time Status Last Admin Dose Admin Albuterol 2.5 mg Q4HWA [facility] 05/02/25 18:00 05/18/25 13:51 2.5 MG Ipratropium [place] 0.5 mg Q4HWA [facility] 05/02/25 18:00 05/18/25 13:51 0.5 MG Methylprednisolone Sodium Succinate 40 mg BID IV 05/03/25 10:00 05/18/25 09:21 40 MG Atorvastatin Calcium 10 mg HS PO 05/04/25 22:00 05/17/25 21:00 10 MG Pantoprazole Sodium 40 mg BID IV 05/07/25 22:00 05/18/25 09:21 40 MG Furosemide 20 mg BIDD IV 05/17/25 18:00 05/18/25 05:28 20 MG Laboratory Results Laboratory Tests 05/17/25 05:12 Urinalysis Test 05/02/25 11:43 05/02/25 21:20 Urine Color Light-yellow (Yellow) Urine Clarity Clear (Clear) Urine pH 5.5 (5.0-9.0) Urine Specific [place] 1.009 (1.001-1.035) Urine Protein Negative (Negative) Urine Ketones 1+ (Negative) H Urine Blood 1+ /uL (Negative) H Urine Nitrite Negative (Negative) Urine Bilirubin Negative (Negative) Urine Urobilinogen Normal mg/dL (Negative) Urine Leukocyte Esterase Negative /uL (Negative) Urine RBC 8 /hpf (0 - 3) Urine Microscopic WBC 1 /HPF (0-3) Urine Squamous Epithelial Cells None seen /hpf (<5) Urine Bacteria None seen /hpf (None Seen) Urine Glucose Normal mg/dL (Normal) Urine Osmolality 347 mOsm/kg Urine Creatinine 45.71 mg/dL (30.0-125.0) Urine Microalbumin 99.0 mg/L (<30.0) H Urine Protein/Creatinine Ratio 1.28 Urine Sodium 11 mmol/L (40-220) L Urine Potassium 20 mmol/L (12-62) Urine Total Protein 58.3 mg/dL (1-14) H Blood Gas Results Test 05/18/25 11:05 Arterial Blood pH 7.452 (7.350-7.450) FiO2 % 21.0 Microbiology Microbiology Date/Time Source Procedure Growth Status 05/08/25 21:34 Blood Blood Culture - Final NO GROWTH AFTER 5 DAYS OF INCUBATION. Complete 05/08/25 19:22 Urine - [place] Urine Culture - Final Complete 05/02/25 16:16 Nose MRSA Screen - Final Complete Labs and/or images reviewed: Labs reviewed by me, Image(s) reviewed by me Assessment/Plan Assessment/Plan Acute Metabolic encephalopathy secondary to severe hyponatremia , Neurology consult by Dr. Simmons appreciated Severe hypovolemic/hyponatremia consult by appreciated Severe hypo natremia with sodium 112, improved to 129 Possible SIADH Chronic diastolic congestive heart failure, Lasix IV will be candidate to p.o. today Acute respiratory failure secondary to aspiration pneumonia and COPD exacerbation Septic shock secondary to pneumonia blood cultures negative urine cultures negative Aspiration pneumonia Zosyn albuterol Atrovent COPD exacerbation: Albuterol Atrovent Solu-Medrol Acute Rhabdomyolysis CPK 3214: IV fluids CPK down to 2194 SUZANNE hemodynamically mediated on CKD Transaminitis Hypokalemia Hypomagnesemia Hypocalcemia NSTEMI likely type 2: Cardiology consult by Dr. Gonsalez appreciated, per Dr. Gonsalez he will do the carotid angiogram as an outpatient, and the patient can be discharged home CVA ruled out CT head negative, MRI brain negative Rule out right hip fracture DVT ruled out Questionable mechanical fall Dyslipidemia Hypertension Coronary artery disease with history of [place] status post PCI and CABG Time Spent 55 minutes RN and Benita [phone] at bedside Patient is full code DEBI Garcia bedside Plan discussed with: Patient My Orders Orders - MATTHEW OTOOLE MD Procedure Category Date Status Time Abg W/ Co-Ox RT 05/18/25 Logged 10:46 Date of Service: May 18, 2025 Billing Provider: MATTHEW OTOOLE MD Common Visit Codes: [id number] INP/OBS CARE(HIGH) MATTHEW OTOOLE MD May 18, 2025 15:15
--- NOTE | 2025-05-18 15:19 | DVHDS2 ---
Discharge Summary Date of Admission May 02, 2025 at 14:31 Date of Discharge: May 18, 2025 Admitting Diagnosis Altered mental status generalized weakness Wounds: None Labs/Diagnostic Data: Laboratory Results Test 05/18/25 11:05 05/17/25 05:12 05/12/25 05:00 05/09/25 12:04 Blood Gas Specimen Type Arterial Blood Gas Sample Site Left radial Blood Gas Patient Temperature 37.0 Arterial Blood Date Drawn [id number] Arterial Blood pH 7.452 (7.350-7.450) Arterial Blood Partial Pressure CO2 40.8 mmHg (35.0-48.0) Arterial Blood Partial Pressure O2 46.7 mmHg (83.0-108.0) Arterial Blood HCO3 27.8 mmol/L (21.0-28.0) Arterial Blood Oxygen Saturation 83.6 % (94.0-98.0) Arterial Blood Base Excess 3.6 mmol/L (-2.0-3.0) Arterial Blood Oxyhemoglobin 82.1 % (94.0-98.0) Arterial Blood Carboxyhemoglobin 1.2 % (0.5-1.5) Arterial Blood Methemoglobin 0.6 % (0.0-1.5) Arterial Blood Deoxyhemoglobin 16.1 % (0.0-5.0) Sarthak Test Yes Blood Gas Total Hemoglobin 13.00 g/dL (13.5-17.5) Blood Gas Liter Flow 0.00 Blood Gas Modality Room air FiO2 % 21.0 Blood Gas Critical Value Read Back Yes Blood Gas Notified Whom Blood Gas Notified Time [id number] Blood Gas Notified By Thelma vargas rt White Blood Count 11.3 10^3/uL (4.4-10.8) Red Blood Count 3.32 10^6/uL (4.5-5.90) Hemoglobin 10.4 g/dL (13.5-17.5) Hematocrit 31.2 % (41.0-53.0) Mean Corpuscular Volume 93.9 fL (80.0-100.0) Mean Corpuscular Hemoglobin 31.3 pg (28.0-32.0) Mean Corpuscular Hemoglobin Concent 33.3 g/dL (32.0-36.0) Red Cell Distribution Width 16.4 % (11.8-14.3) Platelet Count 204 10^3/uL (140-450) Mean Platelet Volume 6.6 fL (6.9-10.8) Neutrophils (%) (Auto) 88.4 % (37.0-80.0) Lymphocytes (%) (Auto) 7.3 % (10.0-50.0) Monocytes (%) (Auto) 4.2 % (0.0-12.0) Eosinophils (%) (Auto) 0.0 % (0.0-7.0) Basophils (%) (Auto) 0.1 % (0.0-2.0) Neutrophils # (Auto) 10.0 10 ^3/uL (1.6-8.6) Lymphocytes # (Auto) 0.8 10 ^3/uL (0.4-5.4) Monocytes # (Auto) 0.5 10 ^3/uL (0-1.3) Eosinophils # (Auto) 0 10 ^3/uL (0-0.8) Basophils # (Auto) 0 10 ^3/uL (0-0.2) Nucleated Red Blood Cells 0.1 % Sodium Level 131 mmol/L (136-145) Potassium Level 4.3 mmol/L (3.5-5.1) Chloride Level 96 mmol/L (98-107) Carbon Dioxide Level 29 mmol/L (20-31) Anion Gap 6 (5-15) Blood Urea Nitrogen 21 mg/dL (9-23) Creatinine 0.57 mg/dL (0.700-1.30) Glomerular Filtration Rate Calc 99 mL/min (>90) BUN/Creatinine Ratio 36.8 (10.0-20.0) Serum Glucose 135 mg/dL (74-106) Calcium Level 9.0 mg/dL (8.7-10.4) Total Bilirubin 0.6 mg/dL (0.2-1.0) Aspartate Amino Transferase (AST) 18 U/L (13-40) Alanine Aminotransferase (ALT) 49 U/L (7-40) Alkaline Phosphatase 75 U/L (46-116) Total Protein 5.2 g/dL (5.7-8.2) Albumin 3.3 g/dL (3.2-4.8) Differential Total Cells Counted 100.0 (100) Neutrophils % (Manual) 80 (37.0-80.0) Band Neutrophils % (Manual) 4 Lymphocytes % (Manual) 8 (10.0-50.0) Monocytes % (Manual) 8 (0-12) Eosinophils % (Manual) 0 (0-7) Basophils % (Manual) 0 (0.0-2.0) Metamyelocytes % (manual) 0 Myelocytes % (Manual) 0 Promyelocytes % (Manual) 0 Blast Cells % (Manual) 0 Reactive Lymphocytes 0 Platelet Estimate Adequate Clumped Platelets Few Polychromasia Slight Anisocytosis (manual) Slight Magnesium Level 1.2 mg/dL (1.6-2.6) Test 05/09/25 05:25 05/09/25 01:52 05/08/25 01:27 05/03/25 14:07 Creatine Kinase 56 U/L (46-171) POC Glucose 149 mg/dl (70-106) Stool Occult Blood Positive (Negative) Stool Occult Blood Sample #3 (Negative) Phosphorus Level 2.1 mg/dL (2.4-5.1) Test 05/02/25 21:20 05/02/25 16:16 05/02/25 15:35 05/02/25 13:50 Urine Osmolality 347 mOsm/kg Urine Creatinine 45.71 mg/dL (30.0-125.0) Urine Microalbumin 99.0 mg/L (<30.0) Urine Protein/Creatinine Ratio 1.28 Urine Sodium 11 mmol/L (40-220) Urine Potassium 20 mmol/L (12-62) Urine Total Protein 58.3 mg/dL (1-14) Urine Opiates Screen Neg (NEGATIVE) Urine Fentanyl Screen Neg (NEGATIVE) Urine Barbiturates Screen Neg (NEGATIVE) Urine Phencyclidine Screen Neg (NEGATIVE) Urine Amphetamines Screen Neg (NEGATIVE) Urine Benzodiazepines Screen Neg (NEGATIVE) Urine Cocaine Screen Neg (NEGATIVE) Urine Cannabinoids Screen Neg (NEGATIVE) Influenza Type A Antigen Negative (Negative) Influenza Type B Antigen Negative (Negative) SARS-CoV-2 Antigen (Rapid) Negative (NEGATIVE) Ammonia 19 umol/L (11-32) C-Reactive Protein High Sensitivity 5.27 mg/dL (<1.0) Triglycerides Level 102 mg/dL (< 150) Cholesterol Level 135 mg/dL (< 200) LDL Cholesterol 75 mg/dL (< 100) HDL Cholesterol 37 mg/dL (40-59) Lipase 31 U/L (12-53) Prothrombin Time 12.2 sec (9.3-11.8) Prothrombin Time INR 1.17 (0.9-1.15) Activated Partial Thromboplast Time 32.5 SEC (24.5-34.5) Serum Osmolality 249 mOsm/kg (278-298) Troponin I High Sensitivity 67 ng/L (</=54) Thyroid Stimulating Hormone (TSH) 0.53 uIU/mL (0.55-4.78) Test 05/02/25 11:43 05/02/25 11:00 05/02/25 10:55 Urine Color Light-yellow (Yellow) Urine Clarity Clear (Clear) Urine pH 5.5 (5.0-9.0) Urine Specific [place] 1.009 (1.001-1.035) Urine Protein Negative (Negative) Urine Ketones 1+ (Negative) Urine Blood 1+ /uL (Negative) Urine Nitrite Negative (Negative) Urine Bilirubin Negative (Negative) Urine Urobilinogen Normal mg/dL (Negative) Urine Leukocyte Esterase Negative /uL (Negative) Urine RBC 8 /hpf (0 - 3) Urine Microscopic WBC 1 /HPF (0-3) Urine Squamous Epithelial Cells None seen /hpf (<5) Urine Bacteria None seen /hpf (None Seen) Urine Glucose Normal mg/dL (Normal) Legionella pneumophila S1-6 Abs Non reactive (Non Reactive) Lactic Acid Level 1.5 mmol/L (0.4-2.0) B-Type Natriuretic Peptide 294.04 pg/mL (0-100) Vitamin B12 Level > 4000 pg/mL (211-911) Vitamin D 25-Hydroxy 76.6 ng/mL (30.0-100) Other Laboratory Tests 05/17/25 05:12 Brief Hx & Hospital Course: Year-old male with multiple medical problems including COPD congestive heart failure possible SIADH non STEMI type 2 hypotension hypercholesterolemia coronary artery disease status post stents and CABG came in complaining of generalized weakness and unable to walk found to have severe hyponatremia with a sodium 111 seen by tool procurement coordinator improved to 135 at the time of discharge possible SIADH congestive heart failure treated with the Lasix seen by decontamination technician Dr. Gonsalez. Patient has had hypomagnesemia hypokalemia hypocalcemia which has been corrected DVT ruled out PE ruled out CT head was negative. Patient has had a protracted course of almost 16 days in the hospital because of severe hyponatremia which has improved slowly Time being discharged to residential facility for physical therapy rehab and medication management Consults/Reason for consult Cardiology Dr. Anderson Nephrology Dr. Cabral Operations or Procedures Cardiology Nephrology Neurology Condition at Discharge: Poor Final Diagnosis/Problems List Acute Metabolic encephalopathy secondary to severe hyponatremia , Neurology consult by Dr. Simmons appreciated Severe hypovolemic/hyponatremia consult by appreciated Severe hypo natremia with sodium 112, improved to 129 Possible SIADH Chronic diastolic congestive heart failure, Lasix IV will be candidate to p.o. today Acute respiratory failure secondary to aspiration pneumonia and COPD exacerbation Septic shock secondary to pneumonia blood cultures negative urine cultures negative Aspiration pneumonia Zosyn albuterol Atrovent COPD exacerbation: Albuterol Atrovent Solu-Medrol Acute Rhabdomyolysis CPK 3214: IV fluids CPK down to 2194 SUZANNE hemodynamically mediated on CKD Transaminitis Hypokalemia Hypomagnesemia Hypocalcemia NSTEMI likely type 2: Cardiology consult by Dr. Gonsalez appreciated, per Dr. Gonsalez he will do the carotid angiogram as an outpatient, and the patient can be discharged home CVA ruled out CT head negative, MRI brain negative Rule out right hip fracture DVT ruled out Questionable mechanical fall Dyslipidemia Hypertension Coronary artery disease with history of [place] status post PCI and CABG Discharge Disposition: Halfway Facility Discharge Instruct/Medications Diet: Renal Activity: Light activity Follow Up/Referral: Follow up with the intermediate Medications: see list Scheduled Acetylcysteine (Acetylcysteine), 1 ML IN QID, (Reported) Atorvastatin Calcium (Atorvastatin Calcium), 1 TAB PO DAILY, (Reported) Budesonide-Formoterol Fumarate (Budesonide/Formoterol Fum 160-4.5 Mcg/Act), 2 PUFF INH BID, (Reported) Bumetanide (Bumetanide), 1 TAB PO DAILY, (Reported) Furosemide (Furosemide), 1 TAB PO DAILY, (Reported) Lisinopril (Lisinopril), 1 TAB PO DAILY, (Reported) Methylprednisolone (Medrol Dosepak), MG PO UD, (Reported) Metoprolol Tartrate (Lopressor Tablet), 1 TAB PO BID, (Reported) Omeprazole (Omeprazole ), 1 CAP PO DAILY, (Reported) Terazosin Hcl (Terazosin Hcl), 1 CAP PO BID, (Reported) Miscellaneous Medications Albuterol Sulfate (Albuterol Sulfate Hfa), 108 MCG IN, (Reported) Budesonide-Formoterol Fumarate (Breyna 160-4.5 Mcg/Act), 1 AER IN, (Reported) Metolazone (Metolazone), 5 MG PO, (Reported) 39 (Time taken for discharge summary 39 minutes) Discharge Statement: "Patient was advised to return to the ER or call 911 if any headaches, dizziness, shortness of breath, chest pain, abdominal pain, bleeding, fevers, or worsening of medical condition. Patient was counseled about treatment plan, medications, possible side effects, patientverbalized understanding. All questions were answered to the best of my ability. This discharge took greater then 30 minutes in planning, reviewing documentation, counseling the patient, and discussing with other team members." ASSESSMENT ASSESSMENT Hospital Course Marginally improved Assessment Acute Metabolic encephalopathy secondary to severe hyponatremia , Neurology consult by Dr. Simmons appreciated Severe hypovolemic/hyponatremia consult by appreciated Severe hypo natremia with sodium 112, improved to 129 Possible SIADH Chronic diastolic congestive heart failure, Lasix IV will be candidate to p.o. today Acute respiratory failure secondary to aspiration pneumonia and COPD exacerbation Septic shock secondary to pneumonia blood cultures negative urine cultures negative Aspiration pneumonia Zosyn albuterol Atrovent COPD exacerbation: Albuterol Atrovent Solu-Medrol Acute Rhabdomyolysis CPK 3214: IV fluids CPK down to 2194 SUZANNE hemodynamically mediated on CKD Transaminitis Hypokalemia Hypomagnesemia Hypocalcemia NSTEMI likely type 2: Cardiology consult by Dr. Gonsalez appreciated, per Dr. Gonsalez he will do the carotid angiogram as an outpatient, and the patient can be discharged home CVA ruled out CT head negative, MRI brain negative Rule out right hip fracture DVT ruled out Questionable mechanical fall Dyslipidemia Hypertension Coronary artery disease with history of [place] status post PCI and CABG Date of Service: May 18, 2025 Billing Provider: MATTHEW OTOOLE MD Common Visit Codes: [id number] DISCH DAY >30min MATTHEW OTOOLE MD May 18, 2025 15:19
--- NOTE | 2025-05-18 16:53 | DVHPN2 ---
Progress Note Date Seen: May 18, 2025 Medical Necessity Reason Pt with a Central, PICC or Fol: Yes The following are medically ne: Central Line, Sanchez Catheter Subjective Patient reports: No new complaints Other Systems: Patient seen and examined by myself today in f/u Objective vital signs Vital Sign Date Time Temp Pulse Resp B/P (MAP) Pulse Ox O2 Delivery O2 Flow Rate FiO2 05/18/25 13:57 110 16 100 05/18/25 13:51 Nasal Cannula* 2 28 05/18/25 13:00 98.4 118/76 (90) 98.4 Total Intake and Output 05/17/25 05/17/25 05/18/25 15:00 23:00 07:00 Intake Total 960 ml 650 ml Output Total 1850 ml 1100 ml Balance -890 ml -450 ml medications Current Medications Medications Dose Ordered Sig/Jethro Route Start Time Stop Time Status Last Admin Dose Admin Albuterol 2.5 mg Q4HWA [facility] 05/02/25 18:00 05/18/25 13:51 2.5 MG Ipratropium [place] 0.5 mg Q4HWA [facility] 05/02/25 18:00 05/18/25 13:51 0.5 MG Methylprednisolone Sodium Succinate 40 mg BID IV 05/03/25 10:00 05/18/25 09:21 40 MG Atorvastatin Calcium 10 mg HS PO 05/04/25 22:00 05/17/25 21:00 10 MG Pantoprazole Sodium 40 mg BID IV 05/07/25 22:00 05/18/25 09:21 40 MG Furosemide 20 mg BIDD IV 05/17/25 18:00 05/18/25 05:28 20 MG Examination: LUNGS:Normal, CVS:Normal, MSK:Abnormal laboratory and microbiology Laboratory Tests 05/17/25 05:12 Test 05/17/25 05:12 Range/Units Serum Glucose 135 H 74-106 mg/dL Microbiology Date/Time Source Procedure Growth Status 05/08/25 21:34 Blood Blood Culture - Final NO GROWTH AFTER 5 DAYS OF INCUBATION. Complete 05/08/25 19:22 Urine - [place] Urine Culture - Final Complete 05/02/25 16:16 Nose MRSA Screen - Final Complete Problem List/Assessment/Plan Problem List/Assessment/Plan Acute kidney injury hemodynamically mediated, FeNa < 1% Hyponatremia due to excess H2O Hyperkalemia resolved Multiple CVA Coronary artery disease Chronic diastolic Congestive heart failure BPH Recommendations Kidney function resolved back to normal Increased urine output Status post 3% sodium chloride 05/15 Strict I&Os Fluid restrictions Hypoinatremia slowly improving Furosemide 20 mg IV BID KCl replacement We will continue to follow up I will sign off this case, please re consult prn Thank you for the consult Plan discussed with: Patient Dietary Evaluation Review Comments: Nutrition Recommendation 1) Cardiac + 2gm K diet 2) Monitor PO intake, lab values, weight trend, and I/O Expected Outcomes/Goals: Lab values to improve FU 3-5 days ARTIE LAWSON MD May 18, 2025 16:53
--- NOTE | 2025-05-18 17:22 | DVHPN2 ---
Progress Note Date Seen: May 18, 2025 Resident Creating Document: TAHIR CONSTANTINO RESIDENT Medical Necessity Reason Pt with a Central, PICC or Fol: Yes The following are medically ne: Central Line, Sanchez Catheter Subjective Patient reports: No new complaints Objective vital signs Vital Sign Date Time Temp Pulse Resp B/P (MAP) Pulse Ox O2 Delivery O2 Flow Rate FiO2 05/18/25 17:00 97.4 106 18 112/68 (83) 92 97.4 05/18/25 13:51 Nasal Cannula* 2 28 Total Intake and Output 05/17/25 05/17/25 05/18/25 15:00 23:00 07:00 Intake Total 960 ml 650 ml Output Total 1850 ml 1100 ml Balance -890 ml -450 ml medications Current Medications Medications Dose Ordered Sig/Jethro Route Start Time Stop Time Status Last Admin Dose Admin Albuterol 2.5 mg Q4HWA [facility] 05/02/25 18:00 05/18/25 13:51 2.5 MG Ipratropium [place] 0.5 mg Q4HWA [facility] 05/02/25 18:00 05/18/25 13:51 0.5 MG Methylprednisolone Sodium Succinate 40 mg BID IV 05/03/25 10:00 05/18/25 09:21 40 MG Atorvastatin Calcium 10 mg HS PO 05/04/25 22:00 05/17/25 21:00 10 MG Pantoprazole Sodium 40 mg BID IV 05/07/25 22:00 05/18/25 09:21 40 MG Furosemide 20 mg BIDD IV 05/17/25 18:00 05/18/25 05:28 20 MG Examination Patient lying in bed, in no acute distress General: Well-built, afebrile, palor, mucosae are moist Cardiovascular: Regular S1 and S2. No murmurs, gallops or rubs. No JVD elevation. Bilateral 1+ pedal edema Respiratory: Decreased breath sounds bilaterally on oxygen supplementation Abdomen: Soft, nontender, nondistended, normoactive bowel sounds, no rebound tenderness, no organomegaly, no masses Genitourinary: Deferred laboratory and microbiology Laboratory Tests 05/17/25 05:12 Test 05/17/25 05:12 Range/Units Serum Glucose 135 H 74-106 mg/dL Microbiology Date/Time Source Procedure Growth Status 05/08/25 21:34 Blood Blood Culture - Final NO GROWTH AFTER 5 DAYS OF INCUBATION. Complete 05/08/25 19:22 Urine - [place] Urine Culture - Final Complete 05/02/25 16:16 Nose MRSA Screen - Final Complete Labs and/or images reviewed: Labs reviewed by me, Image(s) reviewed by me Problem List/Assessment/Plan Problem List/Assessment/Plan Acute on chronic CHF exacerbation Acute Hypoxic respiratory failure secondary to above COPD-exacerbation Lower extremity cellulitis Acute metabolic encephalopathy Anemia likely normocytic Transaminitis Stool occult positive Plan: Recommendation: Dr. Humphrey Patient medically not stable for any aggressive workup with EGD or colonoscopy Continue supportive care, outpatient follow up with GI Services as needed. GI will sign off at this time. Please re-consult us if deemed necessary. Continue pantoprazole 40 mg daily p.o. Advanced diet as tolerated Avoid NSAIDs/ibuprofen/Motrin Plan discussed with the patient and patient's at bedside in which all questions have been answered Case discussed with Dr. Humphrey Plan discussed with: Patient Dietary Evaluation Review Comments: Nutrition Recommendation 1) Cardiac + 2gm K diet 2) Monitor PO intake, lab values, weight trend, and I/O Expected Outcomes/Goals: Lab values to improve FU 3-5 days TAHIR CONSTANTINO RESIDENT May 18, 2025 17:22
[2025-05-19] VITALS (9 sets, daily range): BP systolic 122–129; BP diastolic 70–82; PULSE 90–99; RESP 16–18; TEMP 97.2–98.6; O2SAT 92–100
--- NOTE | 2025-05-19 11:08 | DVHPN2 ---
Reviewed: Care Plan, H&P, Labs, Medications, Previous Orders, Radiology Changes from previous H/P or p: No Changes Objective Vitals Vital Signs Date Time Temp Pulse Resp B/P (MAP) Pulse Ox O2 Delivery O2 Flow Rate FiO2 05/19/25 10:49 99 18 99 05/19/25 09:00 98.6 122/71 (88) 98.6 05/19/25 06:55 Nasal Cannula* 2 28 Intake/Output Intake and Output 05/19/25 07:00 Intake Total 1520 ml Output Total 1835 ml Balance -315 ml Intake Oral 1520 ml Output Urine Total 1835 ml # Bowel Movements 1 Medications Current Medications Medications Dose Ordered Sig/Jethro Route Start Time Stop Time Status Last Admin Dose Admin Albuterol 2.5 mg Q4HWA [facility] 05/02/25 18:00 05/19/25 10:48 2.5 MG Ipratropium [place] 0.5 mg Q4HWA [facility] 05/02/25 18:00 05/19/25 10:48 0.5 MG Methylprednisolone Sodium Succinate 40 mg BID IV 05/03/25 10:00 05/19/25 10:10 40 MG Atorvastatin Calcium 10 mg HS PO 05/04/25 22:00 05/18/25 22:12 10 MG Pantoprazole Sodium 40 mg BID IV 05/07/25 22:00 05/19/25 10:10 40 MG Furosemide 20 mg BIDD IV 05/17/25 18:00 05/19/25 06:26 20 MG Laboratory Results Laboratory Tests 05/17/25 05:12 Urinalysis Test 05/02/25 11:43 05/02/25 21:20 Urine Color Light-yellow (Yellow) Urine Clarity Clear (Clear) Urine pH 5.5 (5.0-9.0) Urine Specific [place] 1.009 (1.001-1.035) Urine Protein Negative (Negative) Urine Ketones 1+ (Negative) H Urine Blood 1+ /uL (Negative) H Urine Nitrite Negative (Negative) Urine Bilirubin Negative (Negative) Urine Urobilinogen Normal mg/dL (Negative) Urine Leukocyte Esterase Negative /uL (Negative) Urine RBC 8 /hpf (0 - 3) Urine Microscopic WBC 1 /HPF (0-3) Urine Squamous Epithelial Cells None seen /hpf (<5) Urine Bacteria None seen /hpf (None Seen) Urine Glucose Normal mg/dL (Normal) Urine Osmolality 347 mOsm/kg Urine Creatinine 45.71 mg/dL (30.0-125.0) Urine Microalbumin 99.0 mg/L (<30.0) H Urine Protein/Creatinine Ratio 1.28 Urine Sodium 11 mmol/L (40-220) L Urine Potassium 20 mmol/L (12-62) Urine Total Protein 58.3 mg/dL (1-14) H Microbiology Microbiology Date/Time Source Procedure Growth Status 05/08/25 21:34 Blood Blood Culture - Final NO GROWTH AFTER 5 DAYS OF INCUBATION. Complete 05/08/25 19:22 Urine - [place] Urine Culture - Final Complete 05/02/25 16:16 Nose MRSA Screen - Final Complete Labs and/or images reviewed: Labs reviewed by me, Image(s) reviewed by me Assessment/Plan Assessment/Plan Acute Metabolic encephalopathy secondary to severe hyponatremia , Neurology consult by Dr. Simmons appreciated Severe hypovolemic/hyponatremia consult by appreciated Severe hypo natremia with sodium 112, improved to 129 Possible SIADH Chronic diastolic congestive heart failure, Lasix IV will be candidate to p.o. today Acute respiratory failure secondary to aspiration pneumonia and COPD exacerbation Septic shock secondary to pneumonia blood cultures negative urine cultures negative Aspiration pneumonia Zosyn albuterol Atrovent COPD exacerbation: Albuterol Atrovent Solu-Medrol Acute Rhabdomyolysis CPK 3214: IV fluids CPK down to 2194 SUZANNE hemodynamically mediated on CKD Transaminitis Hypokalemia Hypomagnesemia Hypocalcemia NSTEMI likely type 2: Cardiology consult by Dr. Gonsalez appreciated, per Dr. Gonsalez he will do the carotid angiogram as an outpatient, and the patient can be discharged home CVA ruled out CT head negative, MRI brain negative Rule out right hip fracture DVT ruled out Questionable mechanical fall Dyslipidemia Hypertension Coronary artery disease with history of [place] status post PCI and CABG Patient is discharged to [facility] 05/[facility]/2025 Awaiting bed availability and transportation Plan discussed with: Patient My Orders Orders - MATTHEW OTOOLE MD Procedure Category Date Status Time Discharge DISCHARGE 05/18/25 Transmitted 15:15 * Real Estate Rep CONS 05/18/25 Transmitted Consult 15:27 Date of Service: May 19, 2025 Billing Provider: MATTHEW OTOOLE MD Common Visit Codes: [id number] INP/OBS CARE(HIGH) MATTHEW OTOOLE MD May 19, 2025 11:08
--- NOTE | 2025-05-19 11:57 | DVHPN2 ---
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 HTN CAD COPD BPH vital signs Vital Sign Date Time Temp Pulse Resp B/P (MAP) Pulse Ox O2 Delivery O2 Flow Rate FiO2 05/19/25 10:58 99 18 05/19/25 10:49 99 05/19/25 09:00 98.6 122/71 (88) 98.6 05/19/25 08:00 Nasal Cannula* 2 28 Total Intake and Output 05/18/25 05/18/25 05/19/25 15:00 23:00 07:00 Intake Total 480 ml 740 ml 300 ml Output Total 960 ml 875 ml Balance 480 ml -220 ml -575 ml medications Current Medications Medications Dose Ordered Sig/Jethro Route Start Time Stop Time Status Last Admin Dose Admin Albuterol 2.5 mg Q4HWA [facility] 05/02/25 18:00 05/19/25 10:48 2.5 MG Ipratropium [place] 0.5 mg Q4HWA [facility] 05/02/25 18:00 05/19/25 10:48 0.5 MG Methylprednisolone Sodium Succinate 40 mg BID IV 05/03/25 10:00 05/19/25 10:10 40 MG Atorvastatin Calcium 10 mg HS PO 05/04/25 22:00 05/18/25 22:12 10 MG Pantoprazole Sodium 40 mg BID IV 05/07/25 22:00 05/19/25 10:10 40 MG Furosemide 20 mg BIDD IV 05/17/25 18:00 05/19/25 06:26 20 MG laboratory and microbiology Laboratory Tests 05/17/25 05:12 Test 05/17/25 05:12 Range/Units Serum Glucose 135 H 74-106 mg/dL Problem List AMS PRESENTED WITH PROGRESSIVE SX OF WEAKNESS SLURRING OF SPEECH MRI MULTIP[E CVAs 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 HTN CAD COPD BPH ANEMIA SEVERE HYPONATREMIA OBS LEUKOCYTOSIS Assessment/Plan CORRECT HYPONATREMIA ABX FOR LEUKOCYTOSIS/ INFECTION CONSIDER CAROTID angiography when pt's clinical status is stable/ hyponatremia corrected LEUKOCYTOSIS RESOLVED START 3% SALINE URINE OSMOLALITY CAROTID ANGIO DEFERRED BECAUSE PT WAS TO BE DISCHARGED BUT PT STILL HERE WILL SCHEDULE CAROTID ANGIO OUTPATIENT Dietary Evaluation Review Comments: Nutrition Recommendation 1) Cardiac + 2gm K diet 2) Monitor PO intake, lab values, weight trend, and I/O Expected Outcomes/Goals: Lab values to improve FU 3-5 days Plan discussed with: Patient ASHUTOSH CARDONA MD May 19, 2025 11:57
== END 2025-05-19 12:50 | DRG 871 ==
LOC: ER 09:41 → EDBD 09:41 → EDUNIT# 09:41 → OVERFLOW 14:31 → TELE-WESTW 05-04 15:22
PROVIDERS: ADMIT Family Medicine; ATTEND Family Medicine
PROC: 02HV33Z Insertion of Infusion Device into Superior Vena Cava, Percutaneous Approach (ICD-10-PCS; principal; 2025-05-02)
DX: A41.9 Sepsis, unspecified organism (principal); G93.41 Metabolic encephalopathy; S72.091A Other fracture of head and neck of right femur, initial encounter for closed fracture; R65.21 Severe sepsis with septic shock; I21.A1 Myocardial infarction type 2; J69.0 Pneumonitis due to inhalation of food and vomit; J18.9 Pneumonia, unspecified organism; J96.21 Acute and chronic respiratory failure with hypoxia; M62.82 Rhabdomyolysis; E22.2 Syndrome of inappropriate secretion of antidiuretic hormone; J44.0 Chronic obstructive pulmonary disease with (acute) lower respiratory infection; N17.9 Acute kidney failure, unspecified; L03.116 Cellulitis of left lower limb; L03.115 Cellulitis of right lower limb; I13.0 Hypertensive heart and chronic kidney disease with heart failure and stage 1 through stage 4 chronic kidney disease, or unspecified chronic kidney disease; D64.9 Anemia, unspecified; N18.9 Chronic kidney disease, unspecified; I65.22 Occlusion and stenosis of left carotid artery; I50.32 Chronic diastolic (congestive) heart failure; J44.1 Chronic obstructive pulmonary disease with (acute) exacerbation; Z20.822 Contact with and (suspected) exposure to COVID-19; E83.42 Hypomagnesemia; E83.51 Hypocalcemia; E87.6 Hypokalemia; I25.10 Atherosclerotic heart disease of native coronary artery without angina pectoris; N40.0 Benign prostatic hyperplasia without lower urinary tract symptoms; E78.5 Hyperlipidemia, unspecified; W18.39XA Other fall on same level, initial encounter; R74.01 Elevation of levels of liver transaminase levels; E86.1 Hypovolemia; Z98.61 Coronary angioplasty status; Z95.1 Presence of aortocoronary bypass graft; Z87.891 Personal history of nicotine dependence; Z86.73 Personal history of transient ischemic attack (TIA), and cerebral infarction without residual deficits; Z79.82 Long term (current) use of aspirin; I25.2 Old myocardial infarction; Y92.89 Other specified places as the place of occurrence of the external cause; Y93.89 Activity, other specified; Y99.8 Other external cause status
CPT/HCPCS: 36415; 36556; 36600; 70450; 70551; 71045; 73502; 73562; 76604; 80048; 80053; 80061; 80307; 81001; 82043; 82140; 82270; 82306; 82550; 82570; 82607; 82805; 82962; 83605; 83690; 83735; 83880; 83930; 83935; 84100; 84132; 84133; 84156; 84295; 84300; 84443; 84484; 85007; 85025; 85027; 85610; 85730; 86141; 87040; 87081; 87086; 87278; 87426; 87804; 93005; 93886; 93970; 94640; 97110; 97116; 97163; 97530; 99291; G0378; J0692; J1815; J2470; J2543; J3480

== ENCOUNTER 2025-05-27 02:40 | Inpatient (IN) | payer OTHER ==
[2025-05-27] VITALS (12 sets, daily range): BP systolic 105–128; BP diastolic 52–71; PULSE 92–100; RESP 16–18; TEMP 97.6–98.1; O2SAT 90–100
[~2025-05-27] VITALS: Ht 175.3 cm; Wt 75.9 kg
[~2025-05-27 02:40] MED LIST changes: +ACE1030 IN; +ALBU108A5 IN; +BUDE1AER16 IN; -BUME1TAB3 PO; +BUME2TAB5 PO; +METH4PAK PO; +METO5TAB5 PO
--- NOTE | 2025-05-27 02:50 | ED.PDOC ---
Altered Mental Status HPI Comments 79-year-old male who came to ER via EMS for altered level of consciousness. Patient being transferred from [facility]. He initially came in due to sudden-onset altered level of consciousness. Noted that he had a left facial droop and left upper extremity weakness, so patient has been worked up f or CVA initially revealing normal results. Patient was advised admission but due to insurance issues patient was transferred to for further evaluation management. Chief Complaint: Altered level of consciousness Time Seen by MD: 02:50 Reviewed Notes: Latin Professor Notes Allergies: Coded Allergies: NO KNOWN ALLERGIES (Unverified , 04/25/25) Home Meds Reported Medications Methylprednisolone (Medrol Dosepak) 4 Mg Tee, MG PO UD, #21 TAB UAD 05/17/25 Metolazone (Metolazone) 5 Mg Tab, 5 MG PO, TAB 05/17/25 Bumetanide (Bumetanide) 2 Mg Tab, 1 TAB PO DAILY, #90 TAB 3 Refills 05/17/25 Budesonide-Formoterol Fumarate (Breyna 160-4.5 Mcg/Act) 1 Aer Aer, 1 AER IN, AER 05/17/25 Acetylcysteine (Acetylcysteine) 10 % Annabelle, 1 ML IN QID, ML 05/17/25 Albuterol Sulfate (Albuterol Sulfate Hfa) 108 Mcg/Act Aer, 108 MCG IN, AER 05/17/25 Budesonide-Formoterol Fumarate (Budesonide/Formoterol Fum 160-4.5 Mcg/Act) 1 Aer Aer, 2 PUFF INH BID for 90 Days, #30.6 05/12/25 Terazosin Hcl (Terazosin Hcl) 1 Mg Cap, 1 CAP PO BID for 90 Days, #180 05/12/25 Metoprolol Tartrate (LOPRESSOR TABLET) 50 Mg Tb, 1 TAB PO BID for 90 Days, #180 05/12/25 Omeprazole (Omeprazole Dr) 20 Mg Cap, 1 CAP PO DAILY for 30 Days, #30 05/12/25 Furosemide (Furosemide) 40 Mg Tab, 1 TAB PO DAILY for 90 Days, #90 05/12/25 Atorvastatin Calcium (ATORVASTATIN CALCIUM) 20 Mg Tab, 1 TAB PO DAILY for 90 Days, #90 05/12/25 Lisinopril (Lisinopril) 20 Mg Tab, 1 TAB PO DAILY for 90 Days, #90 05/12/25 Information Source: Patient, Emergency Med Personnel Mode of Arrival: EMS Past Medical History PAST MEDICAL HISTORY: CHF, COPD, High Lipids, HTN, ME Surgical History: CABG, PTCA Family History Family History: Reviewed,noncontributory to illness Social History Smoker: Non-Smoker, Quit Greater Than 1 Year Alcohol: Denies ETOH Use Drugs: Denies Drug Use Lives In: Home Unable to Obtain due to: Altered Mental Status Physical Exam General Appearance: No Apparent Distress, Normal HEENT: Normal ENT Inspection, Pharynx Normal, TMs Normal Neck: Full Range of Motion, Non-Tender, Normal, Normal Inspection Respiratory: Chest Non-Tender, Lungs Clear, No Accessory Muscle Use, No Respiratory Distress, Normal Breath Sounds Cardiovascular: No Edema, No JVD, No Murmur, No Gallop, Normal Peripheral Pulses, Regular Rate/Rhythm Breast Exam: Deferred Gastrointestinal: No Organomegaly, Non Tender, No Pulsatile Mass, Normal Bowel Sounds, Soft Genitalia: Deferred Pelvic: Deferred Rectal: Deferred Extremities: No calf tenderness, Normal capillary refill, Normal inspection, Normal range of motion, Non-tender, No pedal edema Musculoskeletal : Apperance: Normal Neurologic: Alert, drivers' cash clerk II-XII nml as Tested, No Motor Deficits, Normal Affect, Normal Mood, No Sensory Deficits Cerebellar Function: Normal Reflexes: Normal Skin: Dry, Normal Color, Warm Lymphatic: No Adenopathy Was a procedure done? Was a procedure done?: No Differential Diagnosis (ALOC) Differential Diagnosis: Hypoglycemia, Encephalopathy, CVA X-Ray, Labs, Meds, VS Vital Signs Date Time Temp Pulse Resp B/P (MAP) Pulse Ox O2 Delivery O2 Flow Rate FiO2 05/27/25 03:26 97.6 91 16 99/56 (70) 96 97.6 05/27/25 03:26 Nasal Cannula* 2 28 05/27/25 02:50 97.0 110 18 98/65 98 97.0 Lab Test 05/27/25 03:16 Range/Units White Blood Count 11.3 H 4.4-10.8 10^3/uL Red Blood Count 3.70 L 4.5-5.90 10^6/uL Hemoglobin 11.6 L 13.5-17.5 g/dL Hematocrit 34.5 L 41.0-53.0 % Mean Corpuscular Volume 93.3 80.0-100.0 fL Mean Corpuscular Hemoglobin 31.3 28.0-32.0 pg Mean Corpuscular Hemoglobin Concent 33.5 32.0-36.0 g/dL Red Cell Distribution Width 16.4 H 11.8-14.3 % Platelet Count 162 140-450 10^3/uL Mean Platelet Volume 7.3 6.9-10.8 fL Neutrophils (%) (Auto) 84.1 H 37.0-80.0 % Lymphocytes (%) (Auto) 9.1 L 10.0-50.0 % Monocytes (%) (Auto) 6.1 0.0-12.0 % Eosinophils (%) (Auto) 0.6 0.0-7.0 % Basophils (%) (Auto) 0.1 0.0-2.0 % Neutrophils # (Auto) 9.5 H 1.6-8.6 10 ^3/uL Lymphocytes # (Auto) 1.0 0.4-5.4 10 ^3/uL Monocytes # (Auto) 0.7 0-1.3 10 ^3/uL Eosinophils # (Auto) 0.1 0-0.8 10 ^3/uL Basophils # (Auto) 0 0-0.2 10 ^3/uL Nucleated Red Blood Cells 0.0 % Sodium Level 134 L 136-145 mmol/L Potassium Level 2.5 *L 3.5-5.1 mmol/L Chloride Level 93 L 98-107 mmol/L Carbon Dioxide Level 30 20-31 mmol/L Anion Gap 11 5-15 Blood Urea Nitrogen 60 H 9-23 mg/dL Creatinine 1.27 0.700-1.30 mg/dL Glomerular Filtration Rate Calc 57 >90 mL/min BUN/Creatinine Ratio 47.2 H 10.0-20.0 Serum Glucose 120 H 74-106 mg/dL Lactic Acid Level 2.0 0.4-2.0 mmol/L Calcium Level 8.3 L 8.7-10.4 mg/dL Total Bilirubin 0.6 0.2-1.0 mg/dL Aspartate Amino Transferase (AST) 18 13-40 U/L Alanine Aminotransferase (ALT) 34 7-40 U/L Alkaline Phosphatase 86 46-116 U/L Total Protein 5.3 L 5.7-8.2 g/dL Albumin 3.3 3.2-4.8 g/dL Current Medications Medications (Trade) Dose Ordered Sig/Jethro Route Start Time Stop Time Status Last Admin Ceftriaxone Sodium 50 ml @ 100 mls/hr ONCE ONCE IV 05/27/25 02:45 05/27/25 03:14 DC 05/27/25 03:25 Time of 1ST Reevaluation: 02:47 Reevaluation 1ST: Unchanged Patient Education/Counseling: Diagnosis, Treatment Family Education/Counseling: No Family Present SEPSIS Sepsis Screen Physician Orders Urinalysis (05/27/25 02:45) Blood Culture (05/27/25 02:45) Chest Portable (05/27/25 02:45) Head Without Contrast (05/27/25 02:45) Electrocardigram (05/27/25 02:45) Potassium Chl Denys Kcl (05/27/25 04:00) Vital Signs Date Time Temp Pulse Resp B/P (MAP) Pulse Ox O2 Delivery O2 Flow Rate FiO2 05/27/25 03:26 97.6 91 16 99/56 (70) 96 97.6 05/27/25 03:26 Nasal Cannula* 2 28 05/27/25 02:50 97.0 110 18 98/65 98 97.0 Laboratory Tests Test 05/27/25 03:16 Lactic Acid Level 2.0 mmol/L (0.4-2.0) White Blood Count 11.3 10^3/uL (4.4-10.8) H Medications Medications Dose Ordered Sig/Jehtro Route Start Time Stop Time Status Last Admin Dose Admin Ceftriaxone Sodium 50 ml @ 100 mls/hr ONCE ONCE IV 05/27/25 02:45 05/27/25 03:14 DC 05/27/25 03:25 Departure 1 Departure Time of Disposition: 04:08 Impression: Primary Impression: Metabolic encephalopathy Additional Impressions: Hypokalemia Urinary tract infection Disposition: 09 ADMITTED INPATIENT Admit to: Med Surg Condition: Guarded Comments 79-year-old male transferred from [facility] with altered mental status and noted to have a urinary tract infection. Patient is bit confused . His lab work shows severe hypokalemia 2.5. He has a urinary tract infection. Patient was given IV Rocephin antibiotics and IV potassium replacement. Patient will need to be admitted for supportive care and further workup. Critical Care Note Critical Care Time?: Yes (35 min-critical care time only) Critical care comment: Total critical care time: Approximately 36 minutes Due to a high probability of clinically significant, life threatening deterioration, the patient required my highest level of preparedness to inte rvene emergently and I personally spent this critical care time directly and personally managing the patient. This critical care time included obtaining a history; examining the patient; pulse oximetry; ordering and review of studies; arranging urgent treatment with development of a management plan; evaluation of patient's response to treatment; frequent reassessment; and, discussions with other providers. This critical care time was performed to assess and manage the high probability of imminent, life-threatening deterioration that could result in multi-organ failure. It was exclusive of separately billable procedures and treating other patients. Stability Stability form required: No Heart Score Heart Score: Heart Score Response (Comments) Value History N/A 0 EKG N/A 0 Age N/A 0 Risk Factors N/A 0 Troponin N/A 0 Total 0 I personally scribed for MARIA ESTHER BEST MD ([email or web address]) on 05/27/25 at 02:50. Electronically submitted by Tomas Aly ([email or web address]). MARIA ESTHRE BEST MD May 27, 2025 02:50
[2025-05-27 03:38] LABS: Hematocrit 34.5 % (41.0-53.0); Hemoglobin 11.6 g/dL (13.5-17.5); Mean Corpuscular Hemoglobin 31.3 pg (28.0-32.0); Mean Corpuscular Volume 93.3 fL (80.0-100.0); Nucleated Red Blood Cells % 0.0 %
[2025-05-27 03:57] LABS: Alanine Aminotransferase 34 U/L (7-40); Albumin 3.3 g/dL (3.2-4.8); Alkaline Phosphatase 86 U/L (46-116); Anion Gap 11 (5-15); BUN/Creatinine Ratio 47.2 (10.0-20.0); Carbon Dioxide 30 mmol/L (20-31)
[2025-05-27 03:58] LABS: Bilirubin, Total 0.6 mg/dL (0.2-1.0)
[2025-05-27 03:59] LABS: Blood Urea Nitrogen 60 mg/dL (9-23); Calcium 8.3 mg/dL (8.7-10.4); Chloride 93 mmol/L (98-107); Glucose 120 mg/dL (74-106); Potassium 2.5 mmol/L (3.5-5.1); Sodium 134 mmol/L (136-145); Total Protein 5.3 g/dL (5.7-8.2)
[2025-05-27] MEDS ORDERED: POTASSIUM CHLORIDE 20 MEQ, LIDOCAINE 1% (LOCAL ANESTH.) 2 ML in SODIUM CHL 0.9% 100 ML IV ONE (04:00)
--- NOTE | 2025-05-27 04:25 | DVH ---
CHEST RADIOGRAPH INDICATION: SOB TECHNIQUE: 1 view COMPARISON: XY CHEST PORTABLE on DOS: 05/02/25, XY CHEST PORTABLE on DOS: 05/02/25, XY CHEST XRAY 1 VIEW on DOS: 04/25/25, XY CHEST PORTABLE on DOS: 04/07/25 FINDINGS: Lines and Tubes: External leads. Lungs/Pleura: No focal consolidation, pleural effusion or pneumothorax. Similar interstitial opacities and calcified granulomas. Cardiomediastinum: Normal heart size. Post CABG change. Other: Uncomplicated sternotomy wires. IMPRESSION: 1. No acute cardiopulmonary abnormality.
--- NOTE | 2025-05-27 04:27 | DVH ---
EXAM: CT HEAD WITHOUT CONTRAST INDICATION: ALOC TECHNIQUE: CT of the head without intravenous contrast. Radiation Dose : 1. Head: CT Dose: CTDI volume is 57.7 mGy. Dose-length product is 1137.09 mGy*cm The dose indicators for CT are the volume Computed Tomography (CT) Dose Index (CTDIvol) and the Dose Length Product (DLP), and are measured in units of mGy and mGy-cm, respectively. These indicators are not patient dose, but values generated from the CT scanner acquisition factors. The report includes radiation exposure data for exposures received during this examination. COMPARISON: MRI BRAIN HEAD WO CONTRAST on DOS: 05/03/25, CT HEAD WITHOUT CONTRAST on DOS: 05/02/25 FINDINGS: There is no evidence of acute intracranial hemorrhage, extra-axial collection, mass effect, midline shift, herniation or hydrocephalus. Chronic appearing bilateral thalamic lacunar infarcts. Increased prominence of the ventricles, sulci and cisterns consistent with sequelae of atrophic cortical volume loss. The vernon-white differentiation is intact. Moderate diffuse confluent periventricular and subcortical white matter hypoattenuation is nonspecific but may be related to small vessel ischemic disease. The visualized paranasal sinuses and mastoid air cells are clear. The surrounding soft tissues and osseous structures are unremarkable. IMPRESSION: 1. No acute intracranial abnormality. 2. Chronic appearing bilateral thalamic lacunar infarcts. 3. Chronic sequelae of microangiopathy and atrophic cortical volume loss. Radiation optimization: All CT scans at this facility use at least one of these dose optimization techniques: automated exposure control mA and/or kV adjustment per patient size (includes targeted exams where dose is matched to clinical indication) or iterative reconstruction.
[2025-05-27 05:15] LABS: Urine Protein, UAD Negative (Negative)
--- NOTE | 2025-05-27 05:18 | DVHHPRES ---
History of Present Illness Resident Creating Document: SCOTT PECK RESIDENT History of Present Illness Mr Singh Laboy, an 79-year-old male with past medical history of heart failure with preserved ejection fraction, CT with CABG number of stent placement unknown, COPD unknown home oxygen status presented to the ER with altered mental status. According to the ER physician's note and the RN, patient was 1st taken to [facility] due to left-sided facial droop and left upper extremity weakness. Stroke workup was done and was ruled out. During history taking the patient was talking about his and also was delirious, A&O x1. Patient presented with leukocytosis. CXR was negative. Urine microscopic WBC was 13 and urine with 3+. Based on the finding and altered mental status, patient was started on ceftriaxone IV. Head CT revealed no acute intracranial abnormality. Patient was found to have severe hypokalemia on admission, which is repleting. Magnesium lab ordered, pending results. His initial hemoglobin was 11.6, hematocrit 34.5 and RDW 16.4. Anemia workup pending. Past medical history: As above Past surgical history, allergies,substance abuse history: Unknown due to patient's mental status and no family member or caregiver was accompanying the patient Home medications: Metolazone, bumetanide, Lasix, atorvastatin, lisinopril 20 mg I discussed the treatment, plan and all updates with the patient's Ms. Benita Laboy over phone, she was thankful for the care. Review of Systems Neurological: Confusion Allergies: Coded Allergies: NO KNOWN ALLERGIES (Unverified , 04/25/25) Medications Current Medications Medications Dose Ordered Sig/Jethro Route Start Time Stop Time Status Last Admin Dose Admin Potassium Chloride 100 ml @ 50 mls/hr Q2H IV 05/27/25 05:15 05/27/25 11:14 UNV Exam Vital Signs Vital Signs Date Time Temp Pulse Resp B/P (MAP) Pulse Ox O2 Delivery O2 Flow Rate FiO2 05/27/25 03:26 97.6 91 16 99/56 (70) 96 97.6 05/27/25 03:26 Nasal Cannula* 2 28 Exam Pt is lying on bed General Appearance: Alert, Oriented X1, non-Cooperative, Mild distress HEENT: Atraumatic, Mucous membranes moist/pink Respiratory: Clear to auscultation, Normal air movement, No added sounds Cardiovascular: Regular rate, Normal S1, Normal S2, No murmurs Abdominal/ : Active bowel sounds, Soft, no distention, no tenderness Extremities: No edema, Normal pulses, No tenderness/swelling Skin: No Significant rash, except past surgical scars Neuro: Normal speech, sensorimotor deficits none Psych/Mental Status: Mental status NL, Mood NL Nurse was there as it security manager during examination Labs/Xrays Labs Test 05/27/25 04:30 05/27/25 03:16 Range/Units White Blood Count 11.3 H 4.4-10.8 10^3/uL Red Blood Count 3.70 L 4.5-5.90 10^6/uL Hemoglobin 11.6 L 13.5-17.5 g/dL Hematocrit 34.5 L 41.0-53.0 % Mean Corpuscular Volume 93.3 80.0-100.0 fL Mean Corpuscular Hemoglobin 31.3 28.0-32.0 pg Mean Corpuscular Hemoglobin Concent 33.5 32.0-36.0 g/dL Red Cell Distribution Width 16.4 H 11.8-14.3 % Platelet Count 162 140-450 10^3/uL Mean Platelet Volume 7.3 6.9-10.8 fL Neutrophils (%) (Auto) 84.1 H 37.0-80.0 % Lymphocytes (%) (Auto) 9.1 L 10.0-50.0 % Monocytes (%) (Auto) 6.1 0.0-12.0 % Eosinophils (%) (Auto) 0.6 0.0-7.0 % Basophils (%) (Auto) 0.1 0.0-2.0 % Neutrophils # (Auto) 9.5 H 1.6-8.6 10 ^3/uL Lymphocytes # (Auto) 1.0 0.4-5.4 10 ^3/uL Monocytes # (Auto) 0.7 0-1.3 10 ^3/uL Eosinophils # (Auto) 0.1 0-0.8 10 ^3/uL Basophils # (Auto) 0 0-0.2 10 ^3/uL Nucleated Red Blood Cells 0.0 % Sodium Level 134 L 136-145 mmol/L Potassium Level 2.5 *L 3.5-5.1 mmol/L Chloride Level 93 L 98-107 mmol/L Carbon Dioxide Level 30 20-31 mmol/L Anion Gap 11 5-15 Blood Urea Nitrogen 60 H 9-23 mg/dL Creatinine 1.27 0.700-1.30 mg/dL Glomerular Filtration Rate Calc 57 >90 mL/min BUN/Creatinine Ratio 47.2 H 10.0-20.0 Serum Glucose 120 H 74-106 mg/dL Lactic Acid Level 2.0 0.4-2.0 mmol/L Calcium Level 8.3 L 8.7-10.4 mg/dL Total Bilirubin 0.6 0.2-1.0 mg/dL Aspartate Amino Transferase (AST) 18 13-40 U/L Alanine Aminotransferase (ALT) 34 7-40 U/L Alkaline Phosphatase 86 46-116 U/L Total Protein 5.3 L 5.7-8.2 g/dL Albumin 3.3 3.2-4.8 g/dL SEPSIS Sepsis Screen Date sepsis recognized/suspect: May 27, 2025 Time Sepsis recognized/suspect: 325 Recent Procedure: No On Antibiotic Therapy: Yes Respiratory Rate >20: No Heart Rate >90: No Temp<36 C (96.8 F) or >38.3 C: No SBP <90 or MAP <65 mmHG: No New Acute Mental Status Change: No Is the patient on CPAP, BIPAP,: No Physician Orders Urinalysis (05/27/25 02:45) Blood Culture (05/27/25 02:45) Chest Portable (05/27/25 02:45) Head Without Contrast (05/27/25 02:45) Electrocardigram (05/27/25 02:45) Potassium Chloride (Potassium Chloride). (05/27/25 04:00) Potassium Chl 20meq/100ml (05/27/25 05:15) Vital Signs Date Time Temp Pulse Resp B/P (MAP) Pulse Ox O2 Delivery O2 Flow Rate FiO2 05/27/25 03:26 97.6 91 16 99/56 (70) 96 97.6 05/27/25 03:26 Nasal Cannula* 2 28 05/27/25 02:50 97.0 110 18 98/65 98 97.0 Laboratory Tests Test 05/27/25 03:16 Lactic Acid Level 2.0 mmol/L (0.4-2.0) White Blood Count 11.3 10^3/uL (4.4-10.8) H Medications Medications Dose Ordered Sig/Jethro Route Start Time Stop Time Status Last Admin Dose Admin Ceftriaxone Sodium 50 ml @ 100 mls/hr ONCE ONCE IV 05/27/25 02:45 05/27/25 03:14 DC 05/27/25 03:25 100 MLS/HR Assessment/Plan Assessment/Plan Acute metabolic/toxic encephalopathy Acute complicated UTI with delirium -IV ceftriaxone Severe hypokalemia Potassium 2.5, repleting Multiple diuretics at home Prediabetes HbA1c 5.8, pending Heart failure with preserved ejection fraction, EF 55% GDMT held due to low blood pressures Home medication metoprolol COPD , not on exacerbation Breathing treatments, albuterol, ipratropium med nebs if necessary Continue home medication History of positive FOBT Hypokalemia Stool studies sent GI prophylaxis: Pantoprazole DVT prophylaxis: SCDs Diet: NPO until swallow evaluation Goals of care discussed with the patient for more than 27 minutes: Full code status Case discussed with , patient and RN Plan discussed with: Other (RN) Visit Coding STANDARD RES Billing Provider: NINA GUZMAN MD Date of Service if different f: May 27, 2025 Common Visit Codes: 00739-[id number] INP/OBS CARE (HIGH) Secondary Visit Codes: [id number] CARE PLAN 30 MINUTES SCOTT PECK May 27, 2025 05:18
[2025-05-27] MEDS: POTASSIUM CHL 20MEQ/100ML 100 ML IV ONE (05:19)
[2025-05-27] MEDS: POTASSIUM CHL 20MEQ/100ML 100 ML IV SCH (05:20)
[2025-05-27] MEDS ORDERED: MORPHINE SULFATE INJ 2 MG/ml SYRG IV PRN (05:30)
[2025-05-27] MEDS ORDERED: NITROGLYCERIN 0.4 MG SL TAB SL PRN (05:30)
[2025-05-27] MEDS: SODIUM CHLORIDE 0.9% 1,000 ML IVB ONE (06:03)
[2025-05-27 06:15] LABS: Thyroid Stimulating Hormone 0.92 uIU/mL (0.55-4.78)
[2025-05-27 06:19] LABS: Iron 44.0 ug/dL (65-175); Total Iron Binding Capacity 194.0 ug/dL (250-425)
[2025-05-27] MEDS ORDERED: IPRATROPIUM BROM 0.5 MG/2.5ML INH SOL NEB PRN (06:45)
[2025-05-27] MEDS ORDERED: ALBUTEROL SULF 2.5 MG/0.5ML(0.5%) NEB SOLN NEB PRN (06:45)
[2025-05-27] MEDS: SODIUM CHLORIDE 0.9% 1,000 ML IV SCH ×2 (06:50→15:00)
--- NOTE | 2025-05-27 06:52 | ECG ---
[facility] Test Date: 2025-05-27 Test Time: 06:50:38 Pat Name: LUCIA HUTTON Department: ED Room: [address] [place] [address] Gender: M Restrooms Or Lounges Maid: ELLEN : 1945 Requested By: MARIA ESTHER BEST Order Number: [id number] Reading MD: Measurements Intervals [place] Rate: 93 P: 73 MO: 162 QRS: 83 QRSD: 111 T: 265 QT: 350 QTc: 436 Interpretive Statements Sinus rhythm Atrial premature complexes Inferior infarct, age indeterminate Abnormal lateral Q waves Baseline wander in lead(s) V1,V3,V4,V5,V6 Please click the below link to view image of tracing.
[2025-05-27 07:15] LABS: Magnesium 1.9 mg/dL (1.6-2.6)
[2025-05-27 07:27] LABS: Lipase 82.0 U/L (12-53)
[2025-05-27 08:16] LABS: INR 1.02 (0.9-1.15); Partial Thromboplastin Time 24.7 SEC (24.5-34.5); Prothrombin Time 10.8 sec (9.3-11.8)
[2025-05-27] MEDS: MAGNESIUM SULFATE 1GM/100ML 100 ML IV ONE (08:36)
[2025-05-27 08:43] LABS: Amphetamine Screen, Urine Neg (NEGATIVE); Barbiturate Scree,Urine Neg (NEGATIVE); Benzodiazephine Screen, Urine Neg (NEGATIVE); Cannabinoid Screen, Urine Neg (NEGATIVE); Cocaine Screen, Urine Neg (NEGATIVE); Opiate Scree,Urine Neg (NEGATIVE); Phencyclidine Screen, Urine Neg (NEGATIVE)
--- NOTE | 2025-05-27 09:04 | DVH ---
EXAM DESCRIPTION: CT CT AB PEL WO CON-NO ORAL OR IV CLINICAL HISTORY: elevated lipase COMPARISON: None TECHNIQUE: CT abdomen and pelvis without IV contrast was performed. Coronal and sagittal MPR images were generated.CTDI/ DLP = 8.73 / 441.57 Dose reduction technique with one or more of the following methods was performed: Automated exposure control, adjustment of the mA and/or kV according to patient size, use of iterative reconstruction technique FINDINGS: Lower chest: Emphysema noted in the lung bases. Right basilar subsegmental atelectasis. Multivessel coronary artery disease. Liver: Homogenous in attenuation. . Biliary: Hyperdense material in the gallbladder likely representing excreted contrast. No gallbladder wall thickening. No biliary ductal dilatation. Pancreas: No fat stranding or focal lesion. Spleen: Normal in size.. Adrenal glands: No nodularity. Kidneys: No nephrolithiasis. No hydroureteronephrosis. Excreted contrast material in the uterus.. Bladder: Decompressed via Sanchez catheter. Excreted contrast material in the urinary bladder. Reproductive organs: Enlarged prostate gland. Bowel: Diffuse gastric wall thickening. Colonic diverticulosis without evidence of diverticulitis. . Peritoneum: No free fluid. No free air. Vessels: Aneurysmal bilateral common femoral arteries measuring 3.1 cm on the left and 2.7 cm on the right.r aneurysmal bilateral common iliac arteries measuring 3.3 cm on the right and 2.5 cm on the left. Aneurysmal infrarenal abdominal aorta measuring up to 4.1 cm status post endovascular stent repair. Severe atherosclerotic calcifications.. Lymph nodes: No suspicious lymph nodes. Soft tissues: Unremarkable. . Osseous structures: No acute fracture or subluxation. No suspicious osseous lesions. Degenerative changes of the visualized thoracolumbar spine. IMPRESSION: 1. Diffuse gastric wall thickening which may be due to gastritis or malignancy. Recommend further evaluation with endoscopy. 2. Colonic diverticulosis without evidence of diverticulitis. 3. Infrarenal abdominal aortic aneurysm measuring 4.1 cm status post endovascular stent repair. 4. 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
[2025-05-27 09:55] LABS: Triglycerides 107 mg/dL (< 150)
[2025-05-27 09:58] LABS: Cholesterol 147 mg/dL (< 200); HDL Cholesterol 41 mg/dL (40-59)
[2025-05-27] MEDS ORDERED: ATORVASTATIN 20 MG TAB PO SCH (10:00)
[2025-05-27 10:36] LABS: Base Excess 2.4 mmol/L (-2.0-3.0)
[2025-05-27] MEDS: PANTOPRAZOLE 40 MG/10 ML VIAL INJ IV SCH (12:00)
[2025-05-27] MEDS: LEVALBUTEROL HCL 1.25 MG/3 ML NEB NEB SCH (12:06)
--- NOTE | 2025-05-27 12:20 | DVH ---
CLINICAL HISTORY: SOB TECHNIQUE: CT of the chest was performed without contrast. This exam was performed according to our departmental dose optimization program. Up-to-date CT equipment and radiation dose reduction techniques are utilized as appropriate. WID: COMPARISON: XY CHEST PORTABLE on DOS: 05/27/25, XY CHEST PORTABLE on DOS: 05/02/25, US CHEST ULTRASOUND on DOS: 05/02/25, XY CHEST PORTABLE on DOS: 05/02/25, XY CHEST XRAY 1 VIEW on DOS: 04/25/25 FINDINGS: Lungs: There is extensive upper lobe predominant emphysema. There is minimal subpleural reticulation in the bilateral lower lobes. Calcified granulomas are noted. No consolidation. Saber sheath trachea. Cardiac: Coronary artery calcium with stenting. Cardiac chamber size is within normal limits. Vascular: Main pulmonary artery is normal atherosclerotic calcifications of the thoracic aorta and proximal great vessels. Partially imaged endovascular aortic stent graft within the upper abdomen. Lymph nodes: unremarkable Thoracic inlet: unremarkable Bones: Status post median sternotomy. Mild degenerative changes noted within the spine. Upper Abdomen: unremarkable IMPRESSION: Severe centrilobular emphysema with minimal interstitial lung fibrosis in the lower lobes. Status post median sternotomy with post CABG change Sequelae of old granulomatous disease
[2025-05-27 12:51] LABS: Anion Gap 12 (5-15); Sodium 137 mmol/L (136-145)
[2025-05-27 12:52] LABS: Calcium 8.9 mg/dL (8.7-10.4)
[2025-05-27 12:55] LABS: Carbon Dioxide 31 mmol/L (20-31); Chloride 94 mmol/L (98-107); Potassium 3.2 mmol/L (3.5-5.1)
[2025-05-27 12:57] LABS: BUN/Creatinine Ratio 40.8 (10.0-20.0); Magnesium 2.0 mg/dL (1.6-2.6)
[2025-05-27 13:00] LABS: Blood Urea Nitrogen 42 mg/dL (9-23); Glucose 140 mg/dL (74-106)
[2025-05-27] MEDS: ASPirin-EC 81 mg tab PO SCH (13:15)
[2025-05-27] MEDS: SODIUM CHLORIDE 0.9% 250 ML IV SCH (13:48)
[2025-05-27] MEDS: POTASSIUM CHLORIDE 20 MEQ, LIDOCAINE 1% (LOCAL ANESTH.) 2 ML in SODIUM CHL 0.9% 100 ML IV ONE (13:49)
--- NOTE | 2025-05-27 13:49 | DVH ---
CLINICAL INDICATION: Rule out CVA. COMPARISON: CT HEAD WITHOUT CONTRAST on DOS: 05/27/25, MRI BRAIN HEAD WO CONTRAST on DOS: 05/03/25, CT HEAD WITHOUT CONTRAST on DOS: 05/02/25 TECHNIQUE: Multisequence multiplanar MRI images of the brain were obtained without contrast. FINDINGS: No acute infarct or hemorrhage. No mass or midline shift. Encephalomalacia in the anterior aspects of both frontal lobes, similar to the prior exam. Scattered areas of T2/FLAIR hyperintense signal in the periventricular and subcortical white matter are nonspecific, but most likely sequelae of chronic small vessel ischemic disease. Small chronic lacunar infarct in the right basal ganglia. Atrophic changes with dilation of the ventricles and widening of the sulci. Basal cisterns are patent. Cerebellum, brainstem, and midline structures are within normal limits. Mild mucosal thickening of the paranasal sinuses. Orbits are grossly unremarkable. IMPRESSION: 1. No evidence of acute intracranial abnormality. 2. Stable appearing Nonacute findings as described above.
[2025-05-27] MEDS ORDERED: POTASSIUM CHLORIDE 60 MEQ, LIDOCAINE 1% (LOCAL ANESTH.) 6 ML in SODIUM CHL 0.9% 500 ML IV ONE (14:00)
--- NOTE | 2025-05-27 14:33 | DVHPNRES ---
Progress Note Date Seen: May 27, 2025 Resident Creating Document: SHAHNAZ [facility] Medical Necessity Reason Pt with a Central, PICC or Fol: Yes The following are medically ne: Sanchez Catheter Subjective Review of Systems Singh Laboy is a 79-year-old male patient who presents to the ED via EMS with chief complaint of altered mental status. Patient was found to be unresponsive with a pulse, only tracking with eyes, nonverbal in specialized nursing facility ([facility]), prompting staff to call EMS. Per records, last time he was seen baseline was at 9:00 p.m. on 05/26/2025. Patient was in specialized nursing facility to obtain physical therapy sessions after being hospitalized due to symptomatic severe hyponatremia, discharge with home oxygen. Could not obtain review of systems due to clinical status. Obtain past medical history and HPI from and EMR. Past medical history: Hypertension, dyslipidemia, coronary artery disease status post CABG and PCI in 2019 (last echocardiogram on 04/2025 showed LVEF 55%, LAE, mild left ventricular hypertrophy), AAA status post EVAR ( believes it was treated in 2019), COPD with home oxygen requirement (2 L/min), chronic diarrhea Social history: 2019 CABG, PCI, EVAR Family history: Noncontributory Social history: Lives in [place] with (next of kin). Ex tobacco abuse (60 pack-year history of smoking) quit in 2019. Denies current tobacco, alcohol and other drug abuse Allergies: Denies Home medication: does not recall. Per EMR bumetanide, furosemide, metolazone, acetylcysteine, albuterol, atorvastatin 20 mg p.o. daily, lisinopril 20 mg p.o. daily, methylprednisolone 4 mg pack, metoprolol 50 mg p.o. daily, omeprazole 20 mg p.o. daily, terazosin 1 mg p.o. b.i.d. Patient seen and examined at bedside. Currently is more oriented and arousable. Currently has no new complaints, but somewhat combative. Have updated . Objective vital signs Vital Sign Date Time Temp Pulse Resp B/P (MAP) Pulse Ox O2 Delivery O2 Flow Rate FiO2 05/27/25 13:00 97.8 97 17 114/52 (72) 99 97.8 05/27/25 12:07 Nasal Cannula* 4 36 Total Intake and Output 05/26/25 05/26/25 05/27/25 15:00 23:00 07:00 Intake Total 100 ml Balance 100 ml medications Current Medications Medications Dose Ordered Sig/Jethro Route Start Time Stop Time Status Last Admin Dose Admin Nitroglycerin 0.4 mg Q5MINP PRN SL 05/27/25 05:30 Morphine Sulfate 2 mg Q30M PRN IV 05/27/25 05:30 Ceftriaxone Sodium 50 ml @ 100 mls/hr DAILY@09 IV 05/28/25 09:00 Pantoprazole Sodium 40 mg DAILY IV 05/27/25 10:00 Ipratropium [place] 0.5 mg Q6HPRN PRN NEB 05/27/25 06:45 Atorvastatin Calcium 40 mg HS PO 05/27/25 22:00 Aspirin 81 mg DAILY PO 05/27/25 10:00 Levalbuterol HCl 0.625 mg Q6HR NEB 05/27/25 12:00 05/27/25 12:06 0.625 MG Sodium Chloride 250 ml @ 250 mls/hr Q1H IV 05/27/25 10:30 05/27/25 13:48 250 MLS/HR Examination Patient lying in bed, in no acute distress General: Lucid, afebrile, mucosae are dry Cardiovascular: Normal S1 and S2. No murmurs, gallops or rubs Respiratory: Regular ventilation mechanics. Mild expiratory wheezing on right base. Abdomen: Soft, nontender, no organomegaly, normal bowel sounds MSK/skin: Mobilizes 4 limbs. 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 No apparent motor no sensitive deficits (but patient is not cooperative). 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 Indicated mild IV fluid resuscitation. On normal saline 75 mL/hr Replenish electrolytes Hold all diuretics Ordered physical therapy for continuing sessions. Acute on chronic hypoxic respiratory failure (on home oxygen 2 L/min) COPD exacerbation Aspiration pneumonia Completed chest CT which showed severe centrilobular emphysema with minimal interstitial lung fibrosis in the lower lobes, sequela of old granulomatous disease. Currently under empiric IV antibiotic (azithromycin and ceftriaxone) On bronchodilators, IV steroids and oxygen therapy (nasal cannula 3 L/min) Ordered sputum sample. Obtain ABG which ruled out respiratory acidosis Chronic systolic congestive heart failure (HFpEF, LVEF 55%) Coronary artery disease status post CABG and PCI History of AAA status post EVAR Mild IV fluid resuscitation due to history of HFpEF. Last echocardiogram completed on 04/2025 which showed LVEF 55, left atrial enlargement, mild left ventricular hypertrophy Hold diuretics Unlikely pancreatitis Questionable gastritis/gastric malignancy Patient's lipase mildly elevated. 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 Paul, patient and nurses: Patient colon and telemetry status. Improving with IV fluid resuscitation, empiric IV antibiotics, IV steroids, oxygen therapy and bronchodilators. Patient has poor prognosis due to multiple comorbidities. Plan discussed with: Patient, Spouse, Other (Nurses) My Orders My Orders Orders - SHAHNAZ MARC RESIDENT Procedure Category Date Status Time Abg W/ Co-Ox RT 05/27/25 Logged 08:[address] 05/27/25 Resulted 08:58 Full Liq Diet DIET 05/27/25 Transmitted Breakfast Brain Head Wo Contrast MRI 05/27/25 Resulted 09:22 Atorvastatin (Lipitor) PHA 05/27/25 In Process 22:00 Aspirin Enteric PHA 05/27/25 In Process Coated Tablet 10:00 Urine Bacterial KISHAN 05/27/25 Logged Culture 09:23 Respiratory Culture KISHAN 05/27/25 Logged W/ Gs 09:23 Mrsa Screen KISHAN 05/27/25 Logged 09:23 Rapid Influenza A&B LAB 05/27/25 Logged 09:23 Covid19 Antigen Alyssa LAB 05/27/25 Logged Levalbuterol Hcl PHA 05/27/25 In Process (Xopenex Medneb) 12:00 Sodium Chloride 0.9% PHA 05/27/25 In Process 10:30 Visit Coding STANDARD RES Billing Provider: MJ PAUL MD Date of Service if different f: May 27, 2025 Common Visit Codes: [id number] INP/OBS CARE(HIGH) SHAHNAZ MARC RESIDENT May 27, 2025 14:33
[2025-05-27] MEDS: POTASSIUM CHLORIDE 60 MEQ, LIDOCAINE 1% (LOCAL ANESTH.) 6 ML in SODIUM CHL 0.9% 500 ML IV ONE (17:18)
[2025-05-27] MEDS: AZITHROMYCIN 500MG/250ML 250 ML IV ONE (17:18)
[2025-05-27] MEDS: methylPREDNISolone SOD SUCC 40 MG/ML VL IV SCH (22:05)
[2025-05-27] MEDS: ATORVASTATIN 20 MG TAB PO SCH (22:06)
[2025-05-28] VITALS (13 sets, daily range): BP systolic 105–143; BP diastolic 64–76; PULSE 84–107; RESP 15–22; TEMP 97.1–98.2; O2SAT 90–100
[2025-05-28 00:59] LABS: COVID19 ANTIGEN SOFIA FIA NEGATIVE (NEGATIVE)
[2025-05-28 09:28] LABS: Hematocrit 34.1 % (41.0-53.0); Hemoglobin 11.4 g/dL (13.5-17.5); Mean Corpuscular Hemoglobin 31.4 pg (28.0-32.0); Mean Corpuscular Volume 93.5 fL (80.0-100.0); Nucleated Red Blood Cells % 0.0 %
[2025-05-28 09:37] LABS: Chloride 98 mmol/L (98-107)
[2025-05-28 09:40] LABS: Anion Gap 9 (5-15)
[2025-05-28 09:46] LABS: Alkaline Phosphatase 90 U/L (46-116); Calcium 8.7 mg/dL (8.7-10.4); Carbon Dioxide 28 mmol/L (20-31); Glucose 233 mg/dL (74-106); Potassium 4.2 mmol/L (3.5-5.1); Sodium 135 mmol/L (136-145); Total Protein 5.3 g/dL (5.7-8.2)
[2025-05-28 09:48] LABS: Bilirubin, Total 0.6 mg/dL (0.2-1.0)
[2025-05-28 09:54] LABS: BUN/Creatinine Ratio 34.3 (10.0-20.0)
[2025-05-28 09:55] LABS: Alanine Aminotransferase 35 U/L (7-40); Albumin 3.2 g/dL (3.2-4.8); Blood Urea Nitrogen 24 mg/dL (9-23)
[2025-05-28] MEDS: AZITHROMYCIN 500MG/250ML 250 ML IV SCH (10:41)
--- NOTE | 2025-05-28 12:50 | DVH ---
EXAM: XY L FEMUR XRAY HISTORY: large lateral bruise. R/O fracture COMPARISON: None TECHNIQUE: AP and lateral views of the left femur were performed. FINDINGS: No evidence of fracture or other osseous abnormality about the left femur. IMPRESSION: 1. No acute fracture of the left femur.
--- NOTE | 2025-05-28 13:10 | DVH ---
CLINICAL INDICATION: large bruise TECHNIQUE: 2 radiographic views of the right tibia and fibula were obtained. COMPARISON: None FINDINGS/IMPRESSION: No fractures or dislocations. Arterial calcifications superimposed over the posterior tibial plateau on the lateral film. If fracture is of clinical concern recommend CT.
--- NOTE | 2025-05-28 13:12 | DVH ---
CLINICAL INDICATION: top of foot bruise TECHNIQUE: 2 radiographic views of the right foot were obtained. COMPARISON: None FINDINGS/IMPRESSION: Soft tissue swelling is noted over the dorsum of the right foot over the distal metatarsals. No fractures or dislocations.
[2025-05-28] MEDS: SODIUM CHLORIDE 0.9% 250 ML IV ONE (13:16)
--- NOTE | 2025-05-28 13:55 | DVHDSRES ---
Discharge Summary Date of Admission Resident Creating Document: SHAHNAZ MARC RESIDENT May 27, 2025 at 05:18 Date of Discharge: May 28, 2025 Labs/Diagnostic Data: Laboratory Results Test 05/28/25 09:17 05/27/25 23:50 05/27/25 11:56 05/27/25 09:25 White Blood Count 6.8 10^3/uL (4.4-10.8) Red Blood Count 3.64 10^6/uL (4.5-5.90) Hemoglobin 11.4 g/dL (13.5-17.5) Hematocrit 34.1 % (41.0-53.0) Mean Corpuscular Volume 93.5 fL (80.0-100.0) Mean Corpuscular Hemoglobin 31.4 pg (28.0-32.0) Mean Corpuscular Hemoglobin Concent 33.5 g/dL (32.0-36.0) Red Cell Distribution Width 16.2 % (11.8-14.3) Platelet Count 178 10^3/uL (140-450) Mean Platelet Volume 7.0 fL (6.9-10.8) Neutrophils (%) (Auto) 92.9 % (37.0-80.0) Lymphocytes (%) (Auto) 4.1 % (10.0-50.0) Monocytes (%) (Auto) 2.9 % (0.0-12.0) Eosinophils (%) (Auto) 0.1 % (0.0-7.0) Basophils (%) (Auto) 0.0 % (0.0-2.0) Neutrophils # (Auto) 6.3 10 ^3/uL (1.6-8.6) Lymphocytes # (Auto) 0.3 10 ^3/uL (0.4-5.4) Monocytes # (Auto) 0.2 10 ^3/uL (0-1.3) Eosinophils # (Auto) 0 10 ^3/uL (0-0.8) Basophils # (Auto) 0 10 ^3/uL (0-0.2) Nucleated Red Blood Cells 0.0 % Sodium Level 135 mmol/L (136-145) Potassium Level 4.2 mmol/L (3.5-5.1) Chloride Level 98 mmol/L (98-107) Carbon Dioxide Level 28 mmol/L (20-31) Anion Gap 9 (5-15) Blood Urea Nitrogen 24 mg/dL (9-23) Creatinine 0.70 mg/dL (0.700-1.30) Glomerular Filtration Rate Calc 93 mL/min (>90) BUN/Creatinine Ratio 34.3 (10.0-20.0) Serum Glucose 233 mg/dL (74-106) Calcium Level 8.7 mg/dL (8.7-10.4) Total Bilirubin 0.6 mg/dL (0.2-1.0) Aspartate Amino Transferase (AST) 18 U/L (13-40) Alanine Aminotransferase (ALT) 35 U/L (7-40) Alkaline Phosphatase 90 U/L (46-116) Total Protein 5.3 g/dL (5.7-8.2) Albumin 3.2 g/dL (3.2-4.8) Influenza Type A Antigen Negative (Negative) Influenza Type B Antigen Negative (Negative) SARS-CoV-2 Antigen (Rapid) Negative (NEGATIVE) Magnesium Level 2.0 mg/dL (1.6-2.6) Ammonia 12 umol/L (11-32) Plasma/Serum Blood Alcohol < 3.0 mg/dL (<10) Troponin I High Sensitivity 48 ng/L (</=54) Test 05/27/25 08:50 05/27/25 07:20 05/27/25 06:20 05/27/25 04:30 Blood Gas Specimen Type Arterial Blood Gas Sample Site Right radial Blood Gas Patient Temperature 37.0 Arterial Blood Date Drawn [id number] Arterial Blood pH 7.445 (7.350-7.450) Arterial Blood Partial Pressure CO2 39.6 mmHg (35.0-48.0) Arterial Blood Partial Pressure O2 81.2 mmHg (83.0-108.0) Arterial Blood HCO3 26.6 mmol/L (21.0-28.0) Arterial Blood Oxygen Saturation 95.5 % (94.0-98.0) Arterial Blood Base Excess 2.4 mmol/L (-2.0-3.0) Arterial Blood Oxyhemoglobin 93.4 % (94.0-98.0) Arterial Blood Carboxyhemoglobin 1.6 % (0.5-1.5) Arterial Blood Methemoglobin 0.6 % (0.0-1.5) Arterial Blood Deoxyhemoglobin 4.4 % (0.0-5.0) Sarthak Test Yes Blood Gas Total Hemoglobin 13.00 g/dL (13.5-17.5) Blood Gas Modality Nasal cannula FiO2 % 28.0 Prothrombin Time 10.8 sec (9.3-11.8) Prothrombin Time INR 1.02 (0.9-1.15) Activated Partial Thromboplast Time 24.7 SEC (24.5-34.5) Triglycerides Level 107 mg/dL (< 150) Cholesterol Level 147 mg/dL (< 200) LDL Cholesterol 82 mg/dL (< 100) HDL Cholesterol 41 mg/dL (40-59) Lipase 66 U/L (12-53) Ferritin 624.9 ng/mL (22-322) Vitamin B12 Level 747 pg/mL (211-911) Vitamin D 25-Hydroxy 56.7 ng/mL (30.0-100) Urine Color Colorless (Yellow) Urine Clarity Clear (Clear) Urine pH 6.0 (5.0-9.0) Urine Specific Gordon 1.018 (1.001-1.035) Urine Protein Negative (Negative) Urine Ketones Negative (Negative) Urine Blood 3+ /uL (Negative) Urine Nitrite Negative (Negative) Urine Bilirubin Negative (Negative) Urine Urobilinogen Normal mg/dL (Negative) Urine Leukocyte Esterase Negative /uL (Negative) Urine RBC 106 /hpf (0 - 3) Urine Microscopic WBC 13 /HPF (0-3) Urine Squamous Epithelial Cells None seen /hpf (<5) Urine Bacteria None seen /hpf (None Seen) Urine Glucose Normal mg/dL (Normal) Test 05/27/25 03:16 Hemoglobin A1c 5.2 % A1C (<5.7) Lactic Acid Level 2.0 mmol/L (0.4-2.0) Iron Level 44 ug/dL (65-175) Total Iron Binding Capacity 194 ug/dL (250-425) Percent Iron Saturation 22.7 % (20-55) Lactate Dehydrogenase 230 U/L (120-246) B-Type Natriuretic Peptide 136.54 pg/mL (0-100) Thyroid Stimulating Hormone (TSH) 0.92 uIU/mL (0.55-4.78) Urine Opiates Screen Neg (NEGATIVE) Urine Fentanyl Screen Neg (NEGATIVE) Urine Barbiturates Screen Neg (NEGATIVE) Urine Phencyclidine Screen Neg (NEGATIVE) Urine Amphetamines Screen Neg (NEGATIVE) Urine Benzodiazepines Screen Neg (NEGATIVE) Urine Cocaine Screen Neg (NEGATIVE) Urine Cannabinoids Screen Neg (NEGATIVE) Other Laboratory Tests 05/28/25 09:17 Brief Hx & Hospital Course: Singh Laboy is a 79-year-old male patient who presents to the ED via EMS with chief complaint of altered mental status. Patient was found to be unresponsive with a pulse, only tracking with eyes, nonverbal in specialized nursing facility ([facility]), prompting staff to call EMS. Per records, last time he was seen baseline was at 9:00 p.m. on 05/26/2025. Patient was in specialized nursing facility to obtain physical therapy sessions after being hospitalized due to symptomatic severe hyponatremia, discharge with home oxygen. Could not obtain review of systems due to clinical status. Obtain past medical history and HPI from and EMR. Past medical history: Hypertension, dyslipidemia, coronary artery disease status post CABG and PCI in 2019 (last echocardiogram on 04/2025 showed LVEF 55%, LAE, mild left ventricular hypertrophy), AAA status post EVAR ( believes it was treated in 2019), COPD with home oxygen requirement (2 L/min), chronic diarrhea Social history: 2019 CABG, PCI, EVAR Family history: Noncontributory Social history: Lives in [place] with (next of kin). Ex tobacco abuse (60 pack-year history of smoking) quit in 2019. Denies current tobacco, alcohol and other drug abuse Allergies: Denies Home medication: does not recall. Per EMR bumetanide, furosemide, metolazone, acetylcysteine, albuterol, atorvastatin 20 mg p.o. daily, lisinopril 20 mg p.o. daily, methylprednisolone 4 mg pack, metoprolol 50 mg p.o. daily, omeprazole 20 mg p.o. daily, terazosin 1 mg p.o. b.i.d. Brief hospital course: Metabolic encephalopathy secondary to hypovolemic hyponatremia associated with acute on chronic hypoxic respiratory failure secondary to aspiration pneumonia, hypokalemia, hypomagnesemia and dehydration, responding to oxygen therapy, empiric IV antibiotic (azithromycin and ceftriaxone), IV steroids, bronchodilators IV fluids (normal saline), replenishing electrolytes and holding all his diuretics (metolazone, Bumex and furosemide). Ruled out acute CVA after completed MRI and CT (does show old chronic infarcts). Patient responded favorably to medical management, inform patient and spouse to avoid diuretics. Ordered physical therapy to continue sessions of physical therapy in hospital, and ordered director social to arrange for discharge to SNF to continue his PT sessions. 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 Ordered multiple radiography which ruled out fractures of lower limbs. Completed abdomen and pelvis CT which ruled out pancreatitis, but evidence possible gastritis/gastric malignancy, to follow up as outpatient, indicated pantoprazole.. Patient hemodynamically stable, asymptomatic, in condition to be discharged to SNF to continue with PT sessions. 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 DIAGNOSIS Metabolic encephalopathy secondary to hyponatremia Hypovolemic hyponatremia Hypokalemia Hypomagnesemia Dehydration Ruled out acute CVA Acute on chronic hypoxic respiratory failure (on home oxygen 2 L/min) COPD exacerbation Aspiration pneumonia Chronic diastolic congestive heart failure (HFpEF, LVEF 55%) Coronary artery disease status post CABG and PCI History of AAA status post EVAR Unlikely pancreatitis Questionable gastritis/gastric malignancy Normocytic anemia Goals of care discussed with patient and for over 18 minutes: Full code status Discussed plan with Dr. Paul, patient and nurses. Physical Examination Patient lying in bed, in no acute distress General: Lucid, afebrile, mucosae are dry Cardiovascular: Normal S1 and S2. No murmurs, gallops or rubs Respiratory: Regular ventilation mechanics. Mild expiratory wheezing on right base. Abdomen: Soft, nontender, no organomegaly, normal bowel sounds MSK/skin: Mobilizes 4 limbs. Skin is dry and warm Neurological: Oriented in 3 spheres. No apparent motor no sensitive deficits. Pupils are isocoric and reactive Operations or Procedures CHEST RADIOGRAPH INDICATION: SOB TECHNIQUE: 1 view COMPARISON: XY CHEST PORTABLE on DOS: 05/02/25, XY CHEST PORTABLE on DOS: 05/02/25, XY CHEST XRAY 1 VIEW on DOS: 04/25/25, XY CHEST PORTABLE on DOS: 04/07/25 FINDINGS: Lines and Tubes: External leads. Lungs/Pleura: No focal consolidation, pleural effusion or pneumothorax. Similar interstitial opacities and calcified granulomas. Cardiomediastinum: Normal heart size. Post CABG change. Other: Uncomplicated sternotomy wires. IMPRESSION: 1. No acute cardiopulmonary abnormality. ATED BY: MASOOD ADAN MD DICTATED DATE/TIME: 05/27/25422 EXAM: CT HEAD WITHOUT CONTRAST INDICATION: ALOC TECHNIQUE: CT of the head without intravenous contrast. Radiation Dose : 1. Head: CT Dose: CTDI volume is 57.7 mGy. Dose-length product is 1137.09 mGy*cm The dose indicators for CT are the volume Computed Tomography (CT) Dose Index (CTDIvol) and the Dose Length Product (DLP), and are measured in units of mGy and mGy-cm, respectively. These indicators are not patient dose, but values generated from the CT scanner acquisition factors. The report includes radiation exposure data for exposures received during this examination. COMPARISON: MRI BRAIN HEAD WO CONTRAST on DOS: 05/03/25, CT HEAD WITHOUT CONTRAST on DOS: 05/02/25 FINDINGS: There is no evidence of acute intracranial hemorrhage, extra-axial collection, mass effect, midline shift, herniation or hydrocephalus. Chronic appearing bilateral thalamic lacunar infarcts. Increased prominence of the ventricles, sulci and cisterns consistent with sequelae of atrophic cortical volume loss. The vernon-white differentiation is intact. Moderate diffuse confluent periventricular and subcortical white matter hypoattenuation is nonspecific but may be related to small vessel ischemic disease. The visualized paranasal sinuses and mastoid air cells are clear. The surrounding soft tissues and osseous structures are unremarkable. IMPRESSION: 1. No acute intracranial abnormality. 2. Chronic appearing bilateral thalamic lacunar infarcts. 3. Chronic sequelae of microangiopathy and atrophic cortical volume loss. Radiation optimization: All CT scans at this facility use at least one of these dose optimization techniques: automated exposure control mA and/or kV adjustment per patient size (includes targeted exams where dose is matched to clinical indication) or iterative reconstruction. ATED BY: SHLOMO LUZ MD DICTATED DATE/TIME: 05/27/25424 EXAM DESCRIPTION: CT CT AB PEL WO CON-NO ORAL OR IV CLINICAL HISTORY: elevated lipase COMPARISON: None TECHNIQUE: CT abdomen and pelvis without IV contrast was performed. Coronal and sagittal MPR images were generated.CTDI/ DLP = 8.73 / 441.57 Dose reduction technique with one or more of the following methods was performed: Automated exposure control, adjustment of the mA and/or kV according to patient size, use of iterative reconstruction technique FINDINGS: Lower chest: Emphysema noted in the lung bases. Right basilar subsegmental atelectasis. Multivessel coronary artery disease. Liver: Homogenous in attenuation. . Biliary: Hyperdense material in the gallbladder likely representing excreted contrast. No gallbladder wall thickening. No biliary ductal dilatation. Pancreas: No fat stranding or focal lesion. Spleen: Normal in size.. Adrenal glands: No nodularity. Kidneys: No nephrolithiasis. No hydroureteronephrosis. Excreted contrast material in the uterus.. Bladder: Decompressed via Sanchez catheter. Excreted contrast material in the urinary bladder. Reproductive organs: Enlarged prostate gland. Bowel: Diffuse gastric wall thickening. Colonic diverticulosis without evidence of diverticulitis. . Peritoneum: No free fluid. No free air. Vessels: Aneurysmal bilateral common femoral arteries measuring 3.1 cm on the left and 2.7 cm on the right.r aneurysmal bilateral common iliac arteries measuring 3.3 cm on the right and 2.5 cm on the left. Aneurysmal infrarenal abdominal aorta measuring up to 4.1 cm status post endovascular stent repair. Severe atherosclerotic calcifications.. Lymph nodes: No suspicious lymph nodes. Soft tissues: Unremarkable. . Osseous structures: No acute fracture or subluxation. No suspicious osseous lesions. Degenerative changes of the visualized thoracolumbar spine. IMPRESSION: 1. Diffuse gastric wall thickening which may be due to gastritis or malignancy. Recommend further evaluation with endoscopy. 2. Colonic diverticulosis without evidence of diverticulitis. 3. Infrarenal abdominal aortic aneurysm measuring 4.1 cm status post endovascular stent repair. 4. 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 ATED BY: SHLOMO CORTES MD DICTATED DATE/TIME: 05/27/25901 CLINICAL HISTORY: SOB TECHNIQUE: CT of the chest was performed without contrast. This exam was performed according to our departmental dose optimization program. Up-to-date CT equipment and radiation dose reduction techniques are utilized as appropriate. WID: COMPARISON: XY CHEST PORTABLE on DOS: 05/27/25, XY CHEST PORTABLE on DOS: 05/02/25, US CHEST ULTRASOUND on DOS: 05/02/25, XY CHEST PORTABLE on DOS: 05/02/25, XY CHEST XRAY 1 VIEW on DOS: 04/25/25 FINDINGS: Lungs: There is extensive upper lobe predominant emphysema. There is minimal subpleural reticulation in the bilateral lower lobes. Calcified granulomas are noted. No consolidation. Saber sheath trachea. Cardiac: Coronary artery calcium with stenting. Cardiac chamber size is within normal limits. Vascular: Main pulmonary artery is normal atherosclerotic calcifications of the thoracic aorta and proximal great vessels. Partially imaged endovascular aortic stent graft within the upper abdomen. Lymph nodes: unremarkable Thoracic inlet: unremarkable Bones: Status post median sternotomy. Mild degenerative changes noted within the spine. Upper Abdomen: unremarkable IMPRESSION: Severe centrilobular emphysema with minimal interstitial lung fibrosis in the lower lobes. Status post median sternotomy with post CABG change Sequelae of old granulomatous disease ATED BY: SHAWN RIVERA MD DICTATED DATE/TIME: 05/27/25 1221 CLINICAL INDICATION: Rule out CVA. COMPARISON: CT HEAD WITHOUT CONTRAST on DOS: 05/27/25, MRI BRAIN HEAD WO CONTRAST on DOS: 05/03/25, CT HEAD WITHOUT CONTRAST on DOS: 05/02/25 TECHNIQUE: Multisequence multiplanar MRI images of the brain were obtained without contrast. FINDINGS: No acute infarct or hemorrhage. No mass or midline shift. Encephalomalacia in the anterior aspects of both frontal lobes, similar to the prior exam. Scattered areas of T2/FLAIR hyperintense signal in the periventricular and subcortical white matter are nonspecific, but most likely sequelae of chronic small vessel ischemic disease. Small chronic lacunar infarct in the right basal ganglia. Atrophic changes with dilation of the ventricles and widening of the sulci. Basal cisterns are patent. Cerebellum, brainstem, and midline structures are within normal limits. Mild mucosal thickening of the paranasal sinuses. Orbits are grossly unremarkable. IMPRESSION: 1. No evidence of acute intracranial abnormality. 2. Stable appearing Nonacute findings as described above. ATED BY: MARCIAL ALMODOVAR DO DICTATED DATE/TIME: 05/27/25 1346 EXAM: XY L FEMUR XRAY HISTORY: large lateral bruise. R/O fracture COMPARISON: None TECHNIQUE: AP and lateral views of the left femur were performed. FINDINGS: No evidence of fracture or other osseous abnormality about the left femur. IMPRESSION: 1. No acute fracture of the left femur. ATED BY: SHLOMO CORTES MD DICTATED DATE/TIME: 05/28/25 1247 CLINICAL INDICATION: top of foot bruise TECHNIQUE: 2 radiographic views of the right foot were obtained. COMPARISON: None FINDINGS/IMPRESSION: Soft tissue swelling is noted over the dorsum of the right foot over the distal metatarsals. No fractures or dislocations. ATED BY: KENZIE VALDIVIA Jr., DO DICTATED DATE/TIME: 05/28/25 1310 CLINICAL INDICATION: large bruise TECHNIQUE: 2 radiographic views of the right tibia and fibula were obtained. COMPARISON: None FINDINGS/IMPRESSION: No fractures or dislocations. Arterial calcifications superimposed over the posterior tibial plateau on the lateral film. If fracture is of clinical concern recommend CT. ATED BY: KENZIE VALDIVIA Jr., DO DICTATED DATE/TIME: 05/28/25 1308 Condition at Discharge: Stable Final Diagnosis/Problems List Metabolic encephalopathy secondary to hyponatremia Hypovolemic hyponatremia Hypokalemia Hypomagnesemia Dehydration Ruled out acute CVA Acute on chronic hypoxic respiratory failure (on home oxygen 2 L/min) COPD exacerbation Aspiration pneumonia Chronic diastolic congestive heart failure (HFpEF, LVEF 55%) Coronary artery disease status post CABG and PCI History of AAA status post EVAR Unlikely pancreatitis Questionable gastritis/gastric malignancy Normocytic anemia Discharge Disposition: Residential Facility Discharge Instruct/Medications Diet: Cardiac 2g Na,low cholest Activity: No Restrictions, As Tolerated Follow Up/Referral: PCP Nephrology Pulmonology Cardiology GI Medications: Per EMR Scheduled Acetylcysteine (Acetylcysteine), 1 ML IN QID, (Reported) Atorvastatin Calcium (Atorvastatin Calcium), 1 TAB PO DAILY, (Reported) Budesonide-Formoterol Fumarate (Budesonide/Formoterol Fum 160-4.5 Mcg/Act), 2 PUFF INH BID, (Reported) Bumetanide (Bumetanide), 1 TAB PO DAILY, (Reported) Furosemide (Furosemide), 1 TAB PO DAILY, (Reported) Lisinopril (Lisinopril), 1 TAB PO DAILY, (Reported) Methylprednisolone (Medrol Dosepak), MG PO UD, (Reported) Metoprolol Tartrate (Lopressor Tablet), 1 TAB PO BID, (Reported) Omeprazole (Omeprazole Dr), 1 CAP PO DAILY, (Reported) Terazosin Hcl (Terazosin Hcl), 1 CAP PO BID, (Reported) Miscellaneous Medications Albuterol Sulfate (Albuterol Sulfate Hfa), 108 MCG IN, (Reported) Budesonide-Formoterol Fumarate (Breyna 160-4.5 Mcg/Act), 1 AER IN, (Reported) Metolazone (Metolazone), 5 MG PO, (Reported) Discharge Statement: "Patient was advised to return to the ER or call 911 if any headaches, dizziness, shortness of breath, chest pain, abdominal pain, bleeding, fevers, or worsening of medical condition. Patient was counseled about treatment plan, medications, possible side effects, patientverbalized understanding. All questions were answered to the best of my ability. This discharge took greater then 30 minutes in planning, reviewing documentation, counseling the patient, and discussing with other team members." ASSESSMENT ASSESSMENT Assessment MEtabolic encephalopathy secondary to hyponatermia and Dehydration Visit Coding STANDARD RES Billing Provider: MJ PAUL MD Date of Service if different f: May 28, 2025 Common Visit Codes: 81731-RHI/OBS DISCH DAY >30min SHAHNAZ MARC RESIDENT May 28, 2025 13:55
== END 2025-05-28 19:58 | DRG 640 ==
LOC: ER 02:40 → OVERFLOW 05:18 → TELE-CENTR 11:04
PROVIDERS: ADMIT Internal Medicine Geriatric Medicine; ATTEND Internal Medicine Geriatric Medicine
DX: E87.1 Hypo-osmolality and hyponatremia (principal); G93.41 Metabolic encephalopathy; J69.0 Pneumonitis due to inhalation of food and vomit; J96.21 Acute and chronic respiratory failure with hypoxia; N39.0 Urinary tract infection, site not specified; I11.0 Hypertensive heart disease with heart failure; J44.9 Chronic obstructive pulmonary disease, unspecified; D64.9 Anemia, unspecified; J44.1 Chronic obstructive pulmonary disease with (acute) exacerbation; I50.32 Chronic diastolic (congestive) heart failure; Z20.822 Contact with and (suspected) exposure to COVID-19; D72.829 Elevated white blood cell count, unspecified; K29.70 Gastritis, unspecified, without bleeding; E86.1 Hypovolemia; I25.10 Atherosclerotic heart disease of native coronary artery without angina pectoris; E87.6 Hypokalemia; E83.42 Hypomagnesemia; E86.0 Dehydration; Z95.1 Presence of aortocoronary bypass graft
CPT/HCPCS: 36415; 36600; 70450; 70551; 71045; 71250; 73590; 73620; 74176; 80048; 80053; 80061; 80307; 80320; 81001; 82140; 82306; 82607; 82728; 82805; 83036; 83540; 83550; 83605; 83615; 83690; 83735; 83880; 84132; 84443; 84484; 85025; 85610; 85730; 87040; 87070; 87081; 87086; 87205; 87426; 87804; 93005; 94640; 97163; 99291; G0378; J2003; J2470; J3480